=== PATIENT | female | born 1955 | race Caucasian/White ===

== ENCOUNTER 2017-03-07 13:00 | Outpatient (RCR) | payer MEDICARE, SELFPAY ==
[2017-02-05 01:00] VITALS: BP 146/67; PULSE 80; RESP 16; TEMP 36.3; BMI 34.2
[2017-02-07 13:32] VITALS: BP 160/73; PULSE 79; RESP 18; TEMP 36; BMI 34.2
--- NOTE | 2017-02-07 15:49 | PCM.WC.PN ---
(1) PVD (peripheral vascular disease) Status: Chronic Current Visit: Yes Code(s): I73.9 - Peripheral vascular disease, unspecified (2) Diabetes, polyneuropathy Status: Chronic Current Visit: Yes Qualifiers: Diabetes mellitus type: type 2 Code(s): E11.42 - Type 2 diabetes mellitus with diabetic polyneuropathy (3) Delayed wound healing Status: Chronic Current Visit: Yes Code(s): T14.8 - Other injury of unspecified body region (4) Malnutrition Status: Chronic Current Visit: Yes Code(s): E46 - Unspecified protein-calorie malnutrition (5) Gangrene of toe of left foot Status: Resolved Current Visit: No Code(s): I96 - Gangrene, not elsewhere classified (6) Osteomyelitis of toe of left foot Status: Chronic Current Visit: Yes Code(s): M86.9 - Osteomyelitis, unspecified Type of Wound Date of Service: 02/07/17 Chief Complaint: Postoperative left foot History of Wound: This 62-year-old pleasant female who resides at [facility] follows up for an left second toe ulcer site that has healed status post fifth ray resection performed on the left foot. she denies fever, chill, nausea, vomiting, loss of appetite. She has loss of memory. Scheduled to follow-up with Dr. Chase on February 14. Progress of Wound: stable - Physical Exam Vital Signs Temp Pulse Resp BP 96.8 F L 79 18 160/73 H 02/07/17 13:32 02/07/17 13:32 02/07/17 13:32 02/07/17 13:32 General: Alert, Oriented x3, Cooperative Extremities: No cyanosis, Capillary Refill Less than 3 Seconds, No Calf Tenderness, Diminished Peripheral Pulses, Edema, - - There is post fifth ray resection left foot Skin: Incision - Well coapted With sutures in place. There is no necrosis or eschar formation or gangrene. There is no purulence, no maceration, no erythema, no streaking, no odor. The most proximal aspect of the wound is coapted however the distal 85% is not coapting when this tissue was gently mobilized, - - Her skin is hairless and atrophic. Her dorsal left second toe ulcer remains healed and there is full epithelialization noted. No new ulcers are noted today. Wound Measurements and Assessment WC - Nurse 1 - General Ulcer Measurement Start: 02/07/17 13:32 Freq: Status: Active Protocol: Activity Type Activity Date Activity User E-Sign Co-Sign Detail Recorded Client Recorded Date Recorded By Document 02/07/17 13:32 [facility] [id number] 02/07/17 13:50 [facility] 02/07/17 13:32 Wound Center Nurse 1 [Ulcer Assessment Protocol: WC.WD.LOC] #6 post op Left 5th toe s/p amputation -Combined with other wound No -Current Size (cm) - Length 0.1 -Current Size (cm) - Width 0.1 -Current Size (cm) - Depth 0.1 -Total Square Cm 0.01 -Date of Last Picture (Recall this 02/07/17 field) -Photo Taken Yes -Exudate Amt None Present (0 %) -Structure Exposed N/A -Texture (Kirstie-wound Skin Appearance) Localized Edema -Moisture (Kirstie-wound Skin Appearance Maceration ) Dry/Scaly -Color (Kirstie-wound Skin Appearance) Erythema -Temperature (Kirstie-wound Skin No Abnormality Appearance) (Pt Warm) -Tenderness on Palpation (Kirstie-wound Yes Skin Appearance) -Ulcer Cleansing Wound Cleanser -Foul Odor after Cleansing No -Anesthetic Used 5% Lidocaine Gel # 5- LT FOOT 2ND TOE ANTERIOR -Combined with other wound No -Current Size (cm) - Length 0 -Current Size (cm) - Width 0 -Current Size (cm) - Depth 0 -Total Square Cm 0 -Date of Last Picture (Recall this 02/07/17 field) -Photo Taken Yes -Epithelialization Large 67-100% PATRICIA - Nurse 2 - General Ulcer CM Notes Start: 02/07/17 13:32 Freq: Status: Active Protocol: Activity Type Activity Date Activity User E-Sign Co-Sign Detail Recorded Client Recorded Date Recorded By Document 02/07/17 14:08 [id number] 02/07/17 14:11 02/07/17 14:08 Wound Center Nurse 2 [Procedure/Treatment] #6 post op Left 5th toe s/p amputation -Time 14:09 -Correct Patient Yes -Correct Side, Site, Position Yes -Correct Procedure Yes -Procedure Performed Yes -Post Debridement Size (cm) - Length 0.1 -Post Debridement Size (cm) - Width 0.1 -Post Debridement Size (cm) - Depth 0.1 -Total Square Cm 0.01 -Wound/Ulcer Outcome Amputation -Ulcer Cleansing Rinsed/ Irrigated with Saline -Foul Odor after Cleansing No -Bioengineered Tissue No -Cetacaine [place] No -Bleeding Controlled with NA -Other no debridement today sutures intact -Treatment Response Procedure Tolerated Well # 5- LT FOOT 2ND TOE ANTERIOR -Time 14:09 -Correct Patient Yes -Correct Side, Site, Position Yes -Correct Procedure Yes -Procedure Performed Yes -Post Debridement Size (cm) - Length 0 -Post Debridement Size (cm) - Width 0 -Post Debridement Size (cm) - Depth 0 -Total Square Cm 0 -Wound/Ulcer Outcome Healed- Epithelialized -Ulcer Cleansing Rinsed/ Irrigated with Saline -Foul Odor after Cleansing No -Bioengineered Tissue No -Cetacaine [place] No -Bleeding Controlled with NA -Treatment Response Procedure Tolerated Well [See Physician Procedure note for Specifics] Pain Scale: 0-10 Numeric [Pain] -Is Patient Pain Free? Yes Musculoskeletal: No Tenderness to Palpation of Joints or Extremities, Muscle Wasting Neurological: - - Lack of epicritic sensation to light touch Psych/Mental Status: Normal Affect, Appropriate Debridement Note Post-Debridement Measurements/Treatment WC - Nurse 2 - General Ulcer CM Notes Start: 02/07/17 13:32 Freq: Status: Active Protocol: Activity Type Activity Date Activity User E-Sign Co-Sign Detail Recorded Client Recorded Date Recorded By Document 02/07/17 14:08 [id number] 02/07/17 14:11 02/07/17 14:08 Wound Center Nurse 2 #6 post op Left 5th toe s/p amputation -Time 14:09 -Correct Patient Yes -Correct Side, Site, Position Yes -Correct Procedure Yes -Procedure Performed Yes -Post Debridement Size (cm) - Length 0.1 -Post Debridement Size (cm) - Width 0.1 -Post Debridement Size (cm) - Depth 0.1 -Total Square Cm 0.01 -Wound/Ulcer Outcome Amputation -Ulcer Cleansing Rinsed/ Irrigated with Saline -Foul Odor after Cleansing No -Bioengineered Tissue No -Cetacaine [place] No -Bleeding Controlled with NA -Other no debridement today sutures intact -Treatment Response Procedure Tolerated Well # 5- LT FOOT 2ND TOE ANTERIOR -Time 14:09 -Correct Patient Yes -Correct Side, Site, Position Yes -Correct Procedure Yes -Procedure Performed Yes -Post Debridement Size (cm) - Length 0 -Post Debridement Size (cm) - Width 0 -Post Debridement Size (cm) - Depth 0 -Total Square Cm 0 -Wound/Ulcer Outcome Healed- Epithelialized -Ulcer Cleansing Rinsed/ Irrigated with Saline -Foul Odor after Cleansing No -Bioengineered Tissue No -Cetacaine [place] No -Bleeding Controlled with NA -Treatment Response Procedure Tolerated Well Pain Scale: 0-10 Numeric Is Patient Pain Free? Yes No debridement was completed today - This is a postoperative evaluation today Assessment/Plan Active Problems PVD (peripheral vascular disease) (Chronic) Diabetes, polyneuropathy (Chronic) Delayed wound healing (Chronic) Malnutrition (Chronic) Osteomyelitis of toe of left foot (Chronic) Assessment: Status post left fifth ray resection secondary to gangrene and cellulitis. Osteomyelitis at fifth ray resection site clearance fragment. Left second toe ulcer, remains healed. Cellulitis resolving. Diabetes with neuropathy. Hallux limitus right foot. Hammertoes left foot. Delayed healing. Malnutrition. peripheral vascular disease Plan: I reviewed her care plan today. To change the left postoperative fifth ray resection site dressing daily with Betadine soaked gauze. Written orders were provided. To heel weight-bear with surgical shoe to keep pressure off the surgical site to facilitate healing. . Noninvasive arterial vascular studies were ordered and these results were reviewed. She has noncompressible vessels and an ETSRELLA value was not calculated. Her toe brachial index in the right lower extremity was 0.45 which is abnormal and contributing to her delayed healing. A referral to vascular surgeon, Dr. Chase was provided and a doppler was performed. There is lack of healing at the amputation site over the past 2 weeks. It is not infected or necessarily deteriorating however the soft tissue is not coapted. Therefore I do recommend vascular intervention if there is a procedure available. She is scheduled to follow-up with Dr. Chase on February 14, 2017 which this will be further discussed and considered. . To continue nutritional supplementation twice daily to optimize healing. To control glucose levels to optimize healing. She is on Levaquin, 500 mg tablet daily. To continue at this time given her positive pathological clearance fragment for osteomyelitis. Interestingly, her clearance fragment from microbiology did not demonstrate growth. Her previous cultures from her initial surgery grew staph, strep, and anaerobic cocci. Infectious disease is also participating in the management of her care and is scheduled to see her February 21, 2017. Her care plan will be discussed prior to that date to discuss continuation of the levofloxacin or if IV antibiotics are more appropriate given her positive clearance fragment. I also reviewed this plan with her nurse at [facility]. To return to clinic in [address] Chase in 2 weeks at the wound center to see Dr. Herrera and infectious disease. To call sooner if there are any questions or concerns.
--- NOTE | 2017-02-07 16:04 | PN.PCM_ITS ---
(1) PVD (peripheral vascular disease) Status: Chronic Current Visit: Yes Code(s): I73.9 - Peripheral vascular disease, unspecified (2) Diabetes, polyneuropathy Status: Chronic Current Visit: Yes Qualifiers: Diabetes mellitus type: type 2 Code(s): E11.42 - Type 2 diabetes mellitus with diabetic polyneuropathy (3) Delayed wound healing Status: Chronic Current Visit: Yes Code(s): T14.8 - Other injury of unspecified body region (4) Malnutrition Status: Chronic Current Visit: Yes Code(s): E46 - Unspecified protein- calorie malnutrition (5) Gangrene of toe of left foot Status: Resolved Current Visit: No Code(s): I96 - Gangrene, not elsewhere classified (6) Osteomyelitis of toe of left foot Status: Chronic Current Visit: Yes Code(s): M86.9 - Osteomyelitis, unspecified Type of Wound Date of Service: 02/07/17 Chief Complaint: Postoperative left foot History of Wound: This 62-year-old pleasant female who resides at [facility] follows up for an left second toe ulcer site that has healed status post fifth ray resection performed on the left foot. she denies fever, chill, nausea, vomiting, loss of appetite. She has loss of memory. Scheduled to follow- up with Dr. Chase on February 14. Progress of Wound: stable - Physical Exam Vital Signs Temp Pulse Resp BP 96.8 F L 79 18 160/73 H 02/07/17 13:32 02/07/17 13:32 02/07/17 13:32 02/07/17 13:32 General: Alert, Oriented x3, Cooperative Extremities: No cyanosis, Capillary Refill Less than 3 Seconds, No Calf Tenderness, Diminished Peripheral Pulses, Edema, - - There is post fifth ray resection left foot Skin: Incision - Well coapted With sutures in place. There is no necrosis or eschar formation or gangrene. There is no purulence, no maceration, no erythema , no streaking, no odor. The most proximal aspect of the wound is coapted however the distal 85% is not coapting when this tissue was gently mobilized, - - Her skin is hairless and atrophic. Her dorsal left second toe ulcer remains healed and there is full epithelialization noted. No new ulcers are noted today. Wound Measurements and Assessment WC - Nurse 1 - General Ulcer Measurement Start: 02/07/17 13:32 Freq: Status: Active Protocol: Activity Type Activity Date Activity User E-Sign Co-Sign Detail Recorded Client Recorded Date Recorded By Document 02/07/17 13:32 [facility] [id number] 02/07/17 13:50 [facility] 02/07/17 13:32 Wound Center Nurse 1 [Ulcer Assessment Protocol: WC.WD.LOC] #6 post op Left 5th toe s/p amputation -Combined with other wound No -Current Size (cm) - Length 0.1 -Current Size (cm) - Width 0.1 -Current Size (cm) - Depth 0.1 -Total Square Cm 0.01 -Date of Last Picture (Recall this 02/07/17 field) -Photo Taken Yes -Exudate Amt None Present (0 %) -Structure Exposed N/A -Texture (Kirstie-wound Skin Appearance) Localized Edema -Moisture (Kirstie-wound Skin Appearance Maceration ) Dry/Scaly -Color (Kirstie-wound Skin Appearance) Erythema -Temperature (Kirstie-wound Skin No Abnormality Appearance) (Pt Warm) -Tenderness on Palpation (Kirstie-wound Yes Skin Appearance) -Ulcer Cleansing Wound Cleanser -Foul Odor after Cleansing No -Anesthetic Used 5% Lidocaine Gel # 5- LT FOOT 2ND TOE ANTERIOR -Combined with other wound No -Current Size (cm) - Length 0 -Current Size (cm) - Width 0 -Current Size (cm) - Depth 0 -Total Square Cm 0 -Date of Last Picture (Recall this 02/07/17 field) -Photo Taken Yes -Epithelialization Large 67-100% PATRICIA - Nurse 2 - General Ulcer CM Notes Start: 02/07/17 13:32 Freq: Status: Active Protocol: Activity Type Activity Date Activity User E-Sign Co-Sign Detail Recorded Client Recorded Date Recorded By Document 02/07/17 14:08 [id number] 02/07/17 14:11 02/07/17 14:08 Wound Center Nurse 2 [Procedure/Treatment] #6 post op Left 5th toe s/p amputation -Time 14:09 -Correct Patient Yes -Correct Side, Site, Position Yes -Correct Procedure Yes -Procedure Performed Yes -Post Debridement Size (cm) - Length 0.1 -Post Debridement Size (cm) - Width 0.1 -Post Debridement Size (cm) - Depth 0.1 -Total Square Cm 0.01 -Wound/Ulcer Outcome Amputation -Ulcer Cleansing Rinsed/ Irrigated with Saline -Foul Odor after Cleansing No -Bioengineered Tissue No -Cetacaine [place] No -Bleeding Controlled with NA -Other no debridement today sutures intact -Treatment Response Procedure Tolerated Well # 5- LT FOOT 2ND TOE ANTERIOR -Time 14:09 -Correct Patient Yes -Correct Side, Site, Position Yes -Correct Procedure Yes -Procedure Performed Yes -Post Debridement Size (cm) - Length 0 -Post Debridement Size (cm) - Width 0 -Post Debridement Size (cm) - Depth 0 -Total Square Cm 0 -Wound/Ulcer Outcome Healed- Epithelialized -Ulcer Cleansing Rinsed/ Irrigated with Saline -Foul Odor after Cleansing No -Bioengineered Tissue No -Cetacaine [place] No -Bleeding Controlled with NA -Treatment Response Procedure Tolerated Well [See Physician Procedure note for Specifics] Pain Scale: 0-10 Numeric [Pain] -Is Patient Pain Free? Yes Musculoskeletal: No Tenderness to Palpation of Joints or Extremities, Muscle Wasting Neurological: - - Lack of epicritic sensation to light touch Psych/Mental Status: Normal Affect, Appropriate Debridement Note Post-Debridement Measurements/Treatment WC - Nurse 2 - General Ulcer CM Notes Start: 02/07/17 13:32 Freq: Status: Active Protocol: Activity Type Activity Date Activity User E-Sign Co-Sign Detail Recorded Client Recorded Date Recorded By Document 02/07/17 14:08 [id number] 02/07/17 14:11 02/07/17 14:08 Wound Center Nurse 2 #6 post op Left 5th toe s/p amputation -Time 14:09 -Correct Patient Yes -Correct Side, Site, Position Yes -Correct Procedure Yes -Procedure Performed Yes -Post Debridement Size (cm) - Length 0.1 -Post Debridement Size (cm) - Width 0.1 -Post Debridement Size (cm) - Depth 0.1 -Total Square Cm 0.01 -Wound/Ulcer Outcome Amputation -Ulcer Cleansing Rinsed/ Irrigated with Saline -Foul Odor after Cleansing No -Bioengineered Tissue No -Cetacaine [place] No -Bleeding Controlled with NA -Other no debridement today sutures intact -Treatment Response Procedure Tolerated Well # 5- LT FOOT 2ND TOE ANTERIOR -Time 14:09 -Correct Patient Yes -Correct Side, Site, Position Yes -Correct Procedure Yes -Procedure Performed Yes -Post Debridement Size (cm) - Length 0 -Post Debridement Size (cm) - Width 0 -Post Debridement Size (cm) - Depth 0 -Total Square Cm 0 -Wound/Ulcer Outcome Healed- Epithelialized -Ulcer Cleansing Rinsed/ Irrigated with Saline -Foul Odor after Cleansing No -Bioengineered Tissue No -Cetacaine [place] No -Bleeding Controlled with NA -Treatment Response Procedure Tolerated Well Pain Scale: 0-10 Numeric Is Patient Pain Free? Yes No debridement was completed today - This is a postoperative evaluation today Assessment/Plan Active Problems PVD (peripheral vascular disease) (Chronic) Diabetes, polyneuropathy (Chronic) Delayed wound healing (Chronic) Malnutrition (Chronic) Osteomyelitis of toe of left foot (Chronic) Assessment: Status post left fifth ray resection secondary to gangrene and cellulitis. Osteomyelitis at fifth ray resection site clearance fragment. Left second toe ulcer, remains healed. Cellulitis resolving. Diabetes with neuropathy. Hallux limitus right foot. Hammertoes left foot. Delayed healing. Malnutrition. peripheral vascular disease Plan: I reviewed her care plan today. To change the left postoperative fifth ray resection site dressing daily with Betadine soaked gauze. Written orders were provided. To heel weight-bear with surgical shoe to keep pressure off the surgical site to facilitate healing. . Noninvasive arterial vascular studies were ordered and these results were reviewed. She has noncompressible vessels and an ESTRELLA value was not calculated. Her toe brachial index in the right lower extremity was 0.45 which is abnormal and contributing to her delayed healing. A referral to vascular surgeon, Dr. Chase was provided and a doppler was performed. There is lack of healing at the amputation site over the past 2 weeks. It is not infected or necessarily deteriorating however the soft tissue is not coapted. Therefore I do recommend vascular intervention if there is a procedure available. She is scheduled to follow-up with Dr. Chase on February 14, 2017 which this will be further discussed and considered. . To continue nutritional supplementation twice daily to optimize healing. To control glucose levels to optimize healing. She is on Levaquin, 500 mg tablet daily. To continue at this time given her positive pathological clearance fragment for osteomyelitis. Interestingly, her clearance fragment from microbiology did not demonstrate growth. Her previous cultures from her initial surgery grew staph, strep, and anaerobic cocci. Infectious disease is also participating in the management of her care and is scheduled to see her February 21, 2017. Her care plan will be discussed prior to that date to discuss continuation of the levofloxacin or if IV antibiotics are more appropriate given her positive clearance fragment. I also reviewed this plan with her nurse at [facility]. To return to clinic in [address] Chase in 2 weeks at the wound center to see Dr. Herrera and infectious disease. To call sooner if there are any questions or concerns.
[2017-02-21 09:39] VITALS: BP 146/77; PULSE 65; RESP 16; TEMP 35.4; BMI 34.2
--- NOTE | 2017-02-21 10:26 | PCM.PN.ID ---
Subjective: Feeling well, foot healing with no redness/drainage/swelling. Tolerating po levaquin with no fever, n/v/d or new neuropathy. - Physical Exam General: Alert, Cooperative Lungs: Clear to auscultation, Normal air movement Cardiovascular: Regular rate, Regular Rhythm Abdomen: Soft, Non Tender, Non-Distended Skin: No rashes, Incision - L foot incision healing with no sign of inflammation Vital Signs Temp Pulse Resp BP 95.7 F L 65 16 146/77 H 02/21/17 09:39 02/21/17 09:39 02/21/17 09:39 02/21/17 09:39 Oxygen Delivery Method Room Air Body Mass Index (BMI) 34.2 Finger Stick Blood Glucose 390 Route of nutrition/ use of supplements: [] Nutritional Intake: [] IV Site: [] Allen Catheter: [] - Assessment/Plan Antibiotics: [] Assessment/Plan: [] L foot osteo - clearance fragment (+) for osteo. Surg cx with MSSA, GBS, and anaerobe. On levaquin for 6 week course, has two weeks left. Will check bmp, cbc, lft, and esr for routine monitoring; wrote rx for lab work and gave it to her to be done at [facility]. Thank you, will follow as needed, d/w Dr. Herrera.
--- NOTE | 2017-02-21 14:07 | PCM.WC.PN ---
(1) Chronic ulcer of left foot with fat layer exposed Status: Chronic Current Visit: Yes Code(s): L97.522 - Non-pressure chronic ulcer of other part of left foot with fat layer exposed (2) PVD (peripheral vascular disease) Status: Chronic Current Visit: Yes Code(s): I73.9 - Peripheral vascular disease, unspecified (3) Diabetes, polyneuropathy Status: Chronic Current Visit: Yes Qualifiers: Diabetes mellitus type: type 2 Qualified Code(s): E11.42 - Type 2 diabetes mellitus with diabetic polyneuropathy Code(s): E11.42 - Type 2 diabetes mellitus with diabetic polyneuropathy (4) Delayed wound healing Status: Chronic Current Visit: Yes Code(s): T14.8 - Other injury of unspecified body region (5) Malnutrition Status: Chronic Current Visit: Yes Code(s): E46 - Unspecified protein-calorie malnutrition (6) Osteomyelitis of toe of left foot Status: Chronic Current Visit: Yes Code(s): M86.9 - Osteomyelitis, unspecified Type of Wound Date of Service: 02/21/17 Chief Complaint: Postoperative left foot and wound History of Wound: This 62-year-old pleasant female who resides at [facility] post fifth ray resection performed on the left foot. she denies fever, chill, nausea, vomiting, loss of appetite. She has loss of memory. She followed up with vascular surgeon, Dr. Chase, and February 14 and does not remember her care plan. She denies redness, pain, odor of the left foot. Swelling of her right great toe is slightly decreased since last week and she obtained an x-[facility]. Infectious disease will see her a as well due to her positive pathology clearance fragment from her recent fifth ray resection surgery. She is already been on 4 weeks of oral antibiotics. Progress of Wound: Improving - Physical Exam Vital Signs Temp Pulse Resp BP 95.7 F L 65 16 146/77 H 02/21/17 09:39 02/21/17 09:39 02/21/17 09:39 02/21/17 09:39 General: Alert, Oriented x3, Cooperative Extremities: No cyanosis, Capillary Refill Less than 3 Seconds - Left foot digits 1, 2, 3, 4 and right foot 1, 2, 3, 4, 5, No Calf Tenderness - Negative Evelina and [place] sign bilateral, Diminished Peripheral Pulses, Edema - Decreased left foot Skin: Ulcer/ Wound - Sutures removed from surgical site with skin discontinuity at the distal aspect with fibrous base. No probe to bone, no purulence, no erythema, no streaking, no odor, no eschar. Her skin is hairless and atrophic bilateral. There is no open lesion to the right foot and the erythema and edema is decreased to the right hallux. Wound Measurements and Assessment WC - Nurse 1 - General Ulcer Measurement Start: 02/07/17 13:32 Freq: Status: Active Protocol: Activity Type Activity Date Activity User E-Sign Co-Sign Detail Recorded Client Recorded Date Recorded By Document 02/21/17 09:39 TRISTA [id number] 02/21/17 09:42 DL 02/21/17 09:39 Wound Center Nurse 1 [Ulcer Assessment Protocol: WC.WD.LOC] #6 post op Left 5th toe s/p amputation -Combined with other wound No -Current Size (cm) - Length 0.1 -Current Size (cm) - Width 0.1 -Current Size (cm) - Depth 0.1 -Total Square Cm 0.01 -Exudate Amt None Present (0 %) -Moisture (Kirstie-wound Skin Appearance Dry/Scaly ) -Temperature (Kirstie-wound Skin No Abnormality Appearance) (Pt Warm) -Tenderness on Palpation (Kirstie-wound No Skin Appearance) -Ulcer Cleansing Rinsed/ Irrigated with Saline -Foul Odor after Cleansing No WC - Nurse 2 - General Ulcer CM Notes Start: 02/07/17 13:32 Freq: Status: Active Protocol: Activity Type Activity Date Activity User E-Sign Co-Sign Detail Recorded Client Recorded Date Recorded By Document 02/21/17 10:32 KATIA [id number] 02/21/17 10:33 02/21/17 10:32 Wound Center Nurse 2 [Procedure/Treatment] -Time 10:33 -Correct Patient Yes -Correct Side, Site, Position Yes -Correct Procedure Yes -Procedure Performed Yes -Type of Procedure Debridement -Clinical Debridement Subcutaneous -Post Debridement Size (cm) - Length 0.8 -Post Debridement Size (cm) - Width 0.2 -Post Debridement Size (cm) - Depth 0.2 -Total Square Cm 0.16 -Wound/Ulcer Outcome Not Healed -Ulcer Cleansing Rinsed/ Irrigated with Saline -Foul Odor after Cleansing No -Bioengineered Tissue No -Cetacaine [place] No -Bleeding Controlled with Pressure -Treatment Response Procedure Tolerated Well [See Physician Procedure note for Specifics] Pain Scale: 0-10 Numeric [Pain] -Is Patient Pain Free? Yes Musculoskeletal: No Tenderness to Palpation of Joints or Extremities, Muscle Wasting, - - No pain to palpate right hallux. No pain to palpate fifth ray resection left foot site Neurological: - - Lack of epicritic sensation light touch bilateral lower extremities Psych/Mental Status: Normal Affect, Appropriate Debridement Note Post-Debridement Measurements/Treatment WC - Nurse 2 - General Ulcer CM Notes Start: 02/07/17 13:32 Freq: Status: Active Protocol: Activity Type Activity Date Activity User E-Sign Co-Sign Detail Recorded Client Recorded Date Recorded By Document 02/07/17 14:08 [id number] 02/07/17 14:11 TM Document 02/21/17 10:32 [id number] 02/21/17 10:33 02/07/17 02/21/17 14:08 10:32 Wound Center Nurse 2 #6 post op Left 5th toe s/p amputation -Time 14:09 10:33 -Correct Patient Yes Yes -Correct Side, Site, Position Yes Yes -Correct Procedure Yes Yes -Procedure Performed Yes Yes -Type of Procedure Debridement -Clinical Debridement Subcutaneous -Post Debridement Size (cm) - Length 0.1 0.8 -Post Debridement Size (cm) - Width 0.1 0.2 -Post Debridement Size (cm) - Depth 0.1 0.2 -Total Square Cm 0.01 0.16 -Wound/Ulcer Outcome Amputation Not Healed -Ulcer Cleansing Rinsed/ Rinsed/ Irrigated with Irrigated with Saline Saline -Foul Odor after Cleansing No No -Bioengineered Tissue No No -Cetacaine [place] No No -Bleeding Controlled with NA Pressure -Other no debridement today sutures intact -Treatment Response Procedure Procedure Tolerated Well Tolerated Well # 5- LT FOOT 2ND TOE ANTERIOR -Time 14:09 -Correct Patient Yes -Correct Side, Site, Position Yes -Correct Procedure Yes -Procedure Performed Yes -Post Debridement Size (cm) - Length 0 -Post Debridement Size (cm) - Width 0 -Post Debridement Size (cm) - Depth 0 -Total Square Cm 0 -Wound/Ulcer Outcome Healed- Epithelialized -Ulcer Cleansing Rinsed/ Irrigated with Saline -Foul Odor after Cleansing No -Bioengineered Tissue No -Cetacaine [place] No -Bleeding Controlled with NA -Treatment Response Procedure Tolerated Well Pain Scale: 0-10 Numeric Is Patient Pain Free? Yes Yes Wound debrided: Distal fifth ray resection site Laterality: Left Wound Grade/Stage: Grade 3 Type of Debridement: Excisional debridement Anesthesia Used: 4% Lidocaine Solution Depth: in the subcutaneous layer Percentage of wound debrided: 100 Instrument Used: #15 blade Tissue Removed: biofilm, slough, fibrous, devitalized subcutaneous Severity: Fat Layer Exposed Amount of bleeding with debridement: Mild Bleeding Controlled with: Pressure Patient tolerated procedure well Assessment/Plan Active Problems PVD (peripheral vascular disease) (Chronic) Diabetes, polyneuropathy (Chronic) Delayed wound healing (Chronic) Malnutrition (Chronic) Osteomyelitis of toe of left foot (Chronic) Chronic ulcer of left foot with fat layer exposed (Chronic) Assessment: Status post left fifth ray resection secondary to gangrene and cellulitis. Osteomyelitis at fifth ray resection site clearance fragment. Ulcer with fat layer exposed left foot. Right hallux interphalangeal joint fragmentation; possible osteomyelitis versus other traumatic injury. Cellulitis resolving bilateral. Diabetes with neuropathy. Hallux limitus right foot. Hammertoes left foot. Delayed healing. Malnutrition. peripheral vascular disease Plan: I reviewed her care plan today. Debridement was performed as noted in the clinical panel nursing note. To change the left postoperative fifth ray resection site dressing daily with Santyl applied to the open distal aspect. The last suture was removed today and Steri-Strips were placed. Written orders were provided. To heel weight-bear with surgical shoe to keep pressure off the surgical site to facilitate healing. . Noninvasive arterial vascular studies were ordered and these results were reviewed. She has noncompressible vessels and an ESTRELLA value was not calculated. Her toe brachial index in the right lower extremity was 0.45 which is abnormal and contributing to her delayed healing. A referral to vascular surgeon, Dr. Chase was provided and a doppler was performed. She is demonstrating some delayed healing and I have requested Dr. Chase's most recent office visit note. He has contacted me earlier this week and plans to follow in 6 months. If there is a status change prior to that time, an angio will be considered. . To continue nutritional supplementation twice daily to optimize healing. To control glucose levels to optimize healing. She is on Levaquin, 500 mg tablet daily. To continue at this time given her positive pathological clearance fragment for osteomyelitis. She was also seen by infectious disease, Dr. Timmons, who recommend she complete a 6 week course of her antibiotic. Repeat labs were ordered including CBC, liver enzymes, ESR, C reactive protein. I reviewed her right foot x-ray results with her today as well. She understands there is some fragmentation by her hallux interphalangeal joint which could be a result of a trauma or osteomyelitis. She understands the oral antibiotics she is taking may help with this site as well. To continue with stiff rigid supportive shoes to avoid stress to this joint. She understands a bone biopsy, debridement, excision of the fragment will be considered if her status changes. However at this time she is stable and she is demonstrating clinical improvement and I do not recommend treating a new wound or surgical site at this time due to her peripheral vascular disease and history of delayed healing. She understands and answered all of her questions. This site will be monitored. To return to the wound care center clinic in 1 week. To call sooner if there are any questions or concerns.
[2017-02-28 13:11] VITALS: BP 140/70; PULSE 69; RESP 18; TEMP 35.8; BMI 34.2
--- NOTE | 2017-02-28 23:23 | PCM.WC.PN ---
(1) Chronic ulcer of left foot with fat layer exposed Status: Chronic Code(s): L97.522 - Non-pressure chronic ulcer of other part of left foot with fat layer exposed (2) PVD (peripheral vascular disease) Status: Chronic Code(s): I73.9 - Peripheral vascular disease, unspecified (3) Diabetes, polyneuropathy Status: Chronic Qualifiers: Diabetes mellitus type: type 2 Qualified Code(s): E11.42 - Type 2 diabetes mellitus with diabetic polyneuropathy Code(s): E11.42 - Type 2 diabetes mellitus with diabetic polyneuropathy (4) Delayed wound healing Status: Chronic Code(s): T14.8 - Other injury of unspecified body region (5) Malnutrition Status: Chronic Code(s): E46 - Unspecified protein-calorie malnutrition (6) Osteomyelitis of toe of left foot Status: Chronic Code(s): M86.9 - Osteomyelitis, unspecified Type of Wound Date of Service: 03/03/17 Chief Complaint: Postoperative left foot and wound History of Wound: This 62-year-old pleasant female who resides at [facility] post fifth ray resection performed on the left foot. she denies fever, chill, nausea, vomiting, loss of appetite. She has loss of memory. She followed up with vascular surgeon, Dr. Chase, and February 14 and does not remember her care plan. She denies redness, pain, odor of the left foot. Progress of Wound: Improving - Physical Exam Vital Signs Temp Pulse Resp BP 96.4 F L 69 18 140/70 H 02/28/17 13:11 02/28/17 13:11 02/28/17 13:11 02/28/17 13:11 General: Alert, Oriented x3, Cooperative Extremities: No cyanosis, Capillary Refill Less than 3 Seconds, No Calf Tenderness, Diminished Peripheral Pulses, Edema Skin: Ulcer/ Wound - no purulence, no erythema, no odor, no streaking, no infection. atrophic skin noted Wound Measurements and Assessment WC - Nurse 1 - General Ulcer Measurement Start: 02/07/17 13:32 Freq: Status: Active Protocol: Activity Type Activity Date Activity User E-Sign Co-Sign Detail Recorded Client Recorded Date Recorded By Document 02/28/17 13:11 [facility] [id number] 02/28/17 13:18 [facility] 02/28/17 13:11 Wound Center Nurse 1 [Ulcer Assessment Protocol: WC.WD.LOC] #6 post op Left 5th toe s/p amputation -Combined with other wound No -Current Size (cm) - Length 0.4 -Current Size (cm) - Width 0.5 -Current Size (cm) - Depth 0.5 -Total Square Cm 0.20 -Photo Taken No -Tunneling No -Undermining/Tunneling No -Exudate Amt Small (1-33%) -Exudate Type Serosanguineous -Wound Margin Distinct, Outline Attached -Granulation Amt None Present (0 %) -Slough/Fibrin Yes -Necrosis Amt Large (67-100%) -Necrotic Tissue Type Adherent Slough -Texture (Kirstie-wound Skin Appearance) Scarring -Moisture (Kirstie-wound Skin Appearance Assessed ) -Color (Kirstie-wound Skin Appearance) Erythema -Temperature (Kirstie-wound Skin No Abnormality Appearance) (Pt Warm) -Tenderness on Palpation (Kirstie-wound No Skin Appearance) -Ulcer Cleansing Rinsed/ Irrigated with Saline -Foul Odor after Cleansing No -Anesthetic Used 5% Lidocaine Gel [Edema Assessment] -Lower Limb Edema Present Yes -Left Calf (cm) 34.7 -Left Ankle (cm) 20.6 - Nurse 2 - General Ulcer CM Notes Start: 02/07/17 13:32 Freq: Status: Active Protocol: Activity Type Activity Date Activity User E-Sign Co-Sign Detail Recorded Client Recorded Date Recorded By Document 02/28/17 13:36 KATIA [id number] 02/28/17 13:36 KATIA 02/28/17 13:36 Wound Center Nurse 2 [Procedure/Treatment] #6 post op Left 5th toe s/p amputation -Time 13:36 -Correct Patient Yes -Correct Side, Site, Position Yes -Correct Procedure Yes -Procedure Performed Yes -Type of Procedure Debridement -Clinical Debridement Subcutaneous -Post Debridement Size (cm) - Length 0.5 -Post Debridement Size (cm) - Width 0.5 -Post Debridement Size (cm) - Depth 0.5 -Total Square Cm 0.25 -Wound/Ulcer Outcome Not Healed -Ulcer Cleansing Rinsed/ Irrigated with Saline -Foul Odor after Cleansing No -Bioengineered Tissue No -Cetacaine [place] No -Bleeding Controlled with Pressure -Treatment Response Procedure Tolerated Well [See Physician Procedure note for Specifics] Pain Scale: 0-10 Numeric [Pain] -Is Patient Pain Free? Yes Musculoskeletal: Muscle Wasting, - - fifth ray resection left foot Neurological: - - lack of epicritic sensation via light touch noted Psych/Mental Status: Normal Affect, Appropriate Debridement Note Post-Debridement Measurements/Treatment WC - Nurse 2 - General Ulcer CM Notes Start: 02/07/17 13:32 Freq: Status: Active Protocol: Activity Type Activity Date Activity User E-Sign Co-Sign Detail Recorded Client Recorded Date Recorded By Document 02/07/17 14:08 [id number] 02/07/17 14:11 Document 02/21/17 10:32 [id number] 02/21/17 10:33 Document 02/28/17 13:36 [id number] 02/28/17 13:36 02/07/17 02/21/17 02/28/17 14:08 10:32 13:36 Wound Center Nurse 2 #6 post op Left 5th toe s/p amputation -Time 14:09 10:33 13:36 -Correct Patient Yes Yes Yes -Correct Side, Site, Position Yes Yes Yes -Correct Procedure Yes Yes Yes -Procedure Performed Yes Yes Yes -Type of Procedure Debridement Debridement -Clinical Debridement Subcutaneous Subcutaneous -Post Debridement Size (cm) - Length 0.1 0.8 0.5 -Post Debridement Size (cm) - Width 0.1 0.2 0.5 -Post Debridement Size (cm) - Depth 0.1 0.2 0.5 -Total Square Cm 0.01 0.16 0.25 -Wound/Ulcer Outcome Amputation Not Healed Not Healed -Ulcer Cleansing Rinsed/ Rinsed/ Rinsed/ Irrigated with Irrigated with Irrigated with Saline Saline Saline -Foul Odor after Cleansing No No No -Bioengineered Tissue No No No -Cetacaine [place] No No No -Bleeding Controlled with NA Pressure Pressure -Other no debridement today sutures intact -Treatment Response Procedure Procedure Procedure Tolerated Well Tolerated Well Tolerated Well # 5- LT FOOT 2ND TOE ANTERIOR -Time 14:09 -Correct Patient Yes -Correct Side, Site, Position Yes -Correct Procedure Yes -Procedure Performed Yes -Post Debridement Size (cm) - Length 0 -Post Debridement Size (cm) - Width 0 -Post Debridement Size (cm) - Depth 0 -Total Square Cm 0 -Wound/Ulcer Outcome Healed- Epithelialized -Ulcer Cleansing Rinsed/ Irrigated with Saline -Foul Odor after Cleansing No -Bioengineered Tissue No -Cetacaine [place] No -Bleeding Controlled with NA -Treatment Response Procedure Tolerated Well Pain Scale: 0-10 Numeric Is Patient Pain Free? Yes Yes Yes Wound debrided: distal lateral foot Laterality: Left Wound Grade/Stage: grade 1, previous surgical site Type of Debridement: Excisional debridement Anesthesia Used: 4% Lidocaine Solution Depth: in the subcutaneous layer Percentage of wound debrided: 100 Instrument Used: #15 blade Tissue Removed: Fibrous, devitalized subcutaneous, biofilm, slough Severity: Fat Layer Exposed Amount of bleeding with debridement: Mild Bleeding Controlled with: Pressure Patient tolerated procedure well Assessment/Plan Assessment: wound left foot fat exposed. Cellulitis resolving bilateral. Diabetes with neuropathy. Hallux limitus right foot. Hammertoes left foot. Delayed healing. Malnutrition. peripheral vascular disease Plan: I reviewed her care plan today. Debridement was performed as noted in the clinical panel nursing note. To change the left postoperative fifth ray resection site dressing daily with Santyl applied to the open distal aspect. The last suture was removed today and Steri-Strips were placed. Written orders were provided. To heel weight-bear with surgical shoe to keep pressure off the surgical site to facilitate healing. . Noninvasive arterial vascular studies were ordered and these results were reviewed. She has noncompressible vessels and an ESTRELLA value was not calculated. Her toe brachial index in the right lower extremity was 0.45 which is abnormal and contributing to her delayed healing. A referral to vascular surgeon, Dr. Chase was provided and a doppler was performed. She is demonstrating some delayed healing and I have requested Dr. Chase's most recent office visit note. He has contacted me earlier this week and plans to follow in 6 months. If there is a status change prior to that time, an angio will be considered. . To continue nutritional supplementation twice daily to optimize healing. To control glucose levels to optimize healing. She is on Levaquin, 500 mg tablet daily. To continue at this time given her positive pathological clearance fragment for osteomyelitis. She was also seen by infectious disease, Dr. Timmons, who recommend she complete a 6 week course of her antibiotic. Repeat labs were ordered including CBC, liver enzymes, ESR, C reactive protein. I reviewed her right foot x-ray results with her today as well. She understands there is some fragmentation by her hallux interphalangeal joint which could be a result of a trauma or osteomyelitis. She understands the oral antibiotics she is taking may help with this site as well. To continue with stiff rigid supportive shoes to avoid stress to this joint. She understands a bone biopsy, debridement, excision of the fragment will be considered if her status changes. However at this time she is stable and she is demonstrating clinical improvement and I do not recommend treating a new wound or surgical site at this time due to her peripheral vascular disease and history of delayed healing. She understands and answered all of her questions. This site will be monitored. To return to the wound care center clinic in 1 week. To call sooner if there are any questions or concerns.
[2017-03-07 13:18] VITALS: BP 110/61; PULSE 70; RESP 16; TEMP 36.2; BMI 34.2
--- NOTE | 2017-03-07 15:02 | PCM.WC.PN ---
(1) Chronic ulcer of left foot with fat layer exposed Status: Chronic Current Visit: Yes Code(s): L97.522 - Non-pressure chronic ulcer of other part of left foot with fat layer exposed (2) PVD (peripheral vascular disease) Status: Chronic Current Visit: Yes Code(s): I73.9 - Peripheral vascular disease, unspecified (3) Diabetes, polyneuropathy Status: Chronic Current Visit: Yes Qualifiers: Diabetes mellitus type: type 2 Qualified Code(s): E11.42 - Type 2 diabetes mellitus with diabetic polyneuropathy Code(s): E11.42 - Type 2 diabetes mellitus with diabetic polyneuropathy (4) Malnutrition Status: Chronic Current Visit: Yes Code(s): E46 - Unspecified protein-calorie malnutrition (5) Osteomyelitis of toe of left foot Status: Resolved Current Visit: Yes Code(s): M86.9 - Osteomyelitis, unspecified (6) Delayed wound healing Status: Acute Current Visit: Yes Code(s): T14.8XXD - Other injury of unspecified body region, subsequent encounter Type of Wound Date of Service: 03/07/17 Chief Complaint: Postoperative left foot and wound History of Wound: This 62-year-old pleasant female who resides at [facility] post fifth ray resection performed on the left foot. she denies fever, chill, nausea, vomiting, loss of appetite. She has loss of memory. She denies redness, pain, odor of the left foot. She is also followed by vascular surgery. Progress of Wound: Improving - Physical Exam Vital Signs Temp Pulse Resp BP 97.1 F L 70 16 110/61 03/07/17 13:18 03/07/17 13:18 03/07/17 13:18 03/07/17 13:18 General: Alert, Oriented x3, Cooperative Extremities: No cyanosis, Capillary Refill Less than 3 Seconds, No Calf Tenderness - Negative [place] and [place] bilateral, Diminished Peripheral Pulses, Edema - Minimal left forefoot and resolved to right great toe, - - Left fifth ray resection surgical procedure noted Skin: Ulcer/ Wound - Distal portion of fifth ray resection incision has continued nonhealing. There is no purulence, no odor, no erythema, no streaking, no necrosis, no probe to bone. The bases fibrous and granular. Her adjacent skin is atrophic. Wound Measurements and Assessment WC - Nurse 1 - General Ulcer Measurement Start: 02/07/17 13:32 Freq: Status: Active Protocol: Activity Type Activity Date Activity User E-Sign Co-Sign Detail Recorded Client Recorded Date Recorded By Document 03/07/17 13:18 TN [id number] 03/07/17 13:20 TN 03/07/17 13:18 Wound Center Nurse 1 [Ulcer Assessment Protocol: WC.WD.LOC] #6 post op Left 5th toe s/p amputation -Combined with other wound No -Current Size (cm) - Length 0.6 -Current Size (cm) - Width 1 -Current Size (cm) - Depth 0.2 -Total Square Cm 0.6 -Photo Taken No -Epithelialization None Present -Tunneling No -Undermining/Tunneling No -Circular Undermining No -Classification - Thickness Full Thickness without Exposed Support Structure -Exudate Amt Small (1-33%) -Exudate Type Serosanguineous -Wound Margin Distinct, Outline Attached -Granulation Amt None Present (0 %) -Slough/Fibrin Yes -Necrosis Amt Large (67-100%) -Necrotic Tissue Type Adherent Slough -Structure Exposed None/Limited to Skin Breakdown -Texture (Kirstie-wound Skin Appearance) Assessed Localized Edema -Moisture (Kirstie-wound Skin Appearance Assessed ) Maceration -Color (Kirstie-wound Skin Appearance) Assessed Erythema -Temperature (Kirstie-wound Skin No Abnormality Appearance) (Pt Warm) -Tenderness on Palpation (Kirstie-wound No Skin Appearance) -Ulcer Cleansing Rinsed/ Irrigated with Saline -Foul Odor after Cleansing No -Anesthetic Used 5% Lidocaine Gel [Edema Assessment] -Lower Limb Edema Present No -Left Calf (cm) 35 -Left Ankle (cm) 21 - Nurse 2 - General Ulcer CM Notes Start: 02/07/17 13:32 Freq: Status: Active Protocol: Activity Type Activity Date Activity User E-Sign Co-Sign Detail Recorded Client Recorded Date Recorded By Document 03/07/17 13:40 KATIA [id number] 03/07/17 13:41 KATIA 03/07/17 13:40 Wound Center Nurse 2 [Procedure/Treatment] #6 post op Left 5th toe s/p amputation -Time 13:40 -Correct Patient Yes -Correct Side, Site, Position Yes -Correct Procedure Yes -Procedure Performed Yes -Type of Procedure Debridement -Clinical Debridement Subcutaneous -Post Debridement Size (cm) - Length 0.7 -Post Debridement Size (cm) - Width 1.1 -Post Debridement Size (cm) - Depth 0.2 -Total Square Cm 0.77 -Wound/Ulcer Outcome Not Healed -Ulcer Cleansing Rinsed/ Irrigated with Saline -Foul Odor after Cleansing No -Bioengineered Tissue No -Cetacaine [place] No -Bleeding Controlled with Pressure -Treatment Response Procedure Tolerated Well [See Physician Procedure note for Specifics] Pain Scale: 0-10 Numeric [Pain] -Is Patient Pain Free? Yes Musculoskeletal: No Tenderness to Palpation of Joints or Extremities, Muscle Wasting Neurological: - - Lack of epicritic sensation to light touch left foot Psych/Mental Status: Normal Affect, Appropriate Debridement Note Post-Debridement Measurements/Treatment WC - Nurse 2 - General Ulcer CM Notes Start: 02/07/17 13:32 Freq: Status: Active Protocol: Activity Type Activity Date Activity User E-Sign Co-Sign Detail Recorded Client Recorded Date Recorded By Document 02/07/17 14:08 [id number] 02/07/17 14:11 Document 02/21/17 10:32 [id number] 02/21/17 10:33 Document 02/28/17 13:36 [id number] 02/28/17 13:36 Document 03/07/17 13:40 [id number] 03/07/17 13:41 02/07/17 02/21/17 02/28/17 14:08 10:32 13:36 Wound Center Nurse 2 #6 post op Left 5th toe s/p amputation -Time 14:09 10:33 13:36 -Correct Patient Yes Yes Yes -Correct Side, Site, Position Yes Yes Yes -Correct Procedure Yes Yes Yes -Procedure Performed Yes Yes Yes -Type of Procedure Debridement Debridement -Clinical Debridement Subcutaneous Subcutaneous -Post Debridement Size (cm) - Length 0.1 0.8 0.5 -Post Debridement Size (cm) - Width 0.1 0.2 0.5 -Post Debridement Size (cm) - Depth 0.1 0.2 0.5 -Total Square Cm 0.01 0.16 0.25 -Wound/Ulcer Outcome Amputation Not Healed Not Healed -Ulcer Cleansing Rinsed/ Rinsed/ Rinsed/ Irrigated with Irrigated with Irrigated with Saline Saline Saline -Foul Odor after Cleansing No No No -Bioengineered Tissue No No No -Cetacaine [place] No No No -Bleeding Controlled with NA Pressure Pressure -Other no debridement today sutures intact -Treatment Response Procedure Procedure Procedure Tolerated Well Tolerated Well Tolerated Well # 5- LT FOOT 2ND TOE ANTERIOR -Time 14:09 -Correct Patient Yes -Correct Side, Site, Position Yes -Correct Procedure Yes -Procedure Performed Yes -Post Debridement Size (cm) - Length 0 -Post Debridement Size (cm) - Width 0 -Post Debridement Size (cm) - Depth 0 -Total Square Cm 0 -Wound/Ulcer Outcome Healed- Epithelialized -Ulcer Cleansing Rinsed/ Irrigated with Saline -Foul Odor after Cleansing No -Bioengineered Tissue No -Cetacaine [place] No -Bleeding Controlled with NA -Treatment Response Procedure Tolerated Well Pain Scale: 0-10 Numeric Is Patient Pain Free? Yes Yes Yes 03/07/17 13:40 Wound Center Nurse 2 #6 post op Left 5th toe s/p amputation -Time 13:40 -Correct Patient Yes -Correct Side, Site, Position Yes -Correct Procedure Yes -Procedure Performed Yes -Type of Procedure Debridement -Clinical Debridement Subcutaneous -Post Debridement Size (cm) - Length 0.7 -Post Debridement Size (cm) - Width 1.1 -Post Debridement Size (cm) - Depth 0.2 -Total Square Cm 0.77 -Wound/Ulcer Outcome Not Healed -Ulcer Cleansing Rinsed/ Irrigated with Saline -Foul Odor after Cleansing No -Bioengineered Tissue No -Cetacaine [place] No -Bleeding Controlled with Pressure -Other -Treatment Response Procedure Tolerated Well # 5- LT FOOT 2ND TOE ANTERIOR -Time -Correct Patient -Correct Side, Site, Position -Correct Procedure -Procedure Performed -Post Debridement Size (cm) - Length -Post Debridement Size (cm) - Width -Post Debridement Size (cm) - Depth -Total Square Cm -Wound/Ulcer Outcome -Ulcer Cleansing -Foul Odor after Cleansing -Bioengineered Tissue -Cetacaine [place] -Bleeding Controlled with -Treatment Response Pain Scale: 0-10 Numeric Is Patient Pain Free? Yes Wound debrided: distal amputation stump site Laterality: Left Wound Grade/Stage: Grade 1 Type of Debridement: Excisional debridement Anesthesia Used: 4% Lidocaine Solution Depth: in the subcutaneous layer Percentage of wound debrided: 100 Instrument Used: #15 blade Tissue Removed: Fibrous, devitalized subcutaneous, biofilm, slough Severity: Fat Layer Exposed Amount of bleeding with debridement: Mild Bleeding Controlled with: Pressure Patient tolerated procedure well Assessment/Plan Active Problems PVD (peripheral vascular disease) (Chronic) Diabetes, polyneuropathy (Chronic) Delayed wound healing (Chronic) Malnutrition (Chronic) Chronic ulcer of left foot with fat layer exposed (Chronic) Delayed wound healing (Acute) Assessment: wound left foot fat exposed. Cellulitis resolved. Diabetes with neuropathy. Hallux limitus right foot. Hammertoes left foot. Delayed healing. Malnutrition. peripheral vascular disease Plan: I reviewed her care plan today. Debridement was performed as noted in the clinical panel nursing note in an excisional manner. The wound margins were mobilized and reapproximated with 3-0 Prolene utilizing vertical mattress technique to allow good skin edge eversion in a non-tensile manner. This was performed as a delayed primary closure. Verbal consent was obtained and the area was prepped with Betadine prior to performing this procedure. She tolerated this well due to her lack of feeling from her neuropathy. Pressure was applied to maintain hemostasis. To change the left postoperative fifth ray resection site dressing daily with betadine. To heel weight-bear with surgical shoe to keep pressure off the surgical site to facilitate healing. . Noninvasive arterial vascular studies were ordered and these results were reviewed. She has noncompressible vessels and an ESTRELLA value was not calculated. Her toe brachial index in the right lower extremity was 0.45 which is abnormal and contributing to her delayed healing. A referral to vascular surgeon, Dr. Chase was provided and a doppler was performed. She is demonstrating some delayed healing and I have requested Dr. Chase's most recent office visit note. He has contacted me earlier this week and plans to follow in 6 months. If there is a status change prior to that time, an angio will be considered. . To continue nutritional supplementation twice daily to optimize healing. To control glucose levels to optimize healing. She is on Levaquin, 500 mg tablet daily. To continue at this time given her positive pathological clearance fragment for osteomyelitis. She was also seen by infectious disease, Dr. Timmons, who recommend she complete a 6 week course of her antibiotic. Repeat labs were ordered including CBC, liver enzymes, ESR, C reactive protein. I reviewed her right foot x-ray results with her today as well. She understands there is some fragmentation by her hallux interphalangeal joint which could be a result of a trauma or osteomyelitis. She understands the oral antibiotics she is taking may help with this site as well. To continue with stiff rigid supportive shoes to avoid stress to this joint. She understands a bone biopsy, debridement, excision of the fragment will be considered if her status changes. However at this time she is stable and she is demonstrating clinical improvement and I do not recommend treating a new wound or surgical site at this time due to her peripheral vascular disease and history of delayed healing. She understands and answered all of her questions. This site will be monitored. To return to the wound care center clinic in 1 week. To call sooner if there are any questions or concerns.
== END 2017-03-07 23:59 ==
LOC: WC 13:00
PROVIDERS: Family Provider Family Medicine; PCP Family Medicine; Visit Provider Podiatrist
DX: E11.51 Type 2 diabetes mellitus with diabetic peripheral angiopathy without gangrene (principal); E11.42 Type 2 diabetes mellitus with diabetic polyneuropathy; M86.672 Other chronic osteomyelitis, left ankle and foot; E11.622 Type 2 diabetes mellitus with other skin ulcer; L97.522 Non-pressure chronic ulcer of other part of left foot with fat layer exposed; R60.0 Localized edema; R09.89 Other specified symptoms and signs involving the circulatory and respiratory systems; Z89.422 Acquired absence of other left toe(s)
CPT/HCPCS: 11042; 97602; 99213; G0463

== ENCOUNTER 2017-03-09 13:52 | Emergency (ER) | payer MEDICARE, SELFPAY ==
[2017-03-09 13:55] VITALS: BP 111/72; PULSE 68; RESP 17; TEMP 36.7; O2SAT 99; BMI 34.5
--- NOTE | 2017-03-09 14:20 | RAD_ITS ---
STUDY: X-RAY - LEFT FOOT CLINICAL: Female, 62 years old. Left foot cellulitis. Recent amputation of the fifth toe. TECHNIQUE: 3 view(s) of the foot. COMPARISON: Comparison is made with prior examination dated January 25, 2017. FINDINGS: There is a plantar calcaneal spur. Normal visualized subtalar, talonavicular, calcaneocuboid, tarsal and tarsometatarsal articulations. The patient is status post resection of the distal aspect of the fifth metatarsal and fifth toe. Normal metatarsophalangeal joint of the great toe. Normal tibial and fibular sesamoid bones. Normal interphalangeal joint of the great toe. Normal phalanges of the great toe. Normal second through fifth metatarsophalangeal joints. Normal interphalangeal joints and phalanges of the lesser toes. There is non-specific soft tissue swelling of the foot. Vascular calcification. RAD/Foot min 3 Views IMPRESSION: Soft tissue swelling. Prior amputation of the fifth toe and distal fifth metatarsal. Electronically Signed: Derrek Kaur MD at 14:57 EST Tel [phone], Service support ,
[2017-03-09 14:25] LABS: Basophil# 0.03 X10^3/uL; Basophil% 0.5 % (0-1); Eosinophil# 0.23 X10^3/uL; Eosinophils% 3.9 % (0-5); Hematocrit 36.1 % (37-47); Hemoglobin 11.9 g/dl (12.0-15.0); Lymphocyte % 33.7 % (19-41); Mean Corpuscular Hgb 29.9 pg (27.0-32.0); Mean Corpuscular Volume 90.7 fL (81-99); Mean Platelet Vol. 10.1 fl (6.2-12.0); Monocyte# 0.62 X10^3/uL; Monocyte% 10.5 % (0-10); Neutrophil # 3.04 X10^3/uL (2.7-7.7); Neutrophil % 51.2 % (47-70); POSITIVE COUNT NO; POSITIVE DIFFERENTIAL NO; POSITIVE MORPHOLOGY NO; Platelet Count 248 K/mm3 (150-450); RBC Distribution Width CV 12.9 % (11.6-14.6); RBC Distribution Width SD 42.9 fl (35.1-43.9); Red Blood Count 3.98 M/mm3 (4.2-5.4); White Blood Count 5.9 K/mm3 (4.4-11.0)
[2017-03-09 14:35] LABS: Anion Gap 6 (5-15); BUN 23 mg/dL (7-18); BUN/Creat Ratio 23.1 RATIO (10-20); Calcium,Total 8.3 mg/dL (8.5-10.1); Chloride 105 mmol/L (98-107); EST Glomerular Filtration Rate 60 mL/min (>60); Est Glom Filt Rate - Afr Amer 73 mL/min (>60); Estimated Creatinine Clearance 53.16 ml/min; Glucose 99 mg/dL (74-106); Potassium 4.4 mmol/L (3.5-5.1); Sodium Level 139 mmol/L (136-145)
[2017-03-09] MEDS: levoFLOXacin 500 MG Tablet PO (15:00)
[2017-03-09 15:09] VITALS: BP 118/73; PULSE 65; RESP 16; O2SAT 97
--- NOTE | 2017-03-09 15:09 | ED.DCSUM_ITS ---
- ER Visit Summary Date of Service: 03/09/17 Chief Complaint: Left foot redness History of Present Illness: The patient is a 62 F who has redness of the left foot. She had an amputation of her left fifth toe for osteomyelitis back in January. The detention sent her in today because of some redness of the foot. She has had wound care for this. Has not had a fever. She denies any significant pain. Physical Examination: Vital signs are reviewed. Left foot reveals a wound of the fifth toe area. There are [address] There is a that is been amputated. There is mild erythema at that area. No abscess, pus or drainage Test Results: White count normal. X-ray of the foot reveals some swelling but no osteomyelitis Emergency Department Course and Treatment: I spoke with Dr. Herrera. I read her note and it says that the patient's was to be on Levaquin. She is not currently taking this. I do not feel she needs to be admitted for this. We will start her back on the Levaquin. She will see the patient back in the wound clinic. Treatment Plan: [] Disposition: Discharge Impression: Left foot wound This note was generated with [employer] dictation software. It may contain incorrect words, spelling, and punctuation that were not noted in review of the chart prior to signing ED Disposition - Plan for ED Patient: Chief Complaint: Cellulitis Referrals: Care Physician,No Primary [Primary Care Provider] -
--- NOTE | 2017-03-09 15:09 | ED.DEP ---
ED Disposition - Plan for ED Patient: Disposition: Home or Assisted Living Chief Complaint: Cellulitis Instructions: ED Wound Infec After Surgery Prescriptions: Levofloxacin [Levaquin] 500 mg PO DAILY #10 tab Referrals: Care Physician,No Primary [Primary Care Provider] -
[2017-03-09 15:16] VITALS: BP 108/61; PULSE 78; RESP 16; O2SAT 97
[2017-03-09 16:27] VITALS: PULSE 72; RESP 16; O2SAT 98
== END 2017-03-09 16:28 | disposition home or self-care (01) ==
PROVIDERS: Emergency Provider Emergency Medicine
DX: S91.302A Unspecified open wound, left foot, initial encounter (principal); X58.XXXA Exposure to other specified factors, initial encounter; Y93.9 Activity, unspecified; Y92.9 Unspecified place or not applicable; Y99.9 Unspecified external cause status; I25.10 Atherosclerotic heart disease of native coronary artery without angina pectoris; J44.9 Chronic obstructive pulmonary disease, unspecified; I10 Essential (primary) hypertension; E11.9 Type 2 diabetes mellitus without complications; D64.9 Anemia, unspecified; K21.9 Gastro-esophageal reflux disease without esophagitis; Z89.422 Acquired absence of other left toe(s); Z79.02 Long term (current) use of antithrombotics/antiplatelets; Z79.82 Long term (current) use of aspirin; Z79.4 Long term (current) use of insulin; Z79.899 Other long term (current) drug therapy
CPT/HCPCS: 36415; 73630; 80048; 85025; 99285; A4216

== ENCOUNTER 2017-04-04 13:00 | Outpatient (RCR) | payer MEDICARE, SELFPAY ==
[2017-03-07 13:18] VITALS: BP 110/61
[2017-03-08 00:41] VITALS: PULSE 70; RESP 16; TEMP 36.2
[2017-03-21 13:13] VITALS: BP 123/68; PULSE 80; RESP 18; TEMP 36.2; BMI 34.2
--- NOTE | 2017-03-21 14:41 | PN.PCM_ITS ---
(1) Chronic ulcer of left foot with fat layer exposed Status: Chronic Current Visit: Yes Code(s): L97.522 - Non-pressure chronic ulcer of other part of left foot with fat layer exposed (2) Type 2 diabetes mellitus with diabetic polyneuropathy Status: Chronic Current Visit: Yes Code(s): E11.42 - Type 2 diabetes mellitus with diabetic polyneuropathy (3) Delayed wound healing Status: Chronic Current Visit: Yes Code(s): T14.8 - Other injury of unspecified body region (4) PVD (peripheral vascular disease) Status: Chronic Current Visit: Yes Code(s): I73.9 - Peripheral vascular disease, unspecified Type of Wound Date of Service: 03/22/17 Chief Complaint: Postoperative left foot and wound History of Wound: This 62-year-old pleasant female who resides at [facility] post fifth ray resection performed on the left foot. she denies fever, chill, nausea, vomiting, loss of appetite. She has loss of memory. She denies redness, pain, odor of the left foot. She is also followed by vascular surgery. She had redness to her foot last week and went to the emergency room. Her labs and x-rays were normal and she was sent. She denies odor. Progress of Wound: Stable - Physical Exam Vital Signs Temp Pulse Resp BP 97.1 F L 80 18 123/68 H 03/21/17 13:13 03/21/17 13:13 03/21/17 13:13 03/21/17 13:13 General: Alert, Oriented x3, Cooperative Extremities: No cyanosis, Capillary Refill Less than 3 Seconds, No Calf Tenderness, Diminished Peripheral Pulses, Edema Skin: Ulcer/ Wound - Sutures in place to delayed primary closure site with serosanguineous drainage noted. There is no erythema, no streaking, no odor, no necrosis or eschar noted Wound Measurements and Assessment WC - Nurse 1 - General Ulcer Measurement Start: 03/21/17 13:12 Freq: Status: Active Protocol: Activity Type Activity Date Activity User E-Sign Co-Sign Detail Recorded Client Recorded Date Recorded By Document 03/21/17 13:13 DL [id number] 03/21/17 13:22 DL 03/21/17 13:13 Wound Center Nurse 1 [Ulcer Assessment Protocol: PATRICIA.WD.LOC] #6 post op Left 5th toe s/p amputation -Current Size (cm) - Length 0.3 -Current Size (cm) - Width 0.2 -Current Size (cm) - Depth 0.4 -Total Square Cm 0.06 -Photo Taken Yes -Exudate Amt Small (1-33%) -Exudate Type Serosanguineous -Wound Margin Indistinct, Non -Visible -Granulation Amt Small (1-33%) -Granulation Quality [place] -Necrosis Amt Small (1-33%) -Necrotic Tissue Type Adherent Slough -Structure Exposed N/A -Texture (Kirstie-wound Skin Appearance) Scarring -Moisture (Kirstie-wound Skin Appearance No Abnormality ) -Color (Kirstie-wound Skin Appearance) No Abnormality -Temperature (Kirstie-wound Skin No Abnormality Appearance) (Pt Warm) -Ulcer Cleansing Rinsed/ Irrigated with Saline -Foul Odor after Cleansing No -Anesthetic Used 4% Lidocaine Solution - Nurse 2 - General Ulcer CM Notes Start: 03/21/17 13:12 Freq: Status: Active Protocol: Activity Type Activity Date Activity User E-Sign Co-Sign Detail Recorded Client Recorded Date Recorded By Document 03/21/17 13:40 [id number] 03/21/17 13:41 03/21/17 13:40 Wound Center Nurse 2 [Procedure/Treatment] -Correct Patient No -Correct Side, Site, Position No -Correct Procedure No -Procedure Performed No -Wound/Ulcer Outcome Not Healed [See Physician Procedure note for Specifics] Pain Scale: 0-10 Numeric [Pain] -Is Patient Pain Free? Yes Musculoskeletal: No Tenderness to Palpation of Joints or Extremities, Muscle Wasting, - - Fifth ray resection left foot Neurological: - - Lack of epicritic sensation to light touch bilateral lower extremities Psych/Mental Status: Normal Affect, Appropriate Debridement Note Post-Debridement Measurements/Treatment - Nurse 2 - General Ulcer CM Notes Start: 03/21/17 13:12 Freq: Status: Active Protocol: Activity Type Activity Date Activity User E-Sign Co-Sign Detail Recorded Client Recorded Date Recorded By Document 03/21/17 13:40 [id number] 03/21/17 13:41 03/21/17 13:40 Wound Center Nurse 2 #6 post op Left 5th toe s/p amputation -Correct Patient No -Correct Side, Site, Position No -Correct Procedure No -Procedure Performed No -Wound/Ulcer Outcome Not Healed Pain Scale: 0-10 Numeric Is Patient Pain Free? Yes No debridement was completed today - Sutures are intact Assessment/Plan Active Problems Chronic ulcer of left foot with fat layer exposed (Chronic) Type 2 diabetes mellitus with diabetic polyneuropathy (Chronic) Delayed wound healing (Chronic) PVD (peripheral vascular disease) (Chronic) Assessment: wound left foot fat exposed; delayed primary closure site at previous fifth ray resection. Cellulitis resolved. Diabetes with neuropathy. Hammertoes left foot. Delayed healing. Malnutrition. peripheral vascular disease Plan: I reviewed her care plan today. The delayed primary closure site was checked and Steri-Strips were applied to reinforce stability while this continues to heal. To heel weight-bear with surgical shoe to keep pressure off the surgical site to facilitate healing. . Noninvasive arterial vascular studies were ordered and these results were reviewed. She has noncompressible vessels and an ESTRELLA value was not calculated. Her toe brachial index in the right lower extremity was 0.45 which is abnormal and contributing to her delayed healing. A referral to vascular surgeon, Dr. Chase was provided and a doppler was performed. She is demonstrating some delayed healing and I have requested Dr. Chase's most recent office visit note. He has contacted me earlier this week and plans to follow in 6 months. If there is a status change prior to that time, an angio will be considered. . To continue nutritional supplementation twice daily to optimize healing. To control glucose levels to optimize healing. She completed oral antibiotics; infectious disease recommend she complete a 6 week course of her antibiotic. Repeat labs were ordered including CBC, liver enzymes, ESR, C reactive protein. Her labs were updated and reviewed. I reviewed her right foot x-ray results with her today as well consistent with fifth ray resection. To return to the wound care center clinic in 1 week. To call sooner if there are any questions or concerns.
[2017-04-04 12:55] VITALS: BP 130/65; PULSE 70; RESP 16; TEMP 36.4; BMI 34.2
--- NOTE | 2017-04-04 15:24 | PCM.WC.PN ---
(1) Chronic ulcer of left foot with fat layer exposed Status: Chronic Code(s): L97.522 - Non-pressure chronic ulcer of other part of left foot with fat layer exposed (2) Type 2 diabetes mellitus with diabetic polyneuropathy Status: Chronic Code(s): E11.42 - Type 2 diabetes mellitus with diabetic polyneuropathy (3) Delayed wound healing Status: Chronic Code(s): T14.8 - Other injury of unspecified body region (4) PVD (peripheral vascular disease) Status: Chronic Code(s): I73.9 - Peripheral vascular disease, unspecified Type of Wound Date of Service: 04/05/17 Chief Complaint: Postoperative left foot and wound History of Wound: This 62-year-old pleasant female who resides at [facility] post fifth ray resection performed on the left foot. she denies fever, chill, nausea, vomiting, loss of appetite. She has loss of memory. She denies redness, pain, odor of the left foot. She is also followed by vascular surgery. Progress of Wound: Stable - Physical Exam Vital Signs Temp Pulse Resp BP 97.5 F L 70 16 130/65 H 04/04/17 12:55 04/04/17 12:55 04/04/17 12:55 04/04/17 12:55 General: Alert, Oriented x3, Cooperative Extremities: No cyanosis, Capillary Refill Less than 3 Seconds, No Calf Tenderness, Diminished Peripheral Pulses Skin: Ulcer/ Wound - No purulence, no erythema, no streaking, no odor. The delayed primary closure site has dehisced and the sutures no longer coapting the skin edges together. There is exposed subcutaneous tissue without odor or necrosis. Her peripheral skin is hairless and atrophic Wound Measurements and Assessment WC - Nurse 1 - General Ulcer Measurement Start: 03/21/17 13:12 Freq: Status: Active Protocol: Activity Type Activity Date Activity User E-Sign Co-Sign Detail Recorded Client Recorded Date Recorded By Document 04/04/17 12:55 [facility] [id number] 04/04/17 13:02 [facility] 04/04/17 12:55 Wound Center Nurse 1 [Ulcer Assessment] #6 post op Left 5th toe s/p amputation -Combined with other wound No -Current Size (cm) - Length 0.1 -Current Size (cm) - Width 0.1 -Current Size (cm) - Depth 0.1 -Total Square Cm 0.01 -Photo Taken No -Exudate Amt None Present (0 %) -Texture (Kirstie-wound Skin Appearance) Localized Edema -Moisture (Kirstie-wound Skin Appearance Maceration ) Dry/Scaly -Color (Kirstie-wound Skin Appearance) Erythema -Temperature (Kirstie-wound Skin No Abnormality Appearance) (Pt Warm) -Tenderness on Palpation (Kirstie-wound Yes Skin Appearance) -Ulcer Cleansing Rinsed/ Irrigated with Saline -Foul Odor after Cleansing No -Anesthetic Used 4% Lidocaine Solution - Nurse 2 - General Ulcer CM Notes Start: 03/21/17 13:12 Freq: Status: Active Protocol: Activity Type Activity Date Activity User E-Sign Co-Sign Detail Recorded Client Recorded Date Recorded By Document 04/04/17 13:22 [id number] 04/04/17 13:23 04/04/17 13:22 Wound Center Nurse 2 [Procedure/Treatment] -Time 13:23 -Correct Patient Yes -Correct Side, Site, Position Yes -Correct Procedure Yes -Procedure Performed Yes -Type of Procedure Debridement -Clinical Debridement Subcutaneous -Post Debridement Size (cm) - Length 0.5 -Post Debridement Size (cm) - Width 0.9 -Post Debridement Size (cm) - Depth 1.1 -Total Square Cm 0.45 -Wound/Ulcer Outcome Not Healed -Ulcer Cleansing Rinsed/ Irrigated with Saline -Foul Odor after Cleansing No -Bioengineered Tissue No -Bleeding Controlled with Pressure -Treatment Response Procedure Tolerated Well [See Physician Procedure note for Specifics] Pain Scale: 0-10 Numeric [Pain] -Is Patient Pain Free? Yes Musculoskeletal: No Tenderness to Palpation of Joints or Extremities, Muscle Wasting, - - Left fifth ray resection amputation noted Neurological: - - Lack of epicritic sensation light touch left foot Psych/Mental Status: Normal Affect, Appropriate Debridement Note Post-Debridement Measurements/Treatment - Nurse 2 - General Ulcer CM Notes Start: 03/21/17 13:12 Freq: Status: Active Protocol: Activity Type Activity Date Activity User E-Sign Co-Sign Detail Recorded Client Recorded Date Recorded By Document 03/21/17 13:40 [id number] 03/21/17 13:41 Document 04/04/17 13:22 [id number] 04/04/17 13:23 03/21/17 04/04/17 13:40 13:22 Wound Center Nurse 2 #6 post op Left 5th toe s/p amputation -Time 13:23 -Correct Patient No Yes -Correct Side, Site, Position No Yes -Correct Procedure No Yes -Procedure Performed No Yes -Type of Procedure Debridement -Clinical Debridement Subcutaneous -Post Debridement Size (cm) - Length 0.5 -Post Debridement Size (cm) - Width 0.9 -Post Debridement Size (cm) - Depth 1.1 -Total Square Cm 0.45 -Wound/Ulcer Outcome Not Healed Not Healed -Ulcer Cleansing Rinsed/ Irrigated with Saline -Foul Odor after Cleansing No -Bioengineered Tissue No -Bleeding Controlled with Pressure -Treatment Response Procedure Tolerated Well Pain Scale: 0-10 Numeric Is Patient Pain Free? Yes Yes Wound debrided: distal lateral foot Laterality: Left Wound Grade/Stage: grade 1 Type of Debridement: Excisional debridement Anesthesia Used: 4% Lidocaine Solution Depth: in the subcutaneous layer Percentage of wound debrided: 100 Instrument Used: #15 blade Tissue Removed: Wound was evaluated and debrided today as noted in the clinical panel. Her Severity: Fat Layer Exposed Amount of bleeding with debridement: Mild Bleeding Controlled with: Pressure Patient tolerated procedure well Assessment/Plan Assessment: wound left foot fat exposed; delayed primary closure site at previous fifth ray resection. Cellulitis resolved. Diabetes with neuropathy. Hammertoes left foot. Delayed healing. Malnutrition. peripheral vascular disease Plan: I reviewed her care plan today. The sutures removed and debridement was performed as noted in the clinical panel. Her delayed primary closure site did not coapt and I recommend return to wound care. To change dressing daily with a with Aquacel Ag into the deeper cavity site of the left foot. To heel weight-bear with surgical shoe to keep pressure off the surgical site to facilitate healing. . Noninvasive arterial vascular studies were ordered and these results were reviewed. She has noncompressible vessels and an ESTRELLA value was not calculated. Her toe brachial index in the right lower extremity was 0.45 which is abnormal and contributing to her delayed healing. A referral to vascular surgeon, Dr. Chase was provided and a doppler was performed. She is demonstrating some delayed healing and I have requested Dr. Chase's most recent office visit note. He has contacted me earlier this week and plans to follow in 6 months. If there is a status change prior to that time, an angio will be considered. . To continue nutritional supplementation twice daily to optimize healing. To control glucose levels to optimize healing. She completed oral antibiotics; infectious disease recommend she complete a 6 week course of her antibiotic. Repeat labs were ordered including CBC, liver enzymes, ESR, C reactive protein. Her labs were updated and reviewed. I reviewed her right foot x-ray results with her which is consistent with fifth ray resection. Advanced wound care products will be considered if continued lack of progress is noted. To return to the wound care center clinic in 1 week. To call sooner if there are any questions or concerns.
== END 2017-04-04 23:59 ==
LOC: WC 13:00
PROVIDERS: Visit Provider Podiatrist
DX: E11.621 Type 2 diabetes mellitus with foot ulcer (principal); L97.522 Non-pressure chronic ulcer of other part of left foot with fat layer exposed; E11.42 Type 2 diabetes mellitus with diabetic polyneuropathy; E11.51 Type 2 diabetes mellitus with diabetic peripheral angiopathy without gangrene; M20.42 Other hammer toe(s) (acquired), left foot
CPT/HCPCS: 11042; 99213; G0463

== ENCOUNTER → 2017-04-16 20:38 | Outpatient (CLI) | payer MEDICARE, SELFPAY | DX: G47.10 Hypersomnia, unspecified (principal) | CPT/HCPCS: 95810 ==

== ENCOUNTER 2017-05-02 14:45 | Outpatient (RCR) | payer MEDICARE, SELFPAY ==
[2017-04-05 00:35] VITALS: BP 110/61; PULSE 70; RESP 16; TEMP 36.4; BMI 34.2
[2017-04-11 13:31] VITALS: BP 135/75; PULSE 65; RESP 16; TEMP 36.4; BMI 34.2
--- NOTE | 2017-04-11 13:55 | PCM.WC.PN ---
(1) Chronic ulcer of left foot with fat layer exposed Status: Chronic Current Visit: Yes Code(s): L97.522 - Non-pressure chronic ulcer of other part of left foot with fat layer exposed (2) Type 2 diabetes mellitus with diabetic polyneuropathy Status: Chronic Current Visit: Yes Code(s): E11.42 - Type 2 diabetes mellitus with diabetic polyneuropathy (3) Malnutrition Status: Chronic Current Visit: Yes Code(s): E46 - Unspecified protein-calorie malnutrition (4) Delayed wound healing Status: Chronic Current Visit: Yes Code(s): T14.8 - Other injury of unspecified body region (5) PVD (peripheral vascular disease) Status: Chronic Current Visit: Yes Code(s): I73.9 - Peripheral vascular disease, unspecified Type of Wound Date of Service: 04/11/17 Chief Complaint: Postoperative left foot and wound History of Wound: This 62-year-old pleasant female who resides at [facility] post fifth ray resection performed on the left foot. She denies fever, chill, nausea, vomiting, loss of appetite. She has loss of memory. She has presented last 2 weeks without any dressing. She resides in a longterm facility. Progress of Wound: Stable - Physical Exam Vital Signs Temp Pulse Resp BP 97.5 F L 65 16 135/75 H 04/11/17 13:31 04/11/17 13:31 04/11/17 13:31 04/11/17 13:31 General: Alert, Oriented x3, Cooperative Extremities: No cyanosis, Capillary Refill Less than 3 Seconds, No Calf Tenderness, Diminished Peripheral Pulses, Edema - Mild left foot Skin: Ulcer/ Wound - No purulence, no erythema, no streaking, no odor, no necrosis. There is still delayed healing at the distal most aspect of the amputation stump site. There is no eschar. The skin is atrophic and hairless to the left lower extremity Wound Measurements and Assessment WC - Nurse 1 - General Ulcer Measurement Start: 04/11/17 13:30 Freq: Status: Active Protocol: Activity Type Activity Date Activity User E-Sign Co-Sign Detail Recorded Client Recorded Date Recorded By Document 04/11/17 13:31 [facility] [id number] 04/11/17 13:36 [facility] 04/11/17 13:31 Wound Center Nurse 1 [Ulcer Assessment] #6 post op Left 5th toe s/p amputation -Combined with other wound No -Current Size (cm) - Length 0.7 -Current Size (cm) - Width 0.4 -Current Size (cm) - Depth 0.4 -Total Square Cm 0.28 -Photo Taken No -Epithelialization None Present -Tunneling No -Undermining/Tunneling No -Exudate Amt Small (1-33%) -Exudate Type Yellow/Green -Wound Margin Distinct, Outline Attached -Granulation Amt Small (1-33%) -Granulation Quality [place] -Slough/Fibrin Yes -Necrosis Amt Medium (34-66%) -Necrotic Tissue Type Adherent Slough -Structure Exposed N/A -Texture (Kirstie-wound Skin Appearance) Scarring -Moisture (Kirstie-wound Skin Appearance Dry/Scaly ) -Color (Kirstie-wound Skin Appearance) Erythema Palor -Temperature (Kirstie-wound Skin No Abnormality Appearance) (Pt Warm) -Tenderness on Palpation (Kirstie-wound No Skin Appearance) -Ulcer Cleansing Rinsed/ Irrigated with Saline -Foul Odor after Cleansing No -Anesthetic Used 5% Lidocaine Gel WC - Nurse 2 - General Ulcer CM Notes Start: 04/11/17 13:30 Freq: Status: Active Protocol: Activity Type Activity Date Activity User E-Sign Co-Sign Detail Recorded Client Recorded Date Recorded By Document 04/11/17 13:43 [facility] [id number] 04/11/17 13:47 [facility] 04/11/17 13:43 Wound Center Nurse 2 [Procedure/Treatment] -Time 13:44 -Correct Patient Yes -Correct Side, Site, Position Yes -Correct Procedure Yes -Procedure Performed Yes -Type of Procedure Debridement -Clinical Debridement Subcutaneous -Post Debridement Size (cm) - Length 0.6 -Post Debridement Size (cm) - Width 0.4 -Post Debridement Size (cm) - Depth 0.8 -Total Square Cm 0.24 -Wound/Ulcer Outcome Not Healed -Ulcer Cleansing Rinsed/ Irrigated with Saline -Foul Odor after Cleansing No -Bioengineered Tissue No -Bleeding Controlled with Pressure -Treatment Response Procedure Tolerated Well [See Physician Procedure note for Specifics] Pain Scale: 0-10 Numeric [Pain] -Is Patient Pain Free? Yes Musculoskeletal: No Tenderness to Palpation of Joints or Extremities, Muscle Wasting, - - Status post fifth ray resection left Neurological: - - Lack of epicritic sensation light touch left Psych/Mental Status: Normal Affect, Appropriate Debridement Note Post-Debridement Measurements/Treatment WC - Nurse 2 - General Ulcer CM Notes Start: 04/11/17 13:30 Freq: Status: Active Protocol: Activity Type Activity Date Activity User E-Sign Co-Sign Detail Recorded Client Recorded Date Recorded By Document 04/11/17 13:43 [facility] [id number] 04/11/17 13:47 [facility] 04/11/17 13:43 Wound Center Nurse 2 #6 post op Left 5th toe s/p amputation -Time 13:44 -Correct Patient Yes -Correct Side, Site, Position Yes -Correct Procedure Yes -Procedure Performed Yes -Type of Procedure Debridement -Clinical Debridement Subcutaneous -Post Debridement Size (cm) - Length 0.6 -Post Debridement Size (cm) - Width 0.4 -Post Debridement Size (cm) - Depth 0.8 -Total Square Cm 0.24 -Wound/Ulcer Outcome Not Healed -Ulcer Cleansing Rinsed/ Irrigated with Saline -Foul Odor after Cleansing No -Bioengineered Tissue No -Bleeding Controlled with Pressure -Treatment Response Procedure Tolerated Well Pain Scale: 0-10 Numeric Is Patient Pain Free? Yes Wound debrided: distal lateral foot Laterality: Left Wound Grade/Stage: grade 1 Type of Debridement: Excisional debridement Anesthesia Used: 4% Lidocaine Solution Depth: in the subcutaneous layer Percentage of wound debrided: 100 Instrument Used: #15 blade Tissue Removed: fibrous, devitalized tissue, biofilm, slough Severity: Fat Layer Exposed Amount of bleeding with debridement: Mild Bleeding Controlled with: Pressure Patient tolerated procedure well Assessment/Plan Active Problems Chronic ulcer of left foot with fat layer exposed (Chronic) Type 2 diabetes mellitus with diabetic polyneuropathy (Chronic) Malnutrition (Chronic) Delayed wound healing (Chronic) PVD (peripheral vascular disease) (Chronic) Assessment: Ulcer left foot fat layer exposed. s/p fifth ray resection left. Cellulitis resolved. Diabetes with neuropathy. Hammertoes left foot. Delayed healing. Malnutrition. peripheral vascular disease Plan: I reviewed her care plan today. Debridement was performed as noted in the clinical panel and she tolerated this well. She denies pain. To heel weight-bear with surgical shoe to keep pressure off the surgical site to facilitate healing. To keep the dressing in place. [employer] was wakes into the wound. There is concerned because she is presented 2 weeks in a row without the dressing in place as I was informed by the nursing staff. Her longterm facility was called to clarify dressing orders and also to encourage Rosendo supplementation twice daily. [facility] staff reports she has been noncompliant and often take the dressing off, bears full weight, and refuses to wear the surgical shoe by ambulating in her other regular. Inability to remember recommendations complicate her treatment plan. . Noninvasive arterial vascular studies were ordered and these results were reviewed. She has noncompressible vessels and an ESTRELLA value was not calculated. Her toe brachial index in the right lower extremity was 0.45 which is abnormal and contributing to her delayed healing. A referral to vascular surgeon, Dr. Chase was provided and a doppler was performed. She is to follow-up in several months. If there is a status change prior to that time, an angio will be considered. . To continue nutritional supplementation twice daily to optimize healing. To control glucose levels to optimize healing. She completed oral antibiotics; infectious disease recommend she complete a 6 week course of her antibiotic. Repeat labs were ordered including CBC, liver enzymes, ESR, C reactive protein. I reviewed her right foot x-ray results with her today as well consistent with fifth ray resection. To return to the wound care center clinic in 1 week. To call sooner if there are any questions or concerns.
--- NOTE | 2017-04-11 14:03 | PN.PCM_ITS ---
(1) Chronic ulcer of left foot with fat layer exposed Status: Chronic Current Visit: Yes Code(s): L97.522 - Non-pressure chronic ulcer of other part of left foot with fat layer exposed (2) Type 2 diabetes mellitus with diabetic polyneuropathy Status: Chronic Current Visit: Yes Code(s): E11.42 - Type 2 diabetes mellitus with diabetic polyneuropathy (3) Malnutrition Status: Chronic Current Visit: Yes Code(s): E46 - Unspecified protein- calorie malnutrition (4) Delayed wound healing Status: Chronic Current Visit: Yes Code(s): T14.8 - Other injury of unspecified body region (5) PVD (peripheral vascular disease) Status: Chronic Current Visit: Yes Code(s): I73.9 - Peripheral vascular disease, unspecified Type of Wound Date of Service: 04/11/17 Chief Complaint: Postoperative left foot and wound History of Wound: This 62-year-old pleasant female who resides at [facility] post fifth ray resection performed on the left foot. She denies fever, chill, nausea, vomiting, loss of appetite. She has loss of memory. She has presented last 2 weeks without any dressing. She resides in a long-term facility. Progress of Wound: Stable - Physical Exam Vital Signs Temp Pulse Resp BP 97.5 F L 65 16 135/75 H 04/11/17 13:31 04/11/17 13:31 04/11/17 13:31 04/11/17 13:31 General: Alert, Oriented x3, Cooperative Extremities: No cyanosis, Capillary Refill Less than 3 Seconds, No Calf Tenderness, Diminished Peripheral Pulses, Edema - Mild left foot Skin: Ulcer/ Wound - No purulence, no erythema, no streaking, no odor, no necrosis. There is still delayed healing at the distal most aspect of the amputation stump site. There is no eschar. The skin is atrophic and hairless to the left lower extremity Wound Measurements and Assessment WC - Nurse 1 - General Ulcer Measurement Start: 04/11/17 13:30 Freq: Status: Active Protocol: Activity Type Activity Date Activity User E-Sign Co-Sign Detail Recorded Client Recorded Date Recorded By Document 04/11/17 13:31 [facility] [id number] 04/11/17 13:36 [facility] 04/11/17 13:31 Wound Center Nurse 1 [Ulcer Assessment] #6 post op Left 5th toe s/p amputation -Combined with other wound No -Current Size (cm) - Length 0.7 -Current Size (cm) - Width 0.4 -Current Size (cm) - Depth 0.4 -Total Square Cm 0.28 -Photo Taken No -Epithelialization None Present -Tunneling No -Undermining/Tunneling No -Exudate Amt Small (1-33%) -Exudate Type Yellow/Green -Wound Margin Distinct, Outline Attached -Granulation Amt Small (1-33%) -Granulation Quality [place] -Slough/Fibrin Yes -Necrosis Amt Medium (34-66%) -Necrotic Tissue Type Adherent Slough -Structure Exposed N/A -Texture (Kirstie-wound Skin Appearance) Scarring -Moisture (Kirstie-wound Skin Appearance Dry/Scaly ) -Color (Kirstie-wound Skin Appearance) Erythema Palor -Temperature (Kirstie-wound Skin No Abnormality Appearance) (Pt Warm) -Tenderness on Palpation (Kirstie-wound No Skin Appearance) -Ulcer Cleansing Rinsed/ Irrigated with Saline -Foul Odor after Cleansing No -Anesthetic Used 5% Lidocaine Gel WC - Nurse 2 - General Ulcer CM Notes Start: 04/11/17 13:30 Freq: Status: Active Protocol: Activity Type Activity Date Activity User E-Sign Co-Sign Detail Recorded Client Recorded Date Recorded By Document 04/11/17 13:43 [facility] [id number] 04/11/17 13:47 [facility] 04/11/17 13:43 Wound Center Nurse 2 [Procedure/Treatment] -Time 13:44 -Correct Patient Yes -Correct Side, Site, Position Yes -Correct Procedure Yes -Procedure Performed Yes -Type of Procedure Debridement -Clinical Debridement Subcutaneous -Post Debridement Size (cm) - Length 0.6 -Post Debridement Size (cm) - Width 0.4 -Post Debridement Size (cm) - Depth 0.8 -Total Square Cm 0.24 -Wound/Ulcer Outcome Not Healed -Ulcer Cleansing Rinsed/ Irrigated with Saline -Foul Odor after Cleansing No -Bioengineered Tissue No -Bleeding Controlled with Pressure -Treatment Response Procedure Tolerated Well [See Physician Procedure note for Specifics] Pain Scale: 0-10 Numeric [Pain] -Is Patient Pain Free? Yes Musculoskeletal: No Tenderness to Palpation of Joints or Extremities, Muscle Wasting, - - Status post fifth ray resection left Neurological: - - Lack of epicritic sensation light touch left Psych/Mental Status: Normal Affect, Appropriate Debridement Note Post-Debridement Measurements/Treatment WC - Nurse 2 - General Ulcer CM Notes Start: 04/11/17 13:30 Freq: Status: Active Protocol: Activity Type Activity Date Activity User E-Sign Co-Sign Detail Recorded Client Recorded Date Recorded By Document 04/11/17 13:43 [facility] [id number] 04/11/17 13:47 [facility] 04/11/17 13:43 Wound Center Nurse 2 #6 post op Left 5th toe s/p amputation -Time 13:44 -Correct Patient Yes -Correct Side, Site, Position Yes -Correct Procedure Yes -Procedure Performed Yes -Type of Procedure Debridement -Clinical Debridement Subcutaneous -Post Debridement Size (cm) - Length 0.6 -Post Debridement Size (cm) - Width 0.4 -Post Debridement Size (cm) - Depth 0.8 -Total Square Cm 0.24 -Wound/Ulcer Outcome Not Healed -Ulcer Cleansing Rinsed/ Irrigated with Saline -Foul Odor after Cleansing No -Bioengineered Tissue No -Bleeding Controlled with Pressure -Treatment Response Procedure Tolerated Well Pain Scale: 0-10 Numeric Is Patient Pain Free? Yes Wound debrided: distal lateral foot Laterality: Left Wound Grade/Stage: grade 1 Type of Debridement: Excisional debridement Anesthesia Used: 4% Lidocaine Solution Depth: in the subcutaneous layer Percentage of wound debrided: 100 Instrument Used: #15 blade Tissue Removed: fibrous, devitalized tissue, biofilm, slough Severity: Fat Layer Exposed Amount of bleeding with debridement: Mild Bleeding Controlled with: Pressure Patient tolerated procedure well Assessment/Plan Active Problems Chronic ulcer of left foot with fat layer exposed (Chronic) Type 2 diabetes mellitus with diabetic polyneuropathy (Chronic) Malnutrition (Chronic) Delayed wound healing (Chronic) PVD (peripheral vascular disease) (Chronic) Assessment: Ulcer left foot fat layer exposed. s/p fifth ray resection left. Cellulitis resolved. Diabetes with neuropathy. Hammertoes left foot. Delayed healing. Malnutrition. peripheral vascular disease Plan: I reviewed her care plan today. Debridement was performed as noted in the clinical panel and she tolerated this well. She denies pain. To heel weight-bear with surgical shoe to keep pressure off the surgical site to facilitate healing. To keep the dressing in place. [employer] was wakes into the wound. There is concerned because she is presented 2 weeks in a row without the dressing in place as I was informed by the nursing staff. Her long-term facility was called to clarify dressing orders and also to encourage Rosendo supplementation twice daily. care home staff reports she has been noncompliant and often take the dressing off, bears full weight, and refuses to wear the surgical shoe by ambulating in her other regular. Inability to remember recommendations complicate her treatment plan. . Noninvasive arterial vascular studies were ordered and these results were reviewed. She has noncompressible vessels and an ESTRELLA value was not calculated. Her toe brachial index in the right lower extremity was 0.45 which is abnormal and contributing to her delayed healing. A referral to vascular surgeon, Dr. Chase was provided and a doppler was performed. She is to follow- up in several months. If there is a status change prior to that time, an angio will be considered. . To continue nutritional supplementation twice daily to optimize healing. To control glucose levels to optimize healing. She completed oral antibiotics; infectious disease recommend she complete a 6 week course of her antibiotic. Repeat labs were ordered including CBC, liver enzymes, ESR, C reactive protein. I reviewed her right foot x-ray results with her today as well consistent with fifth ray resection. To return to the wound care center clinic in 1 week. To call sooner if there are any questions or concerns.
[2017-04-18 13:11] VITALS: BP 117/69; PULSE 76; RESP 16; TEMP 36; BMI 34.2
--- NOTE | 2017-04-18 17:16 | PN.PCM_ITS ---
(1) Chronic ulcer of left foot with fat layer exposed Status: Chronic Current Visit: Yes Code(s): L97.522 - Non-pressure chronic ulcer of other part of left foot with fat layer exposed (2) Type 2 diabetes mellitus with diabetic polyneuropathy Status: Chronic Current Visit: Yes Code(s): E11.42 - Type 2 diabetes mellitus with diabetic polyneuropathy (3) Malnutrition Status: Chronic Current Visit: Yes Code(s): E46 - Unspecified protein- calorie malnutrition (4) Delayed wound healing Status: Chronic Current Visit: Yes Code(s): T14.8 - Other injury of unspecified body region (5) PVD (peripheral vascular disease) Status: Chronic Current Visit: Yes Code(s): I73.9 - Peripheral vascular disease, unspecified Type of Wound Date of Service: 04/20/17 Chief Complaint: Postoperative left foot and wound History of Wound: This 62-year-old pleasant female who resides at [facility] status post fifth ray resection performed on the left foot. She denies fever, chill, nausea, vomiting, loss of appetite. She has loss of memory. She has presented last 3 weeks without any dressing. She resides in a half-way facility. Progress of Wound: Stable - Physical Exam Vital Signs Temp Pulse Resp BP 96.8 F L 76 16 117/69 04/18/17 13:11 04/18/17 13:11 04/18/17 13:11 04/18/17 13:11 General: Alert, Oriented x3, Cooperative Extremities: No cyanosis, Capillary Refill Less than 3 Seconds, No Calf Tenderness, Diminished Peripheral Pulses, Edema - Minimal left foot, - - Status post fifth ray resection left Skin: Ulcer/ Wound - No maceration, no erythema, no streaking, no infection. There is no deep probing at this distal amputation site. Skin is atrophic. Wound Measurements and Assessment WC - Nurse 1 - General Ulcer Measurement Start: 04/11/17 13:30 Freq: Status: Active Protocol: Activity Type Activity Date Activity User E-Sign Co-Sign Detail Recorded Client Recorded Date Recorded By Document 04/18/17 13:11 [facility] [id number] 04/18/17 13:15 [facility] 04/18/17 13:11 Wound Center Nurse 1 [Ulcer Assessment] #6 post op Left 5th toe s/p amputation -Combined with other wound No -Current Size (cm) - Length 0.6 -Current Size (cm) - Width 0.2 -Current Size (cm) - Depth 0.6 -Total Square Cm 0.12 -Photo Taken No -Epithelialization None Present -Tunneling No -Undermining/Tunneling No -Exudate Amt None Present (0 %) -Wound Margin Distinct, Outline Attached -Granulation Amt Small (1-33%) -Granulation Quality [place] -Slough/Fibrin Yes -Necrosis Amt Medium (34-66%) -Necrotic Tissue Type Adherent Slough -Structure Exposed N/A -Texture (Kirstie-wound Skin Appearance) Scarring -Moisture (Kirstie-wound Skin Appearance No Abnormality ) Assessed -Color (Kirstie-wound Skin Appearance) Erythema Palor -Temperature (Kirstie-wound Skin No Abnormality Appearance) (Pt Warm) -Tenderness on Palpation (Kirstie-wound No Skin Appearance) -Ulcer Cleansing Rinsed/ Irrigated with Saline -Foul Odor after Cleansing No -Anesthetic Used 4% Lidocaine Solution WC - Nurse 2 - General Ulcer CM Notes Start: 04/11/17 13:30 Freq: Status: Active Protocol: Activity Type Activity Date Activity User E-Sign Co-Sign Detail Recorded Client Recorded Date Recorded By Document 04/18/17 13:35 [facility] [id number] 04/18/17 13:36 KAT[facility] 04/18/17 13:35 Wound Center Nurse 2 [Procedure/Treatment] -Time 13:36 -Correct Patient Yes -Correct Side, Site, Position Yes -Correct Procedure Yes -Procedure Performed Yes -Type of Procedure Debridement -Clinical Debridement Subcutaneous -Post Debridement Size (cm) - Length 0.6 -Post Debridement Size (cm) - Width 0.3 -Post Debridement Size (cm) - Depth 0.6 -Total Square Cm 0.18 -Wound/Ulcer Outcome Not Healed -Ulcer Cleansing Rinsed/ Irrigated with Saline -Foul Odor after Cleansing No -Bioengineered Tissue No -Bleeding Controlled with Pressure -Treatment Response Procedure Tolerated Well [See Physician Procedure note for Specifics] Pain Scale: 0-10 Numeric [Pain] -Is Patient Pain Free? Yes Musculoskeletal: No Tenderness to Palpation of Joints or Extremities, Muscle Wasting, - - No palpation pain noted to the wound Neurological: - - Lack of epicritic sensation to touch left foot Psych/Mental Status: Normal Affect, Appropriate Debridement Note Post-Debridement Measurements/Treatment WC - Nurse 2 - General Ulcer CM Notes Start: 04/11/17 13:30 Freq: Status: Active Protocol: Activity Type Activity Date Activity User E-Sign Co-Sign Detail Recorded Client Recorded Date Recorded By Document 04/11/17 13:43 [id number] 04/11/17 13:47 Document 04/18/17 13:35 [id number] 04/18/17 13:36 04/11/17 04/18/17 13:43 13:35 Wound Center Nurse 2 #6 post op Left 5th toe s/p amputation -Time 13:44 13:36 -Correct Patient Yes Yes -Correct Side, Site, Position Yes Yes -Correct Procedure Yes Yes -Procedure Performed Yes Yes -Type of Procedure Debridement Debridement -Clinical Debridement Subcutaneous Subcutaneous -Post Debridement Size (cm) - Length 0.6 0.6 -Post Debridement Size (cm) - Width 0.4 0.3 -Post Debridement Size (cm) - Depth 0.8 0.6 -Total Square Cm 0.24 0.18 -Wound/Ulcer Outcome Not Healed Not Healed -Ulcer Cleansing Rinsed/ Rinsed/ Irrigated with Irrigated with Saline Saline -Foul Odor after Cleansing No No -Bioengineered Tissue No No -Bleeding Controlled with Pressure Pressure -Treatment Response Procedure Procedure Tolerated Well Tolerated Well Pain Scale: 0-10 Numeric Is Patient Pain Free? Yes Yes Wound debrided: lateral foot Laterality: Left Wound Grade/Stage: grade 1 Type of Debridement: Excisional debridement Anesthesia Used: 4% Lidocaine Solution Depth: in the subcutaneous layer Percentage of wound debrided: 100 Instrument Used: #15 blade Tissue Removed: fibrous, devitalized subcutaneous, biofilm, slough Severity: Fat Layer Exposed Amount of bleeding with debridement: Mild Bleeding Controlled with: Pressure Patient tolerated procedure well Assessment/Plan Active Problems Chronic ulcer of left foot with fat layer exposed (Chronic) Type 2 diabetes mellitus with diabetic polyneuropathy (Chronic) Malnutrition (Chronic) Delayed wound healing (Chronic) PVD (peripheral vascular disease) (Chronic) Assessment: Ulcer left foot fat layer exposed. s/p fifth ray resection left. Cellulitis resolved. Diabetes with neuropathy. Hammertoes left foot. Delayed healing. Malnutrition. peripheral vascular disease Plan: I reviewed her care plan today. Debridement was performed as noted in the clinical panel and she tolerated this well. She denies pain. To heel weight-bear with surgical shoe to keep pressure off the surgical site to facilitate healing. To keep the dressing in place. He signed alerting her to not remove the dressing was incorporated into her dressing to prevent noncompliance; she has significant memory loss and is struggling with following directions. Aquacel Ag was wicked into the wound. Inability to remember recommendations complicate her treatment plan. . Noninvasive arterial vascular studies were ordered and these results were reviewed. She has noncompressible vessels and an ESTRELLA value was not calculated. Her toe brachial index in the right lower extremity was 0.45 which is abnormal and contributing to her delayed healing. A referral to vascular surgeon, Dr. Chase was provided and a doppler was performed. She is to follow-up in several months. If there is a status change prior to that time, an angio will be considered. . To continue nutritional supplementation twice daily to optimize healing. To control glucose levels to optimize healing. She completed oral antibiotics; infectious disease recommend she complete a 6 week course of her antibiotic. Repeat labs and updated foot x-rays were ordered including CBC, liver enzymes, ESR, C reactive protein due to the chronicity of this wound and to monitor for deep tissue changes. To return to clinic in 1 week or call sooner if problems.
[2017-04-18 17:51] LABS: Absolute Lymphocyte Count 1.57 X10^3/ul (0.83-4.51); Absolute Neutrophil Count 3.4 X10^3/uL (2.0-7.7); Basophil# 0.01 X10^3/uL; Basophil% 0.2 % (0-1); Eosinophil# 0.12 X10^3/uL; Eosinophils% 2.1 % (0-5); Hematocrit 37.8 % (37-47); Hemoglobin 12.2 g/dl (12.0-15.0); Lymphocyte # 1.57 X10^3/ul (4.0); Lymphocyte % 27.8 % (19-41); Mean Corp Hgb Conc 32.3 g/gl (32-36); Mean Corpuscular Hgb 29.3 pg (27.0-32.0); Mean Corpuscular Volume 90.6 fL (81-99); Mean Platelet Vol. 11.4 fl (6.2-12.0); Monocyte# 0.53 X10^3/uL; Monocyte% 9.4 % (0-10); Neutrophil # 3.41 X10^3/uL (2.7-7.7); Neutrophil % 60.3 % (47-70); Platelet Count 228 K/mm3 (150-450); RBC Distribution Width CV 13.7 % (11.6-14.6); RBC Distribution Width SD 44.7 fl (35.1-43.9); Red Blood Count 4.17 M/mm3 (4.2-5.4); White Blood Count 5.7 K/mm3 (4.4-11.0)
[2017-04-18 17:56] LABS: Erythrocyte Sedimentation Rate 31 mm/hr (0-30); POSITIVE COUNT NO; POSITIVE DIFFERENTIAL NO; POSITIVE MORPHOLOGY NO
[2017-04-19 04:19] LABS: CRP < 2.90 mg/L (0.0-3.0)
[2017-04-25 12:58] VITALS: BP 128/72; PULSE 77; RESP 16; TEMP 36; BMI 34.2
--- NOTE | 2017-04-25 13:59 | PCM.WC.PN ---
(1) Chronic ulcer of left foot with fat layer exposed Status: Chronic Current Visit: Yes Code(s): L97.522 - Non-pressure chronic ulcer of other part of left foot with fat layer exposed (2) Type 2 diabetes mellitus with diabetic polyneuropathy Status: Chronic Current Visit: Yes Code(s): E11.42 - Type 2 diabetes mellitus with diabetic polyneuropathy (3) Malnutrition Status: Chronic Current Visit: Yes Code(s): E46 - Unspecified protein-calorie malnutrition (4) PVD (peripheral vascular disease) Status: Chronic Current Visit: Yes Code(s): I73.9 - Peripheral vascular disease, unspecified (5) Delayed wound healing Status: Chronic Current Visit: Yes Code(s): T14.8XXD - Other injury of unspecified body region, subsequent encounter (6) Non-compliance Status: Chronic Current Visit: Yes Code(s): Z91.19 - Patient's noncompliance with other medical treatment and regimen (7) Memory loss Status: Chronic Current Visit: Yes Code(s): R41.3 - Other amnesia Type of Wound Date of Service: 04/25/17 Chief Complaint: Postoperative left foot and wound History of Wound: This 62-year-old pleasant female who resides at [facility] post fifth ray resection performed on the left foot. She denies fever, chill, nausea, vomiting, loss of appetite. She has loss of memory. She has presented again today without a dressing. She resides in a retirement facility [facility]. The patient is frustrated she does not remember taking the dressing off but admits she is not able to remember anything. I have been informed by nursing staff that she refuses to keep her dressing in place and continues to wear regular shoes. Progress of Wound: Stable - Physical Exam Vital Signs Temp Pulse Resp BP 96.8 F L 77 16 128/72 H 04/25/17 12:58 04/25/17 12:58 04/25/17 12:58 04/25/17 12:58 General: Alert, Oriented x3, Cooperative Extremities: No cyanosis, Capillary Refill Less than 3 Seconds, No Calf Tenderness - Negative [place] and [place] left lower extremity, Diminished Peripheral Pulses, Edema - Mild left lower extremity Skin: Ulcer/ Wound - No purulence, no erythema, streaking, no odor, no acute infection. Significant delayed healing is still noted. The skin is atrophic and hairless, - - no wound probe to bone Wound Measurements and Assessment WC - Nurse 1 - General Ulcer Measurement Start: 04/11/17 13:30 Freq: Status: Active Protocol: Activity Type Activity Date Activity User E-Sign Co-Sign Detail Recorded Client Recorded Date Recorded By Document 04/25/17 12:58 [facility] [id number] 04/25/17 13:02 [facility] 04/25/17 12:58 Wound Center Nurse 1 [Ulcer Assessment] #6 post op Left 5th toe s/p amputation -Combined with other wound No -Current Size (cm) - Length 0.5 -Current Size (cm) - Width 0.2 -Current Size (cm) - Depth 0.3 -Total Square Cm 0.10 -Photo Taken No -Epithelialization None Present -Tunneling No -Undermining/Tunneling No -Exudate Amt None Present (0 %) -Granulation Amt Small (1-33%) -Granulation Quality [place] -Slough/Fibrin Yes -Necrosis Amt Medium (34-66%) -Necrotic Tissue Type Adherent Slough -Texture (Kirstie-wound Skin Appearance) Scarring -Moisture (Kirstie-wound Skin Appearance Maceration ) Dry/Scaly -Color (Kirstie-wound Skin Appearance) Erythema Palor -Temperature (Kirstie-wound Skin No Abnormality Appearance) (Pt Warm) -Tenderness on Palpation (Kirstie-wound No Skin Appearance) -Ulcer Cleansing Rinsed/ Irrigated with Saline -Foul Odor after Cleansing No -Anesthetic Used 5% Lidocaine Gel - Nurse 2 - General Ulcer CM Notes Start: 04/11/17 13:30 Freq: Status: Active Protocol: Activity Type Activity Date Activity User E-Sign Co-Sign Detail Recorded Client Recorded Date Recorded By Document 04/25/17 13:28 [id number] 04/25/17 13:29 04/25/17 13:28 Wound Center Nurse 2 [Procedure/Treatment] -Time 13:28 -Correct Patient Yes -Correct Side, Site, Position Yes -Correct Procedure Yes -Procedure Performed Yes -Type of Procedure Debridement -Clinical Debridement Subcutaneous -Post Debridement Size (cm) - Length 0.6 -Post Debridement Size (cm) - Width 0.3 -Post Debridement Size (cm) - Depth 0.3 -Total Square Cm 0.18 -Wound/Ulcer Outcome Not Healed -Ulcer Cleansing Rinsed/ Irrigated with Saline -Foul Odor after Cleansing No -Bioengineered Tissue No -Topical Lidocaine (%) 4 -Bleeding Controlled with Pressure -Treatment Response Procedure Tolerated Well [See Physician Procedure note for Specifics] Pain Scale: 0-10 Numeric [Pain] -Is Patient Pain Free? Yes Musculoskeletal: No Tenderness to Palpation of Joints or Extremities, Muscle Wasting, - - Left fifth ray resection Neurological: Sensory exam intact to light touch and pain - Lack of epicritic sensation light touch left lower extremity consistent with neuropathy Psych/Mental Status: Normal Affect, Appropriate Debridement Note Post-Debridement Measurements/Treatment WC - Nurse 2 - General Ulcer CM Notes Start: 04/11/17 13:30 Freq: Status: Active Protocol: Activity Type Activity Date Activity User E-Sign Co-Sign Detail Recorded Client Recorded Date Recorded By Document 04/11/17 13:43 [id number] 04/11/17 13:47 Document 04/18/17 13:35 [id number] 04/18/17 13:36 Document 04/25/17 13:28 [id number] 04/25/17 13:29 TM 04/11/17 04/18/17 04/25/17 13:43 13:35 13:28 Wound Center Nurse 2 #6 post op Left 5th toe s/p amputation -Time 13:44 13:36 13:28 -Correct Patient Yes Yes Yes -Correct Side, Site, Position Yes Yes Yes -Correct Procedure Yes Yes Yes -Procedure Performed Yes Yes Yes -Type of Procedure Debridement Debridement Debridement -Clinical Debridement Subcutaneous Subcutaneous Subcutaneous -Post Debridement Size (cm) - Length 0.6 0.6 0.6 -Post Debridement Size (cm) - Width 0.4 0.3 0.3 -Post Debridement Size (cm) - Depth 0.8 0.6 0.3 -Total Square Cm 0.24 0.18 0.18 -Wound/Ulcer Outcome Not Healed Not Healed Not Healed -Ulcer Cleansing Rinsed/ Rinsed/ Rinsed/ Irrigated with Irrigated with Irrigated with Saline Saline Saline -Foul Odor after Cleansing No No No -Bioengineered Tissue No No No -Topical Lidocaine (%) 4 -Bleeding Controlled with Pressure Pressure Pressure -Treatment Response Procedure Procedure Procedure Tolerated Well Tolerated Well Tolerated Well Pain Scale: 0-10 Numeric Is Patient Pain Free? Yes Yes Yes Wound debrided: distal lateral foot Laterality: Left Wound Grade/Stage: grade 1 Type of Debridement: Excisional debridement Anesthesia Used: 4% Lidocaine Solution Depth: in the subcutaneous layer Percentage of wound debrided: 100 Instrument Used: #15 blade Tissue Removed: fibrous, devitalized subcutaneous tissue, biofilm, slough Severity: Fat Layer Exposed Amount of bleeding with debridement: Mild Bleeding Controlled with: Pressure Patient tolerated procedure well Assessment/Plan Active Problems Delayed wound healing (Chronic) Non-compliance (Chronic) Memory loss (Chronic) Chronic ulcer of left foot with fat layer exposed (Chronic) Type 2 diabetes mellitus with diabetic polyneuropathy (Chronic) Malnutrition (Chronic) Delayed wound healing (Chronic) PVD (peripheral vascular disease) (Chronic) Assessment: Ulcer left foot fat layer exposed. s/p fifth ray resection left. Cellulitis resolved. Diabetes with neuropathy. Hammertoes left foot. Delayed healing. Malnutrition. peripheral vascular disease. Non compliance due to memory loss Plan: I reviewed her care plan today. Debridement was performed as noted in the clinical panel and she tolerated this well. She denies pain. To heel weight-bear with surgical shoe to keep pressure off the surgical site to facilitate healing. To keep the dressing in place. He signed alerting her to not remove the dressing was incorporated into her dressing to prevent noncompliance; she has significant memory loss and is struggling with following directions. A bulky dressing was applied today. I order splinting material to apply a short leg posterior mold splint next week. She is amenable to this plan. Aquacel Ag was wicked into the wound; to continue to change daily. Inability to remember recommendations complicate her treatment plan. . Noninvasive arterial vascular studies were ordered and these results were reviewed. She has noncompressible vessels and an ESTRELLA value was not calculated. Her toe brachial index in the right lower extremity was 0.45 which is abnormal and contributing to her delayed healing. A referral to vascular surgeon, Dr. Chase was provided and a doppler was performed. She is to follow-up in several months. If there is a status change prior to that time, an angio will be considered. . To continue nutritional supplementation twice daily to optimize healing. To control glucose levels to optimize healing. She completed oral antibiotics; infectious disease recommend she complete a 6 week course of her antibiotic. Repeat labs and updated foot x-rays were ordered. The labs were obtained and reviewed as the following: White blood cell count 5.7, sedimentation rate 31, C-reactive protein less than 2.90. Her previous wound culture had a final negative acid-fast reading. The x-rays were not obtained as ordered. Flaquito eddy was called in a verbal and written additional order was provided. She was asked to bring her CD to her follow-up visit for review. Clinically she and systemically she does not appear to be infected at this time. To return to clinic in 1 week or call sooner if problems.
--- NOTE | 2017-04-25 14:05 | PN.PCM_ITS ---
(1) Chronic ulcer of left foot with fat layer exposed Status: Chronic Current Visit: Yes Code(s): L97.522 - Non-pressure chronic ulcer of other part of left foot with fat layer exposed (2) Type 2 diabetes mellitus with diabetic polyneuropathy Status: Chronic Current Visit: Yes Code(s): E11.42 - Type 2 diabetes mellitus with diabetic polyneuropathy (3) Malnutrition Status: Chronic Current Visit: Yes Code(s): E46 - Unspecified protein- calorie malnutrition (4) PVD (peripheral vascular disease) Status: Chronic Current Visit: Yes Code(s): I73.9 - Peripheral vascular disease, unspecified (5) Delayed wound healing Status: Chronic Current Visit: Yes Code(s): T14.8XXD - Other injury of unspecified body region, subsequent encounter (6) Non-compliance Status: Chronic Current Visit: Yes Code(s): Z91.19 - Patient's noncompliance with other medical treatment and regimen (7) Memory loss Status: Chronic Current Visit: Yes Code(s): R41.3 - Other amnesia Type of Wound Date of Service: 04/25/17 Chief Complaint: Postoperative left foot and wound History of Wound: This 62-year-old pleasant female who resides at [facility] post fifth ray resection performed on the left foot. She denies fever, chill, nausea, vomiting, loss of appetite. She has loss of memory. She has presented again today without a dressing. She resides in a group home facility [facility]. The patient is frustrated she does not remember taking the dressing off but admits she is not able to remember anything. I have been informed by nursing staff that she refuses to keep her dressing in place and continues to wear regular shoes. Progress of Wound: Stable - Physical Exam Vital Signs Temp Pulse Resp BP 96.8 F L 77 16 128/72 H 04/25/17 12:58 04/25/17 12:58 04/25/17 12:58 04/25/17 12:58 General: Alert, Oriented x3, Cooperative Extremities: No cyanosis, Capillary Refill Less than 3 Seconds, No Calf Tenderness - Negative Evelina and [place] left lower extremity, Diminished Peripheral Pulses, Edema - Mild left lower extremity Skin: Ulcer/ Wound - No purulence, no erythema, streaking, no odor, no acute infection. Significant delayed healing is still noted. The skin is atrophic and hairless, - - no wound probe to bone Wound Measurements and Assessment WC - Nurse 1 - General Ulcer Measurement Start: 04/11/17 13:30 Freq: Status: Active Protocol: Activity Type Activity Date Activity User E-Sign Co-Sign Detail Recorded Client Recorded Date Recorded By Document 04/25/17 12:58 [facility] [id number] 04/25/17 13:02 [facility] 04/25/17 12:58 Wound Center Nurse 1 [Ulcer Assessment] #6 post op Left 5th toe s/p amputation -Combined with other wound No -Current Size (cm) - Length 0.5 -Current Size (cm) - Width 0.2 -Current Size (cm) - Depth 0.3 -Total Square Cm 0.10 -Photo Taken No -Epithelialization None Present -Tunneling No -Undermining/Tunneling No -Exudate Amt None Present (0 %) -Granulation Amt Small (1-33%) -Granulation Quality [place] -Slough/Fibrin Yes -Necrosis Amt Medium (34-66%) -Necrotic Tissue Type Adherent Slough -Texture (Kirstie-wound Skin Appearance) Scarring -Moisture (Kirstie-wound Skin Appearance Maceration ) Dry/Scaly -Color (Kirstie-wound Skin Appearance) Erythema Palor -Temperature (Kirstie-wound Skin No Abnormality Appearance) (Pt Warm) -Tenderness on Palpation (Kirstie-wound No Skin Appearance) -Ulcer Cleansing Rinsed/ Irrigated with Saline -Foul Odor after Cleansing No -Anesthetic Used 5% Lidocaine Gel - Nurse 2 - General Ulcer CM Notes Start: 04/11/17 13:30 Freq: Status: Active Protocol: Activity Type Activity Date Activity User E-Sign Co-Sign Detail Recorded Client Recorded Date Recorded By Document 04/25/17 13:28 [id number] 04/25/17 13:29 04/25/17 13:28 Wound Center Nurse 2 [Procedure/Treatment] -Time 13:28 -Correct Patient Yes -Correct Side, Site, Position Yes -Correct Procedure Yes -Procedure Performed Yes -Type of Procedure Debridement -Clinical Debridement Subcutaneous -Post Debridement Size (cm) - Length 0.6 -Post Debridement Size (cm) - Width 0.3 -Post Debridement Size (cm) - Depth 0.3 -Total Square Cm 0.18 -Wound/Ulcer Outcome Not Healed -Ulcer Cleansing Rinsed/ Irrigated with Saline -Foul Odor after Cleansing No -Bioengineered Tissue No -Topical Lidocaine (%) 4 -Bleeding Controlled with Pressure -Treatment Response Procedure Tolerated Well [See Physician Procedure note for Specifics] Pain Scale: 0-10 Numeric [Pain] -Is Patient Pain Free? Yes Musculoskeletal: No Tenderness to Palpation of Joints or Extremities, Muscle Wasting, - - Left fifth ray resection Neurological: Sensory exam intact to light touch and pain - Lack of epicritic sensation light touch left lower extremity consistent with neuropathy Psych/Mental Status: Normal Affect, Appropriate Debridement Note Post-Debridement Measurements/Treatment WC - Nurse 2 - General Ulcer CM Notes Start: 04/11/17 13:30 Freq: Status: Active Protocol: Activity Type Activity Date Activity User E-Sign Co-Sign Detail Recorded Client Recorded Date Recorded By Document 04/11/17 13:43 [id number] 04/11/17 13:47 Document 04/18/17 13:35 [id number] 04/18/17 13:36 Document 04/25/17 13:28 [id number] 04/25/17 13:29 TM 04/11/17 04/18/17 04/25/17 13:43 13:35 13:28 Wound Center Nurse 2 #6 post op Left 5th toe s/p amputation -Time 13:44 13:36 13:28 -Correct Patient Yes Yes Yes -Correct Side, Site, Position Yes Yes Yes -Correct Procedure Yes Yes Yes -Procedure Performed Yes Yes Yes -Type of Procedure Debridement Debridement Debridement -Clinical Debridement Subcutaneous Subcutaneous Subcutaneous -Post Debridement Size (cm) - Length 0.6 0.6 0.6 -Post Debridement Size (cm) - Width 0.4 0.3 0.3 -Post Debridement Size (cm) - Depth 0.8 0.6 0.3 -Total Square Cm 0.24 0.18 0.18 -Wound/Ulcer Outcome Not Healed Not Healed Not Healed -Ulcer Cleansing Rinsed/ Rinsed/ Rinsed/ Irrigated with Irrigated with Irrigated with Saline Saline Saline -Foul Odor after Cleansing No No No -Bioengineered Tissue No No No -Topical Lidocaine (%) 4 -Bleeding Controlled with Pressure Pressure Pressure -Treatment Response Procedure Procedure Procedure Tolerated Well Tolerated Well Tolerated Well Pain Scale: 0-10 Numeric Is Patient Pain Free? Yes Yes Yes Wound debrided: distal lateral foot Laterality: Left Wound Grade/Stage: grade 1 Type of Debridement: Excisional debridement Anesthesia Used: 4% Lidocaine Solution Depth: in the subcutaneous layer Percentage of wound debrided: 100 Instrument Used: #15 blade Tissue Removed: fibrous, devitalized subcutaneous tissue, biofilm, slough Severity: Fat Layer Exposed Amount of bleeding with debridement: Mild Bleeding Controlled with: Pressure Patient tolerated procedure well Assessment/Plan Active Problems Delayed wound healing (Chronic) Non-compliance (Chronic) Memory loss (Chronic) Chronic ulcer of left foot with fat layer exposed (Chronic) Type 2 diabetes mellitus with diabetic polyneuropathy (Chronic) Malnutrition (Chronic) Delayed wound healing (Chronic) PVD (peripheral vascular disease) (Chronic) Assessment: Ulcer left foot fat layer exposed. s/p fifth ray resection left. Cellulitis resolved. Diabetes with neuropathy. Hammertoes left foot. Delayed healing. Malnutrition. peripheral vascular disease. Non compliance due to memory loss Plan: I reviewed her care plan today. Debridement was performed as noted in the clinical panel and she tolerated this well. She denies pain. To heel weight-bear with surgical shoe to keep pressure off the surgical site to facilitate healing. To keep the dressing in place. He signed alerting her to not remove the dressing was incorporated into her dressing to prevent noncompliance; she has significant memory loss and is struggling with following directions. A bulky dressing was applied today. I order splinting material to apply a short leg posterior mold splint next week. She is amenable to this plan. Aquacel Ag was wicked into the wound; to continue to change daily. Inability to remember recommendations complicate her treatment plan. . Noninvasive arterial vascular studies were ordered and these results were reviewed. She has noncompressible vessels and an ESTRELLA value was not calculated. Her toe brachial index in the right lower extremity was 0.45 which is abnormal and contributing to her delayed healing. A referral to vascular surgeon, Dr. Chase was provided and a doppler was performed. She is to follow- up in several months. If there is a status change prior to that time, an angio will be considered. . To continue nutritional supplementation twice daily to optimize healing. To control glucose levels to optimize healing. She completed oral antibiotics; infectious disease recommend she complete a 6 week course of her antibiotic. Repeat labs and updated foot x-rays were ordered. The labs were obtained and reviewed as the following: White blood cell count 5.7 , sedimentation rate 31, C-reactive protein less than 2.90. Her previous wound culture had a final negative acid-fast reading. The x-rays were not obtained as ordered. Flaquito eddy was called in a verbal and written additional order was provided. She was asked to bring her CD to her follow-up visit for review. Clinically she and systemically she does not appear to be infected at this time. To return to clinic in 1 week or call sooner if problems.
[2017-05-02 15:49] VITALS: BP 131/69; PULSE 77; RESP 16; TEMP 36.2; BMI 34.2
--- NOTE | 2017-05-02 16:59 | PCM.WC.PN ---
(1) Chronic ulcer of left foot with fat layer exposed Status: Chronic Current Visit: Yes Code(s): L97.522 - Non-pressure chronic ulcer of other part of left foot with fat layer exposed (2) Type 2 diabetes mellitus with diabetic polyneuropathy Status: Chronic Current Visit: Yes Code(s): E11.42 - Type 2 diabetes mellitus with diabetic polyneuropathy (3) Malnutrition Status: Chronic Current Visit: Yes Code(s): E46 - Unspecified protein-calorie malnutrition (4) PVD (peripheral vascular disease) Status: Chronic Current Visit: Yes Code(s): I73.9 - Peripheral vascular disease, unspecified (5) Delayed wound healing Status: Chronic Current Visit: Yes Code(s): T14.8XXD - Other injury of unspecified body region, subsequent encounter (6) Non-compliance Status: Chronic Current Visit: Yes Code(s): Z91.19 - Patient's noncompliance with other medical treatment and regimen (7) Memory loss Status: Chronic Current Visit: Yes Code(s): R41.3 - Other amnesia Type of Wound Date of Service: 05/02/17 Chief Complaint: Postoperative left foot and wound History of Wound: This 62-year-old pleasant female who resides at [facility] post fifth ray resection performed on the left foot. She denies fever, chill, nausea, vomiting, loss of appetite. She has loss of memory. She has presented again today without a dressing. She resides in a longterm facility [facility]. The patient is frustrated she does not remember taking the dressing off but admits she is not able to remember anything. I have been informed by nursing staff that she refuses to keep her dressing in place and continues to wear regular shoes. Progress of Wound: Stable - Physical Exam Vital Signs Temp Pulse Resp BP 97.1 F L 77 16 131/69 H 05/02/17 15:49 05/02/17 15:49 05/02/17 15:49 05/02/17 15:49 General: Alert, Oriented x3, Cooperative Extremities: Capillary Refill Less than 3 Seconds, No Calf Tenderness, Diminished Peripheral Pulses, Edema Skin: Ulcer/ Wound - no purulence, no erythema, no infection noted. there is continued deep probing noted. no maceration. her skin is atriphic and without hair Wound Measurements and Assessment WC - Nurse 1 - General Ulcer Measurement Start: 04/11/17 13:30 Freq: Status: Active Protocol: Activity Type Activity Date Activity User E-Sign Co-Sign Detail Recorded Client Recorded Date Recorded By Document 05/02/17 15:49 MW [id number] 05/02/17 15:52 MW 05/02/17 15:49 Wound Center Nurse 1 [Ulcer Assessment] #6 post op Left 5th toe s/p amputation -Combined with other wound No -Current Size (cm) - Length 0.5 -Current Size (cm) - Width 0.8 -Current Size (cm) - Depth 0.1 -Total Square Cm 0.40 -Photo Taken No -Epithelialization None Present -Tunneling No -Undermining/Tunneling No -Circular Undermining No -Exudate Amt None Present (0 %) -Wound Margin Flat & Intact -Granulation Amt None Present (0 %) -Granulation Quality N/A -Slough/Fibrin Yes -Necrosis Amt Large (67-100%) -Necrotic Tissue Type Adherent Slough -Structure Exposed N/A -Texture (Kirstie-wound Skin Appearance) Assessed Scarring -Moisture (Kirstie-wound Skin Appearance No Abnormality ) Assessed -Color (Kirstie-wound Skin Appearance) No Abnormality Assessed -Temperature (Kirstie-wound Skin No Abnormality Appearance) (Pt Warm) -Ulcer Cleansing Rinsed/ Irrigated with Saline -Foul Odor after Cleansing No -Anesthetic Used 4% Lidocaine Solution [Edema Assessment] -Lower Limb Edema Present No WC - Nurse 2 - General Ulcer CM Notes Start: 04/11/17 13:30 Freq: Status: Active Protocol: Activity Type Activity Date Activity User E-Sign Co-Sign Detail Recorded Client Recorded Date Recorded By Document 05/02/17 16:24 TM [id number] 05/02/17 16:26 TM 05/02/17 16:24 Wound Center Nurse 2 [Procedure/Treatment] #6 post op Left 5th toe s/p amputation -Time 16:24 -Correct Patient Yes -Correct Side, Site, Position Yes -Correct Procedure Yes -Procedure Performed Yes -Type of Procedure Debridement -Clinical Debridement Subcutaneous -Post Debridement Size (cm) - Length 0.5 -Post Debridement Size (cm) - Width 0.8 -Post Debridement Size (cm) - Depth 1.5 -Total Square Cm 0.40 -Wound/Ulcer Outcome Not Healed -Ulcer Cleansing Rinsed/ Irrigated with Saline -Foul Odor after Cleansing No -Bioengineered Tissue No -Topical Lidocaine (%) 4 -Bleeding Controlled with Pressure -Treatment Response Procedure Tolerated Well [See Physician Procedure note for Specifics] Pain Scale: 0-10 Numeric [Pain] -Is Patient Pain Free? Yes Musculoskeletal: No Tenderness to Palpation of Joints or Extremities, No Muscle Wasting, Tenderness - no pain wound manipulation, - - fifth ray resection noted Neurological: - - lack of epicritic sensation noted via light touch, left Psych/Mental Status: Normal Affect, Appropriate Debridement Note Post-Debridement Measurements/Treatment WC - Nurse 2 - General Ulcer CM Notes Start: 04/11/17 13:30 Freq: Status: Active Protocol: Activity Type Activity Date Activity User E-Sign Co-Sign Detail Recorded Client Recorded Date Recorded By Document 04/11/17 13:43 [id number] 04/11/17 13:47 Document 04/18/17 13:35 [id number] 04/18/17 13:36 Document 04/25/17 13:28 [id number] 04/25/17 13:29 Document 05/02/17 16:24 [id number] 05/02/17 16:26 TM 04/11/17 04/18/17 04/25/17 13:43 13:35 13:28 Wound Center Nurse 2 #6 post op Left 5th toe s/p amputation -Time 13:44 13:36 13:28 -Correct Patient Yes Yes Yes -Correct Side, Site, Position Yes Yes Yes -Correct Procedure Yes Yes Yes -Procedure Performed Yes Yes Yes -Type of Procedure Debridement Debridement Debridement -Clinical Debridement Subcutaneous Subcutaneous Subcutaneous -Post Debridement Size (cm) - Length 0.6 0.6 0.6 -Post Debridement Size (cm) - Width 0.4 0.3 0.3 -Post Debridement Size (cm) - Depth 0.8 0.6 0.3 -Total Square Cm 0.24 0.18 0.18 -Wound/Ulcer Outcome Not Healed Not Healed Not Healed -Ulcer Cleansing Rinsed/ Rinsed/ Rinsed/ Irrigated with Irrigated with Irrigated with Saline Saline Saline -Foul Odor after Cleansing No No No -Bioengineered Tissue No No No -Topical Lidocaine (%) 4 -Bleeding Controlled with Pressure Pressure Pressure -Treatment Response Procedure Procedure Procedure Tolerated Well Tolerated Well Tolerated Well Pain Scale: 0-10 Numeric Is Patient Pain Free? Yes Yes Yes 05/02/17 16:24 Wound Center Nurse 2 #6 post op Left 5th toe s/p amputation -Time 16:24 -Correct Patient Yes -Correct Side, Site, Position Yes -Correct Procedure Yes -Procedure Performed Yes -Type of Procedure Debridement -Clinical Debridement Subcutaneous -Post Debridement Size (cm) - Length 0.5 -Post Debridement Size (cm) - Width 0.8 -Post Debridement Size (cm) - Depth 1.5 -Total Square Cm 0.40 -Wound/Ulcer Outcome Not Healed -Ulcer Cleansing Rinsed/ Irrigated with Saline -Foul Odor after Cleansing No -Bioengineered Tissue No -Topical Lidocaine (%) 4 -Bleeding Controlled with Pressure -Treatment Response Procedure Tolerated Well Pain Scale: 0-10 Numeric Is Patient Pain Free? Yes Wound debrided: lateral forefoot Laterality: Left Wound Grade/Stage: grade 2 Type of Debridement: Excisional debridement Anesthesia Used: 4% Lidocaine Solution Depth: in the subcutaneous layer Percentage of wound debrided: 100 Instrument Used: #15 blade Tissue Removed: fibrous, devitalized subcutaneous, biofilm, slough Severity: Fat Layer Exposed Amount of bleeding with debridement: Mild Bleeding Controlled with: Pressure Patient tolerated procedure well Assessment/Plan Active Problems (Last Updated 05/01/17 @ 13:16 by Colette Laguna) Delayed wound healing (Chronic) Non-compliance (Chronic) Memory loss (Chronic) Chronic ulcer of left foot with fat layer exposed (Chronic) Type 2 diabetes mellitus with diabetic polyneuropathy (Chronic) Malnutrition (Chronic) Delayed wound healing (Chronic) PVD (peripheral vascular disease) (Chronic) Assessment: Ulcer left foot fat layer exposed. s/p fifth ray resection left. Cellulitis resolved. Diabetes with neuropathy. Hammertoes left foot. Delayed healing. Malnutrition. peripheral vascular disease. Non compliance due to memory loss Plan: I reviewed her care plan today. Debridement was performed as noted in the clinical panel and she tolerated this well. She denies pain. To heel weight-bear with surgical shoe to keep pressure off the surgical site to facilitate healing. To keep the dressing in place. She has significant memory loss and is struggling with following directions. A large well padded bulky posterior mold splint was applied to the left lower extremity to provide further protection and to promote compliance. To remain non weightbearing. aquacel Ag was applied; to keep intact this upcoming week. Inability to remember recommendations complicate her treatment plan and her prognosis is poor. . Noninvasive arterial vascular studies were ordered and these results were reviewed. She has noncompressible vessels and an ESTRELLA value was not calculated. Her toe brachial index in the right lower extremity was 0.45 which is abnormal and contributing to her delayed healing. A referral to vascular surgeon, Dr. Chase was provided and a doppler was performed. She is to follow-up in several months. If there is a status change prior to that time, an angio will be considered. . To continue nutritional supplementation twice daily to optimize healing. To control glucose levels to optimize healing. She completed oral antibiotics; infectious disease recommend she complete a 6 week course of her antibiotic. Repeat labs and updated foot x-rays were ordered. The labs were obtained and reviewed as the following: White blood cell count 5.7, sedimentation rate 31, C-reactive protein less than 2.90. Her previous wound culture had a final negative acid-fast reading. The x-rays were not obtained as ordered. Flaquito eddy was called in a verbal and written additional order was provided. She was asked to bring her CD to her follow-up visit for review. Clinically she and systemically she does not appear to be infected at this time.This will be requested again. She is not able to obtain the xrays at the hospital because of her transporation set up and the concern of her getting confused and lost while over there unattended. To return to clinic in 1 week or call sooner if problems.
== END 2017-05-05 23:59 ==
LOC: WC 14:45
PROVIDERS: Visit Provider Podiatrist
DX: E11.621 Type 2 diabetes mellitus with foot ulcer (principal); E11.42 Type 2 diabetes mellitus with diabetic polyneuropathy; L97.522 Non-pressure chronic ulcer of other part of left foot with fat layer exposed; E11.51 Type 2 diabetes mellitus with diabetic peripheral angiopathy without gangrene; Z91.19 Patient's noncompliance with other medical treatment and regimen; R41.3 Other amnesia
CPT/HCPCS: 11042; 85025; 85652; 86140

== ENCOUNTER → 2017-05-23 20:01 | Outpatient (CLI) | payer MEDICARE, SELFPAY | PROVIDERS: Visit Provider Nurse Practitioner Acute Care | DX: G47.33 Obstructive sleep apnea (adult) (pediatric) (principal) | CPT/HCPCS: 95811 ==

== ENCOUNTER 2017-05-30 14:00 | Outpatient (RCR) | payer MEDICARE, SELFPAY ==
[2017-05-06 00:34] VITALS: BP 110/61; PULSE 77; RESP 16; TEMP 36.2; BMI 34.2
[2017-05-16 16:10] VITALS: BP 144/74; PULSE 77; RESP 18; TEMP 37.3; BMI 34.2
--- NOTE | 2017-05-16 17:28 | PCM.WC.PN ---
(1) Chronic ulcer of left foot with fat layer exposed Status: Chronic Current Visit: Yes Code(s): L97.522 - Non-pressure chronic ulcer of other part of left foot with fat layer exposed (2) Hallux limitus of left foot Status: Chronic Current Visit: Yes Code(s): M20.5X2 - Other deformities of toe(s) (acquired), left foot (3) Delayed wound healing Status: Chronic Current Visit: Yes Code(s): T14.8XXD - Other injury of unspecified body region, subsequent encounter (4) Non-compliance Status: Chronic Current Visit: Yes Code(s): Z91.19 - Patient's noncompliance with other medical treatment and regimen (5) Memory loss Status: Chronic Current Visit: Yes Code(s): R41.3 - Other amnesia (6) Type 2 diabetes mellitus with diabetic polyneuropathy Status: Chronic Current Visit: Yes Code(s): E11.42 - Type 2 diabetes mellitus with diabetic polyneuropathy (7) PVD (peripheral vascular disease) Status: Chronic Current Visit: Yes Code(s): I73.9 - Peripheral vascular disease, unspecified Type of Wound Date of Service: 05/16/17 Chief Complaint: Left foot ulcer including a new ulcer History of Wound: This 62-year-old pleasant female who resides at [facility] post fifth ray resection performed on the left foot. She denies fever, chill, nausea, vomiting, loss of appetite. She has loss of memory. She has presented today with her posterior mold in place. She was advised on multiple occasions to stop walking on her wound site and splint while waiting in the waiting room. She resides in a care home facility [facility]. The patient is frustrated she does not remember taking the dressing off but admits she is not able to remember anything. She reports continued restless leg. Progress of Wound: Improved left foot. New left great toe ulcer - Physical Exam Vital Signs Temp Pulse Resp BP 99.1 F 77 18 144/74 H 05/16/17 16:10 05/16/17 16:10 05/16/17 16:10 05/16/17 16:10 General: Alert, Oriented x3, Cooperative Extremities: No cyanosis, Capillary Refill Less than 3 Seconds, No Calf Tenderness - Negative Evelina and Mayberry left, Diminished Peripheral Pulses, Edema - Minimal left, - - s.p fifth ray resection. decreased loaded first metatarsal phalangeal joint left foot noted Skin: Ulcer/ Wound - No purulence, no erythema, no streaking, no infection left. the lateral ulcr has decreased in size., - - There is a new skin discontinuity to the plantar left hallux. Wound Measurements and Assessment WC - Nurse 1 - General Ulcer Measurement Start: 05/16/17 16:09 Freq: Status: Active Protocol: Activity Type Activity Date Activity User E-Sign Co-Sign Detail Recorded Client Recorded Date Recorded By Document 05/16/17 16:10 MW [id number] 05/16/17 16:17 MW 05/16/17 16:10 Wound Center Nurse 1 [Ulcer Assessment] #7 LEFT GREAT TOE - PLANTAR -Combined with other wound No -Current Size (cm) - Length 1.5 -Current Size (cm) - Width 1.0 -Current Size (cm) - Depth 0.1 -Total Square Cm 1.50 -Date of Last Picture (Recall this 05/16/17 field) -Photo Taken Yes -Epithelialization None Present -Tunneling No -Undermining/Tunneling No -Circular Undermining No -Exudate Amt Small (1-33%) -Exudate Type Serosanguineous -Wound Margin Flat & Intact -Granulation Amt Small (1-33%) -Granulation Quality [place] -Slough/Fibrin Yes -Necrosis Amt Medium (34-66%) -Necrotic Tissue Type Adherent Slough -Structure Exposed N/A -Texture (Kirstie-wound Skin Appearance) Assessed Callus -Moisture (Kirstie-wound Skin Appearance Assessed ) Dry/Scaly -Color (Kirstie-wound Skin Appearance) No Abnormality Assessed -Temperature (Kirstie-wound Skin No Abnormality Appearance) (Pt Warm) -Tenderness on Palpation (Kirstie-wound No Skin Appearance) -Ulcer Cleansing Rinsed/ Irrigated with Saline -Foul Odor after Cleansing No -Anesthetic Used 4% Lidocaine Solution #6 post op Left 5th toe s/p amputation -Combined with other wound No -Current Size (cm) - Length 0.1 -Current Size (cm) - Width 0.1 -Current Size (cm) - Depth 0.1 -Total Square Cm 0.01 -Photo Taken No -Epithelialization None Present -Tunneling No -Undermining/Tunneling No -Circular Undermining No -Exudate Amt None Present (0 %) -Granulation Amt None Present (0 %) -Granulation Quality N/A -Slough/Fibrin Yes -Necrosis Amt Medium (34-66%) -Necrotic Tissue Type Adherent Slough -Structure Exposed N/A -Texture (Kirstie-wound Skin Appearance) Assessed Scarring -Moisture (Kirstie-wound Skin Appearance Assessed ) Dry/Scaly -Color (Kirstie-wound Skin Appearance) No Abnormality Assessed -Temperature (Kirstie-wound Skin No Abnormality Appearance) (Pt Warm) -Tenderness on Palpation (Kirstie-wound No Skin Appearance) -Ulcer Cleansing Rinsed/ Irrigated with Saline -Foul Odor after Cleansing No -Anesthetic Used 4% Lidocaine Solution [Edema Assessment] -Lower Limb Edema Present Yes -Left Calf (cm) 35.0 -Point of Measurement (cm from the 20.0 medial instep) WC - Nurse 2 - General Ulcer CM Notes Start: 05/16/17 16:09 Freq: Status: Active Protocol: Activity Type Activity Date Activity User E-Sign Co-Sign Detail Recorded Client Recorded Date Recorded By Document 05/16/17 16:51 KATIA [id number] 05/16/17 16:52 KATIA 05/16/17 16:51 Wound Center Nurse 2 [Procedure/Treatment] #7 LEFT GREAT TOE - PLANTAR -Time 16:51 -Correct Patient Yes -Correct Side, Site, Position Yes -Correct Procedure Yes -Procedure Performed Yes -Type of Procedure Debridement -Clinical Debridement Subcutaneous -Post Debridement Size (cm) - Length 1.3 -Post Debridement Size (cm) - Width 1.0 -Post Debridement Size (cm) - Depth 0.1 -Total Square Cm 1.30 -Wound/Ulcer Outcome Not Healed -Ulcer Cleansing Rinsed/ Irrigated with Saline -Foul Odor after Cleansing No -Bioengineered Tissue No -Bleeding Controlled with Pressure -Treatment Response Procedure Tolerated Well #6 post op Left 5th toe s/p amputation -Time 16:51 -Correct Patient Yes -Correct Side, Site, Position Yes -Correct Procedure Yes -Procedure Performed Yes -Type of Procedure Debridement -Clinical Debridement Subcutaneous -Post Debridement Size (cm) - Length 1.7 -Post Debridement Size (cm) - Width 0.5 -Post Debridement Size (cm) - Depth 0.4 -Total Square Cm 0.85 -Wound/Ulcer Outcome Not Healed -Ulcer Cleansing Rinsed/ Irrigated with Saline -Foul Odor after Cleansing No -Bioengineered Tissue No -Bleeding Controlled with Pressure -Treatment Response Procedure Tolerated Well [See Physician Procedure note for Specifics] Pain Scale: 0-10 Numeric [Pain] -Is Patient Pain Free? Yes Musculoskeletal: No Tenderness to Palpation of Joints or Extremities, Muscle Wasting Neurological: - - Lack of epicritic sensation light touch left foot Psych/Mental Status: Normal Affect, Appropriate Debridement Note Post-Debridement Measurements/Treatment WC - Nurse 2 - General Ulcer CM Notes Start: 05/16/17 16:09 Freq: Status: Active Protocol: Activity Type Activity Date Activity User E-Sign Co-Sign Detail Recorded Client Recorded Date Recorded By Document 05/16/17 16:51 KATIA [id number] 05/16/17 16:52 KATIA 05/16/17 16:51 Wound Center Nurse 2 #7 LEFT GREAT TOE - PLANTAR -Time 16:51 -Correct Patient Yes -Correct Side, Site, Position Yes -Correct Procedure Yes -Procedure Performed Yes -Type of Procedure Debridement -Clinical Debridement Subcutaneous -Post Debridement Size (cm) - Length 1.3 -Post Debridement Size (cm) - Width 1.0 -Post Debridement Size (cm) - Depth 0.1 -Total Square Cm 1.30 -Wound/Ulcer Outcome Not Healed -Ulcer Cleansing Rinsed/ Irrigated with Saline -Foul Odor after Cleansing No -Bioengineered Tissue No -Bleeding Controlled with Pressure -Treatment Response Procedure Tolerated Well #6 post op Left 5th toe s/p amputation -Time 16:51 -Correct Patient Yes -Correct Side, Site, Position Yes -Correct Procedure Yes -Procedure Performed Yes -Type of Procedure Debridement -Clinical Debridement Subcutaneous -Post Debridement Size (cm) - Length 1.7 -Post Debridement Size (cm) - Width 0.5 -Post Debridement Size (cm) - Depth 0.4 -Total Square Cm 0.85 -Wound/Ulcer Outcome Not Healed -Ulcer Cleansing Rinsed/ Irrigated with Saline -Foul Odor after Cleansing No -Bioengineered Tissue No -Bleeding Controlled with Pressure -Treatment Response Procedure Tolerated Well Pain Scale: 0-10 Numeric Is Patient Pain Free? Yes Wound debrided: plantar hallux Laterality: Left Wound Grade/Stage: grade 1 Type of Debridement: Excisional debridement Anesthesia Used: 4% Lidocaine Solution Depth: in the subcutaneous layer Percentage of wound debrided: 100 Instrument Used: #15 blade Tissue Removed: fibrous, devitalized subcutaneous, biofilm, slough Severity: Fat Layer Exposed Amount of bleeding with debridement: Mild Bleeding Controlled with: Pressure Patient tolerated procedure well - Additional Wound Wound debrided: lateral foot Laterality: Left Wound Grade/Stage: grade 1 Type of Debridement: Excisional debridement Anesthesia Used: 4% Lidocaine Solution Depth: in the subcutaneous layer Percentage of wound debrided: 100 Instrument Used: #15 blade Tissue Removed: fibrous, devitalized subcutaneous, biofilm, slough Severity: Fat Layer Exposed Amount of bleeding with debridement: Mild Bleeding Controlled with: Silver Nitrate Patient tolerated procedure: Patient tolerated procedure well Assessment/Plan Active Problems (Last Reviewed 05/08/17 @ 09:07 by Clarice Dutta NP-C) Hallux limitus of left foot (Chronic) Delayed wound healing (Chronic) Non-compliance (Chronic) Memory loss (Chronic) Chronic ulcer of left foot with fat layer exposed (Chronic) Type 2 diabetes mellitus with diabetic polyneuropathy (Chronic) PVD (peripheral vascular disease) (Chronic) Assessment: Ulcer left foot fat layer exposed. s/p fifth ray resection left. Left plantar hallux ulcer no infection. Hallux limitus left. Diabetes with neuropathy. Hammertoes left foot. Delayed healing. Malnutrition. peripheral vascular disease. Non compliance due to memory loss Plan: I reviewed her care plan today. Debridement was performed as noted in the clinical panel and she tolerated this well. She denies pain. To remain nonweightbearing left lower extremity with posterior mold in place. To ambulate with walker or wheelchair. I referred her to the foot and ankle center to obtain a cam walker boot with offloading padding. This will be further secured to her leg with tape and Coban so she is not able to remove this. To keep the dressing and splint in place. She has significant memory loss and is struggling with following directions. A large well padded bulky posterior mold splint was applied to the left lower extremity to provide further protection and to promote compliance. Aquacel Ag was applied; to keep intact this upcoming week. Inability to remember recommendations complicate her treatment plan and her prognosis is poor. . Noninvasive arterial vascular studies were ordered and these results were reviewed. She has noncompressible vessels and an ESTRELLA value was not calculated. Her toe brachial index in the right lower extremity was 0.45 which is abnormal and contributing to her delayed healing. A referral to vascular surgeon, Dr. Chase was provided and a doppler was performed. She is to follow-up in several months. If there is a status change prior to that time, an angio will be considered. . To continue nutritional supplementation twice daily to optimize healing. To control glucose levels to optimize healing. She completed oral antibiotics; infectious disease recommend she complete a 6 week course of her antibiotic. Repeat labs and updated foot x-rays were ordered. The labs were obtained and reviewed as the following: White blood cell count 5.7, sedimentation rate 31, C-reactive protein less than 2.90. Her previous wound culture had a final negative acid-fast reading. The x-rays were not obtained as ordered. Flaquito eddy was called in a verbal and written additional order was provided. She was asked to bring her CD to her follow-up visit for review. Clinically she and systemically she does not appear to be infected at this time.This will be requested again. She is not able to obtain the xrays at the hospital because of her transporation set up and the concern of her getting confused and lost while over there unattended. To return to clinic in 1 week or call sooner if problems.
[2017-05-30 14:16] VITALS: BP 150/75; PULSE 65; RESP 18; TEMP 36.5; BMI 34.2
--- NOTE | 2017-05-30 15:38 | PCM.WC.PN ---
(1) Chronic ulcer of left foot with fat layer exposed Status: Chronic Current Visit: Yes Code(s): L97.522 - Non-pressure chronic ulcer of other part of left foot with fat layer exposed (2) Hallux limitus of left foot Status: Chronic Current Visit: Yes Code(s): M20.5X2 - Other deformities of toe(s) (acquired), left foot (3) Delayed wound healing Status: Chronic Current Visit: Yes Code(s): T14.8XXD - Other injury of unspecified body region, subsequent encounter (4) Non-compliance Status: Chronic Current Visit: Yes Code(s): Z91.19 - Patient's noncompliance with other medical treatment and regimen (5) Memory loss Status: Chronic Current Visit: Yes Code(s): R41.3 - Other amnesia (6) Type 2 diabetes mellitus with diabetic polyneuropathy Status: Chronic Current Visit: Yes Code(s): E11.42 - Type 2 diabetes mellitus with diabetic polyneuropathy (7) PVD (peripheral vascular disease) Status: Chronic Current Visit: Yes Code(s): I73.9 - Peripheral vascular disease, unspecified Type of Wound Date of Service: 06/01/17 Chief Complaint: Left foot ulcer including a new ulcer History of Wound: This 62-year-old pleasant female who resides at [facility] post fifth ray resection performed on the left foot. She denies fever, chill, nausea, vomiting, loss of appetite. She has loss of memory. She has presented today with her cam walker boot with Coban and secured. She resides in a assisted facility [facility]. She was seen last week at the foot and ankle center was fitted for a cam walker boot with offloading specifically for her new hallux ulcer site. This device was secured in place with Coban so she is unable to remove this. This provided better offloading to the wound sites. Progress of Wound: Reopened left lateral foot and improved left great toe ulcer - Physical Exam Vital Signs Temp Pulse Resp BP 97.7 F L 65 18 150/75 H 05/30/17 14:16 05/30/17 14:16 05/30/17 14:16 05/30/17 14:16 General: Alert, Oriented x3, Cooperative Extremities: No cyanosis, Capillary Refill Less than 3 Seconds, No Calf Tenderness, Diminished Peripheral Pulses, Edema, - - Decreased loaded first metatarsophalangeal joint left. Fifth ray resection left Skin: Ulcer/ Wound - No purulence, no erythema, streaking, no odor, no acute infection. Increased granulation tissue to the plantar hallux ulcer site. There is scant serosanguineous drainage from the recently healed ulcer on the lateral surgical site and the site is not reopened. Her skin is atrophic. Wound Measurements and Assessment WC - Nurse 1 - General Ulcer Measurement Start: 05/16/17 16:09 Freq: Status: Active Protocol: Activity Type Activity Date Activity User E-Sign Co-Sign Detail Recorded Client Recorded Date Recorded By Document 05/30/17 14:16 RB [id number] 05/30/17 14:30 RB 05/30/17 14:16 Wound Center Nurse 1 [Ulcer Assessment] #7 LEFT GREAT TOE - PLANTAR -Combined with other wound No -Current Size (cm) - Length 1 -Current Size (cm) - Width 1.4 -Current Size (cm) - Depth 0.1 -Total Square Cm 1.4 -Tunneling No -Undermining/Tunneling No -Circular Undermining No -Classification - Thickness Full Thickness without Exposed Support Structure -Exudate Amt Small (1-33%) -Exudate Type Serosanguineous -Wound Margin Distinct, Outline Attached -Granulation Amt Medium (34-66%) -Granulation Quality [place] -Slough/Fibrin Yes -Necrosis Amt Medium (34-66%) -Necrotic Tissue Type Adherent Slough -Structure Exposed N/A -Texture (Kirstie-wound Skin Appearance) Assessed -Moisture (Kirstie-wound Skin Appearance Assessed ) Maceration -Color (Kirstie-wound Skin Appearance) Assessed -Temperature (Kirstie-wound Skin No Abnormality Appearance) (Pt Warm) -Tenderness on Palpation (Kirstie-wound No Skin Appearance) -Ulcer Cleansing Wound Cleanser -Foul Odor after Cleansing No -Anesthetic Used 5% Lidocaine Gel #6 post op Left 5th toe s/p amputation -Current Size (cm) - Length 0.3 -Current Size (cm) - Width 0.2 -Current Size (cm) - Depth 0.2 -Total Square Cm 0.06 -Tunneling No -Undermining/Tunneling No -Circular Undermining No -Classification - Thickness Full Thickness without Exposed Support Structure -Exudate Amt Small (1-33%) -Exudate Type Serosanguineous -Wound Margin Thickened & Rolled Under -Granulation Amt Medium (34-66%) -Granulation Quality [place] -Slough/Fibrin Yes -Necrosis Amt Medium (34-66%) -Necrotic Tissue Type Adherent Slough -Structure Exposed N/A -Texture (Kirstie-wound Skin Appearance) Assessed -Moisture (Kirstie-wound Skin Appearance Dry/Scaly ) -Color (Kirstie-wound Skin Appearance) Assessed -Temperature (Kirstie-wound Skin No Abnormality Appearance) (Pt Warm) -Tenderness on Palpation (Kirstie-wound No Skin Appearance) -Ulcer Cleansing Wound Cleanser -Foul Odor after Cleansing No -Anesthetic Used 5% Lidocaine Gel [Edema Assessment] -Lower Limb Edema Present No -Left Calf (cm) 35.6 -Left Ankle (cm) 20.5 WC - Nurse 2 - General Ulcer CM Notes Start: 05/16/17 16:09 Freq: Status: Active Protocol: Activity Type Activity Date Activity User E-Sign Co-Sign Detail Recorded Client Recorded Date Recorded By Document 05/30/17 14:48 [id number] 05/30/17 14:53 05/30/17 14:48 Wound Center Nurse 2 [Procedure/Treatment] #7 LEFT GREAT TOE - PLANTAR -Time 14:50 -Correct Patient Yes -Correct Side, Site, Position Yes -Correct Procedure Yes -Procedure Performed Yes -Type of Procedure Debridement -Clinical Debridement Subcutaneous -Post Debridement Size (cm) - Length 1.1 -Post Debridement Size (cm) - Width 1.5 -Post Debridement Size (cm) - Depth 0.1 -Total Square Cm 1.65 -Wound/Ulcer Outcome Not Healed -Ulcer Cleansing Rinsed/ Irrigated with Saline -Foul Odor after Cleansing No -Bioengineered Tissue Yes -Type of bioengineered Tissue EPIFIX -Expiration Date 02/05/22 -Product Lot Number [id number] -Percent Used 50 -Saline Lot Number [id number] -Topical Lidocaine (%) 5 -Bleeding Controlled with Pressure -Treatment Response Procedure Tolerated Well #6 post op Left 5th toe s/p amputation -Time 14:51 -Correct Patient Yes -Correct Side, Site, Position Yes -Correct Procedure Yes -Procedure Performed Yes -Type of Procedure Debridement -Clinical Debridement Subcutaneous -Post Debridement Size (cm) - Length 0.3 -Post Debridement Size (cm) - Width 0.2 -Post Debridement Size (cm) - Depth 0.2 -Total Square Cm 0.06 -Wound/Ulcer Outcome Not Healed -Ulcer Cleansing Rinsed/ Irrigated with Saline -Foul Odor after Cleansing No -Bioengineered Tissue Yes -Type of bioengineered Tissue EPIFIX -Expiration Date 02/14/22 -Product Lot Number [id number] -Percent Used 50 -Saline Lot Number [id number] -Topical Lidocaine (%) 5 -Bleeding Controlled with Pressure -Treatment Response Procedure Tolerated Well [See Physician Procedure note for Specifics] Pain Scale: 0-10 Numeric [Pain] -Is Patient Pain Free? Yes Musculoskeletal: No Tenderness to Palpation of Joints or Extremities, Muscle Wasting Neurological: - - Lack of epicritic sensation to light touch left Psych/Mental Status: Normal Affect, Appropriate Debridement Note Post-Debridement Measurements/Treatment WC - Nurse 2 - General Ulcer CM Notes Start: 05/16/17 16:09 Freq: Status: Active Protocol: Activity Type Activity Date Activity User E-Sign Co-Sign Detail Recorded Client Recorded Date Recorded By Document 05/16/17 16:51 [id number] 05/16/17 16:52 Document 05/30/17 14:48 [id number] 05/30/17 14:53 05/16/17 05/30/17 16:51 14:48 Wound Center Nurse 2 #7 LEFT GREAT TOE - PLANTAR -Time 16:51 14:50 -Correct Patient Yes Yes -Correct Side, Site, Position Yes Yes -Correct Procedure Yes Yes -Procedure Performed Yes Yes -Type of Procedure Debridement Debridement -Clinical Debridement Subcutaneous Subcutaneous -Post Debridement Size (cm) - Length 1.3 1.1 -Post Debridement Size (cm) - Width 1.0 1.5 -Post Debridement Size (cm) - Depth 0.1 0.1 -Total Square Cm 1.30 1.65 -Wound/Ulcer Outcome Not Healed Not Healed -Ulcer Cleansing Rinsed/ Rinsed/ Irrigated with Irrigated with Saline Saline -Foul Odor after Cleansing No No -Bioengineered Tissue No Yes -Type of bioengineered Tissue EPIFIX -Expiration Date 02/05/22 -Product Lot Number [id number] -Percent Used 50 -Saline Lot Number [id number] -Topical Lidocaine (%) 5 -Bleeding Controlled with Pressure Pressure -Treatment Response Procedure Procedure Tolerated Well Tolerated Well #6 post op Left 5th toe s/p amputation -Time 16:51 14:51 -Correct Patient Yes Yes -Correct Side, Site, Position Yes Yes -Correct Procedure Yes Yes -Procedure Performed Yes Yes -Type of Procedure Debridement Debridement -Clinical Debridement Subcutaneous Subcutaneous -Post Debridement Size (cm) - Length 1.7 0.3 -Post Debridement Size (cm) - Width 0.5 0.2 -Post Debridement Size (cm) - Depth 0.4 0.2 -Total Square Cm 0.85 0.06 -Wound/Ulcer Outcome Not Healed Not Healed -Ulcer Cleansing Rinsed/ Rinsed/ Irrigated with Irrigated with Saline Saline -Foul Odor after Cleansing No No -Bioengineered Tissue No Yes -Type of bioengineered Tissue EPIFIX -Expiration Date 02/14/22 -Product Lot Number [id number] -Percent Used 50 -Saline Lot Number [id number] -Topical Lidocaine (%) 5 -Bleeding Controlled with Pressure Pressure -Treatment Response Procedure Procedure Tolerated Well Tolerated Well Pain Scale: 0-10 Numeric Is Patient Pain Free? Yes Yes Wound debrided: lateral foot Laterality: Left Wound Grade/Stage: grade 1 Type of Debridement: Excisional debridement Anesthesia Used: 5% Lidocaine Gel Depth: in the subcutaneous layer Percentage of wound debrided: 100 Instrument Used: #15 blade Tissue Removed: fibrous, devitalized subcutaneous, biofilm, slough Severity: Fat Layer Exposed Amount of bleeding with debridement: Mild Bleeding Controlled with: Pressure Patient tolerated procedure well - Additional Wound Wound debrided: plantar hallux Laterality: Left Wound Grade/Stage: grade 1 Type of Debridement: Excisional debridement Anesthesia Used: 5% Lidocaine Gel Depth: in the subcutaneous layer Percentage of wound debrided: 100 Instrument Used: #15 blade Tissue Removed: fibrous, devitalized subcutaneous, biofilm, slough Severity: Fat Layer Exposed Amount of bleeding with debridement: Mild Bleeding Controlled with: Pressure Patient tolerated procedure: Patient tolerated procedure well Assessment/Plan Active Problems (Last Reviewed 05/08/17 @ 09:07 by Clarice Dutta NP-C) Hallux limitus of left foot (Chronic) Delayed wound healing (Chronic) Non-compliance (Chronic) Memory loss (Chronic) Chronic ulcer of left foot with fat layer exposed (Chronic) Type 2 diabetes mellitus with diabetic polyneuropathy (Chronic) PVD (peripheral vascular disease) (Chronic) Assessment: Ulcer left foot fat layer exposed (plantar hallux). s/p fifth ray resection left with reoccurance of lateral foot ulcer this week. Left plantar hallux ulcer no infection. Hallux limitus left. Diabetes with neuropathy. Hammertoes left foot. Delayed healing. Malnutrition. peripheral vascular disease. Non compliance due to memory loss Plan: I reviewed her care plan today. Debridement was performed as noted in the clinical panel and she tolerated this well sites. She denies pain. To remain partial weightbearing left lower extremity with the cam walker secured in place with Coban. It is noted that there are dual density offloading liners to take pressure off of the ulcer sites that were fabricated last week at the foot and ankle center. To ambulate with walker or wheelchair. I referred her to the foot and ankle center to obtain a cam walker boot with offloading padding. This will be further secured to her leg with tape and Coban so she is not able to remove this. To keep the dressing and splint in place. She has significant memory loss and is struggling with following directions. A large well padded bulky posterior mold splint was applied to the left lower extremity to provide further protection and to promote compliance. Advanced wound care product was applied according to standard protocol, epi fix, this was moistened with saline and secured in place with the wound veil and Steri-Strips. The indications and anticipated healing course were discussed with the patient she demonstrates understanding verbal consent was obtained. The goal is to heal the wounds in a more timely manner to save her limb. This is medically necessary. . Noninvasive arterial vascular studies were ordered and these results were reviewed. She has noncompressible vessels and an ESTRELLA value was not calculated. Her toe brachial index in the right lower extremity was 0.45 which is abnormal and contributing to her delayed healing. A referral to vascular surgeon, Dr. Chase was provided and a doppler was performed. She is to follow-up in several months. If there is a status change prior to that time, an angio will be considered. . To continue nutritional supplementation twice daily to optimize healing. To control glucose levels to optimize healing. She completed oral antibiotics; infectious disease recommend she complete a 6 week course of her antibiotic. Repeat labs and updated foot x-rays will be monitored throughout the healing process when indicated. The labs were obtained and reviewed as the following: White blood cell count 5.7, sedimentation rate 31, C-reactive protein less than 2.90. To return to clinic in 1 week or call sooner if problems.
== END 2017-06-04 23:59 ==
LOC: WC 14:00
PROVIDERS: Visit Provider Podiatrist
DX: E11.621 Type 2 diabetes mellitus with foot ulcer (principal); L97.522 Non-pressure chronic ulcer of other part of left foot with fat layer exposed; M20.5X2 Other deformities of toe(s) (acquired), left foot; Z91.19 Patient's noncompliance with other medical treatment and regimen; R41.3 Other amnesia; E11.42 Type 2 diabetes mellitus with diabetic polyneuropathy; E11.51 Type 2 diabetes mellitus with diabetic peripheral angiopathy without gangrene
CPT/HCPCS: 11042; 15275; Q4131

== ENCOUNTER 2017-06-14 13:00 | Outpatient (RCR) | payer MEDICARE, SELFPAY ==
[2017-06-05 00:30] VITALS: BP 110/61; PULSE 65; RESP 18; TEMP 36.5; BMI 34.2
[2017-06-06 15:15] VITALS: BP 124/70; PULSE 77; RESP 16; TEMP 36.6; BMI 34.2
--- NOTE | 2017-06-06 17:33 | PN.PCM_ITS ---
(1) Chronic ulcer of left foot with fat layer exposed Status: Chronic Current Visit: Yes Code(s): L97.522 - Non-pressure chronic ulcer of other part of left foot with fat layer exposed (2) Hallux limitus of left foot Status: Chronic Current Visit: Yes Code(s): M20.5X2 - Other deformities of toe(s) (acquired), left foot (3) Delayed wound healing Status: Chronic Current Visit: Yes Code(s): T14.8XXD - Other injury of unspecified body region, subsequent encounter (4) Type 2 diabetes mellitus with diabetic polyneuropathy Status: Chronic Current Visit: Yes Code(s): E11.42 - Type 2 diabetes mellitus with diabetic polyneuropathy (5) Hammer toe of left foot Status: Chronic Current Visit: Yes Code(s): M20.42 - Other hammer toe(s) ( acquired), left foot (6) Malnutrition Status: Chronic Current Visit: Yes Code(s): E46 - Unspecified protein- calorie malnutrition (7) Hallux limitus of right foot Status: Chronic Current Visit: Yes Code(s): M20.5X1 - Other deformities of toe(s) (acquired), right foot (8) PVD (peripheral vascular disease) Status: Chronic Current Visit: Yes Code(s): I73.9 - Peripheral vascular disease, unspecified Type of Wound Date of Service: 06/07/17 Chief Complaint: Left foot ulcer including a new ulcer History of Wound: This 62-year-old pleasant female who resides at [facility] post fifth ray resection performed on the left foot. She denies fever, chill, nausea, vomiting, loss of appetite. She has loss of memory. She has presented today with her cam walker boot with Coban and secured. She resides in a long-term facility [facility]. Progress of Wound: improving - Physical Exam Vital Signs Temp Pulse Resp BP 97.8 F 77 16 124/70 H 06/06/17 15:15 06/06/17 15:15 06/06/17 15:15 06/06/17 15:15 General: Alert, Oriented x3, Cooperative Extremities: No cyanosis, Capillary Refill Less than 3 Seconds, No Calf Tenderness - negative kavita and juarez bilateral, Diminished Peripheral Pulses, Edema Skin: Ulcer/ Wound - no purulence, no odor, no erythema, no infection. skin is atrophic. full epithelialization is noted to lateral forefoot at amputation site Wound Measurements and Assessment WC - Nurse 1 - General Ulcer Measurement Start: 06/06/17 15:15 Freq: Status: Active Protocol: Activity Type Activity Date Activity User E-Sign Co-Sign Detail Recorded Client Recorded Date Recorded By Document 06/06/17 15:15 MW [id number] 06/06/17 15:27 MW 06/06/17 15:15 Wound Center Nurse 1 [Ulcer Assessment] #7 LEFT GREAT TOE - PLANTAR -Combined with other wound No -Current Size (cm) - Length 0.5 -Current Size (cm) - Width 0.4 -Current Size (cm) - Depth 0.1 -Total Square Cm 0.20 -Photo Taken No -Epithelialization None Present -Tunneling No -Undermining/Tunneling No -Circular Undermining No -Exudate Amt Small (1-33%) -Exudate Type Serosanguineous -Wound Margin Flat & Intact -Granulation Amt Small (1-33%) -Granulation Quality [place] -Slough/Fibrin Yes -Necrosis Amt Large (67-100%) -Necrotic Tissue Type Adherent Slough -Structure Exposed N/A -Texture (Kirstie-wound Skin Appearance) Assessed Callus -Moisture (Kirstie-wound Skin Appearance Assessed ) Dry/Scaly -Color (Kirstie-wound Skin Appearance) No Abnormality Assessed -Temperature (Kirstie-wound Skin No Abnormality Appearance) (Pt Warm) -Tenderness on Palpation (Kirstie-wound No Skin Appearance) -Ulcer Cleansing soap and water -Foul Odor after Cleansing No -Anesthetic Used 5% Lidocaine Gel #6 post op Left 5th toe s/p amputation -Combined with other wound No -Current Size (cm) - Length 0.4 -Current Size (cm) - Width 0.3 -Current Size (cm) - Depth 0.1 -Total Square Cm 0.12 -Photo Taken No -Epithelialization None Present -Tunneling No -Undermining/Tunneling No -Circular Undermining No -Exudate Amt None Present (0 %) -Wound Margin Flat & Intact -Granulation Amt None Present (0 %) -Granulation Quality N/A -Slough/Fibrin Yes -Necrosis Amt Large (67-100%) -Necrotic Tissue Type Adherent Slough -Structure Exposed N/A -Texture (Kirstie-wound Skin Appearance) Assessed Scarring -Moisture (Kirstie-wound Skin Appearance Assessed ) Dry/Scaly -Color (Kirstie-wound Skin Appearance) No Abnormality Assessed -Temperature (Kirstie-wound Skin No Abnormality Appearance) (Pt Warm) -Tenderness on Palpation (Kirstie-wound No Skin Appearance) -Ulcer Cleansing soap and water -Foul Odor after Cleansing No -Anesthetic Used 5% Lidocaine Gel [Edema Assessment] -Lower Limb Edema Present Yes -Left Calf (cm) 36.5 -Left Ankle (cm) 19.5 WC - Nurse 2 - General Ulcer CM Notes Start: 06/06/17 15:15 Freq: Status: Active Protocol: Activity Type Activity Date Activity User E-Sign Co-Sign Detail Recorded Client Recorded Date Recorded By Document 06/06/17 15:49 KATIA [id number] 06/06/17 15:51 KATIA 06/06/17 15:49 Wound Center Nurse 2 [Procedure/Treatment] #7 LEFT GREAT TOE - PLANTAR -Correct Patient No -Correct Side, Site, Position No -Correct Procedure No -Procedure Performed No -Post Debridement Size (cm) - Length 0 -Post Debridement Size (cm) - Width 0 -Post Debridement Size (cm) - Depth 0 -Total Square Cm 0 -Wound/Ulcer Outcome Healed- Epithelialized #6 post op Left 5th toe s/p amputation -Time 15:51 -Correct Patient Yes -Correct Side, Site, Position Yes -Correct Procedure Yes -Procedure Performed Yes -Type of Procedure Debridement -Clinical Debridement Subcutaneous -Post Debridement Size (cm) - Length 0.5 -Post Debridement Size (cm) - Width 0.5 -Post Debridement Size (cm) - Depth 0.1 -Total Square Cm 0.25 -Wound/Ulcer Outcome Not Healed -Ulcer Cleansing Rinsed/ Irrigated with Saline -Foul Odor after Cleansing No -Bioengineered Tissue No -Bleeding Controlled with Pressure -Treatment Response Procedure Tolerated Well [See Physician Procedure note for Specifics] Pain Scale: 0-10 Numeric [Pain] -Is Patient Pain Free? Yes Musculoskeletal: No Tenderness to Palpation of Joints or Extremities, Muscle Wasting, - - left fifth ray resecgtion healed Neurological: - - lack of epicritic sensation via light touch left foot Psych/Mental Status: Normal Affect, Appropriate Debridement Note Post-Debridement Measurements/Treatment WC - Nurse 2 - General Ulcer CM Notes Start: 06/06/17 15:15 Freq: Status: Active Protocol: Activity Type Activity Date Activity User E-Sign Co-Sign Detail Recorded Client Recorded Date Recorded By Document 06/06/17 15:49 KATIA [id number] 06/06/17 15:51 KATIA 06/06/17 15:49 Wound Center Nurse 2 #7 LEFT GREAT TOE - PLANTAR -Correct Patient No -Correct Side, Site, Position No -Correct Procedure No -Procedure Performed No -Post Debridement Size (cm) - Length 0 -Post Debridement Size (cm) - Width 0 -Post Debridement Size (cm) - Depth 0 -Total Square Cm 0 -Wound/Ulcer Outcome Healed- Epithelialized #6 post op Left 5th toe s/p amputation -Time 15:51 -Correct Patient Yes -Correct Side, Site, Position Yes -Correct Procedure Yes -Procedure Performed Yes -Type of Procedure Debridement -Clinical Debridement Subcutaneous -Post Debridement Size (cm) - Length 0.5 -Post Debridement Size (cm) - Width 0.5 -Post Debridement Size (cm) - Depth 0.1 -Total Square Cm 0.25 -Wound/Ulcer Outcome Not Healed -Ulcer Cleansing Rinsed/ Irrigated with Saline -Foul Odor after Cleansing No -Bioengineered Tissue No -Bleeding Controlled with Pressure -Treatment Response Procedure Tolerated Well Pain Scale: 0-10 Numeric Is Patient Pain Free? Yes Wound debrided: plantar hallux Laterality: Left Wound Grade/Stage: grade 1 Type of Debridement: Excisional debridement Anesthesia Used: 5% Lidocaine Gel Depth: in the subcutaneous layer Percentage of wound debrided: 100 Instrument Used: #15 blade Tissue Removed: fibrous, devitalized subcutaneous, biofilm, slough Severity: Fat Layer Exposed Amount of bleeding with debridement: Mild Bleeding Controlled with: Pressure Patient tolerated procedure well Assessment/Plan Active Problems (Last Reviewed 05/08/17 @ 09:07 by Clarice Dutta NP-C) Hallux limitus of left foot (Chronic) Delayed wound healing (Chronic) Type 2 diabetes mellitus with diabetic polyneuropathy (Chronic) Hammer toe of left foot (Chronic) Chronic ulcer of left foot with fat layer exposed (Chronic) Malnutrition (Chronic) Hallux limitus of right foot (Chronic) PVD (peripheral vascular disease) (Chronic) Assessment: Ulcer left foot fat layer exposed (plantar hallux) - significant size reduction. s/p fifth ray resection left with reoccurance of lateral foot ulcer this week. Left plantar hallux ulcer no infection. Hallux limitus left. Diabetes with neuropathy. Hammertoes left foot. Delayed healing. Malnutrition. peripheral vascular disease. Non compliance due to memory loss Plan: I reviewed her care plan today. Debridement was performed as noted in the clinical panel and she tolerated this well sites. She denies pain. To remain partial weightbearing left lower extremity with the cam walker secured in place with Coban. It is noted that there are dual density offloading liners to take pressure off of the ulcer sites that were fabricated previously at the foot and ankle center. To ambulate with walker or wheelchair. This was further secured to her leg with tape and Coban so she is not able to remove this. To keep the dressing and splint in place. Hydrogel/adaptic was applied today. Her significant reduction in wound size is noted. She had previous epifix placed. She has significant memory loss and is struggling with following directions. . Noninvasive arterial vascular studies were ordered and these results were reviewed. She has noncompressible vessels and an ESTRELLA value was not calculated. Her toe brachial index in the right lower extremity was 0.45 which is abnormal and contributing to her delayed healing. A referral to vascular surgeon, Dr. Chase was provided and a doppler was performed. She is to follow-up in several months. If there is a status change prior to that time , an angio will be considered. . To continue nutritional supplementation twice daily to optimize healing. To control glucose levels to optimize healing. She completed oral antibiotics; infectious disease recommend she complete a 6 week course of her antibiotic. Repeat labs and updated foot x- rays will be monitored throughout the healing process when indicated. The labs were obtained and reviewed as the following: White blood cell count 5.7, sedimentation rate 31, C-reactive protein less than 2.90. To return to clinic in 1 week or call sooner if problems; Dr. Haley will be covering next week. Upon wound closure, I recommend extra-depth diabetic shoes with dual density offloading liners. A referral to the foot and ankle center was provided for her to get fitted and measured.
[2017-06-14 13:17] VITALS: BP 105/56; PULSE 66; RESP 18; TEMP 36.1; BMI 34.2
--- NOTE | 2017-06-14 18:11 | PCM.WC.PN ---
(1) Chronic ulcer of left foot with fat layer exposed Status: Chronic Current Visit: No Code(s): L97.522 - Non-pressure chronic ulcer of other part of left foot with fat layer exposed (2) Type 2 diabetes mellitus with diabetic polyneuropathy Status: Chronic Current Visit: Yes Code(s): E11.42 - Type 2 diabetes mellitus with diabetic polyneuropathy (3) Hammer toe of left foot Status: Chronic Current Visit: Yes Code(s): M20.42 - Other hammer toe(s) (acquired), left foot (4) Malnutrition Status: Chronic Current Visit: Yes Code(s): E46 - Unspecified protein-calorie malnutrition (5) Delayed wound healing Status: Chronic Current Visit: No Code(s): T14.8 - Other injury of unspecified body region (6) Hallux limitus of right foot Status: Chronic Current Visit: Yes Code(s): M20.5X1 - Other deformities of toe(s) (acquired), right foot Type of Wound Date of Service: 06/14/17 Chief Complaint: Left foot ulcer including a new ulcer History of Wound: This 62-year-old pleasant female who resides at [facility] post fifth ray resection performed on the left foot. She denies fever, chill, nausea, vomiting, loss of appetite. She has loss of memory. She has presented today with her cam walker boot with Coban and secured. She resides in a fpc facility [facility]. Progress of Wound: improving - Physical Exam Vital Signs Temp Pulse Resp BP 96.9 F L 66 18 105/56 L 06/14/17 13:17 06/14/17 13:17 06/14/17 13:17 06/14/17 13:17 General: Alert, Oriented x3, Cooperative, No apparent distress Extremities: No cyanosis, Capillary Refill Less than 3 Seconds, No Calf Tenderness, Diminished Peripheral Pulses, Edema Skin: Ulcer/ Wound - There is no purulence, no malodor, no extending erythema, or any other signs of local infection appreciated at this time. Skin is atrophic. Wound Measurements and Assessment WC - Nurse 1 - General Ulcer Measurement Start: 06/06/17 15:15 Freq: Status: Active Protocol: Activity Type Activity Date Activity User E-Sign Co-Sign Detail Recorded Client Recorded Date Recorded By Document 06/14/17 13:17 TM [id number] 06/14/17 13:21 06/14/17 13:17 Wound Center Nurse 1 [Ulcer Assessment] #7 LEFT GREAT TOE - PLANTAR -Combined with other wound No -Current Size (cm) - Length 0.3 -Current Size (cm) - Width 0.1 -Current Size (cm) - Depth 0.1 -Total Square Cm 0.03 -Photo Taken No -Epithelialization Small 1-33% -Tunneling No -Undermining/Tunneling No -Circular Undermining No -Classification - Thickness Full Thickness without Exposed Support Structure -Exudate Amt Small (1-33%) -Exudate Type Serosanguineous -Wound Margin Distinct, Outline Attached -Granulation Amt Large (67-100%) -Granulation Quality Pale [place] -Slough/Fibrin Yes -Necrosis Amt Small (1-33%) -Necrotic Tissue Type Adherent Slough -Structure Exposed Fascia Fat Layer Exposed -Texture (Kirstie-wound Skin Appearance) Callus Scarring -Moisture (Kirstie-wound Skin Appearance Dry/Scaly ) -Color (Kirstie-wound Skin Appearance) No Abnormality -Temperature (Kirstie-wound Skin No Abnormality Appearance) (Pt Warm) -Tenderness on Palpation (Kirstie-wound No Skin Appearance) -Ulcer Cleansing Rinsed/ Irrigated with Saline -Foul Odor after Cleansing No -Anesthetic Used 5% Lidocaine Gel #6 post op Left 5th toe s/p amputation -Combined with other wound No -Current Size (cm) - Length 0 -Current Size (cm) - Width 0 -Current Size (cm) - Depth 0 -Total Square Cm 0 -Photo Taken Yes -Epithelialization Large 67-100% -Tunneling No -Undermining/Tunneling No -Circular Undermining No -Classification - Thickness Full Thickness without Exposed Support Structure -Exudate Amt None Present (0 %) -Wound Margin Distinct, Outline Attached -Granulation Amt Large (67-100%) -Granulation Quality [place] -Slough/Fibrin No -Necrosis Amt None Present (0 %) -Structure Exposed None/Limited to Skin Breakdown -Texture (Kirstie-wound Skin Appearance) Scarring -Moisture (Kirstie-wound Skin Appearance No Abnormality ) -Color (Kirstie-wound Skin Appearance) No Abnormality -Temperature (Kirstie-wound Skin No Abnormality Appearance) (Pt Warm) -Ulcer Cleansing Rinsed/ Irrigated with Saline -Foul Odor after Cleansing No [Edema Assessment] -Lower Limb Edema Present Yes -Left Calf (cm) 38.0 -Left Ankle (cm) 20.0 - Nurse 2 - General Ulcer CM Notes Start: 06/06/17 15:15 Freq: Status: Active Protocol: Activity Type Activity Date Activity User E-Sign Co-Sign Detail Recorded Client Recorded Date Recorded By Document 06/14/17 13:43 [id number] 06/14/17 13:49 06/14/17 13:43 Wound Center Nurse 2 [Procedure/Treatment] #7 LEFT GREAT TOE - PLANTAR -Time 13:43 -Correct Patient Yes -Correct Side, Site, Position Yes -Correct Procedure Yes -Procedure Performed Yes -Type of Procedure Debridement -Clinical Debridement Subcutaneous -Post Debridement Size (cm) - Length 0.5 -Post Debridement Size (cm) - Width 0.3 -Post Debridement Size (cm) - Depth 0.1 -Total Square Cm 0.15 -Wound/Ulcer Outcome Not Healed -Ulcer Cleansing Rinsed/ Irrigated with Saline -Foul Odor after Cleansing No -Bioengineered Tissue No -Topical Lidocaine (%) 5 -Bleeding Controlled with Pressure -Treatment Response Procedure Tolerated Well [See Physician Procedure note for Specifics] Musculoskeletal: No Tenderness to Palpation of Joints or Extremities Neurological: - Psych/Mental Status: Normal Affect, Appropriate Debridement Note Post-Debridement Measurements/Treatment - Nurse 2 - General Ulcer CM Notes Start: 06/06/17 15:15 Freq: Status: Active Protocol: Activity Type Activity Date Activity User E-Sign Co-Sign Detail Recorded Client Recorded Date Recorded By Document 06/06/17 15:49 [id number] 06/06/17 15:51 Document 06/14/17 13:43 [id number] 06/14/17 13:49 06/06/17 06/14/17 15:49 13:43 Wound Center Nurse 2 #7 LEFT GREAT TOE - PLANTAR -Time 13:43 -Correct Patient No Yes -Correct Side, Site, Position No Yes -Correct Procedure No Yes -Procedure Performed No Yes -Type of Procedure Debridement -Clinical Debridement Subcutaneous -Post Debridement Size (cm) - Length 0 0.5 -Post Debridement Size (cm) - Width 0 0.3 -Post Debridement Size (cm) - Depth 0 0.1 -Total Square Cm 0 0.15 -Wound/Ulcer Outcome Healed- Not Healed Epithelialized -Ulcer Cleansing Rinsed/ Irrigated with Saline -Foul Odor after Cleansing No -Bioengineered Tissue No -Topical Lidocaine (%) 5 -Bleeding Controlled with Pressure -Treatment Response Procedure Tolerated Well #6 post op Left 5th toe s/p amputation -Time 15:51 -Correct Patient Yes -Correct Side, Site, Position Yes -Correct Procedure Yes -Procedure Performed Yes -Type of Procedure Debridement -Clinical Debridement Subcutaneous -Post Debridement Size (cm) - Length 0.5 -Post Debridement Size (cm) - Width 0.5 -Post Debridement Size (cm) - Depth 0.1 -Total Square Cm 0.25 -Wound/Ulcer Outcome Not Healed -Ulcer Cleansing Rinsed/ Irrigated with Saline -Foul Odor after Cleansing No -Bioengineered Tissue No -Bleeding Controlled with Pressure -Treatment Response Procedure Tolerated Well Pain Scale: 0-10 Numeric Is Patient Pain Free? Yes Wound debrided: Left plantar hallux Laterality: Left Wound Grade/Stage: 1 Type of Debridement: Excisional debridement Anesthesia Used: 4% Lidocaine Solution Depth: in the subcutaneous layer Percentage of wound debrided: 100 Instrument Used: #15 blade Tissue Removed: Fibrous tissue, devitalized subcutaneous tissue, biofilm, adherent slough Severity: Fat Layer Exposed Amount of bleeding with debridement: Mild Bleeding Controlled with: Pressure Patient tolerated procedure well Assessment/Plan Active Problems (Last Reviewed 05/08/17 @ 09:07 by Clarice Dutta BENEFITS ADMINISTRATOR-C) Hallux limitus of left foot (Chronic) Delayed wound healing (Chronic) Type 2 diabetes mellitus with diabetic polyneuropathy (Chronic) Hammer toe of left foot (Chronic) Chronic ulcer of left foot with fat layer exposed (Chronic) Malnutrition (Chronic) Hallux limitus of right foot (Chronic) PVD (peripheral vascular disease) (Chronic) Assessment: Ulcer left foot fat layer exposed (plantar hallux) - significant size reduction. s/p fifth ray resection left with reoccurance of lateral foot ulcer this week. Left plantar hallux ulcer no infection. Hallux limitus left. Diabetes with neuropathy. Hammertoes left foot. Delayed healing. Malnutrition. peripheral vascular disease. Non compliance due to memory loss Plan: Patient was examined and evaluated in the absence of Dr. Herrera. I reviewed her care plan today. Debridement was performed as noted in the clinical panel. She denies pain. To remain partial weightbearing left lower extremity with the cam walker secured in place with Coban. It is noted that there are dual density offloading liners to take pressure off of the ulcer sites that were fabricated previously at the foot [facility] ankle center. To ambulate with walker or wheelchair. This was further secured to her leg with tape and Coban so she is not able to remove this. To keep the dressing and splint in place. Hydrogel/adaptic was applied today. Her significant reduction in wound size is noted. She had previous epifix placed. She has significant memory loss and is struggling with following directions. To continue nutritional supplementation twice daily to optimize healing. To control glucose levels to optimize healing. I anticipate healing within the next couple of weeks if progress continues. To return to clinic in 1 week or call sooner if problems.
--- NOTE | 2017-06-14 18:19 | PN.PCM_ITS ---
(1) Chronic ulcer of left foot with fat layer exposed Status: Chronic Current Visit: No Code(s): L97.522 - Non-pressure chronic ulcer of other part of left foot with fat layer exposed (2) Type 2 diabetes mellitus with diabetic polyneuropathy Status: Chronic Current Visit: Yes Code(s): E11.42 - Type 2 diabetes mellitus with diabetic polyneuropathy (3) Hammer toe of left foot Status: Chronic Current Visit: Yes Code(s): M20.42 - Other hammer toe(s) ( acquired), left foot (4) Malnutrition Status: Chronic Current Visit: Yes Code(s): E46 - Unspecified protein- calorie malnutrition (5) Delayed wound healing Status: Chronic Current Visit: No Code(s): T14.8 - Other injury of unspecified body region (6) Hallux limitus of right foot Status: Chronic Current Visit: Yes Code(s): M20.5X1 - Other deformities of toe(s) (acquired), right foot Type of Wound Date of Service: 06/14/17 Chief Complaint: Left foot ulcer including a new ulcer History of Wound: This 62-year-old pleasant female who resides at [facility] post fifth ray resection performed on the left foot. She denies fever, chill, nausea, vomiting, loss of appetite. She has loss of memory. She has presented today with her cam walker boot with Coban and secured. She resides in a residential facility [facility]. Progress of Wound: improving - Physical Exam Vital Signs Temp Pulse Resp BP 96.9 F L 66 18 105/56 L 06/14/17 13:17 06/14/17 13:17 06/14/17 13:17 06/14/17 13:17 General: Alert, Oriented x3, Cooperative, No apparent distress Extremities: No cyanosis, Capillary Refill Less than 3 Seconds, No Calf Tenderness, Diminished Peripheral Pulses, Edema Skin: Ulcer/ Wound - There is no purulence, no malodor, no extending erythema, or any other signs of local infection appreciated at this time. Skin is atrophic. Wound Measurements and Assessment WC - Nurse 1 - General Ulcer Measurement Start: 06/06/17 15:15 Freq: Status: Active Protocol: Activity Type Activity Date Activity User E-Sign Co-Sign Detail Recorded Client Recorded Date Recorded By Document 06/14/17 13:17 TM [id number] 06/14/17 13:21 06/14/17 13:17 Wound Center Nurse 1 [Ulcer Assessment] #7 LEFT GREAT TOE - PLANTAR -Combined with other wound No -Current Size (cm) - Length 0.3 -Current Size (cm) - Width 0.1 -Current Size (cm) - Depth 0.1 -Total Square Cm 0.03 -Photo Taken No -Epithelialization Small 1-33% -Tunneling No -Undermining/Tunneling No -Circular Undermining No -Classification - Thickness Full Thickness without Exposed Support Structure -Exudate Amt Small (1-33%) -Exudate Type Serosanguineous -Wound Margin Distinct, Outline Attached -Granulation Amt Large (67-100%) -Granulation Quality Pale [place] -Slough/Fibrin Yes -Necrosis Amt Small (1-33%) -Necrotic Tissue Type Adherent Slough -Structure Exposed Fascia Fat Layer Exposed -Texture (Kirstie-wound Skin Appearance) Callus Scarring -Moisture (Kirstie-wound Skin Appearance Dry/Scaly ) -Color (Kirstie-wound Skin Appearance) No Abnormality -Temperature (Kirstie-wound Skin No Abnormality Appearance) (Pt Warm) -Tenderness on Palpation (Kirstie-wound No Skin Appearance) -Ulcer Cleansing Rinsed/ Irrigated with Saline -Foul Odor after Cleansing No -Anesthetic Used 5% Lidocaine Gel #6 post op Left 5th toe s/p amputation -Combined with other wound No -Current Size (cm) - Length 0 -Current Size (cm) - Width 0 -Current Size (cm) - Depth 0 -Total Square Cm 0 -Photo Taken Yes -Epithelialization Large 67-100% -Tunneling No -Undermining/Tunneling No -Circular Undermining No -Classification - Thickness Full Thickness without Exposed Support Structure -Exudate Amt None Present (0 %) -Wound Margin Distinct, Outline Attached -Granulation Amt Large (67-100%) -Granulation Quality [place] -Slough/Fibrin No -Necrosis Amt None Present (0 %) -Structure Exposed None/Limited to Skin Breakdown -Texture (Kirstie-wound Skin Appearance) Scarring -Moisture (Kirstie-wound Skin Appearance No Abnormality ) -Color (Kirstie-wound Skin Appearance) No Abnormality -Temperature (Kirstie-wound Skin No Abnormality Appearance) (Pt Warm) -Ulcer Cleansing Rinsed/ Irrigated with Saline -Foul Odor after Cleansing No [Edema Assessment] -Lower Limb Edema Present Yes -Left Calf (cm) 38.0 -Left Ankle (cm) 20.0 - Nurse 2 - General Ulcer CM Notes Start: 06/06/17 15:15 Freq: Status: Active Protocol: Activity Type Activity Date Activity User E-Sign Co-Sign Detail Recorded Client Recorded Date Recorded By Document 06/14/17 13:43 [id number] 06/14/17 13:49 06/14/17 13:43 Wound Center Nurse 2 [Procedure/Treatment] #7 LEFT GREAT TOE - PLANTAR -Time 13:43 -Correct Patient Yes -Correct Side, Site, Position Yes -Correct Procedure Yes -Procedure Performed Yes -Type of Procedure Debridement -Clinical Debridement Subcutaneous -Post Debridement Size (cm) - Length 0.5 -Post Debridement Size (cm) - Width 0.3 -Post Debridement Size (cm) - Depth 0.1 -Total Square Cm 0.15 -Wound/Ulcer Outcome Not Healed -Ulcer Cleansing Rinsed/ Irrigated with Saline -Foul Odor after Cleansing No -Bioengineered Tissue No -Topical Lidocaine (%) 5 -Bleeding Controlled with Pressure -Treatment Response Procedure Tolerated Well [See Physician Procedure note for Specifics] Musculoskeletal: No Tenderness to Palpation of Joints or Extremities Neurological: - Psych/Mental Status: Normal Affect, Appropriate Debridement Note Post-Debridement Measurements/Treatment - Nurse 2 - General Ulcer CM Notes Start: 06/06/17 15:15 Freq: Status: Active Protocol: Activity Type Activity Date Activity User E-Sign Co-Sign Detail Recorded Client Recorded Date Recorded By Document 06/06/17 15:49 [id number] 06/06/17 15:51 Document 06/14/17 13:43 [id number] 06/14/17 13:49 06/06/17 06/14/17 15:49 13:43 Wound Center Nurse 2 #7 LEFT GREAT TOE - PLANTAR -Time 13:43 -Correct Patient No Yes -Correct Side, Site, Position No Yes -Correct Procedure No Yes -Procedure Performed No Yes -Type of Procedure Debridement -Clinical Debridement Subcutaneous -Post Debridement Size (cm) - Length 0 0.5 -Post Debridement Size (cm) - Width 0 0.3 -Post Debridement Size (cm) - Depth 0 0.1 -Total Square Cm 0 0.15 -Wound/Ulcer Outcome Healed- Not Healed Epithelialized -Ulcer Cleansing Rinsed/ Irrigated with Saline -Foul Odor after Cleansing No -Bioengineered Tissue No -Topical Lidocaine (%) 5 -Bleeding Controlled with Pressure -Treatment Response Procedure Tolerated Well #6 post op Left 5th toe s/p amputation -Time 15:51 -Correct Patient Yes -Correct Side, Site, Position Yes -Correct Procedure Yes -Procedure Performed Yes -Type of Procedure Debridement -Clinical Debridement Subcutaneous -Post Debridement Size (cm) - Length 0.5 -Post Debridement Size (cm) - Width 0.5 -Post Debridement Size (cm) - Depth 0.1 -Total Square Cm 0.25 -Wound/Ulcer Outcome Not Healed -Ulcer Cleansing Rinsed/ Irrigated with Saline -Foul Odor after Cleansing No -Bioengineered Tissue No -Bleeding Controlled with Pressure -Treatment Response Procedure Tolerated Well Pain Scale: 0-10 Numeric Is Patient Pain Free? Yes Wound debrided: Left plantar hallux Laterality: Left Wound Grade/Stage: 1 Type of Debridement: Excisional debridement Anesthesia Used: 4% Lidocaine Solution Depth: in the subcutaneous layer Percentage of wound debrided: 100 Instrument Used: #15 blade Tissue Removed: Fibrous tissue, devitalized subcutaneous tissue, biofilm, adherent slough Severity: Fat Layer Exposed Amount of bleeding with debridement: Mild Bleeding Controlled with: Pressure Patient tolerated procedure well Assessment/Plan Active Problems (Last Reviewed 05/08/17 @ 09:07 by Clarice Dutta LABELS MOLDER-C) Hallux limitus of left foot (Chronic) Delayed wound healing (Chronic) Type 2 diabetes mellitus with diabetic polyneuropathy (Chronic) Hammer toe of left foot (Chronic) Chronic ulcer of left foot with fat layer exposed (Chronic) Malnutrition (Chronic) Hallux limitus of right foot (Chronic) PVD (peripheral vascular disease) (Chronic) Assessment: Ulcer left foot fat layer exposed (plantar hallux) - significant size reduction. s/p fifth ray resection left with reoccurance of lateral foot ulcer this week. Left plantar hallux ulcer no infection. Hallux limitus left. Diabetes with neuropathy. Hammertoes left foot. Delayed healing. Malnutrition. peripheral vascular disease. Non compliance due to memory loss Plan: Patient was examined and evaluated in the absence of Dr. Herrera. I reviewed her care plan today. Debridement was performed as noted in the clinical panel. She denies pain. To remain partial weightbearing left lower extremity with the cam walker secured in place with Coban. It is noted that there are dual density offloading liners to take pressure off of the ulcer sites that were fabricated previously at the foot and ankle center. To ambulate with walker or wheelchair. This was further secured to her leg with tape and Coban so she is not able to remove this. To keep the dressing and splint in place. Hydrogel/adaptic was applied today. Her significant reduction in wound size is noted. She had previous epifix placed. She has significant memory loss and is struggling with following directions. To continue nutritional supplementation twice daily to optimize healing. To control glucose levels to optimize healing. I anticipate healing within the next couple of weeks if progress continues. To return to clinic in 1 week or call sooner if problems.
[2017-06-20 13:32] VITALS: BP 124/67; PULSE 73; RESP 18; TEMP 37.2; BMI 34.2
--- NOTE | 2017-06-20 15:34 | PN.PCM_ITS ---
(1) Chronic ulcer of left foot with fat layer exposed Status: Chronic Code(s): L97.522 - Non-pressure chronic ulcer of other part of left foot with fat layer exposed (2) Hallux limitus of left foot Status: Chronic Code(s): M20.5X2 - Other deformities of toe(s) (acquired), left foot (3) Delayed wound healing Status: Chronic Code(s): T14.8XXD - Other injury of unspecified body region, subsequent encounter (4) Type 2 diabetes mellitus with diabetic polyneuropathy Status: Chronic Code(s): E11.42 - Type 2 diabetes mellitus with diabetic polyneuropathy (5) Hammer toe of left foot Status: Chronic Code(s): M20.42 - Other hammer toe(s) (acquired), left foot (6) Malnutrition Status: Chronic Code(s): E46 - Unspecified protein-calorie malnutrition (7) Hallux limitus of right foot Status: Chronic Code(s): M20.5X1 - Other deformities of toe(s) (acquired), right foot (8) PVD (peripheral vascular disease) Status: Chronic Code(s): I73.9 - Peripheral vascular disease, unspecified Type of Wound Date of Service: 06/22/17 Chief Complaint: Left foot ulcer of great toe History of Wound: This 62-year-old pleasant female who resides at [facility] status post fifth ray resection performed on the left foot. She denies fever, chill, nausea, vomiting, loss of appetite. She has loss of memory. She has presented today with her cam walker boot with Coban and secured. [facility] in [facility] facility [facility]. Progress of Wound: improving - Physical Exam Vital Signs Temp Pulse Resp BP 98.9 F 73 18 124/67 H 06/20/17 13:32 06/20/17 13:32 06/20/17 13:32 06/20/17 13:32 General: Alert, Oriented x3, Cooperative Extremities: No cyanosis, Capillary Refill Less than 3 Seconds, No Calf Tenderness, Diminished Peripheral Pulses, Edema Skin: Ulcer/ Wound - No purulence, no erythema, streaking, no odor, no infection. The wound size to the hallux is significantly decreased. Status post fifth ray resection site remains healed with full epithelialization and no inflammation, - - Atrophic skin Wound Measurements and Assessment - Nurse 1 - General Ulcer Measurement Start: 06/06/17 15:15 Freq: Status: Active Protocol: Activity Type Activity Date Activity User E-Sign Co-Sign Detail Recorded Client Recorded Date Recorded By Document 06/20/17 13:32 RB [id number] 06/20/17 13:40 RB 06/20/17 13:32 Wound Center Nurse 1 [Ulcer Assessment] #7 LEFT GREAT TOE - PLANTAR -Combined with other wound No -Current Size (cm) - Length 0.1 -Current Size (cm) - Width 0.1 -Current Size (cm) - Depth 0.1 -Total Square Cm 0.01 -Epithelialization Large 67-100% -Tunneling No -Undermining/Tunneling No -Classification - Thickness Full Thickness without Exposed Support Structure -Exudate Amt None Present (0 %) -Wound Margin Distinct, Outline Attached -Granulation Amt Large (67-100%) -Granulation Quality Denning -Slough/Fibrin Yes -Necrosis Amt Small (1-33%) -Necrotic Tissue Type Adherent Slough -Structure Exposed N/A -Texture (Kirstie-wound Skin Appearance) Assessed -Moisture (Kirstie-wound Skin Appearance Dry/Scaly ) -Color (Kirstie-wound Skin Appearance) Assessed -Temperature (Kirstie-wound Skin No Abnormality Appearance) (Pt Warm) -Tenderness on Palpation (Kirstie-wound No Skin Appearance) -Ulcer Cleansing Wound Cleanser -Foul Odor after Cleansing No -Anesthetic Used 5% Lidocaine Gel - Nurse 2 - General Ulcer CM Notes Start: 06/06/17 15:15 Freq: Status: Active Protocol: Activity Type Activity Date Activity User E-Sign Co-Sign Detail Recorded Client Recorded Date Recorded By Document 06/20/17 13:52 [id number] 06/20/17 13:53 06/20/17 13:52 Wound Center Nurse 2 [Procedure/Treatment] -Time 13:53 -Correct Patient Yes -Correct Side, Site, Position Yes -Correct Procedure Yes -Procedure Performed Yes -Type of Procedure Debridement -Clinical Debridement Subcutaneous -Post Debridement Size (cm) - Length 0.2 -Post Debridement Size (cm) - Width 0.1 -Post Debridement Size (cm) - Depth 0.1 -Total Square Cm 0.02 -Wound/Ulcer Outcome Not Healed -Ulcer Cleansing Rinsed/ Irrigated with Saline -Foul Odor after Cleansing No -Bioengineered Tissue No -Bleeding Controlled with Pressure -Treatment Response Procedure Tolerated Well [See Physician Procedure note for Specifics] Pain Scale: 0-10 Numeric [Pain] -Is Patient Pain Free? Yes Musculoskeletal: No Tenderness to Palpation of Joints or Extremities, Muscle Wasting, - - Fifth ray resection left Neurological: - - Lack of epicritic sensation Psych/Mental Status: Normal Affect, Appropriate Debridement Note Post-Debridement Measurements/Treatment WC - Nurse 2 - General Ulcer CM Notes Start: 06/06/17 15:15 Freq: Status: Active Protocol: Activity Type Activity Date Activity User E-Sign Co-Sign Detail Recorded Client Recorded Date Recorded By Document 06/06/17 15:49 [id number] 06/06/17 15:51 Document 06/14/17 13:43 [email or web address] [id number] 06/14/17 13:49 Document 06/20/17 13:52 [id number] 06/20/17 13:53 06/06/17 06/14/17 06/20/17 15:49 13:43 13:52 Wound Center Nurse 2 #7 LEFT GREAT TOE - PLANTAR -Time 13:43 13:53 -Correct Patient No Yes Yes -Correct Side, Site, Position No Yes Yes -Correct Procedure No Yes Yes -Procedure Performed No Yes Yes -Type of Procedure Debridement Debridement -Clinical Debridement Subcutaneous Subcutaneous -Post Debridement Size (cm) - Length 0 0.5 0.2 -Post Debridement Size (cm) - Width 0 0.3 0.1 -Post Debridement Size (cm) - Depth 0 0.1 0.1 -Total Square Cm 0 0.15 0.02 -Wound/Ulcer Outcome Healed- Not Healed Not Healed Epithelialized -Ulcer Cleansing Rinsed/ Rinsed/ Irrigated with Irrigated with Saline Saline -Foul Odor after Cleansing No No -Bioengineered Tissue No No -Topical Lidocaine (%) 5 -Bleeding Controlled with Pressure Pressure -Treatment Response Procedure Procedure Tolerated Well Tolerated Well #6 post op Left 5th toe s/p amputation -Time 15:51 -Correct Patient Yes -Correct Side, Site, Position Yes -Correct Procedure Yes -Procedure Performed Yes -Type of Procedure Debridement -Clinical Debridement Subcutaneous -Post Debridement Size (cm) - Length 0.5 -Post Debridement Size (cm) - Width 0.5 -Post Debridement Size (cm) - Depth 0.1 -Total Square Cm 0.25 -Wound/Ulcer Outcome Not Healed -Ulcer Cleansing Rinsed/ Irrigated with Saline -Foul Odor after Cleansing No -Bioengineered Tissue No -Bleeding Controlled with Pressure -Treatment Response Procedure Tolerated Well Pain Scale: 0-10 Numeric Is Patient Pain Free? Yes Yes Wound debrided: hallux Laterality: Left Wound Grade/Stage: grade 1 Type of Debridement: Excisional debridement Anesthesia Used: 5% Lidocaine Gel Depth: in the subcutaneous layer Percentage of wound debrided: 100 Instrument Used: #15 blade Tissue Removed: fibrous, devitalized subcutaneous, biofilm, slough Severity: Fat Layer Exposed Amount of bleeding with debridement: Mild Bleeding Controlled with: Pressure Patient tolerated procedure well Assessment/Plan Assessment: Ulcer left foot fat layer exposed (plantar hallux) - significant size reduction. s/p fifth ray resection left with reoccurance of lateral foot ulcer this week. Left plantar hallux ulcer no infection. Hallux limitus left. Diabetes with neuropathy. Hammertoes left foot. Delayed healing. Malnutrition. peripheral vascular disease. Non compliance due to memory loss Plan: I reviewed her care plan today. Debridement was performed as noted in the clinical panel. She denies pain. To remain partial weightbearing left lower extremity with the cam walker secured in place with Coban. It is noted that there are dual density offloading liners to take pressure off of the ulcer sites that were fabricated previously at the [facility]. To ambulate with walker or wheelchair. This was further secured to her leg with tape and Coban so she is not able to remove this. To keep the dressing and splint in place. Hydrogel/adaptic was applied today. Her significant reduction in wound size is noted. She had previous epifix placed. She has significant memory loss and is struggling with following directions. To continue nutritional supplementation twice daily to optimize healing. To control glucose levels to optimize healing. I anticipate healing within the next couple of weeks if progress continues. To return to clinic in 1 week or call sooner if problems.
== END 2017-07-05 23:59 ==
LOC: WC 13:00
PROVIDERS: Visit Provider Podiatrist
DX: L97.522 Non-pressure chronic ulcer of other part of left foot with fat layer exposed (principal); M20.5X2 Other deformities of toe(s) (acquired), left foot; E11.42 Type 2 diabetes mellitus with diabetic polyneuropathy; M20.5X1 Other deformities of toe(s) (acquired), right foot; I73.9 Peripheral vascular disease, unspecified; E46 Unspecified protein-calorie malnutrition; Z91.19 Patient's noncompliance with other medical treatment and regimen; R41.3 Other amnesia; Z79.4 Long term (current) use of insulin
CPT/HCPCS: 11042

== ENCOUNTER 2017-07-16 11:58 | Outpatient (RCR) | payer MEDICARE, SELFPAY ==
[2017-07-06 00:31] VITALS: BP 124/67; PULSE 73; RESP 18; TEMP 37.2; BMI 34.2
== END 2017-08-04 23:59 ==
LOC: WC 11:58
PROVIDERS: Visit Provider Podiatrist
DX: Z09 Encounter for follow-up examination after completed treatment for conditions other than malignant neoplasm (principal); E11.42 Type 2 diabetes mellitus with diabetic polyneuropathy
CPT/HCPCS: 99212; G0463

== ENCOUNTER 2019-02-17 18:51 | Inpatient (IN) | payer MEDICARE, MEDICAID, SELFPAY ==
[2018-02-22 00:20] VITALS: BMI 34.5
[2019-02-17 18:52] VITALS: BP 164/79; PULSE 86; RESP 17; TEMP 37.1; O2SAT 99; BMI 31.4
[2019-02-17 19:02] VITALS: BP 164/79; PULSE 86; RESP 17; TEMP 37.1; O2SAT 99
--- NOTE | 2019-02-17 20:16 | RAD_ITS ---
STUDY: X-RAY - RIGHT FOOT CLINICAL: Female, 64 years old. BILATERAL FOOT PAIN TECHNIQUE: 3 view(s) of the foot. COMPARISON: None. FINDINGS: Cortical irregularity through the proximal phalanx of the right great toe suggest osteomyelitis. Significant soft tissue swelling and edema. Remaining osseous structures of the right foot are within normal limits RAD/Foot min 3 Views IMPRESSION: Suggestion of osteomyelitis of the great toe Electronically Signed: Ziggy Sousa DO at 21:08 EST Tel , Service support ,
[2019-02-17 20:38] LABS: Absolute Lymphocyte Count 2.53 X10^3/uL (0.83-4.51); Basophil# 0.04 X10^3/uL; Basophil% 0.4 % (0-1); Eosinophil# 0.29 X10^3/uL; Eosinophils% 2.9 % (0-5); Hematocrit 29.9 % (37-47); Hemoglobin 9.5 g/dL (12.0-15.0); Lymphocyte # 2.53 X10^3/ul (4.0); Lymphocyte % 25.1 % (19-41); Mean Corp Hgb Conc 31.8 g/dL (32-36); Mean Corpuscular Hgb 30.4 pg (27.0-32.0); Mean Corpuscular Volume 95.5 fL (81-99); Mean Platelet Vol. 10.3 fl (6.2-12.0); Monocyte# 1.15 X10^3/uL; Monocyte% 11.4 % (0-10); NRBC Flagged by Analyzer 0 % (0-5); Neutrophil # 6.03 X10^3/uL (2.7-7.7); Neutrophil % 59.8 % (47-70); Platelet Count 272 K/mm3 (150-450); RBC Distribution Width CV 13.2 % (11.6-14.6); Red Blood Count 3.13 M/mm3 (4.2-5.4); White Blood Count 10.1 K/mm3 (4.4-11.0)
--- NOTE | 2019-02-17 20:40 | RAD_ITS ---
STUDY: X-RAY - LEFT FOOT CLINICAL: Female, 64 years old. BILATERAL FOOT PAIN TECHNIQUE: 3 view(s) of the foot. COMPARISON: 03/09/2017 FINDINGS: Stable amputation of the fifth digit. Severe degenerative change at the first metatarsophalangeal joint which has developed since the exam in 2018. Unsure if this is related to infection or not. No discrete evidence of osseous destruction. Remainder of the left foot is unremarkable RAD/Foot min 3 Views IMPRESSION: No definite evidence of acute osteomyelitis. Significant degenerative changes at the first metatarsophalangeal joint, new since the exam in 2017 Electronically Signed: Ziggy Sousa DO at 21:09 EST Tel , Service support ,
[2019-02-17 20:56] LABS: Anion Gap 4 (5-15); BUN 19 mg/dL (7-18); BUN/Creat Ratio 15.4 RATIO (10-20); Calcium,Total 8.3 mg/dL (8.5-10.1); Chloride 107 mmol/L (98-107); Creatinine, Serum 1.23 mg/dL (0.55-1.02); EST Glomerular Filtration Rate 47 mL/min (>60); Est Glom Filt Rate - Afr Amer 57 mL/min (>60); Estimated Creatinine Clearance 42.13 ml/min; Glucose 221 mg/dL (74-106); Potassium 4.5 mmol/L (3.5-5.1); Sodium Level 138 mmol/L (136-145)
[2019-02-17 21:00] LABS: Erythrocyte Sedimentation Rate 58 mm/hr (0-30)
[2019-02-17 21:10] VITALS: BP 114/80; PULSE 78; RESP 16; TEMP 36.6; O2SAT 97
--- NOTE | 2019-02-17 21:54 | HP.PCM_ITS ---
Problem List (1) MISTI (obstructive sleep apnea) Status: Chronic (2) Non-compliance Status: Chronic (3) Memory loss Status: Chronic (4) GERD Status: Chronic (5) Fibromyalgia Status: Chronic (6) Diabetes mellitus type II Status: Chronic (7) COPD Status: Chronic (8) Hyperlipidemia Status: Chronic (9) CAD (coronary artery disease) Status: Chronic Comment: sp CABG in 2005 (10) Osteomyelitis Status: Acute Qualifiers: Osteomyelitis type: other acute Osteomyelitis location: foot Laterality: right Qualified Code(s): M86.171 - Other acute osteomyelitis, right ankle and foot History of Present Illness Date of Admission: 02/17/19 Chief Complaint: right foot pain The patient is a 64 year old male patient who presents the emergency room from a senior care facility for pain in her right foot. The patient is a poor historian due to cognitive impairment per her report history has previous episode of osteomyelitis in the left foot, with diabetes, coronary artery disease and noncompliance. X-ray of the right great toe shows osteomyelitis. The patient denies other constitutional symptoms including nausea vomiting or diarrhea or chest pain or shortness of breath. Current CBC is within normal limits, CRP is markedly elevated and vital signs are stable. The patient will be admitted to general medical floor and treated for osteomyelitis. Past Medical History Past Medical History (Chronic Problems): Chronic Problems (Last Reviewed 08/13/17 @ 13:40 by Etta Lynch) Hallux limitus of left foot (Chronic) MISTI (obstructive sleep apnea) (Chronic) Delayed wound healing (Chronic) Non-compliance (Chronic) Memory loss (Chronic) GERD (Chronic) Fibromyalgia (Chronic) Diabetes mellitus type II (Chronic) COPD (Chronic) Chronic ulcer of left foot with fat layer exposed (Chronic) Type 2 diabetes mellitus with diabetic polyneuropathy (Chronic) Hammer toe of left foot (Chronic) Chronic ulcer of left foot with fat layer exposed (Chronic) Malnutrition (Chronic) Anemia (Chronic) Delayed wound healing (Chronic) Diabetes, polyneuropathy (Chronic) Hallux limitus of right foot (Chronic) Tobacco use disorder (Chronic) Carotid arterial disease (Chronic) Degenerative disc disease, lumbar (Chronic) Chronic hypertension (Chronic) diabetic ulcer right anterior leg (Chronic) diabetic ulcer dorsum right foot (Chronic) PVD (peripheral vascular disease) (Chronic) CVA (cerebral vascular accident) (Chronic) Paroxysmal atrial fibrillation (Chronic) Hyperlipidemia (Chronic) CAD (coronary artery disease) (Chronic) sp CABG in 2005 Medical History: Medical History (Last Reviewed 08/13/17 @ 13:40 by Etta Lynch) Delayed wound healing (Chronic) T14.8XXD Non-compliance (Chronic) Z91.19 Memory loss (Chronic) R41.3 GERD (Chronic) Fibromyalgia (Chronic) Diabetes mellitus type II (Chronic) COPD (Chronic) Delayed wound healing (Acute) T14.8XXD Chronic ulcer of left foot with fat layer exposed (Chronic) L97.522 Osteomyelitis of toe of left foot (Resolved) M86.9 Type 2 diabetes mellitus with diabetic polyneuropathy (Chronic) E11.42 Cellulitis of left foot (Resolved) L03.116 Gangrene of toe of left foot (Resolved) I96 Hammer toe of left foot (Chronic) M20.42 Chronic ulcer of left foot with fat layer exposed (Chronic) L97.522 Malnutrition (Chronic) E46 Anemia (Chronic) D64.9 Delayed wound healing (Chronic) T14.8 Diabetes, polyneuropathy (Chronic) E11.42 Hallux limitus of right foot (Chronic) M20.5X1 Ulcer of right foot with fat layer exposed (Acute) L97.512 Tobacco use disorder (Chronic) F17.200 Carotid arterial disease (Chronic) I77.9 Degenerative disc disease, lumbar (Chronic) M51.36 Chronic hypertension (Chronic) I10 diabetic ulcer right anterior leg (Chronic) diabetic ulcer dorsum right foot (Chronic) PVD (peripheral vascular disease) (Chronic) I73.9 CVA (cerebral vascular accident) (Chronic) I63.9 Paroxysmal atrial fibrillation (Chronic) Hyperlipidemia (Chronic) CAD (coronary artery disease) (Chronic) I25.10 sp CABG in 2005 B12 deficiency E53.8 CAD (coronary artery disease) I25.10 DJD (degenerative joint disease) M19.90 Dementia F03.90 Fibromyalgia M79.7 GERD (gastroesophageal reflux disease) K21.9 Hyperlipidemia E78.5 Insomnia G47.00 Neuropathy G62.9 Type 2 diabetes mellitus with features of insulin resistance E11.9 HTN (hypertension) I10 depression with paranoia Allergies ciprofloxacin [From Cipro] Allergy (Verified 02/17/19 18:52) Unknown clarithromycin [From Biaxin] Allergy (Verified 02/17/19 18:52) Rash codeine Allergy (Verified 02/17/19 18:52) Rash clarithromycin Allergy (Unknown, Uncoded 02/17/19 18:52) Unknown Home Medications: Ambulatory Orders Medication Instructions Recorded Ranolazine [Ranexa] 1,000 mg PO BID #60 tab.er.12h 11/11/13 Aspirin [Aspirin, Baby] 81 mg PO DAILY@0800 #0 tab.chew 03/10/14 Clopidogrel Bisulfate [Plavix] 75 mg PO DAILY #30 tab 03/10/14 Senna/Docusate Sodium [Senokot-S] 2 tab PO BID #0 tab 03/10/14 Cyanocobalamin [Vitamin B12] 1,000 mcg IM DAILY 01/21/17 Lisinopril [Prinivil] 5 mg PO DAILY 01/21/17 Multivit,Calc,Mins/Iron/Folic 1 ea PO DAILY 01/21/17 [Thera M Plus Tablet] metFORMIN HCl [Glucophage] 1,000 mg PO BIDCM 01/21/17 Fluticasone/Salmeterol [Advair 1 ea IH BID 01/22/17 250-50 Diskus] Insulin Detemir [Levemir ([facility])] 31 units SC QHS 03/09/17 metoprolol tartrate 50 mg tablet 50 mg PO DAILY tab 05/01/17 Cholecalciferol (Vitamin D3) 2,000 unit PO DAILY 02/17/19 [Vitamin D3] Escitalopram Oxalate [Lexapro] 5 mg PO DAILY 02/17/19 Escitalopram Oxalate [Lexapro] 10 mg PO DAILY 02/17/19 Famotidine [Pepcid] 20 mg PO DAILY 02/17/19 Furosemide [Lasix] 20 mg PO DAILY 02/17/19 Insulin Aspart [Novolog Flexpen 4 units SUBCUT BID 02/17/19 ([facility])] Insulin Aspart [Novolog Flexpen 6 units SUBCUT DINNER 02/17/19 ([facility])] Insulin Aspart [Novolog Flexpen] See Protocol SUBCUT ACHS 02/17/19 Isosorbide DN [Isordil] 40 mg PO BID 02/17/19 Melatonin 10 mg PO QHS 02/17/19 Olanzapine 10 mg PO QHS 02/17/19 Excello-3 Fatty Acids/Fish Oil [Fish 1 cap PO BID 02/17/19 Oil 1,000 mg Capsule] Pramipexole Di-HCl [Mirapex] 0.5 mg PO QHS 02/17/19 Pravastatin [Pravachol] 40 mg PO QHS 02/17/19 Pregabalin [Lyrica] 75 mg PO TID 02/17/19 Surgical History: Surgical History (Last Reviewed 08/13/17 @ 13:40 by Etta Lynch) amputation left fifth toe Surgical History: coronary bypass surgery, - - stent x 6, hysterectomy, C- section, bladder surgery, gastric bypass, spinal fusion Psychiatric History: No pertinent psych hx [employer] FI[employer]DER History: No pertinent [employer]IL FI[employer]DER history Smoking Status: Current every day smoker Tobacco Use: Cigarettes - *Family History Maternal History Items: Diabetes, Heart Disease Paternal History Items: Diabetes, Heart Disease Sibling History Items: Diabetes Review of Systems Constitutional: Denies: Chills, Fever, Weight Change HEENT: Denies: Head Aches, Sinus Congestion, Sinus Drainage Cardiovascular: Denies: Chest Pain, Palpitations Respiratory: Denies: Cough, Shortness of breath at rest, Sputum production Gastrointestinal: Denies: Abdominal Pain, Nausea, Vomiting Genitourinary: Denies: Dysuria Musculoskeletal: Reports: Foot Pain, Joint Pain. Denies: Joint Tenderness Skin: Denies: Rash, Wounds Neurological: Denies: Numbness, Tingling, Focal weakness Psychiatric: Reports: Anxiety. Denies: Depression, Homicidal Ideations, Suicidal Ideations Hematologic/ Lymphatic: Denies: Easy Bruising, Easy Bleeding VTE Information - Inpt Only VTE Present on Admission: No VTE Mechan Device Prophylaxis: None VTE Pharm Prophylaxis ordered?: Yes Patient Problems: Active and Suspected Problems (Last Reviewed 08/13/17 @ 13:40 by Etta Lynch) Osteomyelitis (Acute) - Physical Exam Vitals/I&O's: Vital Signs Temp Pulse Resp BP Pulse Ox 97.9 F 78 16 114/80 97 02/17/19 21:10 02/17/19 21:10 02/17/19 21:10 02/17/19 21:10 02/17/19 21:10 Oxygen Flow Rate (L/min) 2 Oxygen Delivery Method Room Air Weight: 189 lb 2.506 oz Body Mass Index (BMI) 31.4 Finger Stick Blood Glucose 390 General: Alert, Cooperative, Confused HEENT: Atraumatic, Normocephalic Neck: Supple Lungs: Clear to auscultation, Normal air movement Cardiovascular: Regular rate, Normal S1, Normal S2 Abdomen: Bowel Sounds Present, Soft, Non Tender, Obese Extremities: Edema, Tenderness Skin: No rashes Musculoskeletal: No Tenderness to Palpation of Joints or Extremities, Tenderness - right great toe to palpation Neurological: Neuro grossly intact Psych/Mental Status: Normal Affect, Anxious Laboratory Results 02/17/19 20:30: WBC 10.1, RBC 3.13 L, Hgb 9.5 L, Hct 29.9 L, MCV 95.5, MCH 30.4, MCHC 31.8 L, RDW Std Deviation 46.0 H, RDW Coeff of Anjelica 13.2, Plt Count 272, MPV 10.3, Immature Gran % (Auto) 0.400, Neut % (Auto) 59.8, Lymph % (Auto) 25.1, [place] % (Auto) 11.4 H, Eos % (Auto) 2.9, Baso % (Auto) 0.4, Absolute Neuts (auto) 6.0, Absolute Lymphs (auto) 2.53, Nucleated RBC % 0, ESR 58 H 02/17/19 20:30: Sodium 138, Potassium 4.5, Chloride 107, Carbon Dioxide 27.0, Anion Gap 4 L, BUN 19 H, Creatinine 1.23 H, Estim Creat Clear Calc 42.13, Est GFR (MDRD) Af Amer 57 L, Est GFR (MDRD) Non-Af 47 L, BUN/Creatinine Ratio 15.4, Glucose 221 H, Calcium 8.3 L, C-React Prot Ext Range 16.90 H Current Medications Vancomycin IV Pharmacy to Dose (1 ea/ Sodium Chloride) 500 mls @ 250 mls/hr IV X1 PRN; Protocol PRN Reason: Rx to Dose Piperacillin Sod/Tazobactam (Sod 3.375 gm/ Sodium Chloride) 50 mls @ 100 mls/hr IV X1 ONE Stop: 02/17/19 22:21 Assessment/Plan All Active Problems (Last Reviewed 08/13/17 @ 13:40 by Etta Lynch) Osteomyelitis (Acute) Sleep concern (Acute) Delayed wound healing (Acute) Osteomyelitis of toe of left foot (Resolved) Cellulitis of left foot (Resolved) Gangrene of toe of left foot (Resolved) Ulcer of right foot with fat layer exposed (Acute) Chronic Problems (Last Reviewed 08/13/17 @ 13:40 by Etta Lynch) Hallux limitus of left foot (Chronic) MISTI (obstructive sleep apnea) (Chronic) Delayed wound healing (Chronic) Non-compliance (Chronic) Memory loss (Chronic) GERD (Chronic) Fibromyalgia (Chronic) Diabetes mellitus type II (Chronic) COPD (Chronic) Chronic ulcer of left foot with fat layer exposed (Chronic) Type 2 diabetes mellitus with diabetic polyneuropathy (Chronic) Hammer toe of left foot (Chronic) Chronic ulcer of left foot with fat layer exposed (Chronic) Malnutrition (Chronic) Anemia (Chronic) Delayed wound healing (Chronic) Diabetes, polyneuropathy (Chronic) Hallux limitus of right foot (Chronic) Tobacco use disorder (Chronic) Carotid arterial disease (Chronic) Degenerative disc disease, lumbar (Chronic) Chronic hypertension (Chronic) diabetic ulcer right anterior leg (Chronic) diabetic ulcer dorsum right foot (Chronic) PVD (peripheral vascular disease) (Chronic) CVA (cerebral vascular accident) (Chronic) Paroxysmal atrial fibrillation (Chronic) Hyperlipidemia (Chronic) CAD (coronary artery disease) (Chronic) sp CABG in 2005 Plan 1. Osteomyelitis right great toe?admit to general medical floor, continue vancomycin and Zosyn as begun in the ER, [facility]ry[facility] will hold off on pain medications at this time as patient is confused and per her story to me denies feeling pain at this time 2. Diabetes?continue routine management from senior care facility 3. COPD?continue routine control medication patient is in no distress at this time 4. Hypertension/hyperlipidemia?continue routine medications 5. DVT prophylaxis?low molecular weight heparin Code Visit Inpatient E&M: 13982 Init Hosp L3
[2019-02-17 22:12] VITALS: BP 116/80; PULSE 89; RESP 16; TEMP 36.7; O2SAT 98
[2019-02-17 22:47] VITALS: BMI 31.6
[2019-02-17 22:52] VITALS: BP 165/57; PULSE 80; RESP 20; TEMP 37.1; O2SAT 98
[2019-02-17 23:00] VITALS: BMI 31.7
[2019-02-17] MEDS: MELATONIN 10 MG TABLET PO (23:46)
--- NOTE | 2019-02-17 23:46 | ED.VIS.GEN ---
History of Present Illness Chief Complaint: Lower Extremity Injury Informant: Patient, [facility] Onset: - - unknown Narrative: The patient is a 64 year old male patient who presents the emergency room from a [facility] for bilateral foot pain. The patient is a poor historian due to cognitive impairment. Patient does have a history of previous episode of osteomyelitis in the left foot, with diabetes, coronary artery disease and noncompliance. Patient cannot tell me which foot hurts more. Per report patient had was found to have a fracture of her right great toe and sent to the emergency room for further evaluation. She does have associated redness on the top of her feet as well as swelling. Patient states she had a fever of 99 degrees prior to arrival when she was at the half-way. Patient states her left toe amputation was less than a year ago. She does not remember who her surgeon was. Past Medical History - Allergies and Home Meds Allergies/Adverse Reactions: Allergies ciprofloxacin [From Cipro] Allergy (Verified 02/17/19 18:52) Unknown clarithromycin [From Biaxin] Allergy (Verified 02/17/19 18:52) Rash codeine Allergy (Verified 02/17/19 18:52) Rash clarithromycin Allergy (Unknown, Uncoded 02/17/19 18:52) Unknown Primary Care Physician: Judith Goldman, [employer]NOGRAPHIC [employer]ERIALS CONSERVATOR-C [Primary Care Provider] - Past Medical History: - - Type 2 diabetes, hyperlipidemia, depression, anxiety, restless leg syndrome, mild cognitive impairment, insomnia, chronic pain syndrome, hypertension, heart failure, peripheral vascular disease, chronic obstructive pulmonary disease, GERD, history of osteomyelitis Surgical History: coronary bypass surgery, - - stent x 6, hysterectomy, , bladder surgery, gastric bypass, spinal fusion, mutation of left fifth toe Smoking Status: Current every day smoker - Family History Maternal Family History: Reports: Diabetes, Heart Disease Paternal Family History: Reports: Diabetes, Heart Disease Sibling Family History: Reports: Diabetes Review of Systems General: Reports: Fever, Malaise. Denies: Chills, Sweats Eyes: Denies: Visual changes - bilaterally, Diplopia ENT: Denies: Rhinorrhea, Sore throat Cardiovascular: Denies: Chest pain, Palpitations Respiratory: Denies: Dyspnea, Cough, Dyspnea on exertion Gastrointestinal: Denies: Abdominal pain, Nausea, Vomiting, Diarrhea, Melena, Hematochezia Genitourinary: Denies: Dysuria, Hematuria, Frequency Musculoskeletal: Reports: Swelling - feet , Extremity Pain - b/l feet . Denies: Back pain Skin: Reports: Rash - bilateral feet . Denies: Wounds Neurological: Denies: Headache, Weakness, Parasthesia, Numbness Physical Exam Vital Signs/Narrative: Vital Signs Temp Pulse Resp BP Pulse Ox 02/17/19 22:52 98.8 F 80 20 H 165/57 H 98 02/17/19 22:12 98.0 F 89 16 116/80 98 02/17/19 21:10 97.9 F 78 16 114/80 97 Inital Vital Signs reviewed: Yes General: Well nourished, Well developed, No Acute Distress Head: Normocephalic, Atraumatic Eyes: Perrl, EOMI ENT: Moist mucous membranes, No rhinorrhea Neck: Supple, Nontender Cardiovascular: Regular rate, Regular rhythm, No murmurs, - - 1+ bilateral DP and PT pulses Respiratory: No distress, CTA bilaterally, Chest nontender Abdomen: Soft, Nontender, Nondistended, Normal bowel sounds Back: Nontender, Normal Inspection Extremities: - - Diffuse tenderness to palpation of bilateral feet and toes, no specific pinpoint area of tenderness. Left 3rd toe-significant soft tissue swelling and erythema. No associated warmth. Range of motion is normal. Right foot?right great toe has erythema, tenderness and decreased range of motion. No joint effusion is noted. Skin: Normal color, Rash - Mild erythema of the dorsal aspect of bilateral feet Neurological: Alert, Oriented x3, Cranial nerves II-XII grossly intact, Normal Strength, Normal Sensation Psychological: Normal affect, Normal Mood Diagnostic/Tx/Re-eval Clinical Impression(s) from Imaging Studies Foot X-Ray 02/17/19 20:16 IMPRESSION: Suggestion of osteomyelitis of the great toe Electronically Signed: Ziggy Sousa DO at 21:08 EST Tel , Service support , Foot X-Ray 02/17/19 20:40 IMPRESSION: No definite evidence of acute osteomyelitis. Significant degenerative changes at the first metatarsophalangeal joint, new since the exam in 2018 Electronically Signed: Ziggy Sousa DO at 21:09 EST Tel , Service support , Laboratory Data 02/17/19 02/17/19 20:30 20:30 WBC 10.1 RBC 3.13 L Hgb 9.5 L Hct 29.9 L MCV 95.5 MCH 30.4 MCHC 31.8 L RDW Std Deviation 46.0 H RDW Coeff of Anjelica 13.2 Plt Count 272 MPV 10.3 Immature Gran % (Auto) 0.400 Neut % (Auto) 59.8 Lymph % (Auto) 25.1 [place] % (Auto) 11.4 H Eos % (Auto) 2.9 Baso % (Auto) 0.4 Absolute Neuts (auto) 6.0 Absolute Lymphs (auto) 2.53 Nucleated RBC % 0 ESR 58 H Sodium 138 Potassium 4.5 Chloride 107 Carbon Dioxide 27.0 Anion Gap 4 L BUN 19 H Creatinine 1.23 H Estim Creat Clear Calc 42.13 Est GFR (MDRD) Af Amer 57 L Est GFR (MDRD) Non-Af 47 L BUN/Creatinine Ratio 15.4 Glucose 221 H Calcium 8.3 L C-React Prot Ext Range 16.90 H - Medical Decision Making Patient is evaluated for pain and redness of her bilateral feet. X-rays are concerning for osteomyelitis of the right great toe. Patient has a normal white blood cell count but she did have reported low-grade fever at nursing facility. In addition she has an elevated ESR and CRP. She will be admitted for IV antibiotics and further evaluation by podiatry. She is admitted to medicine service. She is given first dose of vancomycin and Zosyn in the emergency room. Patient is agreeable with this plan. She is stable at time of disposition. ED Disposition - Plan for ED Patient: Disposition: Acute Care Hospital [facility] Diagnosis: Osteomyelitis of great toe of right foot Referrals: Judith Goldman, ETHNOGRAPHIC MATERIALS CONSERVATOR-C [Primary Care Provider] -
[2019-02-17] MEDS: OLANZapine 10 MG Tablet PO (23:47)
[2019-02-17] MEDS: Ranolazine 500 MG Tablet 1000 MG PO (23:47)
[2019-02-17] MEDS: Pramipexole Di-HCl 0.5 MG Tablet PO (23:47)
[2019-02-17] MEDS: Omega-3 Acid Ethyl Esters 1 GM Capsule PO (23:47)
[2019-02-17] MEDS: Isosorbide DN 20 MG Tablet 40 MG PO (23:47)
[2019-02-17] MEDS: Senna/Docusate Sodium 1 Tablet PO (23:47)
[2019-02-17] MEDS: Pregabalin 75 MG Capsule PO (23:47)
[2019-02-17] MEDS: Acetaminophen 325 MG Tablet 650 MG PO (23:48)
[2019-02-17] MEDS: Insulin Lispro 100 UNIT/ML INSULN.PEN SC (23:50)
[2019-02-18] VITALS (8 sets, daily range): BP systolic 124–178; BP diastolic 63–93; PULSE 77–96; RESP 16–24; TEMP 36.5–37.3; O2SAT 94–100
[2019-02-18] LABS: Bedside Glucose 237 mg/dL (70-110)
[2019-02-18] MEDS: LORazepam 2 MG/ML Syringe 0.5 MG IV (02:08)
--- NOTE | 2019-02-18 03:38 | NURSING ---
Since admission to the floor from ER patient has been constantly up and down out of bed or wheelchair less than every 5-10 minutes. T/o shift patient has been c/o restless legs and bouncing legs. Staff have taken turns walking with patient with w/c in the hallway. Patient restless and does not sit still. paged and ordered nicotine patch d/t patient being a smoker, this RN applied. MD made aware of HS meds, and meds given. Later in shift patient still very restless and still c/o RLS and bouncing legs, standing up and sitting down, continues be up and down and walking in hallways with staff. paged again and order received for IV ativan x1, this RN gave per orders. After IV ativan given patient still restless, not sitting still, staff continues and walk with patient in the hallway. When not walking in hallway patient is sitting in w/c up at nurses station with staff. Food, drink, magazines given to help distract patient, unsuccessful. Staff have constantly been with patient. furniture sales associate and store warehouse associate aware of situation.
[2019-02-18] MEDS: Haloperidol Lactate 5 MG/ML Vial 2 MG IM (03:51)
[2019-02-18] MEDS: Pramipexole Di-HCl 0.5 MG Tablet PO ×2 (05:17→21:38)
[2019-02-18] MEDS: Pregabalin 75 MG Capsule PO ×3 (05:17→21:31)
[2019-02-18] MEDS: 0.9% Saline Lock 10 ML Syringe IV ×2 (05:17→14:52)
[2019-02-18 06:13] LABS: Absolute Lymphocyte Count 2.24 X10^3/uL (0.83-4.51); Absolute Neutrophil Count 8.1 X10^3/uL (2.0-7.7); Basophil# 0.07 X10^3/uL; Basophil% 0.6 % (0-1); Eosinophil# 0.35 X10^3/uL; Eosinophils% 2.9 % (0-5); Hematocrit 32.1 % (37-47); Hemoglobin 9.9 g/dL (12.0-15.0); Lymphocyte # 2.24 X10^3/ul (4.0); Lymphocyte % 18.4 % (19-41); Mean Corp Hgb Conc 30.8 g/dL (32-36); Mean Corpuscular Hgb 29.9 pg (27.0-32.0); Mean Platelet Vol. 10.3 fl (6.2-12.0); Monocyte# 1.39 X10^3/uL; Monocyte% 11.4 % (0-10); NRBC Flagged by Analyzer 0 % (0-5); Neutrophil # 8.09 X10^3/uL (2.7-7.7); Neutrophil % 66.2 % (47-70); Platelet Count 301 K/mm3 (150-450); RBC Distribution Width CV 13.2 % (11.6-14.6); RBC Distribution Width SD 46.6 fl (35.1-43.9); Red Blood Count 3.31 M/mm3 (4.2-5.4); White Blood Count 12.2 K/mm3 (4.4-11.0)
[2019-02-18 06:41] LABS: Anion Gap 3 (5-15); BUN 19 mg/dL (7-18); BUN/Creat Ratio 14.7 RATIO (10-20); Calcium,Total 8.6 mg/dL (8.5-10.1); Chloride 106 mmol/L (98-107); Creatinine, Serum 1.29 mg/dL (0.55-1.02); EST Glomerular Filtration Rate 44 mL/min (>60); Est Glom Filt Rate - Afr Amer 54 mL/min (>60); Estimated Creatinine Clearance 40.17 ml/min; Glucose 237 mg/dL (74-106); Potassium 4.4 mmol/L (3.5-5.1); Sodium Level 135 mmol/L (136-145)
[2019-02-18 06:50] LABS: Bedside Glucose 215 mg/dL (70-110)
[2019-02-18] MEDS: Insulin Lispro 100 UNIT/ML INSULN.PEN SC ×2 (06:59→21:32)
--- NOTE | 2019-02-18 07:00 | CON.PCM_ITS ---
Problem List (1) Chronic ulcer of left foot with fat layer exposed Status: Chronic (2) Ulcer of right foot with fat layer exposed Status: Acute (3) Hammer toe of right foot Status: Acute (4) Hammer toe of left foot Status: Chronic (5) Malnutrition Status: Chronic (6) Diabetes, polyneuropathy Status: Chronic Qualifiers: Diabetes mellitus type: type 2 Qualified Code(s): E11.42 - Type 2 diabetes mellitus with diabetic polyneuropathy (7) PVD (peripheral vascular disease) Status: Chronic Reason for Consult Date of Consultation: 02/18/19 Reason for Consultation: Toe ulcers. Concern of right great toe bone infection History of Present Illness: The patient is a 64 year old F with multiple comorbidities include moving diabetes with neuropathy, peripheral vascular disease, severe memory loss seen bedside this morning. She relates she has had a left foot ulcer with an onset of 1 month ago. She resides in [facility]. She denies trauma. I was consulted for evaluation of osteomyelitis of the right great toe. She denies drainage from the right foot that she is aware of. She denies previous treatment or dressing care. She has been walking around slippers. She does have rest paresthesias and significant restless leg syndrome. She does not walk a significant degree in which she notices leg cramping. Past Medical History Past Medical History (Chronic Problems): Chronic Problems (Last Reviewed 08/13/17 @ 13:40 by Etta Lynch) Hallux limitus of left foot (Chronic) Chronic ulcer of left foot with fat layer exposed (Chronic) MISTI (obstructive sleep apnea) (Chronic) Delayed wound healing (Chronic) Non-compliance (Chronic) Memory loss (Chronic) GERD (Chronic) Fibromyalgia (Chronic) Diabetes mellitus type II (Chronic) COPD (Chronic) Chronic ulcer of left foot with fat layer exposed (Chronic) Type 2 diabetes mellitus with diabetic polyneuropathy (Chronic) Hammer toe of left foot (Chronic) Chronic ulcer of left foot with fat layer exposed (Chronic) Malnutrition (Chronic) Anemia (Chronic) Delayed wound healing (Chronic) Diabetes, polyneuropathy (Chronic) Hallux limitus of right foot (Chronic) Tobacco use disorder (Chronic) Carotid arterial disease (Chronic) Degenerative disc disease, lumbar (Chronic) Chronic hypertension (Chronic) diabetic ulcer right anterior leg (Chronic) diabetic ulcer dorsum right foot (Chronic) PVD (peripheral vascular disease) (Chronic) CVA (cerebral vascular accident) (Chronic) Paroxysmal atrial fibrillation (Chronic) Hyperlipidemia (Chronic) CAD (coronary artery disease) (Chronic) sp CABG in 2005 Medical History: Medical History (Last Reviewed 08/13/17 @ 13:40 by Etta Lynch) Delayed wound healing (Chronic) T14.8XXD Non-compliance (Chronic) Z91.19 Memory loss (Chronic) R41.3 GERD (Chronic) Fibromyalgia (Chronic) Diabetes mellitus type II (Chronic) COPD (Chronic) Delayed wound healing (Acute) T14.8XXD Chronic ulcer of left foot with fat layer exposed (Chronic) L97.522 Osteomyelitis of toe of left foot (Resolved) M86.9 Type 2 diabetes mellitus with diabetic polyneuropathy (Chronic) E11.42 Cellulitis of left foot (Resolved) L03.116 Gangrene of toe of left foot (Resolved) I96 Hammer toe of left foot (Chronic) M20.42 Chronic ulcer of left foot with fat layer exposed (Chronic) L97.522 Malnutrition (Chronic) E46 Anemia (Chronic) D64.9 Delayed wound healing (Chronic) T14.8 Diabetes, polyneuropathy (Chronic) E11.42 Hallux limitus of right foot (Chronic) M20.5X1 Ulcer of right foot with fat layer exposed (Acute) L97.512 Tobacco use disorder (Chronic) F17.200 Carotid arterial disease (Chronic) I77.9 Degenerative disc disease, lumbar (Chronic) M51.36 Chronic hypertension (Chronic) I10 diabetic ulcer right anterior leg (Chronic) diabetic ulcer dorsum right foot (Chronic) PVD (peripheral vascular disease) (Chronic) I73.9 CVA (cerebral vascular accident) (Chronic) I63.9 Paroxysmal atrial fibrillation (Chronic) Hyperlipidemia (Chronic) CAD (coronary artery disease) (Chronic) I25.10 sp CABG in 2006 B12 deficiency E53.8 CAD (coronary artery disease) I25.10 DJD (degenerative joint disease) M19.90 Dementia F03.90 Fibromyalgia M79.7 GERD (gastroesophageal reflux disease) K21.9 Hyperlipidemia E78.5 Insomnia G47.00 Neuropathy G62.9 Type 2 diabetes mellitus with features of insulin resistance E11.9 HTN (hypertension) I10 depression with paranoia Allergies ciprofloxacin [From Cipro] Allergy (Verified 02/17/19 18:52) Unknown clarithromycin [From Biaxin] Allergy (Verified 02/17/19 18:52) Rash codeine Allergy (Verified 02/17/19 18:52) Rash clarithromycin Allergy (Unknown, Uncoded 02/17/19 18:52) Unknown Home Medications: Ambulatory Orders Medication Instructions Recorded Ranolazine [Ranexa] 1,000 mg PO BID #60 tab.er.12h 11/11/13 Aspirin [Aspirin, Baby] 81 mg PO DAILY@0800 #0 tab.chew 03/10/14 Clopidogrel Bisulfate [Plavix] 75 mg PO DAILY #30 tab 03/10/14 Senna/Docusate Sodium [Senokot-S] 2 tab PO BID #0 tab 03/10/14 Cyanocobalamin [Vitamin B12] 1,000 mcg IM DAILY 01/21/17 Lisinopril [Prinivil] 5 mg PO DAILY 01/21/17 Multivit,Calc,Mins/Iron/Folic 1 ea PO DAILY 01/21/17 [Thera M Plus Tablet] metFORMIN HCl [Glucophage] 1,000 mg PO BIDCM 01/21/17 Fluticasone/Salmeterol [Advair 1 ea IH BID 01/22/17 250-50 Diskus] Insulin Detemir [Levemir ([facility])] 31 units SC QHS 03/09/17 metoprolol tartrate 50 mg tablet 50 mg PO DAILY tab 05/01/17 Cholecalciferol (Vitamin D3) 2,000 unit PO DAILY 02/17/19 [Vitamin D3] Escitalopram Oxalate [Lexapro] 5 mg PO DAILY 02/17/19 Escitalopram Oxalate [Lexapro] 10 mg PO DAILY 02/17/19 Famotidine [Pepcid] 20 mg PO DAILY 02/17/19 Furosemide [Lasix] 20 mg PO DAILY 02/17/19 Insulin Aspart [Novolog Flexpen 4 units SUBCUT BID 02/17/19 ([facility])] Insulin Aspart [Novolog Flexpen 6 units SUBCUT DINNER 02/17/19 ([facility])] Insulin Aspart [Novolog Flexpen] See Protocol SUBCUT ACHS 02/17/19 Isosorbide DN [Isordil] 40 mg PO BID 02/17/19 Melatonin 10 mg PO QHS 02/17/19 Olanzapine 10 mg PO QHS 02/17/19 [place]-3 Fatty Acids/Fish Oil [Fish 1 cap PO BID 02/17/19 Oil 1,000 mg Capsule] Pramipexole Di-HCl [Mirapex] 0.5 mg PO QHS 02/17/19 Pravastatin [Pravachol] 40 mg PO QHS 02/17/19 Pregabalin [Lyrica] 75 mg PO TID 02/17/19 Surgical History: Surgical History (Last Reviewed 08/13/17 @ 13:40 by Etta Lynch) amputation left fifth toe Surgical History: coronary bypass surgery, - - stent x 6, hysterectomy, C- section, bladder surgery, gastric bypass, spinal fusion, mutation of left fifth toe Psychiatric History: No pertinent psych hx DIRECTOR OF INFECTION CONTROL History: No pertinent DIRECTOR OF INFECTION CONTROL history Smoking Status: Current every day smoker Tobacco Use: Cigarettes - *Family History Maternal History Items: Diabetes, Heart Disease Paternal History Items: Diabetes, Heart Disease Sibling History Items: Diabetes Review of Systems Constitutional: Reports: Fatigue. Denies: Chills, Fever Cardiovascular: Denies: Chest Pain, Claudication Respiratory: Denies: Shortness of Breath Gastrointestinal: Denies: Nausea, Vomiting Musculoskeletal: Denies: Joint Tenderness Skin: Reports: Skin Changes, Wounds Neurological: Reports: Numbness, Tingling Patient Problems: Active and Suspected Problems (Last Reviewed 08/13/17 @ 13:40 by Etta Lynch) Osteomyelitis of great toe of right foot (Acute) Ulcer of right foot with fat layer exposed (Acute) Hammer toe of right foot (Acute) - Physical Exam Vitals/I&O's: Vital Signs Temp Pulse Resp BP Pulse Ox 97.9 F 94 24 H 124/63 H 99 02/18/19 03:30 02/18/19 03:30 02/18/19 03:30 02/18/19 03:30 02/18/19 03:30 Oxygen Flow Rate (L/min) 2 Oxygen Delivery Method Room Air Weight: 86.4 kg Body Mass Index (BMI) 31.6 Finger Stick Blood Glucose 390 Intake and Output for Last 24 Hours 02/16/19 02/17/19 02/18/19 23:59 23:59 23:59 Intake Total 50.25 / 50.25 275 / 275 Balance 50.25 / 50.25 275 / 275 General: Alert, Cooperative HEENT: Atraumatic Extremities: No cyanosis, No edema, Capillary Refill Less than 3 Seconds, No Calf Tenderness - Negative Evelina and [place] sign. Fifth ray resection right foot . Dorsal contracture lesser toes bilateral. Decreased loaded first metatarsal phalangeal joint range of motion bilateral, Diminished Peripheral Pulses Skin: Ulcer/ Wound - Distal third toe ulcer pre-debridement 1.5 x 2.0 x 0.1 cm with fibrous and granular base. Post debridement measurement 1.7 x 2.2 x 0.1 cm. Pressure was applied made hemostasis. There is no maceration necrosis or deep tissue exposure in the right foot. The left foot does not have an ulcer to the hallux nor does have any erythema bogginess fluctuance or streaking. There is only a small skin discontinuity to the distal right fourth toe pre- debridement 1 mm x 2 mm x 1 mm and post debridement 2 mm x 2 mm x 1 mm. The base is granular and fibrous. There is no probe to bone or deep tissue exposure signs of local infection. In general, her left foot skin is hairless and atrophic Musculoskeletal: No Tenderness to Palpation of Joints or Extremities, Muscle Wasting Neurological: - - Lack of normal epicritic sensation is consistent with neuropathy Psych/Mental Status: Normal Affect, Appropriate, Anxious Laboratory Results 02/17/19 20:30: WBC 10.1, RBC 3.13 L, Hgb 9.5 L, Hct 29.9 L, MCV 95.5, MCH 30.4, MCHC 31.8 L, RDW Std Deviation 46.0 H, RDW Coeff of Anjelica 13.2, Plt Count 272, MPV 10.3, Immature Gran % (Auto) 0.400, Neut % (Auto) 59.8, Lymph % (Auto) 25.1, [place] % (Auto) 11.4 H, Eos % (Auto) 2.9, Baso % (Auto) 0.4, Absolute Neuts (auto) 6.0, Absolute Lymphs (auto) 2.53, Nucleated RBC % 0, ESR 58 H 02/17/19 20:30: Sodium 138, Potassium 4.5, Chloride 107, Carbon Dioxide 27.0, Anion Gap 4 L, BUN 19 H, Creatinine 1.23 H, Estim Creat Clear Calc 42.13, Est GFR (MDRD) Af Amer 57 L, Est GFR (MDRD) Non-Af 47 L, BUN/Creatinine Ratio 15.4, Glucose 221 H, Calcium 8.3 L, C-React Prot Ext Range 16.90 H 02/17/19 23:40: POC Glucose 237 H 02/18/19 05:54: WBC 12.2 H, RBC 3.31 L, Hgb 9.9 L, Hct 32.1 L, MCV 97.0, MCH 29.9, MCHC 30.8 L, RDW Std Deviation 46.6 H, RDW Coeff of Anjelica 13.2, Plt Count 301, MPV 10.3, Immature Gran % (Auto) 0.500, Neut % (Auto) 66.2, Lymph % (Auto) 18.4 L, [place] % (Auto) 11.4 H, Eos % (Auto) 2.9, Baso % (Auto) 0.6, Absolute Neuts (auto) 8.1 H, Absolute Lymphs (auto) 2.24, Nucleated RBC % 0 02/18/19 05:54: Sodium 135 L, Potassium 4.4, Chloride 106, Carbon Dioxide 26.0, Anion Gap 3 L, BUN 19 H, Creatinine 1.29 H, Estim Creat Clear Calc 40.17, Est GFR (MDRD) Af Amer 54 L, Est GFR (MDRD) Non-Af 44 L, BUN/Creatinine Ratio 14.7, Glucose 237 H, Calcium 8.6 02/18/19 06:45: POC Glucose 215 H Current Medications Acetaminophen (Tylenol) 650 mg PO Q6H PRN PRN PRN Reason: Pain Score 1-10/Temp > 100.7 F Last Admin: 02/17/19 23:48 Dose: 650 mg Documented by: Albuterol Sulfate (Ventolin Aerosols) 2.5 mg INHALATION Q6HWA.RT [facility] Aspirin (Aspirin, Baby) 81 mg PO DAILY@0800 [facility] Budesonide (Pulmicort Aerosol) 0.5 mg INHALATION Q12H.RT [facility] Cholecalciferol (Vitamin D) 2,000 unit PO DAILY [facility] Clopidogrel Bisulfate (Plavix) 75 mg PO DAILY [facility] Cyanocobalamin (Vitamin B12) 1,000 mcg IM DAILY [facility] Enoxaparin Sodium (Lovenox) 40 mg SC DAILY [facility] Escitalopram Oxalate (Lexapro) 15 mg PO DAILY [facility] Famotidine (Pepcid) 20 mg PO DAILY [facility] Furosemide (Lasix) 20 mg PO DAILY [facility] Glucagon () 1 mg IM .X1 PRN PRN Reason: Hypoglycemia Sodium Chloride () 250 mls @ 15 mls/hr IV .[id number] PRN PRN Reason: Saline Flush Last Infusion: 02/17/19 22:51 Dose: 0 mls/hr Documented by: Sodium Chloride () 250 mls @ 15 mls/hr IV .[id number] PRN PRN Reason: Additional IVPB Infusion Piperacillin Sod/Tazobactam (Sod 3.375 gm/ Sodium Chloride) 50 mls @ 12.5 mls/hr IV Q8 [facility] Last Admin: 02/18/19 05:17 Dose: 12.5 mls/hr Documented by: Dextrose (Dextrose 10%-Water) 250 mls @ 999 mls/hr IV .Q16M PRN; Protocol PRN Reason: HYPOGLYCEMIA Sodium Chloride () 250 mls @ 15 mls/hr IV .[id number] PRN PRN Reason: Saline Flush Insulin Glargine (Lantus (Bk)) 31 units SC QHS [facility] Last Admin: 02/17/19 23:48 Dose: 31 u Documented by: Insulin Human Lispro (Humalog Kwikpen ([facility])) 0 unit SC ACHS [facility]; Protocol Last Admin: 02/18/19 06:59 Dose: 2 u Documented by: Isosorbide Dinitrate (Isordil) 40 mg PO BID [facility] Last Admin: 02/17/19 23:47 Dose: 40 mg Documented by: Lisinopril (Zestril) 5 mg PO DAILY [facility] Melatonin (Melatonin) 10 mg PO QHS [facility] Last Admin: 02/17/19 23:46 Dose: 10 mg Documented by: Metformin HCl (Glucophage) 1,000 mg PO BIDCM [facility] Metoprolol Succinate (Toprol Xl (Beta Gaye)) 50 mg PO DAILY [facility] Multivitamins/Minerals (Multivitamin With Minerals) 1 tablet PO DAILYCM [facility] Nicotine (Nicoderm Cq (Pbkc)) 21 mg TRANSDERM. DAILY [facility] Last Admin: 02/18/19 01:21 Dose: 21 mg Documented by: Nutritional Formula (Lactose Free) (Glucerna Shake) 120 ml PO 4X/DAY [facility] Nystatin (Mycostatin Powder) 1 applic TOPICAL BID [facility]; Protocol Olanzapine (Zyprexa) 10 mg PO QHS [facility] Last Admin: 02/17/19 23:47 Dose: 10 mg Documented by: Fubva-[id number] Ethyl Esters (Lovaza) 1 gm PO BID [facility] Last Admin: 02/17/19 23:47 Dose: 1 gm Documented by: Pramipexole Dihydrochloride (Mirapex) 0.5 mg PO QHS [facility] Last Admin: 02/17/19 23:47 Dose: 0.5 mg Documented by: Pravastatin Sodium (Pravachol) 40 mg PO QHS [facility] Pregabalin (Lyrica) 75 mg PO TID [facility] Last Admin: 02/18/19 05:17 Dose: 75 mg Documented by: Ranolazine (Ranexa) 1,000 mg PO BID [facility] Last Admin: 02/17/19 23:47 Dose: 1,000 mg Documented by: Senna/Docusate Sodium (Senokot-S, Kirstie-Colace) 1 tablet PO BID [facility] Last Admin: 02/17/19 23:47 Dose: 1 tablet Documented by: Sodium Chloride () 10 - 40 ml IV UD PRN PRN Reason: SALINE FLUSH Last Admin: 02/18/19 05:17 Dose: 10 ml Documented by: Assessment/Plan All Active Problems (Last Reviewed 08/13/17 @ 13:40 by Etta Lynch) Osteomyelitis (Acute) Osteomyelitis of great toe of right foot (Acute) Ulcer of right foot with fat layer exposed (Acute) Hammer toe of right foot (Acute) Sleep concern (Acute) Delayed wound healing (Acute) Osteomyelitis of toe of left foot (Resolved) Cellulitis of left foot (Resolved) Gangrene of toe of left foot (Resolved) Ulcer of right foot with fat layer exposed (Acute) Osteolysis of the right hallux without ulcer Right third toe ulcer with fat layer exposed with mild ulcer inflammation versus cellulitis Left fourth toe ulcer with fat layer exposed without infection Bilateral hammertoes Diabetes with neuropathy Peripheral vascular disease I reviewed and discussed her case. Her vitals remained stable. She is afebrile. It is noted she is significant memory impairment and is only able to provide some information during her exam. Bilateral lesser toe ulcers were debrided with a 15 blade scalpel after verbal consent was obtained. This was pe rformed to excisionally remove her debride devitalized subcutaneous tissue biofilm, fibrous tissue, and slough. Pressure was applied to maintain hemostasis. She tolerated this well. The ulcers were dressed. I recommend changing them daily with hydrogel and gauze. To heel weight-bear with bilateral surgical shoe; this was ordered. Her x-rays were reviewed without osseous destruction, soft tissue emphysema adjacent to her right fourth or left third toe ulcer sites. There is no acute fractures or dislocations. Dorsal contraction of lesser toes are noted consistent with hammertoe deformities. There is notable osteolysis of the proximal phalanx head of the right hallux that was not present when compared to prior films from 2017. There are no however clinical local signs of infection in this area nor is there an ulcer. I recommend treating her for mild cellulitis and started on a comprehensive wound healing program. It is noted she is on vancomycin and Zosyn. Wound cultures were obtained today and results are pending after debridement was performed to the left foot. Blood cultures were also taken these are pending. We will follow her close while in house. Upon discharge she can follow-up with the wound healing center. Medical management per primary team is appreciated. Please not hesitate to call if you have any questions. Thank you for the consultation. Peggy Herrera DPM, [facility] [phone]
--- NOTE | 2019-02-18 07:49 | NURSING ---
BP THIS AM 178/93 - INACCURATE DUE TO PT NOT BEING ABLE TO SIT STILL. C/O RESTLESS LEGS & SHAKES ALL OVER @ TIMES.
[2019-02-18] MEDS: metFORMIN HCl 1,000 MG Tablet 1000 MG PO (07:54)
[2019-02-18] MEDS: Aspirin 81 MG TAB.CHEW PO (07:54)
[2019-02-18] MEDS: Isosorbide DN 20 MG Tablet 40 MG PO ×2 (07:55→21:31)
[2019-02-18] MEDS: Escitalopram Oxalate 10 MG Tablet 15 MG PO (07:55)
[2019-02-18] MEDS: Multivitamins,Ther W-Minerals Tablet 1 TABLET PO (07:55)
[2019-02-18] MEDS: Furosemide 20 MG Tablet PO (07:55)
[2019-02-18] MEDS: Omega-3 Acid Ethyl Esters 1 GM Capsule PO ×2 (07:56→21:32)
[2019-02-18] MEDS: Nystatin Powder 15gm Bottle 1 APPLIC TOPICAL ×2 (07:56→21:31)
[2019-02-18] MEDS: Famotidine 20 MG Tablet PO (07:57)
[2019-02-18] MEDS: Clopidogrel Bisulfate 75 MG Tablet PO (07:58)
[2019-02-18] MEDS: Ranolazine 500 MG Tablet 1000 MG PO ×2 (07:58→21:31)
[2019-02-18] MEDS: Senna/Docusate Sodium 1 Tablet PO ×2 (07:59→21:31)
[2019-02-18] MEDS: Metoprolol(XL)Succ 50 MG Tablet PO (08:02)
[2019-02-18] MEDS: Lisinopril 5 MG Tablet PO (08:02)
[2019-02-18] MEDS: Glucerna Shake 120 ML LIQUID PO (08:07)
[2019-02-18] MEDS: Enoxaparin 40 MG/0.4 ML Syringe SC (10:00)
[2019-02-18] MEDS: oxyCODONE 5 MG Tablet PO ×2 (11:39→20:17)
--- NOTE | 2019-02-18 11:40 | PCM.PN.HOSP ---
<Don Perez - Last Filed: 02/18/19 11:40> Subjective: right great toe osteo Objective: Pt ambulating in room and in felix. Does not want to sit due to severe restless legs and associated pain. Denies pain in feet. No fever/chills overnight. No LH/dizziness. Surgical shoes in place. Vitals/I&O's: Vital Signs Temp Pulse Resp BP Pulse Ox 98.9 F 96 18 178/93 H 95 02/18/19 07:47 02/18/19 08:02 02/18/19 07:47 02/18/19 08:02 02/18/19 07:49 Oxygen Flow Rate (L/min) 2 Oxygen Delivery Method Room Air Weight: 190 lb 7.67 oz Body Mass Index (BMI) 31.6 Finger Stick Blood Glucose 390 Intake and Output for Last 24 Hours 02/16/19 02/17/19 02/18/19 23:59 23:59 23:59 Intake Total 50.25 / 50.25 325 / 325 Balance 50.25 / 50.25 325 / 325 General: Alert, Oriented x3, Cooperative HEENT: Atraumatic, PERRLA, EOMI, Normocephalic Neck: Supple, No JVD, Negative Carotid Bruits Lungs: Clear to auscultation, Normal air movement Cardiovascular: Regular rate, No murmurs Abdomen: Bowel Sounds Present, Soft, Non Tender Extremities: No edema, Capillary Refill Less than 3 Seconds Skin: No rashes, No breakdown Musculoskeletal: No Tenderness to Palpation of Joints or Extremities Neurological: Cranial nerves II-XII grossly intact Psych/Mental Status: Anxious, Alert and oriented to time, place, person, mood and affect Laboratory Results 02/17/19 20:30: WBC 10.1, RBC 3.13 L, Hgb 9.5 L, Hct 29.9 L, MCV 95.5, MCH 30.4, MCHC 31.8 L, RDW Std Deviation 46.0 H, RDW Coeff of Anjelica 13.2, Plt Count 272, MPV 10.3, Immature Gran % (Auto) 0.400, Neut % (Auto) 59.8, Lymph % (Auto) 25.1, [place] % (Auto) 11.4 H, Eos % (Auto) 2.9, Baso % (Auto) 0.4, Absolute Neuts (auto) 6.0, Absolute Lymphs (auto) 2.53, Nucleated RBC % 0, ESR 58 H 02/17/19 20:30: Sodium 138, Potassium 4.5, Chloride 107, Carbon Dioxide 27.0, Anion Gap 4 L, BUN 19 H, Creatinine 1.23 H, Estim Creat Clear Calc 42.13, Est GFR (MDRD) Af Amer 57 L, Est GFR (MDRD) Non-Af 47 L, BUN/Creatinine Ratio 15.4, Glucose 221 H, Calcium 8.3 L, C-React Prot Ext Range 16.90 H 02/17/19 23:40: POC Glucose 237 H 02/18/19 05:54: WBC 12.2 H, RBC 3.31 L, Hgb 9.9 L, Hct 32.1 L, MCV 97.0, MCH 29.9, MCHC 30.8 L, RDW Std Deviation 46.6 H, RDW Coeff of Anjelica 13.2, Plt Count 301, MPV 10.3, Immature Gran % (Auto) 0.500, Neut % (Auto) 66.2, Lymph % (Auto) 18.4 L, [place] % (Auto) 11.4 H, Eos % (Auto) 2.9, Baso % (Auto) 0.6, Absolute Neuts (auto) 8.1 H, Absolute Lymphs (auto) 2.24, Nucleated RBC % 0 02/18/19 05:54: Sodium 135 L, Potassium 4.4, Chloride 106, Carbon Dioxide 26.0, Anion Gap 3 L, BUN 19 H, Creatinine 1.29 H, Estim Creat Clear Calc 40.17, Est GFR (MDRD) Af Amer 54 L, Est GFR (MDRD) Non-Af 44 L, BUN/Creatinine Ratio 14.7, Glucose 237 H, Calcium 8.6 02/18/19 06:45: POC Glucose 215 H Current Medications Acetaminophen (Tylenol) 650 mg PO Q6H PRN PRN PRN Reason: Pain Score 1-10/Temp > 100.7 F Last Admin: 02/17/19 23:48 Dose: 650 mg Documented by: Albuterol Sulfate (Ventolin Aerosols) 2.5 mg INHALATION Q6HWA.RT [facility] Last Admin: 02/18/19 07:15 Dose: Not Given Documented by: Aspirin (Aspirin, Baby) 81 mg PO DAILY@0800 [facility] Last Admin: 02/18/19 07:54 Dose: 81 mg Documented by: Budesonide (Pulmicort Aerosol) 0.5 mg INHALATION Q12H.RT [facility] Last Admin: 02/18/19 07:15 Dose: Not Given Documented by: Cholecalciferol (Vitamin D) 2,000 unit PO DAILY [facility] Last Admin: 02/18/19 08:02 Dose: 2,000 unit Documented by: Clopidogrel Bisulfate (Plavix) 75 mg PO DAILY [facility] Last Admin: 02/18/19 07:58 Dose: 75 mg Documented by: Enoxaparin Sodium (Lovenox) 40 mg SC DAILY [facility] Last Admin: 02/18/19 10:00 Dose: 40 mg Documented by: Escitalopram Oxalate (Lexapro) 15 mg PO DAILY [facility] Last Admin: 02/18/19 07:55 Dose: 15 mg Documented by: Famotidine (Pepcid) 20 mg PO DAILY [facility] Last Admin: 02/18/19 07:57 Dose: 20 mg Documented by: Furosemide (Lasix) 20 mg PO DAILY [facility] Last Admin: 02/18/19 07:55 Dose: 20 mg Documented by: Glucagon () 1 mg IM .X1 PRN PRN Reason: Hypoglycemia Sodium Chloride () 250 mls @ 15 mls/hr IV .[id number] PRN PRN Reason: Saline Flush Last Infusion: 02/18/19 09:32 Dose: 15 mls/hr Documented by: Sodium Chloride () 250 mls @ 15 mls/hr IV .[id number] PRN PRN Reason: Additional IVPB Infusion Piperacillin Sod/Tazobactam (Sod 3.375 gm/ Sodium Chloride) 50 mls @ 12.5 mls/hr IV Q8 [facility] Last Infusion: 02/18/19 09:17 Dose: Infused Documented by: Dextrose (Dextrose 10%-Water) 250 mls @ 999 mls/hr IV .Q16M PRN; Protocol PRN Reason: HYPOGLYCEMIA Sodium Chloride () 250 mls @ 15 mls/hr IV .[id number] PRN PRN Reason: Saline Flush Insulin Glargine (Lantus (Bkc)) 31 units SC QHS [facility] Last Admin: 02/17/19 23:48 Dose: 31 u Documented by: Insulin Human Lispro (Humalog Kwikpen (Bkc)) 0 unit SC ACHS [facility]; Protocol Last Admin: 02/18/19 06:59 Dose: 2 u Documented by: Isosorbide Dinitrate (Isordil) 40 mg PO BID [facility] Last Admin: 02/18/19 07:55 Dose: 40 mg Documented by: Melatonin (Melatonin) 10 mg PO QHS [facility] Last Admin: 02/17/19 23:46 Dose: 10 mg Documented by: Metoprolol Succinate (Toprol Xl (Beta Gaye)) 50 mg PO DAILY [facility] Last Admin: 02/18/19 08:02 Dose: 50 mg Documented by: Multivitamins/Minerals ([facility]ivitamin With Minerals) [facility] Last Admin: 02/18/19 07:55 Dose: 1 tablet Documented by: Nicotine (Nicoderm Cq (Pbkc)) 21 mg TRANSDERM. DAILY [facility] Last Admin: 02/18/19 08:07 Dose: 21 mg Documented by: Nystatin (Mycostatin Powder) 1 applic TOPICAL BID [facility]; Protocol Last Admin: 02/18/19 07:56 Dose: 1 applicatio Documented by: Olanzapine (Zyprexa) 10 mg PO QHS [facility] Last Admin: 02/17/19 23:47 Dose: 10 mg Documented by: [id number] Ethyl Esters (Lovaza) 1 gm PO BID [facility] Last Admin: 02/18/19 07:56 Dose: 1 gm Documented by: Oxycodone HCl (Oxyir) 5 mg PO Q6H PRN PRN PRN Reason: Pain Score 6-10/10 Pramipexole Dihydrochloride (Mirapex) 0.5 mg PO QHS [facility] Last Admin: 02/17/19 23:47 Dose: 0.5 mg Documented by: Pravastatin Sodium (Pravachol) 40 mg PO QHS [facility] Pregabalin (Lyrica) 75 mg PO TID [facility] Last Admin: 02/18/19 05:17 Dose: 75 mg Documented by: Ranolazine (Ranexa) 1,000 mg PO BID [facility] Last Admin: 02/18/19 07:58 Dose: 1,000 mg Documented by: Senna/Docusate Sodium (Senokot-S, Kirstie-Colace) 1 tablet PO BID [facility] Last Admin: 02/18/19 07:59 Dose: 1 tablet Documented by: Sodium Chloride () 10 - 40 ml IV UD PRN PRN Reason: SALINE FLUSH Last Admin: 02/18/19 05:17 Dose: 10 ml Documented by: STROKE Vital Signs/Narrative: Vital Signs Temp Pulse Resp BP Pulse Ox 02/18/19 08:02 96 178/93 H 02/18/19 07:49 95 02/18/19 07:47 98.9 F 96 18 178/93 H 100 Medical Necessity - Tobacco Use Smoking Status: Current every day smoker Tobacco Use: Cigarettes Assessment/Plan 1. Right great toe osteo, BL LE nonhealing swounds. Hx E faecalis, MSSA, MRSE, Strep. On Zosyn. Podiatry following. bedside debridement and cultures done. Increased WBC today. Await final cultures. No fever. ESR/CRP elevated. No plan for OR --> follow up wound care center. 2. RLS, fibromyalgia - severe pain and restlessness. On mirapex, lyrica, oxy. 3. DMt2 - metformin held. Continue mealtime insulin, levemir, SSI. 4. CAD - on aspirin, plavix, metoprolol, statin, isordil, ranexa. norman held. 5. COPD - no acute exacerbation. prn aerosols. 6. HLD - statin 7. Hx of unspecified memory impairment - on antipsychotic regimen. Suspect dementia with behavioral disturbance. 8. Suspect CKDIII - somewhat above baseline, so hold metformin/lisinopril and recheck in AM. 9. HTN - suspect elevated 2/2 severe pain. DVT ppx: lovenox DC planning: SNF vs return to assisted living. This patient was seen by Don Perez PA-C under the supervision of Doctor Marie. <Aman Salazar - Last Filed: 02/19/19 12:10> Vitals/I&O's: Vital Signs Temp Pulse Resp BP Pulse Ox 98.9 F 77 19 H 178/93 H 95 02/18/19 07:47 02/18/19 13:10 02/18/19 13:10 02/18/19 08:02 02/18/19 07:49 Oxygen Flow Rate (L/min) 2 Oxygen Delivery Method Room Air Weight: 190 lb 7.67 oz Body Mass Index (BMI) 31.6 Finger Stick Blood Glucose 390 Intake and Output for Last 24 Hours 02/16/19 02/17/19 02/18/19 23:59 23:59 23:59 Intake Total 50.25 / 50.25 325 / 325 Balance 50.25 / 50.25 325 / 325 Microbiology Past 72 Hours 02/18/19 07:00 Wound - Toe Gram Stain - Final Laboratory Results 02/17/19 20:30: WBC 10.1, RBC 3.13 L, Hgb 9.5 L, Hct 29.9 L, MCV 95.5, MCH 30.4, MCHC 31.8 L, RDW Std Deviation 46.0 H, RDW Coeff of Anjelica 13.2, Plt Count 272, MPV 10.3, Immature Gran % (Auto) 0.400, Neut % (Auto) 59.8, Lymph % (Auto) 25.1, [place] % (Auto) 11.4 H, Eos % (Auto) 2.9, Baso % (Auto) 0.4, Absolute Neuts (auto) 6.0, Absolute Lymphs (auto) 2.53, Nucleated RBC % 0, ESR 58 H 02/17/19 20:30: Sodium 138, Potassium 4.5, Chloride 107, Carbon Dioxide 27.0, Anion Gap 4 L, BUN 19 H, Creatinine 1.23 H, Estim Creat Clear Calc 42.13, Est GFR (MDRD) Af Amer 57 L, Est GFR (MDRD) Non-Af 47 L, BUN/Creatinine Ratio 15.4, Glucose 221 H, Calcium 8.3 L, C-React Prot Ext Range 16.90 H 02/17/19 23:40: POC Glucose 237 H 02/18/19 05:54: WBC 12.2 H, RBC 3.31 L, Hgb 9.9 L, Hct 32.1 L, MCV 97.0, MCH 29.9, MCHC 30.8 L, RDW Std Deviation 46.6 H, RDW Coeff of Anjelica 13.2, Plt Count 301, MPV 10.3, Immature Gran % (Auto) 0.500, Neut % (Auto) 66.2, Lymph % (Auto) 18.4 L, [place] % (Auto) 11.4 H, Eos % (Auto) 2.9, Baso % (Auto) 0.6, Absolute Neuts (auto) 8.1 H, Absolute Lymphs (auto) 2.24, Nucleated RBC % 0 02/18/19 05:54: Sodium 135 L, Potassium 4.4, Chloride 106, Carbon Dioxide 26.0, Anion Gap 3 L, BUN 19 H, Creatinine 1.29 H, Estim Creat Clear Calc 40.17, Est GFR (MDRD) Af Amer 54 L, Est GFR (MDRD) Non-Af 44 L, BUN/Creatinine Ratio 14.7, Glucose 237 H, Calcium 8.6 02/18/19 06:45: POC Glucose 215 H 02/18/19 11:41: POC Glucose 128 H Current Medications Acetaminophen (Tylenol) 650 mg PO Q6H PRN PRN PRN Reason: Pain Score 1-10/Temp > 100.7 F Last Admin: 02/17/19 23:48 Dose: 650 mg Documented by: Albuterol Sulfate (Ventolin Aerosols) 2.5 mg INHALATION Q6HWA.RT [facility] Last Admin: 02/18/19 13:23 Dose: 2.5 mg Documented by: Aspirin (Aspirin, Baby) 81 mg PO DAILY@0800 [facility] Last Admin: 02/18/19 07:54 Dose: 81 mg Documented by: Budesonide (Pulmicort Aerosol) 0.5 mg INHALATION Q12H.RT [facility] Last Admin: 02/18/19 13:23 Dose: 0.5 mg Documented by: Cholecalciferol (Vitamin D) 2,000 unit PO DAILY [facility] Last Admin: 02/18/19 08:02 Dose: 2,000 unit Documented by: Clopidogrel Bisulfate (Plavix) 75 mg PO DAILY [facility] Last Admin: 02/18/19 07:58 Dose: 75 mg Documented by: Enoxaparin Sodium (Lovenox) 40 mg SC DAILY [facility] Last Admin: 02/18/19 10:00 Dose: 40 mg Documented by: Escitalopram Oxalate (Lexapro) 15 mg PO DAILY [facility] Last Admin: 02/18/19 07:55 Dose: 15 mg Documented by: Famotidine (Pepcid) 20 mg PO DAILY [facility] Last Admin: 02/18/19 07:57 Dose: 20 mg Documented by: Furosemide (Lasix) 20 mg PO DAILY [facility] Last Admin: 02/18/19 07:55 Dose: 20 mg Documented by: Glucagon () 1 mg IM .X1 PRN PRN Reason: Hypoglycemia Hydralazine HCl (Apresoline Iv) 10 mg IV Q8H PRN PRN PRN Reason: for SBP>160 Sodium Chloride () 250 mls @ 15 mls/hr IV .[id number] PRN PRN Reason: Saline Flush Last Infusion: 02/18/19 09:32 Dose: 15 mls/hr Documented by: Sodium Chloride () 250 mls @ 15 mls/hr IV .[id number] PRN PRN Reason: Additional IVPB Infusion Piperacillin Sod/Tazobactam (Sod 3.375 gm/ Sodium Chloride) 50 mls @ 12.5 mls/hr IV Q8 [facility] Last Infusion: 02/18/19 09:17 Dose: Infused Documented by: Dextrose (Dextrose 10%-Water) 250 mls @ 999 mls/hr IV .Q16M PRN; Protocol PRN Reason: HYPOGLYCEMIA Sodium Chloride () 250 mls @ 15 mls/hr IV .[id number] PRN PRN Reason: Saline Flush Insulin Glargine (Lantus (Bk)) 31 units SC QHS [facility] Last Admin: 02/17/19 23:48 Dose: 31 u Documented by: Insulin Human Lispro (Humalog Kwikpen ([facility] Protocol Last Admin: 02/18/19 11:42 Dose: Not Given Documented by: Isosorbide Dinitrate (Isordil) 40 mg PO BID [facility] Last Admin: 02/18/19 07:55 Dose: 40 mg Documented by: Melatonin (Melatonin) 10 mg PO QHS [facility] Last Admin: 02/17/19 23:46 Dose: 10 mg Documented by: Metoprolol Succinate (Toprol Xl (Beta Gaye)) 50 mg PO DAILY [facility] Last Admin: 02/18/19 08:02 Dose: 50 mg Documented by: Multivitamins/Minerals (Multivitamin With Minerals) [facility] Last Admin: 02/18/19 07:55 Dose: 1 tablet Documented by: Nicotine (Nicoderm Cq ([facility])) 21 mg TRANSDERM. DAILY [facility] Last Admin: 02/18/19 08:07 Dose: 21 mg Documented by: Nystatin (Mycostatin Powder) 1 applic TOPICAL BID [facility]; Protocol Last Admin: 02/18/19 07:56 Dose: 1 applicatio Documented by: Olanzapine (Zyprexa) 10 mg PO QHS [facility] Last Admin: 02/17/19 23:47 Dose: 10 mg Documented by: [id number] Ethyl Esters (Lovaza) 1 gm PO BID [facility] Last Admin: 02/18/19 07:56 Dose: 1 gm Documented by: Oxycodone HCl (Oxyir) 5 mg PO Q6H PRN PRN PRN Reason: Pain Score 6-10/10 Last Admin: 02/18/19 11:39 Dose: 5 mg Documented by: Pramipexole Dihydrochloride (Mirapex) 0.5 mg PO QHS [facility] Last Admin: 02/17/19 23:47 Dose: 0.5 mg Documented by: Pravastatin Sodium (Pravachol) 40 mg PO QHS [facility] Pregabalin (Lyrica) 75 mg PO TID [facility] Last Admin: 02/18/19 05:17 Dose: 75 mg Documented by: Ranolazine (Ranexa) 1,000 mg PO BID [facility] Last Admin: 02/18/19 07:58 Dose: 1,000 mg Documented by: Senna/Docusate Sodium (Senokot-S, Kirstie-Colace) 1 tablet PO BID [facility] Last Admin: 02/18/19 07:59 Dose: 1 tablet Documented by: Sodium Chloride () 10 - 40 ml IV UD PRN PRN Reason: SALINE FLUSH Last Admin: 02/18/19 05:17 Dose: 10 ml Documented by: STROKE Vital Signs/Narrative: Vital Signs Pulse Resp 02/18/19 13:10 77 19 H Assessment/Plan Hospitalist note: I am seeing this patient in conjunction with Don Perez. I independently seen and examined the patient. Progress note above, laboratory data and imaging studies reviewed and I concur with the above treatment plan. According to nursing staff, patient complained of increasing restless legs this morning but now improved. She still having some mild right foot pain. Denies fever chills. Her vital signs are stable. - Physical Exam General: Alert, Oriented x3, Cooperative, No apparent distress. HEENT: Atraumatic, PERRLA, EOMI. Neck: Supple, No JVD, Negative Carotid Bruits, Trachea Midline, Thyroid Normal. Lungs: Clear to auscultation, Normal air movement, No rhonchi, No wheeze, No rales. Cardiovascular: Regular rate, Regular Rhythm, Normal S1, Normal S2, PMI Normal. Abdomen: Bowel Sounds Present, Soft, Non Tender, Non-Distended, No Hepato-splenomegaly. Extremities: No clubbing, No cyanosis, No edema Skin: She has superficial ulcer on the plantar aspect of the right forefoot without evidence of significant swelling or erythema, no drainage. Neurological: Cranial nerves are intact, neuro grossly intact. Vital Signs are stable. Assessment and plan: #1 right big toe osteomyelitis: This is could be chronic. There is no evidence of significant localized edema or erythema, no drainage. He does have chronic ulcer on the plantar aspect of the right forefoot. Patient has been afebrile, had mild leukocytosis. X-ray of the right foot revealed suspicion of osteomyelitis of the right great toe. She is on IV Zosyn. Podiatry medicine consulted. Blood and wound cultures are pending. Plan to continue same treatment. #2 restless leg syndrome: She is on Mirapex, Lyrica and OxyIR. This morning, she complained of increasing leg restlessness but improved. Plan to continue same treatment, PT OT evaluation and treatment. #3 other chronic medical problems: Stable, continue current medications as above. This note was generated with [employer] dictation software. It may contain incorrect words, spelling, and punctuation that were not noted in checking the note before signing. Code Visit Inpatient E&M: 45546 Subs Hosp L2
[2019-02-18 11:50] LABS: Bedside Glucose 128 mg/dL (70-110)
[2019-02-18] MEDS: Albuterol 2.5 MG/3 ML VIAL.NEB. INHALATION ×2 (13:23→19:02)
[2019-02-18] MEDS: Budesonide Respules 0.5 MG/2 ML AMPUL.NEB. INHALATION ×2 (13:23→19:02)
--- NOTE | 2019-02-18 14:40 | CASEMGMT ---
Social Work Note Pt is listed as being from [facility]. DEJAH placed a call to [facility] and spoke with Tena. 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 SW updated Tena that this worker is not sure if pt will have a skillable need at discharge probably depends on course of treatment for osteomyelitis but that this worker can fax updated clinicals and then can decided if pt can return to [place] or skilled. SW also asked Tena about advanced directives. Tena states pt has LW and pt's daughter Guy Aguilar ([phone]) is pt's HCPOA. Tena faxed HCPOA document to [facility], SW placed document on pt's chart. SW faxed updated clinicals to [facility]. SW met with pt and introduced self and role at [facility]. Pt does have history of cognitive impairment. Pt confirms that she came from [facility] and would like to return there at discharge. SW explained that pending pt's course of treatment pt may need to return skilled to [facility]. Pt states returning skilled would be fine. Pt then stated that she was going to go live with her boyfriend at discharge. SW asked pt where her boyfriend lives at and pt states she couldn't remember where he lives at. Pt states that [facility] told her that she needs to be established with a doctor before she can go live with her boyfriend. SW asked pt if her daughter Guy knows about her wanting to live with her boyfriend and pt states she hasn't told her daughter. SW informed pt that she may need to return to [facility] though pending what she will need at discharge. Pt states understanding, did give this worker permission to call her daughter Guy. SW placed a call to pt's daughter Guy. Guy confirms that pt is from [facility] and the plan is for pt to return to [facility]. SW informed Guy that pt is stating she will be discharged to her boyfriends home and not back to [facility]. Guy confirms that pt has cognitive impairment and that she is HCPOA. Guy states that she would prefer if pt returned to [facility] with [facility] instead of going to skilled side. DEJAH informed Guy that pending pt's course of treatment, pt may need to go skilled but that for right now the plan can be for pt to return to [facility] with [facility]. Guy states understanding. Plan: Likely back to [facility] with [facility] pending course of treatment Maria Del Carmen Lowery SERGER, SENIOR ASIC DESIGN ENGINEER
[2019-02-18] MEDS: Acetaminophen 325 MG Tablet 650 MG PO (15:26)
[2019-02-18] MEDS: 0.9% Normal Saline 1,000 ML 75 ML IV (15:29)
[2019-02-18 16:40] LABS: Bedside Glucose 144 mg/dL (70-110)
[2019-02-18] MEDS: Pravastatin 40 MG Tablet PO (21:31)
[2019-02-18] MEDS: MELATONIN 10 MG TABLET PO (21:31)
[2019-02-18] MEDS: OLANZapine 10 MG Tablet PO (21:31)
[2019-02-18 21:40] LABS: Bedside Glucose 297 mg/dL (70-110)
[2019-02-19] VITALS (7 sets, daily range): BP systolic 105–152; BP diastolic 44–76; PULSE 69–81; RESP 16–18; TEMP 36.4–36.9; O2SAT 94–100
[2019-02-19] MEDS: oxyCODONE 5 MG Tablet PO ×3 (02:20→20:49)
[2019-02-19] MEDS: Pregabalin 75 MG Capsule PO ×2 (05:00→13:52)
[2019-02-19] MEDS: 0.9% Normal Saline 1,000 ML 75 ML IV ×2 (05:00→18:23)
[2019-02-19 06:01] LABS: Absolute Lymphocyte Count 2.37 X10^3/uL (0.83-4.51); Absolute Neutrophil Count 5.2 X10^3/uL (2.0-7.7); Basophil# 0.05 X10^3/uL; Basophil% 0.5 % (0-1); Eosinophil# 0.37 X10^3/uL; Hematocrit 31.6 % (37-47); Hemoglobin 9.7 g/dL (12.0-15.0); Lymphocyte # 2.37 X10^3/ul (4.0); Lymphocyte % 25.8 % (19-41); Mean Corp Hgb Conc 30.7 g/dL (32-36); Mean Corpuscular Hgb 30.1 pg (27.0-32.0); Mean Corpuscular Volume 98.1 fL (81-99); Mean Platelet Vol. 10.6 fl (6.2-12.0); Monocyte# 1.16 X10^3/uL; Monocyte% 12.6 % (0-10); NRBC Flagged by Analyzer 0 % (0-5); Neutrophil # 5.19 X10^3/uL (2.7-7.7); Neutrophil % 56.4 % (47-70); Platelet Count 272 K/mm3 (150-450); RBC Distribution Width CV 13.1 % (11.6-14.6); RBC Distribution Width SD 47.1 fl (35.1-43.9); Red Blood Count 3.22 M/mm3 (4.2-5.4); White Blood Count 9.2 K/mm3 (4.4-11.0)
[2019-02-19 06:22] LABS: Anion Gap 4 (5-15); BUN 21 mg/dL (7-18); BUN/Creat Ratio 16.2 RATIO (10-20); Calcium,Total 8.5 mg/dL (8.5-10.1); Chloride 108 mmol/L (98-107); EST Glomerular Filtration Rate 44 mL/min (>60); Est Glom Filt Rate - Afr Amer 53 mL/min (>60); Estimated Creatinine Clearance 39.86 ml/min; Glucose 187 mg/dL (74-106); Potassium 4.7 mmol/L (3.5-5.1); Sodium Level 139 mmol/L (136-145)
[2019-02-19 06:55] LABS: Bedside Glucose 146 mg/dL (70-110)
[2019-02-19] MEDS: Budesonide Respules 0.5 MG/2 ML AMPUL.NEB. INHALATION ×2 (07:05→20:05)
[2019-02-19] MEDS: Albuterol 2.5 MG/3 ML VIAL.NEB. INHALATION ×2 (07:05→20:05)
--- NOTE | 2019-02-19 07:12 | PN_ITS ---
Subjective: The patient is a 64 year old F with multiple comorbidities include moving diabetes with neuropathy, peripheral vascular disease, severe memory loss seen bedside this morning for bilateral toe ulcers including the right fourth toe and left third toe. I was also asked to be in consultation for potential osteomyelitis the right hallux. Her pain is controlled. She reports continued restless leg syndrome. She denies fever, chill, nausea, vomiting. She is wearing surgical shoes. A full chart review was performed to investigate her p rior right great hallux ulcer or injury history, prior antibiotic courses, and other prior ulcers and foot surgeries. - Physical Exam Vitals/I&O's: Vital Signs Temp Pulse Resp BP Pulse Ox 97.6 F L 72 18 135/67 H 94 02/19/19 02:19 02/19/19 07:05 02/19/19 07:05 02/19/19 02:19 02/19/19 07:05 Oxygen Flow Rate (L/min) 2 Oxygen Delivery Method Room Air Weight: 86.4 kg Body Mass Index (BMI) 31.6 Finger Stick Blood Glucose 390 Intake and Output for Last 24 Hours 02/17/19 02/18/19 02/19/19 23:59 23:59 23:59 Intake Total 50.25 / 50.25 1404.5 / 1904.5 1970.0 / 1970.0 Output Total 950 / 950 Balance 50.25 / 50.25 1404.5 / 1604.5 1020.0 / 1020.0 General: Alert, Oriented x3, Cooperative HEENT: Atraumatic Extremities: No cyanosis, Capillary Refill Less than 3 Seconds, No Calf Tender ness, Diminished Peripheral Pulses, Edema - Mild bilateral lower extremities, - - Left fifth ray resection. Bilateral lesser toe dorsal contraction. Limited first metatarsophalangeal joint range of motion right. No crepitus, bogginess, or laxity with passive manipulation of the right hallux at the metatarsophalangeal or interphalangeal joint levels. Skin: Ulcer/ Wound - No purulence, erythema, string, odor, necrosis, exposed bone. There is some left third toe Ulcer edema and inflammation which have decreased since she has been at the hospital. The right hallux does not have any swelling skin discontinuity, fluctuance, or bogginess. The adjacent skin bilateral lower extremities is hairless and atrophic Musculoskeletal: Muscle Wasting Neurological: - - Lack of normal epicritic sensation light touch consistent with neuropathy status Psych/Mental Status: Normal Affect, Appropriate, Restless Microbiology Past 72 Hours 02/18/19 07:00 Wound - Toe Gram Stain - Final Laboratory Results 02/18/19 11:41: POC Glucose 128 H 02/18/19 16:29: POC Glucose 144 H 02/18/19 21:27: POC Glucose 297 H 02/19/19 05:22: WBC 9.2, RBC 3.22 L, Hgb 9.7 L, Hct 31.6 L, MCV 98.1, MCH 30.1, MCHC 30.7 L, RDW Std Deviation 47.1 H, RDW Coeff of Anjelica 13.1, Plt Count 272, MPV 10.6, Immature Gran % (Auto) 0.700, Neut % (Auto) 56.4, Lymph % (Auto) 25.8, [place] % (Auto) 12.6 H, Eos % (Auto) 4.0, Baso % (Auto) 0.5, Absolute Neuts (auto) 5.2, Absolute Lymphs (auto) 2.37, Nucleated RBC % 0 02/19/19 05:22: Sodium 139, Potassium 4.7, Chloride 108 H, Carbon Dioxide 27.0, Anion Gap 4 L, BUN 21 H, Creatinine 1.30 H, Estim Creat Clear Calc 39.86, Est GFR (MDRD) Af Amer 53 L, Est GFR (MDRD) Non-Af 44 L, BUN/Creatinine Ratio 16.2, Glucose 187 H, Calcium 8.5 02/19/19 06:46: POC Glucose 146 H Current Medications Acetaminophen (Tylenol) 650 mg PO Q6H PRN PRN PRN Reason: Pain Score 1-10/Temp > 100.7 F Last Admin: 02/18/19 15:26 Dose: 650 mg Documented by: Albuterol Sulfate (Ventolin Aerosols) 2.5 mg INHALATION Q6HWA.RT [facility] Last Admin: 02/19/19 07:05 Dose: 2.5 mg Documented by: Aspirin (Aspirin, Baby) 81 mg PO DAILY@0800 [facility] Last Admin: 02/18/19 07:54 Dose: 81 mg Documented by: Budesonide (Pulmicort Aerosol) 0.5 mg INHALATION Q12H.RT [facility] Last Admin: 02/19/19 07:05 Dose: 0.5 mg Documented by: Cholecalciferol (Vitamin D) 2,000 unit PO DAILY [facility] Last Admin: 02/18/19 08:02 Dose: 2,000 unit Documented by: Clopidogrel Bisulfate (Plavix) 75 mg PO DAILY [facility] Last Admin: 02/18/19 07:58 Dose: 75 mg Documented by: Enoxaparin Sodium (Lovenox) 40 mg SC DAILY [facility] Last Admin: 02/18/19 10:00 Dose: 40 mg Documented by: Escitalopram Oxalate (Lexapro) 15 mg PO DAILY [facility] Last Admin: 02/18/19 07:55 Dose: 15 mg Documented by: Famotidine (Pepcid) 20 mg PO DAILY [facility] Last Admin: 02/18/19 07:57 Dose: 20 mg Documented by: Furosemide (Lasix) 20 mg PO DAILY [facility] Last Admin: 02/18/19 07:55 Dose: 20 mg Documented by: Glucagon () 1 mg IM .X1 PRN PRN Reason: Hypoglycemia Hydralazine HCl (Apresoline Iv) 10 mg IV Q8H PRN PRN PRN Reason: for SBP>160 Sodium Chloride () 250 mls @ 15 mls/hr IV .[id number] PRN PRN Reason: Saline Flush Last Infusion: 02/18/19 15:30 Dose: Infused Documented by: Sodium Chloride () 250 mls @ 15 mls/hr IV .[id number] PRN PRN Reason: Additional IVPB Infusion Piperacillin Sod/Tazobactam (Sod 3.375 gm/ Sodium Chloride) 50 mls @ 12.5 mls/hr IV Q8 [facility] Last Admin: 02/19/19 05:00 Dose: 12.5 mls/hr Documented by: Dextrose (Dextrose 10%-Water) 250 mls @ 999 mls/hr IV .Q16M PRN; Protocol PRN Reason: HYPOGLYCEMIA Sodium Chloride () 250 mls @ 15 mls/hr IV .[id number] PRN PRN Reason: Saline Flush Sodium Chloride () 1,000 mls @ 75 mls/hr IV .[id number] [facility] Last Admin: 02/19/19 05:00 Dose: 75 mls/hr Documented by: Insulin Glargine (Lantus (Bkc)) 31 units SC QHS [facility] Last Admin: 02/18/19 21:31 Dose: 31 u Documented by: Insulin Human Lispro (Humalog Kwikpen ([facility])) 0 unit SC ACHS [facility]; Protocol Last Admin: 02/19/19 06:51 Dose: Not Given Documented by: Isosorbide Dinitrate (Isordil) 40 mg PO BID [facility] Last Admin: 02/18/19 21:31 Dose: 40 mg Documented by: Melatonin (Melatonin) 10 mg PO QHS [facility] Last Admin: 02/18/19 21:31 Dose: 10 mg Documented by: Metoprolol Succinate (Toprol Xl (Beta Gaye)) 50 mg PO DAILY [facility] Last Admin: 02/18/19 08:02 Dose: 50 mg Documented by: Multivitamins/Minerals (Multivitamin With Minerals) [facility] Last Admin: 02/18/19 07:55 Dose: 1 tablet Documented by: Nicotine (Nicoderm Cq ([facility])) 21 mg TRANSDERM. DAILY [facility] Last Admin: 02/18/19 08:07 Dose: 21 mg Documented by: Nystatin (Mycostatin Powder) 1 applic TOPICAL BID [facility]; Protocol Last Admin: 02/18/19 21:31 Dose: 1 applicatio Documented by: Olanzapine (Zyprexa) 10 mg PO QHS [facility] Last Admin: 02/18/19 21:31 Dose: 10 mg Documented by: [id number] Ethyl Esters (Lovaza) 1 gm PO BID [facility] Last Admin: 02/18/19 21:32 Dose: 1 gm Documented by: Oxycodone HCl (Oxyir) 5 mg PO Q6H PRN PRN PRN Reason: Pain Score 6-10/10 Last Admin: 02/19/19 02:20 Dose: 5 mg Documented by: Pramipexole Dihydrochloride (Mirapex) 0.5 mg PO QHS [facility] Last Admin: 02/18/19 21:38 Dose: 0.5 mg Documented by: Pravastatin Sodium (Pravachol) 40 mg PO QHS [facility] Last Admin: 02/18/19 21:31 Dose: 40 mg Documented by: Pregabalin (Lyrica) 75 mg PO TID [facility] Last Admin: 02/19/19 05:00 Dose: 75 mg Documented by: Ranolazine (Ranexa) 1,000 mg PO BID [facility] Last Admin: 02/18/19 21:31 Dose: 1,000 mg Documented by: Senna/Docusate Sodium (Senokot-S, Kirstie-Colace) 1 tablet PO BID [facility] Last Admin: 02/18/19 21:31 Dose: 1 tablet Documented by: Sodium Chloride () 10 - 40 ml IV UD PRN PRN Reason: SALINE FLUSH Last Admin: 02/18/19 14:52 Dose: 10 ml Documented by: Medical Necessity - Tobacco Use Smoking Status: Current every day smoker Tobacco Use: Cigarettes Assessment/Plan 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 This is consistent with prior osteomyelitis or Charcot event Right third toe ulcer with fat layer exposed with mild ulcer inflammation versus cellulitis --improving Left fourth toe ulcer with fat layer exposed without infection Bilateral hammertoes Diabetes with neuropathy Peripheral vascular disease I reviewed and discussed her case. Her vitals remained stable. She is afebrile. She did not have leukocytosis today; white blood cell count is 9.2. The ulcers were reevaluated and dressed. I recommend changing them daily with hydrogel and gauze. To heel weight-bear with bilateral surgical shoes. Her x- rays were reviewed without osseous destruction, soft tissue emphysema adjacent to her right fourth or left third toe ulcer sites. There is no acute fractures or dislocations. Dorsal contraction of lesser toes are noted consistent with hammertoe deformities. There is notable osteolysis of the proximal phalanx head of the right hallux that was not present when compared to prior films from 2017. From a radiographic standpoint, this is consistent with osteomyelitis or prior Charcot event. However, there is no current clinical local signs of infection in this area nor is there an ulcer. Full chart review was performed and it is noted she did have an ulcer in a remote manner to the right hallux that started in October 2016 and further healed in December 2016. Her x-rays during that timeframe did not demonstrate this osseous destruction. Around that same time frame in January 2017 she sustained a left fifth toe ulcer subsequently res ulting in a fifth ray resection. The pathological clearance fragment was negative for osteo-but the microbiology variance fragment for the left fifth ray was positive for bacterial growth and therefore infectious disease had her complete a 6-week course of levofloxacin at that time. I do not think bone biopsy or invasive work up for the right toe is warranted at this time. I recommend treating her for mild cellulitis and started on a comprehensive wound healing program for left 3rd toe and right 4th toe ulcers. It is noted she is on vancomycin and Zosyn. Wound cultures were obtained at the time of admission, and results are pending after debridement was performed to the left foot. Blood cultures were also taken these are pending. It is also noted she does have known peripheral vascular disease including small vessel disease. Her last noninvasive vascular studies were performed in February 2017 which demonstrated right mild occlusive disease, left moderate arterial occlusive disease and bilateral small vessel disease with vessel calcifications. I recommend reconsultation of vascular at this time due to history of delayed healing and ongoing ulcers to bilateral feet. A consult is recommended will be appreciated. The podiatry team will follow her close while in house. Upon discharge she can follow-up with the wound healing center. Medical management per primary team is appreciated. Please not hesitate to call if you have any questions. Thank you for the consultation. Peggy Herrera DPM, [facility] [phone]
[2019-02-19] MEDS: Nystatin Powder 15gm Bottle 1 APPLIC TOPICAL ×2 (08:12→23:09)
[2019-02-19] MEDS: Ranolazine 500 MG Tablet 1000 MG PO ×2 (08:13→23:11)
[2019-02-19] MEDS: Metoprolol(XL)Succ 50 MG Tablet PO (08:14)
[2019-02-19] MEDS: Aspirin 81 MG TAB.CHEW PO (08:14)
[2019-02-19] MEDS: Furosemide 20 MG Tablet PO (08:14)
[2019-02-19] MEDS: Senna/Docusate Sodium 1 Tablet PO ×2 (08:14→23:11)
[2019-02-19] MEDS: Famotidine 20 MG Tablet PO (08:14)
[2019-02-19] MEDS: Isosorbide DN 20 MG Tablet 40 MG PO ×2 (08:14→23:10)
[2019-02-19] MEDS: Omega-3 Acid Ethyl Esters 1 GM Capsule PO ×2 (08:14→23:11)
[2019-02-19] MEDS: Clopidogrel Bisulfate 75 MG Tablet PO (08:14)
[2019-02-19] MEDS: Enoxaparin 40 MG/0.4 ML Syringe SC (08:15)
[2019-02-19] MEDS: Multivitamins,Ther W-Minerals Tablet 1 TABLET PO (08:15)
[2019-02-19] MEDS: Escitalopram Oxalate 10 MG Tablet 15 MG PO (08:15)
--- NOTE | 2019-02-19 11:19 | CASEMGMT ---
Addendum entered by Maria Del Carmen Lowery 02/19/19 14:33: DEJAH faxed updated clinicals to [facility]. Original Note: Social Work Note DEJAH reviewed notes, it appears pt will not be going to surgery but is waiting cultures to determine if pt will need to be on IV antibiotics or PO antibiotics at discharge. DEJAH placed a call to Tena at [facility]. Per Tena pt will need to be sitter free for 24 hours before being able to return to [facility] or to return skilled. DEJAH updated Tena that pt's daughter is hoping pt can return to [facility] and not skilled as that is pt's normal environment. Tena states the RN for [facility] at [facility] will be at [facility] today to evaluate pt to make sure pt is appropriate to return to [facility]. DEJAH updated charge nurse that pt will need to be sitter free for 24 hours. Physician states pt is medically cleared for discharge and that pt will discharge on PO anbx. DEJAH updated physician that per [facility] pt will need to be 24 hours free of sitter before being able to return. DJEAH spoke with PT/OT who states pt is up doing laps around the hallway. DEJAH updated PT/OT that pt is currently at [facility] so if pt is able to return there to [facility] then PT/OT will not be needed but if pt needs IV antibiotics or something skillable at discharge then pt will need PT/OT for pre-cert. PT/OT state understanding. Plan: Likely return to [facility]. Pt will need to be sitter free for 24 hours before being able to return to [facility]. Maria Del Carmen Lowery AFTERNOON NANNY, ETHYL BLENDER
[2019-02-19] MEDS: Insulin Lispro 100 UNIT/ML INSULN.PEN SC ×3 (12:08→23:07)
[2019-02-19 12:11] LABS: Bedside Glucose 231 mg/dL (70-110)
--- NOTE | 2019-02-19 13:20 | PN_ITS ---
<Don Perez - Last Filed: 02/19/19 13:20> Reason for Visit: Pt much more calm today. No further restless legs. No pain at all currently. No fever/chills. Yesterday she refused to stay in bed due to restless legs, got up without assistance and fell. She had a sitter after that but this will be discontinued this AM as she no longer has restlessness. Vitals/I&O's: Vital Signs Temp Pulse Resp BP Pulse Ox 97.6 F L 81 18 152/76 H 96 02/19/19 08:10 02/19/19 08:14 02/19/19 08:10 02/19/19 08:10 02/19/19 08:10 Oxygen Flow Rate (L/min) 2 Oxygen Delivery Method Room Air Weight: 190 lb 7.67 oz Body Mass Index (BMI) 31.6 Finger Stick Blood Glucose 390 Intake and Output for Last 24 Hours 02/17/19 02/18/19 02/19/19 23:59 23:59 23:59 Intake Total 50.25 / 50.25 1404.5 / 1904.5 2380.0 / 2380.0 Output Total 950 / 950 Balance 50.25 / 50.25 1404.5 / 1604.5 1430.0 / 1430.0 General: Alert, Oriented x3, Cooperative HEENT: Atraumatic, PERRLA, EOMI, Normocephalic Neck: Supple, No JVD, Negative Carotid Bruits Lungs: Clear to auscultation, Normal air movement Cardiovascular: Regular rate, No murmurs Abdomen: Bowel Sounds Present, Soft, Non Tender Extremities: No edema, Capillary Refill Less than 3 Seconds Skin: No rashes, No breakdown Musculoskeletal: No Tenderness to Palpation of Joints or Extremities Neurological: Cranial nerves II-XII grossly intact Psych/Mental Status: Normal Affect, Appropriate, Alert and oriented to time, place, person, mood and affect Microbiology Past 72 Hours 02/18/19 07:00 Wound - Toe Gram Stain - Final 02/18/19 07:00 Wound - Toe Wound Culture - Preliminary Staphylococcus aureus Laboratory Results 02/18/19 16:29: POC Glucose 144 H 02/18/19 21:27: POC Glucose 297 H 02/19/19 05:22: WBC 9.2, RBC 3.22 L, Hgb 9.7 L, Hct 31.6 L, MCV 98.1, MCH 30.1, MCHC 30.7 L, RDW Std Deviation 47.1 H, RDW Coeff of Anjelica 13.1, Plt Count 272, MPV 10.6, Immature Gran % (Auto) 0.700, Neut % (Auto) 56.4, Lymph % (Auto) 25.8, Pennington % (Auto) 12.6 H, Eos % (Auto) 4.0, Baso % (Auto) 0.5, Absolute Neuts (auto) 5.2, Absolute Lymphs (auto) 2.37, Nucleated RBC % 0 02/19/19 05:22: Sodium 139, Potassium 4.7, Chloride 108 H, Carbon Dioxide 27.0, Anion Gap 4 L, BUN 21 H, Creatinine 1.30 H, Estim Creat Clear Calc 39.86, Est GFR (MDRD) Af Amer 53 L, Est GFR (MDRD) Non-Af 44 L, BUN/Creatinine Ratio 16.2, Glucose 187 H, Calcium 8.5 02/19/19 06:46: POC Glucose 146 H 02/19/19 12:06: POC Glucose 231 H Current Medications Acetaminophen (Tylenol) 650 mg PO Q6H PRN PRN PRN Reason: Pain Score 1-10/Temp > 100.7 F Last Admin: 02/18/19 15:26 Dose: 650 mg Documented by: Albuterol Sulfate (Ventolin Aerosols) 2.5 mg INHALATION Q6HWA.RT [facility] Last Admin: 02/19/19 12:55 Dose: Not Given Documented by: Aspirin (Aspirin, Baby) 81 mg PO DAILY@0800 [facility] Last Admin: 02/19/19 08:14 Dose: 81 mg Documented by: Budesonide (Pulmicort Aerosol) 0.5 mg INHALATION Q12H.RT [facility] Last Admin: 02/19/19 07:05 Dose: 0.5 mg Documented by: Cholecalciferol (Vitamin D) 2,000 unit PO DAILY [facility] Last Admin: 02/19/19 08:13 Dose: 2,000 unit Documented by: Clopidogrel Bisulfate (Plavix) 75 mg PO DAILY [facility] Last Admin: 02/19/19 08:14 Dose: 75 mg Documented by: Enoxaparin Sodium (Lovenox) 40 mg SC DAILY [facility] Last Admin: 02/19/19 08:15 Dose: 40 mg Documented by: Escitalopram Oxalate (Lexapro) 15 mg PO DAILY [facility] Last Admin: 02/19/19 08:15 Dose: 15 mg Documented by: Famotidine (Pepcid) 20 mg PO DAILY [facility] Last Admin: 02/19/19 08:14 Dose: 20 mg Documented by: Furosemide (Lasix) 20 mg PO DAILY [facility] Last Admin: 02/19/19 08:14 Dose: 20 mg Documented by: Glucagon () 1 mg IM .X1 PRN PRN Reason: Hypoglycemia Hydralazine HCl (Apresoline Iv) 10 mg IV Q8H PRN PRN PRN Reason: for SBP>160 Sodium Chloride () 250 mls @ 15 mls/hr IV .[id number] PRN PRN Reason: Saline Flush Last Infusion: 02/18/19 15:30 Dose: Infused Documented by: Sodium Chloride () 250 mls @ 15 mls/hr IV .[id number] PRN PRN Reason: Additional IVPB Infusion Piperacillin Sod/Tazobactam (Sod 3.375 gm/ Sodium Chloride) 50 mls @ 12.5 mls/hr IV Q8 [facility] Last Infusion: 02/19/19 09:28 Dose: Infused Documented by: Dextrose (Dextrose 10%-Water) 250 mls @ 999 mls/hr IV .Q16M PRN; Protocol PRN Reason: HYPOGLYCEMIA Sodium Chloride () 250 mls @ 15 mls/hr IV .[id number] PRN PRN Reason: Saline Flush Sodium Chloride () 1,000 mls @ 75 mls/hr IV .[id number] [facility] Last Admin: 02/19/19 05:00 Dose: 75 mls/hr Documented by: Insulin Glargine (Lantus (Bk)) 31 units SC QHS [facility] Last Admin: 02/18/19 21:31 Dose: 31 u Documented by: Insulin Human Lispro (Humalog Kwikpen ([facility])) 0 unit SC ACHS [facility]; Protocol Last Admin: 02/19/19 12:08 Dose: 3 u Documented by: Isosorbide Dinitrate (Isordil) 40 mg PO BID [facility] Last Admin: 02/19/19 08:14 Dose: 40 mg Documented by: Melatonin (Melatonin) 10 mg PO QHS [facility] Last Admin: 02/18/19 21:31 Dose: 10 mg Documented by: Metoprolol Succinate (Toprol Xl (Beta Gaye)) 50 mg PO DAILY [facility] Last Admin: 02/19/19 08:14 Dose: 50 mg Documented by: Multivitamins/Minerals (Multivitamin With Minerals) 1 tablet PO DAILYCM [facility] Last Admin: 02/19/19 08:15 Dose: 1 tablet Documented by: Nicotine (Nicoderm Cq (Pbkc)) 21 mg TRANSDERM. DAILY [facility] Last Admin: 02/19/19 08:15 Dose: Not Given Documented by: Nystatin (Mycostatin Powder) 1 applic TOPICAL BID [facility]; Protocol Last Admin: 02/19/19 08:12 Dose: 1 applicatio Documented by: Olanzapine (Zyprexa) 10 mg PO QHS [facility] Last Admin: 02/18/19 21:31 Dose: 10 mg Documented by: [id number] Ethyl Esters (Lovaza) 1 gm PO BID [facility] Last Admin: 02/19/19 08:14 Dose: 1 gm Documented by: Oxycodone HCl (Oxyir) 5 mg PO Q6H PRN PRN PRN Reason: Pain Score 6-10/10 Last Admin: 02/19/19 02:20 Dose: 5 mg Documented by: Pramipexole Dihydrochloride (Mirapex) 0.5 mg PO QHS [facility] Last Admin: 02/18/19 21:38 Dose: 0.5 mg Documented by: Pravastatin Sodium (Pravachol) 40 mg PO QHS [facility] Last Admin: 02/18/19 21:31 Dose: 40 mg Documented by: Pregabalin (Lyrica) 75 mg PO TID [facility] Last Admin: 02/19/19 05:00 Dose: 75 mg Documented by: Ranolazine (Ranexa) 1,000 mg PO BID [facility] Last Admin: 02/19/19 08:13 Dose: 1,000 mg Documented by: Senna/Docusate Sodium (Senokot-S, Kirstie-Colace) 1 tablet PO BID [facility] Last Admin: 02/19/19 08:14 Dose: 1 tablet Documented by: Sodium Chloride () 10 - 40 ml IV UD PRN PRN Reason: SALINE FLUSH Last Admin: 02/18/19 14:52 Dose: 10 ml Documented by: Medical Necessity - Tobacco Use Smoking Status: Current every day smoker Tobacco Use: Cigarettes Assessment/Plan 1. Right great toe osteo, BL LE nonhealing wounds. Hx E faecalis, MSSA, MRSE, Strep. On Zosyn. Podiatry following. bedside debridement and cultures done. WBC resolved. Await final cultures. No fever. ESR/CRP elevated. No plan for OR --> follow up wound care center. -referral to vascular surgery at discharge for LE vascular studies. -cultures showing 2+ staph aereus. -continue surgical shoe 2. RLS, fibromyalgia - severe pain and restlessness. On mirapex, lyrica, oxy. improved drastically today. 3. DMt2 - metformin held. Continue mealtime insulin, levemir, SSI. 4. CAD - on aspirin, plavix, metoprolol, statin, isordil, ranexa. norman held. 5. COPD - no acute exacerbation. prn aerosols. 6. HLD - statin 7. Hx of unspecified memory impairment - on antipsychotic regimen. Suspect dementia with behavioral disturbance. 8. Suspect CKDIII - somewhat above baseline, so hold metformin/lisinopril and recheck in AM. 9. HTN - suspect elevated 2/2 severe pain. DVT ppx: lovenox DC planning: return to assisted living. needs to be 24 hours without sitter to return. This patient was seen by Don Perez PA-C under the supervision of Doctor Marie. <Aman Salazar E - Last Filed: 02/19/19 14:02> Vitals/I&O's: Vital Signs Temp Pulse Resp BP Pulse Ox 97.6 F L 81 18 152/76 H 96 02/19/19 08:10 02/19/19 08:14 02/19/19 08:10 02/19/19 08:10 02/19/19 08:10 Oxygen Flow Rate (L/min) 2 Oxygen Delivery Method Room Air Weight: 190 lb 7.67 oz Body Mass Index (BMI) 31.6 Finger Stick Blood Glucose 390 Intake and Output for Last 24 Hours 02/17/19 02/18/19 02/19/19 23:59 23:59 23:59 Intake Total 50.25 / 50.25 1404.5 / 1904.5 2445.0 / 2445.0 Output Total 950 / 950 Balance 50.25 / 50.25 1404.5 / 1604.5 1495.0 / 1495.0 Microbiology Past 72 Hours 02/18/19 07:00 Wound - Toe Gram Stain - Final 02/18/19 07:00 Wound - Toe Wound Culture - Preliminary Staphylococcus aureus Laboratory Results 02/18/19 16:29: POC Glucose 144 H 02/18/19 21:27: POC Glucose 297 H 02/19/19 05:22: WBC 9.2, RBC 3.22 L, Hgb 9.7 L, Hct 31.6 L, MCV 98.1, MCH 30.1, MCHC 30.7 L, RDW Std Deviation 47.1 H, RDW Coeff of Anjelica 13.1, Plt Count 272, MPV 10.6, Immature Gran % (Auto) 0.700, Neut % (Auto) 56.4, Lymph % (Auto) 25.8, Pennington % (Auto) 12.6 H, Eos % (Auto) 4.0, Baso % (Auto) 0.5, Absolute Neuts (auto) 5.2, Absolute Lymphs (auto) 2.37, Nucleated RBC % 0 02/19/19 05:22: Sodium 139, Potassium 4.7, Chloride 108 H, Carbon Dioxide 27.0, Anion Gap 4 L, BUN 21 H, Creatinine 1.30 H, Estim Creat Clear Calc 39.86, Est GFR (MDRD) Af Amer 53 L, Est GFR (MDRD) Non-Af 44 L, BUN/Creatinine Ratio 16.2, Glucose 187 H, Calcium 8.5 02/19/19 06:46: POC Glucose 146 H 02/19/19 12:06: POC Glucose 231 H Current Medications Acetaminophen (Tylenol) 650 mg PO Q6H PRN PRN PRN Reason: Pain Score 1-10/Temp > 100.7 F Last Admin: 02/18/19 15:26 Dose: 650 mg Documented by: Albuterol Sulfate (Ventolin Aerosols) 2.5 mg INHALATION Q6HWA.RT [facility] Last Admin: 02/19/19 12:55 Dose: Not Given Documented by: Aspirin (Aspirin, Baby) 81 mg PO DAILY@0800 [facility] Last Admin: 02/19/19 08:14 Dose: 81 mg Documented by: Budesonide (Pulmicort Aerosol) 0.5 mg INHALATION Q12H.RT [facility] Last Admin: 02/19/19 07:05 Dose: 0.5 mg Documented by: Cholecalciferol (Vitamin D) 2,000 unit PO DAILY [facility] Last Admin: 02/19/19 08:13 Dose: 2,000 unit Documented by: Clopidogrel Bisulfate (Plavix) 75 mg PO DAILY [facility] Last Admin: 02/19/19 08:14 Dose: 75 mg Documented by: Enoxaparin Sodium (Lovenox) 40 mg SC DAILY [facility] Last Admin: 02/19/19 08:15 Dose: 40 mg Documented by: Escitalopram Oxalate (Lexapro) 15 mg PO DAILY [facility] Last Admin: 02/19/19 08:15 Dose: 15 mg Documented by: Famotidine (Pepcid) 20 mg PO DAILY [facility] Last Admin: 02/19/19 08:14 Dose: 20 mg Documented by: Furosemide (Lasix) 20 mg PO DAILY [facility] Last Admin: 02/19/19 08:14 Dose: 20 mg Documented by: Glucagon () 1 mg IM .X1 PRN PRN Reason: Hypoglycemia Hydralazine HCl (Apresoline Iv) 10 mg IV Q8H PRN PRN PRN Reason: for SBP>160 Sodium Chloride () 250 mls @ 15 mls/hr IV .[id number] PRN PRN Reason: Saline Flush Last Infusion: 02/19/19 13:50 Dose: 0 mls/hr Documented by: Sodium Chloride () 250 mls @ 15 mls/hr IV .[id number] PRN PRN Reason: Additional IVPB Infusion Piperacillin Sod/Tazobactam (Sod 3.375 gm/ Sodium Chloride) 50 mls @ 12.5 mls/hr IV Q8 [facility] Last Admin: 02/19/19 13:47 Dose: 12.5 mls/hr Documented by: Dextrose (Dextrose 10%-Water) 250 mls @ 999 mls/hr IV .Q16M PRN; Protocol PRN Reason: HYPOGLYCEMIA Sodium Chloride () 250 mls @ 15 mls/hr IV .[id number] PRN PRN Reason: Saline Flush Sodium Chloride () 1,000 mls @ 75 mls/hr IV .[id number] [facility] Last Admin: 02/19/19 05:00 Dose: 75 mls/hr Documented by: Insulin Glargine (Lantus (Bk)) 31 units SC QHS [facility] Last Admin: 02/18/19 21:31 Dose: 31 u Documented by: Insulin Human Lispro (Humalog Kwikpen ([facility])) 0 unit SC ACHS [facility]; Protocol Last Admin: 02/19/19 12:08 Dose: 3 u Documented by: Isosorbide Dinitrate (Isordil) 40 mg PO BID [facility] Last Admin: 02/19/19 08:14 Dose: 40 mg Documented by: Melatonin (Melatonin) 10 mg PO QHS [facility] Last Admin: 02/18/19 21:31 Dose: 10 mg Documented by: Metoprolol Succinate (Toprol Xl (Beta Gaye)) 50 mg PO DAILY [facility] Last Admin: 02/19/19 08:14 Dose: 50 mg Documented by: Multivitamins/Minerals (Multivitamin With Minerals) 1 tablet PO DAILYCM [facility] Last Admin: 02/19/19 08:15 Dose: 1 tablet Documented by: Nicotine (Nicoderm Cq ([facility])) 21 mg TRANSDERM. DAILY [facility] Last Admin: 02/19/19 08:15 Dose: Not Given Documented by: Nystatin (Mycostatin Powder) 1 applic TOPICAL BID [facility]; Protocol Last Admin: 02/19/19 08:12 Dose: 1 applicatio Documented by: Olanzapine (Zyprexa) 10 mg PO QHS [facility] Last Admin: 02/18/19 21:31 Dose: 10 mg Documented by: [id number] Ethyl Esters (Lovaza) 1 gm PO BID [facility] Last Admin: 02/19/19 08:14 Dose: 1 gm Documented by: Oxycodone HCl (Oxyir) 5 mg PO Q6H PRN PRN PRN Reason: Pain Score 6-10/10 Last Admin: 02/19/19 02:20 Dose: 5 mg Documented by: Pramipexole Dihydrochloride (Mirapex) 0.5 mg PO QHS [facility] Last Admin: 02/18/19 21:38 Dose: 0.5 mg Documented by: Pravastatin Sodium (Pravachol) 40 mg PO QHS [facility] Last Admin: 02/18/19 21:31 Dose: 40 mg Documented by: Pregabalin (Lyrica) 75 mg PO TID [facility] Last Admin: 02/19/19 13:52 Dose: 75 mg Documented by: Ranolazine (Ranexa) 1,000 mg PO BID [facility] Last Admin: 02/19/19 08:13 Dose: 1,000 mg Documented by: Senna/Docusate Sodium (Senokot-S, Kirstie-Colace) 1 tablet PO BID [facility] Last Admin: 02/19/19 08:14 Dose: 1 tablet Documented by: Sodium Chloride () 10 - 40 ml IV UD PRN PRN Reason: SALINE FLUSH Last Admin: 02/18/19 14:52 Dose: 10 ml Documented by: Assessment/Plan Hospitalist note: I am seeing this patient in conjunction with Don Perez. I independently seen and examined the patient. Progress note above, laboratory data and imaging studies reviewed and I concur with the above treatment plan. Today, patient feels better. Restless legs significant improved. She was able to sleep overnight. Reported minimal right foot pain. Her vital signs are stable, afebrile. - Physical Exam General: Alert, Oriented x3, Cooperative, No apparent distress. HEENT: Atraumatic, PERRLA, EOMI. Neck: Supple, No JVD, Negative Carotid Bruits, Trachea Midline, Thyroid Normal. Lungs: Clear to auscultation, Normal air movement, No rhonchi, No wheeze, No rales. Cardiovascular: Regular rate, Regular Rhythm, Normal S1, Normal S2, PMI Normal. Abdomen: Bowel Sounds Present, Soft, Non Tender, Non-Distended, No Hepato- splenomegaly. Extremities: No clubbing, No cyanosis, No edema Skin: She has superficial ulcer on the plantar aspect of the right forefoot without evidence of significant swelling or erythema, no drainage. Neurological: Cranial nerves are intact, neuro grossly intact. Vital Signs are stable. Assessment and plan: #1 right big toe osteomyelitis/bilateral chronic foot nonhealing wounds.: This is could be chronic. She is on IV Zosyn. Debridement at the bedside performed by the podiatry medicine. He does have chronic ulcer on the plantar aspect of the right forefoot. Patient has been afebrile, had mild leukocytosis. X-ray of the right foot revealed suspicion of osteomyelitis of the right great toe. Wound culture revealed staph aureus, final is pending. Blood cultures pending. Plan to continue same treatment, anticipate discharge tomorrow. #2 restless leg syndrome: She is on Mirapex, Lyrica and OxyIR. Today, she is feeling better, restless legs improved and she was able to sleep last night. #3 other chronic medical problems: Stable, continue current medications as above. This note was generated with [employer] software. It may contain incorrect words, spelling, and punctuation that were not noted in checking the note before signing. Code Visit Inpatient E&M: 88416 Subs Hosp L2
[2019-02-19 17:00] LABS: Bedside Glucose 251 mg/dL (70-110)
[2019-02-19] MEDS: Pramipexole Di-HCl 0.5 MG Tablet PO (23:10)
[2019-02-19] MEDS: Pregabalin 50 MG Capsule 100 MG PO (23:11)
[2019-02-19] MEDS: Pravastatin 40 MG Tablet PO (23:11)
[2019-02-19] MEDS: MELATONIN 10 MG TABLET PO (23:12)
[2019-02-19] MEDS: OLANZapine 10 MG Tablet PO (23:12)
[2019-02-19 23:36] LABS: Bedside Glucose 159 mg/dL (70-110)
[2019-02-20] VITALS (10 sets, daily range): BP systolic 121–180; BP diastolic 63–87; PULSE 65–84; RESP 18–20; TEMP 36.1–37.1; O2SAT 95–99
[2019-02-20] MEDS: oxyCODONE 5 MG Tablet PO ×3 (02:51→21:28)
[2019-02-20] MEDS: Acetaminophen 325 MG Tablet 650 MG PO ×2 (02:52→21:28)
[2019-02-20] MEDS: Pregabalin 50 MG Capsule 100 MG PO ×3 (06:01→21:29)
[2019-02-20 06:35] LABS: Anion Gap 1 (5-15); BUN 19 mg/dL (7-18); BUN/Creat Ratio 15.4 RATIO (10-20); Calcium,Total 7.8 mg/dL (8.5-10.1); Chloride 109 mmol/L (98-107); Creatinine, Serum 1.23 mg/dL (0.55-1.02); EST Glomerular Filtration Rate 47 mL/min (>60); Est Glom Filt Rate - Afr Amer 57 mL/min (>60); Estimated Creatinine Clearance 42.13 ml/min; Glucose 235 mg/dL (74-106); Potassium 4.5 mmol/L (3.5-5.1); Sodium Level 138 mmol/L (136-145)
[2019-02-20] MEDS: 0.9% Normal Saline 1,000 ML 75 ML IV ×2 (06:47→18:26)
[2019-02-20] MEDS: Insulin Lispro 100 UNIT/ML INSULN.PEN SC ×4 (06:51→21:18)
[2019-02-20] MEDS: Albuterol 2.5 MG/3 ML VIAL.NEB. INHALATION ×2 (06:58→19:36)
[2019-02-20] MEDS: Budesonide Respules 0.5 MG/2 ML AMPUL.NEB. INHALATION ×2 (06:58→19:36)
[2019-02-20 07:05] LABS: Bedside Glucose 226 mg/dL (70-110)
[2019-02-20] MEDS: Aspirin 81 MG TAB.CHEW PO (07:54)
[2019-02-20] MEDS: Multivitamins,Ther W-Minerals Tablet 1 TABLET PO (07:54)
[2019-02-20] MEDS: Isosorbide DN 20 MG Tablet 40 MG PO ×2 (07:55→21:21)
[2019-02-20] MEDS: Clopidogrel Bisulfate 75 MG Tablet PO (07:56)
[2019-02-20] MEDS: Ranolazine 500 MG Tablet 1000 MG PO ×2 (07:56→21:21)
[2019-02-20] MEDS: Metoprolol(XL)Succ 50 MG Tablet PO (07:57)
[2019-02-20] MEDS: Escitalopram Oxalate 10 MG Tablet 15 MG PO (07:59)
[2019-02-20] MEDS: Furosemide 20 MG Tablet PO (07:59)
[2019-02-20] MEDS: Senna/Docusate Sodium 1 Tablet PO ×2 (07:59→21:22)
[2019-02-20] MEDS: Omega-3 Acid Ethyl Esters 1 GM Capsule PO ×2 (08:01→21:22)
[2019-02-20] MEDS: Enoxaparin 40 MG/0.4 ML Syringe SC (08:01)
[2019-02-20] MEDS: Nystatin Powder 15gm Bottle 1 APPLIC TOPICAL ×2 (08:01→21:34)
[2019-02-20] MEDS: Famotidine 20 MG Tablet PO (08:02)
--- NOTE | 2019-02-20 09:08 | CASEMGMT ---
Addendum entered by Maria Del Carmen Lowery 02/20/19 12:46: Pt is not discharging today per physician. DEJAH placed a call to [facility] and updated staff that pt is not discharging today. DEJAH placed a call to pt's daughter Guy and updated her that pt will not be discharged back [facility] today. Original Note: Social Work Note DEJAH placed a call to Tena at [facility]. Tena states RN from [facility] came to evaluate pt yesterday and pt is appropriate to return to [facility]. DEJAH updated Tena that pt's sitter has been discontinued and will be able to discharge to [facility] today. Tena provided fax number [phone] for [facility] and when RN calls report to call main number and ask for RN in [facility] side for pt. DEJAH spoke with pt's daughter Guy and updated her that pt should discharge back to [facility] today. Plan: Return to [facility] once medically cleared Maria Del Carmen Lowery [employer], [employer]
[2019-02-20 11:56] LABS: Bedside Glucose 203 mg/dL (70-110)
--- NOTE | 2019-02-20 12:15 | PCM.PROGNOTE ---
Subjective: Patient seen and examined. Reports continued severe restless legs. Denies other complaints. Awaiting wound culture sensitivities. - Physical Exam Vitals/I&O's: Vital Signs Temp Pulse Resp BP Pulse Ox 98.5 F 65 18 156/78 H 99 02/20/19 08:40 02/20/19 08:40 02/20/19 08:40 02/20/19 08:40 02/20/19 08:40 Oxygen Flow Rate (L/min) 2 Oxygen Delivery Method Room Air Weight: 190 lb 7.67 oz Body Mass Index (BMI) 31.6 Finger Stick Blood Glucose 390 Intake and Output for Last 24 Hours 02/18/19 02/19/19 02/20/19 23:59 23:59 23:59 Intake Total 1404.5 / 1904.5 3895.0 / 3895.0 1783.25 / 1783.25 Output Total 1250 / 1250 1650 / 1650 Balance 1404.5 / 1604.5 2645.0 / 2645.0 133.25 / 133.25 General: Alert, Oriented x3, Cooperative HEENT: Atraumatic, PERRLA, EOMI, Normocephalic Neck: Supple, No JVD, Negative Carotid Bruits Lungs: Clear to auscultation, Normal air movement Cardiovascular: Regular rate, Regular Rhythm, Normal S1, Normal S2, No murmurs Abdomen: Bowel Sounds Present, Soft, Non Tender, Non-Distended Extremities: No clubbing, No cyanosis, No edema, Capillary Refill Less than 3 Seconds, - - Restless legs Skin: - - Right great toe osteo, bilateral lower extremity nonhealing wounds-dressings intact Musculoskeletal: No Tenderness to Palpation of Joints or Extremities Neurological: Cranial nerves II-XII grossly intact, Neuro grossly intact Psych/Mental Status: Normal Affect, Appropriate Microbiology Past 72 Hours 02/17/19 20:25 Blood Culture (Wb) - Anticubital Left Blood Culture - Preliminary No growth in 48 hours. 02/17/19 20:30 Blood Culture (Wb) - Right Wrist Blood Culture - Preliminary No growth in 48 hours. 02/18/19 07:00 Wound - Toe Gram Stain - Final 02/18/19 07:00 Wound - Toe Wound Culture - Preliminary Staphylococcus aureus Laboratory Results 02/19/19 16:54: POC Glucose 251 H 02/19/19 23:06: POC Glucose 159 H 02/20/19 05:45: Sodium 138, Potassium 4.5, Chloride 109 H, Carbon Dioxide 28.0, Anion Gap 1 L, BUN 19 H, Creatinine 1.23 H, Estim Creat Clear Calc 42.13, Est GFR (MDRD) Af Amer 57 L, Est GFR (MDRD) Non-Af 47 L, BUN/Creatinine Ratio 15.4, Glucose 235 H, Calcium 7.8 L 02/20/19 06:50: POC Glucose 226 H 02/20/19 11:51: POC Glucose 203 H Current Medications Acetaminophen (Tylenol) 650 mg PO Q6H PRN PRN PRN Reason: Pain Score 1-10/Temp > 100.7 F Last Admin: 02/20/19 02:52 Dose: 650 mg Documented by: Albuterol Sulfate (Ventolin Aerosols) 2.5 mg INHALATION Q6HWA.RT [facility] Last Admin: 02/20/19 06:58 Dose: 2.5 mg Documented by: Aspirin (Aspirin, Baby) 81 mg PO DAILY@0800 [facility] Last Admin: 02/20/19 07:54 Dose: 81 mg Documented by: Budesonide (Pulmicort Aerosol) 0.5 mg INHALATION Q12H.RT [facility] Last Admin: 02/20/19 06:58 Dose: 0.5 mg Documented by: Cholecalciferol (Vitamin D) 2,000 unit PO DAILY [facility] Last Admin: 02/20/19 07:58 Dose: 2,000 unit Documented by: Clopidogrel Bisulfate (Plavix) 75 mg PO DAILY [facility] Last Admin: 02/20/19 07:56 Dose: 75 mg Documented by: Enoxaparin Sodium (Lovenox) 40 mg SC DAILY [facility] Last Admin: 02/20/19 08:01 Dose: 40 mg Documented by: Escitalopram Oxalate (Lexapro) 15 mg PO DAILY [facility] Last Admin: 02/20/19 07:59 Dose: 15 mg Documented by: Famotidine (Pepcid) 20 mg PO DAILY [facility] Last Admin: 02/20/19 08:02 Dose: 20 mg Documented by: Furosemide (Lasix) 20 mg PO DAILY [facility] Last Admin: 02/20/19 07:59 Dose: 20 mg Documented by: Glucagon () 1 mg IM .X1 PRN PRN Reason: Hypoglycemia Hydralazine HCl (Apresoline Iv) 10 mg IV Q8H PRN PRN PRN Reason: for SBP>160 Sodium Chloride () 250 mls @ 15 mls/hr IV .[id number] PRN PRN Reason: Saline Flush Last Infusion: 02/20/19 06:04 Dose: 0 mls/hr Documented by: Sodium Chloride () 250 mls @ 15 mls/hr IV .[id number] PRN PRN Reason: Additional IVPB Infusion Piperacillin Sod/Tazobactam (Sod 3.375 gm/ Sodium Chloride) 50 mls @ 12.5 mls/hr IV Q8 [facility] Last Infusion: 02/20/19 10:01 Dose: Infused Documented by: Dextrose (Dextrose 10%-Water) 250 mls @ 999 mls/hr IV .Q16M PRN; Protocol PRN Reason: HYPOGLYCEMIA Sodium Chloride () 250 mls @ 15 mls/hr IV .[id number] PRN PRN Reason: Saline Flush Sodium Chloride () 1,000 mls @ 75 mls/hr IV .[id number] [facility] Last Admin: 02/20/19 06:47 Dose: 75 mls/hr Documented by: Insulin Glargine (Lantus ([facility])) 31 units SC QHS [facility] Last Admin: 02/19/19 23:09 Dose: 31 u Documented by: Insulin Human Lispro (Humalog Kwikpen ([facility])) 0 unit SC ACHS [facility]; Protocol Last Admin: 02/20/19 11:54 Dose: 2 u Documented by: Isosorbide Dinitrate (Isordil) 40 mg PO BID [facility] Last Admin: 02/20/19 07:55 Dose: 40 mg Documented by: [facility] ([facility]Ox 400) [facility] Melatonin (Melatonin) 10 mg PO QHS [facility] Last Admin: 02/19/19 23:12 Dose: 10 mg Documented by: Metoprolol Succinate (Toprol Xl (Beta Gaye)) 50 mg PO DAILY [facility] Last Admin: 02/20/19 07:57 Dose: 50 mg Documented by: Multivitamins/Minerals ([facility]itamin With Minerals) [facility] Last Admin: 02/20/19 07:54 Dose: 1 tablet Documented by: Nicotine (Nicoderm Cq (Pbkc)) 21 mg TRANSDERM. DAILY [facility] Last Admin: 02/20/19 07:57 Dose: 21 mg Documented by: Nystatin (Mycostatin Powder) 1 applic TOPICAL BID [facility]; Protocol Last Admin: 02/20/19 08:01 Dose: 1 applicatio Documented by: Olanzapine (Zyprexa) 10 mg PO QHS [facility] Last Admin: 02/19/19 23:12 Dose: 10 mg Documented by: [id number] Ethyl Esters (Lovaza) 1 gm PO BID [facility] Last Admin: 02/20/19 08:01 Dose: 1 gm Documented by: Oxycodone HCl (Oxyir) 5 mg PO Q6H PRN PRN PRN Reason: Pain Score 6-10/10 Last Admin: 02/20/19 09:23 Dose: 5 mg Documented by: Pramipexole Dihydrochloride (Mirapex) 0.5 mg PO QHS [facility] Last Admin: 02/19/19 23:10 Dose: 0.5 mg Documented by: Pravastatin Sodium (Pravachol) 40 mg PO QHS [facility] Last Admin: 02/19/19 23:11 Dose: 40 mg Documented by: Pregabalin (Lyrica) 100 mg PO TID [facility] Last Admin: 02/20/19 06:01 Dose: 100 mg Documented by: Ranolazine (Ranexa) 1,000 mg PO BID [facility] Last Admin: 02/20/19 07:56 Dose: 1,000 mg Documented by: Senna/Docusate Sodium (Senokot-S, Kirstie-Colace) 1 tablet PO BID [facility] Last Admin: 02/20/19 07:59 Dose: 1 tablet Documented by: Sodium Chloride () 10 - 40 ml IV UD PRN PRN Reason: SALINE FLUSH Last Admin: 02/18/19 14:52 Dose: 10 ml Documented by: Medical Necessity - Tobacco Use Smoking Status: Current every day smoker Tobacco Use: Cigarettes Assessment/Plan 1. Right great toe osteo, bilateral lower extremity nonhealing wounds-continue IV Zosyn. Podiatry following. Status post bedside debridement. Culture growing staph aureus, sensitivities pending. Blood cultures negative. No plan for surgical intervention at this time. Follow-up at wound center at discharge and with podiatry. Plan for discharge pending sensitivities. 2. Restless leg syndrome, fibromyalgia-continue home Mirapex regimen which is at maximum dose. Lyrica increased from 75 to 100 mg 3 times daily. Check mag, TSH given ongoing complaints of worsening RLS. Clonazepam 0.5 mg twice daily as needed for severe restless leg symptoms. 3. PVD-continue aspirin, statin. Outpatient follow-up with vascular. 4. Chronic kidney disease stage III-stable. 5. CAD-continue aspirin, Plavix, isosorbide, lisinopril, statin, Ranexa. 6. Chronic COPD-no acute exacerbation. PRN aerosol. 7. Type 2 diabetes mellitus-metformin on hold. Accu-Cheks ACHS with sliding scale insulin. Continue Levemir regimen. 8. Hypertension-stable, continue lisinopril, isosorbide, Lasix. 9. History of unspecified memory impairment/depression-continue Lexapro regimen. DVT prophylaxis-Lovenox subcu This patient was seen by KENJI Donis under the supervision of Dr. Daigle.
[2019-02-20 12:46] LABS: Magnesium 2.2 mg/dL (1.6-2.6); Thyroid Stim Hormone (TSH) 0.98 uIU/mL (0.358-3.74)
--- NOTE | 2019-02-20 16:50 | PCM.PROGNOTE ---
Subjective: The patient is a 64 year old F with multiple comorbidities include moving diabetes with neuropathy, peripheral vascular disease, severe memory loss seen bedside this morning for bilateral toe ulcers including the right fourth toe and left third toe. She denies fever, chill, nausea, vomiting, loss of appetite, chest pain or shortness of breath. She is wearing surgical shoes. There was no dressing noted to the left foot upon arrival. She is peacefully eating dinner. - Physical Exam Vitals/I&O's: Vital Signs Temp Pulse Resp BP Pulse Ox 98.7 F 65 18 121/63 H 97 02/20/19 14:40 02/20/19 14:40 02/20/19 14:40 02/20/19 14:40 02/20/19 14:40 Oxygen Flow Rate (L/min) 2 Oxygen Delivery Method Room Air Weight: 86.4 kg Body Mass Index (BMI) 31.6 Finger Stick Blood Glucose 390 Intake and Output for Last 24 Hours 02/18/19 02/19/19 02/20/19 23:59 23:59 23:59 Intake Total 1404.5 / 1904.5 3895.0 / 3895.0 1783.25 / 1783.25 Output Total 1250 / 1250 1650 / 1650 Balance 1404.5 / 1604.5 2645.0 / 2645.0 133.25 / 133.25 General: Alert, Oriented x3, Cooperative Extremities: No cyanosis, Capillary Refill Less than 3 Seconds, No Calf Tenderness, Diminished Peripheral Pulses, Edema Skin: Ulcer/ Wound - No purulence, erythema, string, odor, infection. Peripheral skin is hairless and atrophic. No exposed bone or tendon. There is ulcer plantar left fourth digit and right third Musculoskeletal: No Tenderness to Palpation of Joints or Extremities, Muscle Wasting, - - Digital contraction of bilateral lower extremity lesser digits Neurological: - - Lack of epicritic sensation light touch is consistent with neuropathy status Psych/Mental Status: Normal Affect, Appropriate Microbiology Past 72 Hours 02/18/19 07:00 Wound - Toe Gram Stain - Final 02/18/19 07:00 Wound - Toe Wound Culture - Preliminary Staphylococcus aureus 02/18/19 07:00 Wound - Toe Anaerobic Culture - Preliminary Checking for anaerobes, further studies to follow. 02/17/19 20:25 Blood Culture (Wb) - Anticubital Left Blood Culture - Preliminary No growth in 48 hours. 02/17/19 20:30 Blood Culture (Wb) - Right Wrist Blood Culture - Preliminary No growth in 48 hours. Laboratory Results 02/19/19 16:54: POC Glucose 251 H 02/19/19 23:06: POC Glucose 159 H 02/20/19 05:45: Sodium 138, Potassium 4.5, Chloride 109 H, Carbon Dioxide 28.0, Anion Gap 1 L, BUN 19 H, Creatinine 1.23 H, Estim Creat Clear Calc 42.13, Est GFR (MDRD) Af Amer 57 L, Est GFR (MDRD) Non-Af 47 L, BUN/Creatinine Ratio 15.4, Glucose 235 H, Calcium 7.8 L 02/20/19 05:45: Magnesium 2.2, TSH 0.98 02/20/19 06:50: POC Glucose 226 H 02/20/19 11:51: POC Glucose 203 H Current Medications Acetaminophen (Tylenol) 650 mg PO Q6H PRN PRN PRN Reason: Pain Score 1-10/Temp > 100.7 F Last Admin: 02/20/19 02:52 Dose: 650 mg Documented by: Albuterol Sulfate (Ventolin Aerosols) 2.5 mg INHALATION Q6HWA.RT [facility] Last Admin: 02/20/19 06:58 Dose: 2.5 mg Documented by: Aspirin (Aspirin, Baby) 81 mg PO DAILY@0800 [facility] Last Admin: 02/20/19 07:54 Dose: 81 mg Documented by: Budesonide (Pulmicort Aerosol) 0.5 mg INHALATION Q12H.RT [facility] Last Admin: 02/20/19 06:58 Dose: 0.5 mg Documented by: Cholecalciferol (Vitamin D) 2,000 unit PO DAILY [facility] Last Admin: 02/20/19 07:58 Dose: 2,000 unit Documented by: Clonazepam (Klonopin) 0.5 mg PO Q12H PRN PRN PRN Reason: Severe Restless Legs, Anxiety Clopidogrel Bisulfate (Plavix) 75 mg PO DAILY [facility] Last Admin: 02/20/19 07:56 Dose: 75 mg Documented by: Enoxaparin Sodium (Lovenox) 40 mg SC DAILY [facility] Last Admin: 02/20/19 08:01 Dose: 40 mg Documented by: Escitalopram Oxalate (Lexapro) 15 mg PO DAILY [facility] Last Admin: 02/20/19 07:59 Dose: 15 mg Documented by: Famotidine (Pepcid) 20 mg PO DAILY [facility] Last Admin: 02/20/19 08:02 Dose: 20 mg Documented by: Furosemide (Lasix) 20 mg PO DAILY [facility] Last Admin: 02/20/19 07:59 Dose: 20 mg Documented by: Glucagon () 1 mg IM .X1 PRN PRN Reason: Hypoglycemia Hydralazine HCl (Apresoline Iv) 10 mg IV Q8H PRN PRN PRN Reason: for SBP>160 Sodium Chloride () 250 mls @ 15 mls/hr IV .[id number] PRN PRN Reason: Saline Flush Last Infusion: 02/20/19 06:04 Dose: 0 mls/hr Documented by: Sodium Chloride () 250 mls @ 15 mls/hr IV .[id number] PRN PRN Reason: Additional IVPB Infusion Piperacillin Sod/Tazobactam (Sod 3.375 gm/ Sodium Chloride) 50 mls @ 12.5 mls/hr IV Q8 [facility] Last Admin: 02/20/19 15:09 Dose: 12.5 mls/hr Documented by: Dextrose (Dextrose 10%-Water) 250 mls @ 999 mls/hr IV .Q16M PRN; Protocol PRN Reason: HYPOGLYCEMIA Sodium Chloride () 250 mls @ 15 mls/hr IV .[id number] PRN PRN Reason: Saline Flush Sodium Chloride () 1,000 mls @ 75 mls/hr IV .[id number] [facility] Last Admin: 02/20/19 06:47 Dose: 75 mls/hr Documented by: Insulin Glargine (Lantus ([facility])) 31 units SC QHS [facility] Last Admin: 02/19/19 23:09 Dose: 31 u Documented by: Insulin Human Lispro (Humalog Kwikpen ([facility])) 0 unit SC ACHS [facility]; Protocol Last Admin: 02/20/19 11:54 Dose: 2 u Documented by: Isosorbide Dinitrate (Isordil) 40 mg PO BID [facility] Last Admin: 02/20/19 07:55 Dose: 40 mg Documented by: Magnesium Oxide (Mag-Ox 400) [facility] Melatonin (Melatonin) 10 mg PO QHS [facility] Last Admin: 02/19/19 23:12 Dose: 10 mg Documented by: Metoprolol Succinate (Toprol Xl (Beta Gaye)) 50 mg PO DAILY [facility] Last Admin: 02/20/19 07:57 Dose: 50 mg Documented by: Multivitamins/Minerals (Multivitamin With Minerals) [facility] Last Admin: 02/20/19 07:54 Dose: 1 tablet Documented by: Nicotine (Nicoderm Cq (Pbkc)) 21 mg TRANSDERM. DAILY [facility] Last Admin: 02/20/19 07:57 Dose: 21 mg Documented by: Nystatin (Mycostatin Powder) 1 applic TOPICAL BID [facility]; Protocol Last Admin: 02/20/19 08:01 Dose: 1 applicatio Documented by: Olanzapine (Zyprexa) 10 mg PO QHS [facility] Last Admin: 02/19/19 23:12 Dose: 10 mg Documented by: [id number] Ethyl Esters (Lovaza) 1 gm PO BID [facility] Last Admin: 02/20/19 08:01 Dose: 1 gm Documented by: Oxycodone HCl (Oxyir) 5 mg PO Q6H PRN PRN PRN Reason: Pain Score 6-10/10 Last Admin: 02/20/19 09:23 Dose: 5 mg Documented by: Pramipexole Dihydrochloride (Mirapex) 0.5 mg PO QHS [facility] Last Admin: 02/19/19 23:10 Dose: 0.5 mg Documented by: Pravastatin Sodium (Pravachol) 40 mg PO QHS [facility] Last Admin: 02/19/19 23:11 Dose: 40 mg Documented by: Pregabalin (Lyrica) 100 mg PO TID [facility] Last Admin: 02/20/19 15:13 Dose: 100 mg Documented by: Ranolazine (Ranexa) 1,000 mg PO BID [facility] Last Admin: 02/20/19 07:56 Dose: 1,000 mg Documented by: Senna/Docusate Sodium (Senokot-S, Kirstie-Colace) 1 tablet PO BID [facility] Last Admin: 02/20/19 07:59 Dose: 1 tablet Documented by: Sodium Chloride () 10 - 40 ml IV UD PRN PRN Reason: SALINE FLUSH Last Admin: 02/18/19 14:52 Dose: 10 ml Documented by: Medical Necessity - Tobacco Use Smoking Status: Current every day smoker Tobacco Use: Cigarettes Assessment/Plan left third toe ulcer with fat layer exposed, prior cellulitis - resolved right fourth toe ulcer with fat layer exposed, no infection Bilateral hammertoes Diabetes with neuropathy Peripheral vascular disease 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 This is consistent with prior osteomyelitis or Charcot event I reviewed and discussed her case. Her vitals remained stable. She is afebrile. The ulcers were reevaluated and dressed on left and dressing remains intact on right. I recommend changing them daily with hydrogel and gauze. To heel weight-bear with bilateral surgical shoes. I recommend treating her for mild cellulitis and started on a comprehensive wound healing program for left 3rd toe and right 4th toe ulcers. It is noted she is on vancomycin and Zosyn. Wound cultures were obtained at the time of admission, and results are pending. So far there is Staphylococcus aureus growth and the sensitivities are pending. Blood cultures were also taken these are pending. It is also noted she does have known peripheral vascular disease including small vessel disease. Her last noninvasive vascular studies were performed in February 2017 which demonstrated right mild occlusive disease, left moderate arterial occlusive disease and bilateral small vessel disease with vessel calcifications. I recommend reconsultation of vascular at this time due to history of delayed healing and ongoing ulcers to bilateral feet. A consult is recommended will be appreciated. This was discussed with Dr. Coffman, hospitalist, and this will be set up for the outpatient setting. The podiatry team will follow her close while in house. Upon discharge she can follow-up with the wound healing center. It is okay to discharge at this time from a podiatric standpoint. No surgical interventions planned at this time. Medical management per primary team is appreciated. Please not hesitate to call if you have any questions. Peggy Herrera DPM, [facility] [phone]
[2019-02-20 16:51] LABS: Bedside Glucose 299 mg/dL (70-110)
--- NOTE | 2019-02-20 17:13 | DCINST_ITS ---
Weight Bearing Status: Partial weight bearing - heel weightbear bilateral lower extremities in surgical shoes Keep extremity elevated above heart level: Left Leg, Right Leg Call your doctor if your incision/area has: Continuous Slow Oozing, Sudden Increased Bleeding, Increased Pain/ Swelling, Increased Redness, Foul Smelling Discharge, Swelling at the incision site Call your doctor if you observe: Fever of 101 or Higher, Calf discomfort, Uncontrolled pain Cleanse incision/area with: - - change dressing daily with hydrogel and gauze (right 4th toe and left 3rd toe) Allergies/Adverse Reactions: Allergies ciprofloxacin [From Cipro] Allergy (Verified 02/17/19 18:52) Unknown clarithromycin [From Biaxin] Allergy (Verified 02/17/19 18:52) Rash codeine Allergy (Verified 02/17/19 18:52) Rash clarithromycin Allergy (Unknown, Uncoded 02/17/19 18:52) Unknown Medications to take at Discharge Ranolazine [Ranexa] 1,000 mg PO BID #60 tab.er.12h 11/11/13 Aspirin [Aspirin, Baby] 81 mg PO DAILY@0800 #0 tab.chew 03/10/14 Clopidogrel Bisulfate [Plavix] 75 mg PO DAILY #30 tab 03/10/14 Senna/Docusate Sodium [Senokot-S] 2 tab PO BID #0 tab 03/10/14 Lisinopril [Prinivil] 5 mg PO DAILY 01/21/17 Multivit,Calc,Mins/Iron/Folic [Thera M Plus Tablet] 1 ea PO DAILY 01/21/17 metFORMIN HCl [Glucophage] 1,000 mg PO BIDCM 01/21/17 Fluticasone/Salmeterol [Advair 250-50 Diskus] 1 ea IH BID 01/22/17 Insulin Detemir [Levemir ([facility])] 31 units SC QHS 03/09/17 metoprolol tartrate 50 mg tablet 50 mg PO DAILY tab 05/01/17 Cholecalciferol (Vitamin D3) [Vitamin D3] 2,000 unit PO DAILY 02/17/19 Escitalopram Oxalate [Lexapro] 5 mg PO DAILY 02/17/19 Escitalopram Oxalate [Lexapro] 10 mg PO DAILY 02/17/19 Famotidine [Pepcid] 20 mg PO DAILY 02/17/19 Furosemide [Lasix] 20 mg PO DAILY 02/17/19 Insulin Aspart [Novolog Flexpen ([facility])] 4 units SUBCUT BID 02/17/19 Insulin Aspart [Novolog Flexpen ([facility])] 6 units SUBCUT DINNER 02/17/19 Insulin Aspart [Novolog Flexpen] See Protocol SUBCUT ACHS 02/17/19 Isosorbide DN [Isordil] 40 mg PO BID 02/17/19 Melatonin 10 mg PO QHS 02/17/19 Olanzapine 10 mg PO QHS 02/17/19 [place]-3 Fatty Acids/Fish Oil [Fish Oil 1,000 mg Capsule] 1 cap PO BID 02/17/19 Pramipexole Di-HCl [Mirapex] 0.5 mg PO QHS 02/17/19 Pravastatin [Pravachol] 40 mg PO QHS 02/17/19 Pregabalin [Lyrica] 75 mg PO TID 02/17/19 Primary Care Physician: Judith Goldman, [employer]PER[employer]TENA[employer]CE[employer] [Primary Care Provider] - Test Results: Test results from this visit will be discussed in further detail at your follow- up appointment, if applicable. Please Follow Up With: Gerson Chase MD When: Call to schedule appointment Please Follow Up With: Clinic,Wound When: with Dr. Herrera. Call [phone] sooner if concerns. Proposed Discharge Date: 02/21/19
[2019-02-20] MEDS: clonazePAM 0.5 MG Tablet PO (19:59)
[2019-02-20] MEDS: 0.9% Saline Lock 10 ML Syringe IV (20:25)
[2019-02-20] MEDS: hydrALAZINE 20 MG/ML Vial 10 MG IV (20:25)
[2019-02-20] MEDS: Pravastatin 40 MG Tablet PO (21:22)
[2019-02-20] MEDS: OLANZapine 10 MG Tablet PO (21:22)
[2019-02-20] MEDS: Pramipexole Di-HCl 0.5 MG Tablet PO (21:28)
[2019-02-20] MEDS: MELATONIN 10 MG TABLET PO (21:28)
[2019-02-20 21:41] LABS: Bedside Glucose 215 mg/dL (70-110)
[2019-02-21 02:30] VITALS: BP 149/60; PULSE 70; RESP 18; TEMP 36.8; O2SAT 97
[2019-02-21] MEDS: Acetaminophen 325 MG Tablet 650 MG PO (04:22)
[2019-02-21] MEDS: oxyCODONE 5 MG Tablet PO (04:22)
[2019-02-21] MEDS: Pregabalin 50 MG Capsule 100 MG PO ×2 (06:47→14:49)
[2019-02-21] MEDS: Insulin Lispro 100 UNIT/ML INSULN.PEN SC ×2 (06:52→11:51)
[2019-02-21 07:00] LABS: Bedside Glucose 198 mg/dL (70-110)
[2019-02-21] MEDS: 0.9% Normal Saline 1,000 ML 75 ML IV (07:11)
[2019-02-21 07:15] VITALS: PULSE 61; RESP 18
[2019-02-21] MEDS: Budesonide Respules 0.5 MG/2 ML AMPUL.NEB. INHALATION (07:15)
[2019-02-21] MEDS: Albuterol 2.5 MG/3 ML VIAL.NEB. INHALATION ×2 (07:15→13:21)
[2019-02-21] MEDS: Multivitamins,Ther W-Minerals Tablet 1 TABLET PO (08:12)
[2019-02-21] MEDS: Aspirin 81 MG TAB.CHEW PO (08:12)
[2019-02-21] MEDS: Magnesium Oxide 400 MG Tablet PO (08:14)
[2019-02-21 08:30] VITALS: BP 159/76; PULSE 63; RESP 18; TEMP 36.5; O2SAT 98
--- NOTE | 2019-02-21 09:32 | VDLE_ITS ---
Reason For Study: Pain RIGHT LEFT CFV is compressible, spontaneous, phasic, GSV is normal. competent and demonstrates normal CFV is compressible, spontaneous, phasic, augmentation. competent, and demonstrates normal Procedure augmentation. Exam performed portable in patient room. FV is compressible, spontaneous, phasic, A preliminary report was called and/or faxed competent and demonstrates normal to MS3. augmentation. POP V is compressible, spontaneous, phasic, competent and demonstrates normal augmentation. T/P Trunk is compressible. PTV is compressible. LT PerV is compressible. Interpretation Summary There is no evidence of left lower extremity deep vein thrombosis. Left great saphenous vein appears patent and compressible segmentally. Patent and compressible right common femoral vein Ordering Physician: Colette Bass Referring Physician: Judith Goldman Performed By: Maria Del Carmen Ovalle RVT
[2019-02-21] MEDS: Omega-3 Acid Ethyl Esters 1 GM Capsule PO (10:05)
[2019-02-21] MEDS: Ranolazine 500 MG Tablet 1000 MG PO (10:05)
[2019-02-21 10:06] VITALS: PULSE 63
[2019-02-21] MEDS: Isosorbide DN 20 MG Tablet 40 MG PO (10:06)
[2019-02-21] MEDS: Enoxaparin 40 MG/0.4 ML Syringe SC (10:06)
[2019-02-21] MEDS: Clopidogrel Bisulfate 75 MG Tablet PO (10:06)
[2019-02-21] MEDS: Metoprolol(XL)Succ 50 MG Tablet PO (10:06)
[2019-02-21] MEDS: Famotidine 20 MG Tablet PO (10:07)
[2019-02-21] MEDS: Escitalopram Oxalate 10 MG Tablet 15 MG PO (10:07)
[2019-02-21] MEDS: Furosemide 20 MG Tablet PO (10:08)
[2019-02-21] MEDS: Nystatin Powder 15gm Bottle 1 APPLIC TOPICAL (10:08)
--- NOTE | 2019-02-21 10:26 | CASEMGMT ---
Social Work Note PA states pt will have ultra sound of leg today as pt's leg is swollen to rule out DVT and then should discharge later today. Pt will have daily dry dressing changes. DEJAH placed a call to [facility] and spoke with RN. RN states they are able to accommodate pt's daily dressing changes and they will have wound nurse follow pt at [facility]. DEJAH spoke with pt's daughter Guy and updated her that pt will likely discharge today after ultra sound. Plan: Back to [facility] once medically cleared Maria Del Carmen Lowery BANQUET WAITER/WAITRESS, RESERVATIONIST
--- NOTE | 2019-02-21 11:20 | NURSING ---
Bed alarm sounding. patient requested to walk in hallway. Began assisting patient to ambulate. Patient grabbing side rail of bed, then reaching for counter near room sink, she proceeded to reach and grasp for multiple items during ambulation only taking a few steps in between grabbing fo the next item. This nurse discussed ambulation habits with patient who identified that she frequently uses furniture and other items to hold onto for support during ambulation. This nurse requested a wheeled walker for patient, [facility] provided wheeled walker. This nurse continued to ambulate with patient. She ambulated very well with use of walker. Steady and standby assist. Patient identified that she felt that the walker was beneficial and made her feel more balanced. Patient returned to room. [facility] staff in room to perform diagnostic testing. Discussed use of walker with case management/social work and Dr Daigle. Case management/social work to follow up with assisted living to see if patient has access to a walker. If not Dr Daigle will provide an order upon discharge for the adaptive equipment.
--- NOTE | 2019-02-21 11:24 | DCINST_ITS ---
- Discharge Diagnoses Current Active Problems: Current Active and Chronic Problems (Last Updated 02/19/19 @ 12:04 by Aman Salazar MD) You will use the following diet at home:: Calorie/Carbohydrate Controlled (specify 1200, 1400, etc) Discharge Activity: Return to Normal Activity Weight Bearing Status: Partial weight bearing - heel weightbear bilateral lower extremities in surgical shoes Keep extremity elevated above heart level: Left Leg, Right Leg Call your doctor if your incision/area has: Continuous Slow Oozing, Sudden Increased Bleeding, Increased Pain/ Swelling, Increased Redness, Foul Smelling Discharge, Swelling at the incision site Call your doctor if you observe: Fever of 101 or Higher, Calf discomfort, Uncontrolled pain Cleanse incision/area with: - - change dressing daily with hydrogel and gauze (right 4th toe and left 3rd toe) Allergies/Adverse Reactions: Allergies ciprofloxacin [From Cipro] Allergy (Verified 02/17/19 18:52) Unknown clarithromycin [From Biaxin] Allergy (Verified 02/17/19 18:52) Rash codeine Allergy (Verified 02/17/19 18:52) Rash clarithromycin Allergy (Unknown, Uncoded 02/17/19 18:52) Unknown Medications to take at Discharge Ranolazine [Ranexa] 1,000 mg PO BID #60 tab.er.12h 11/11/13 Aspirin [Aspirin, Baby] 81 mg PO DAILY@0800 #0 tab.chew 03/10/14 Clopidogrel Bisulfate [Plavix] 75 mg PO DAILY #30 tab 03/10/14 Senna/Docusate Sodium [Senokot-S] 2 tab PO BID #0 tab 03/10/14 Lisinopril [Prinivil] 5 mg PO DAILY 01/21/17 Multivit,Calc,Mins/Iron/Folic [Thera M Plus Tablet] 1 ea PO DAILY 01/21/17 metFORMIN HCl [Glucophage] 1,000 mg PO BIDCM 01/21/17 Fluticasone/Salmeterol [Advair 250-50 Diskus] 1 ea IH BID 01/22/17 Insulin Detemir [Levemir FlexPen] 31 units SC QHS 03/09/17 metoprolol tartrate 50 mg tablet 50 mg PO DAILY tab 05/01/17 Cholecalciferol (Vitamin D3) [Vitamin D3] 2,000 unit PO DAILY 02/17/19 Escitalopram Oxalate [Lexapro] 5 mg PO DAILY 02/17/19 Escitalopram Oxalate [Lexapro] 10 mg PO DAILY 02/17/19 Famotidine [Pepcid] 20 mg PO DAILY 02/17/19 Furosemide [Lasix] 20 mg PO DAILY 02/17/19 Insulin Aspart [Novolog Flexpen] 4 units SUBCUT BID 02/17/19 Insulin Aspart [Novolog Flexpen] 6 units SUBCUT DINNER 02/17/19 Insulin Aspart [Novolog Flexpen] See Protocol SUBCUT ACHS 02/17/19 Isosorbide DN [Isordil] 40 mg PO BID 02/17/19 Melatonin 10 mg PO QHS 02/17/19 Olanzapine 10 mg PO QHS 02/17/19 [place]-3 Fatty Acids/Fish Oil [Fish Oil 1,000 mg Capsule] 1 cap PO BID 02/17/19 Pramipexole Di-HCl [Mirapex] 0.5 mg PO QHS 02/17/19 Pravastatin [Pravachol] 40 mg PO QHS 02/17/19 Pregabalin [Lyrica] 75 mg PO TID 02/17/19 Amox/Clavulanate Tablet [Augmentin Tablet] 875 mg PO Q12H #20 tab 02/21/19 Magnesium Oxide [Mag-Ox 400] 400 mg PO DAILYCM #30 tab 02/21/19 The following prescriptions were given: Amox/Clavulanate Tablet [Augmentin Tablet] 875 mg PO Q12H #20 tab Transmission Status: Pending to [id number] Magnesium Oxide [Mag-Ox 400] 400 mg PO DAILYCM #30 tab Transmission Status: Pending to [facility]/pharmacy #[id number] Primary Care Physician: Judith Goldman NP-C [Primary Care Provider] - Please follow up with your Primary Care Physician in: 1 Week Test Results: Test results from this visit will be discussed in further detail at your follow- up appointment, if applicable. Please Follow Up With: Gerson Chase MD When: Call to schedule appointment Please Follow Up With: Clinic,Wound When: [address] Herrera. Call [phone] sooner if concerns. Proposed Discharge Date: 02/21/19
[2019-02-21 11:55] LABS: Bedside Glucose 274 mg/dL (70-110)
--- NOTE | 2019-02-21 12:05 | CASEMGMT ---
Addendum entered by Maria Del Carmen Lowery 02/21/19 14:04: RN updated this worker that transportation can be called. DEJAH placed a call to [facility] and earliest they can transport pt is between 3:00-3:30pm. Transportation form completed and placed on SNF folder and copy on pt's chart. DEJAH faxed discharge instructions and script for walker to [facility]. DEJAH updated RN on transport time. DEJAH placed a call to pt's daughter Guy and updated her on transportation time. DEJAH placed a call to [facility] and spoke with KORIN Simental and updated her on transportation time. Plan: Return to [facility] today with [facility] transporting pt at 3:00-3:30pm Original Note: Social Work Note DEJAH updated that pt is using walker to walk around and would benefit from walker at [facility]. DEJAH placed a call to [facility] and spoke with KORIN Simental. Kamille states pt didn't use any DME at [facility] and was walking independently. DEJAH informed Kamille that pt is walking contact guard but is requiring walker and asked if walker can be arranged at [facility]. Kamille states she will need a script for walker and they will order it at [facility]. Physician signed script for walker. DEJAH faxed discharge instructions and script to [facility]. DEJAH spoke with RN who states pt still needs ultra sound of leg and RN is not sure when ultra sound will be completed. DEJAH asked RN to let this worker know when transportation can be called for pt. RN to do so. Plan: Return to [facility] today. Maria Del Carmen Lowery LIME FILTER OPERATOR, REHAB PHYSICIAN
--- NOTE | 2019-02-21 12:33 | PCM.PROGNOTE ---
Subjective: The patient is a 64 year old F with multiple comorbidities include moving diabetes with neuropathy, peripheral vascular disease, severe memory loss seen bedside this morning for bilateral toe ulcers including the right fourth toe and left third toe. She denies fever, chill, nausea, vomiting, loss of appetite, chest pain or shortness of breath. She is wearing surgical shoes. There was no dressing noted to the right foot upon arrival this afternoon. She is peacefully eating lunch. I was contacted earlier this morning by nursing staff in regards to concern of new swelling of the left leg. The patient denies calf pain. A venous Doppler was ordered and the results are pending to rule out deep venous thrombosis. - Physical Exam Vitals/I&O's: Vital Signs Temp Pulse Resp BP Pulse Ox 97.7 F L 63 18 159/76 H 98 02/21/19 08:30 02/21/19 10:06 02/21/19 08:30 02/21/19 08:30 02/21/19 08:30 Oxygen Flow Rate (L/min) 2 Oxygen Delivery Method Room Air Weight: 86.4 kg Body Mass Index (BMI) 31.6 Finger Stick Blood Glucose 390 Intake and Output for Last 24 Hours 02/19/19 02/20/19 02/21/19 23:59 23:59 23:59 Intake Total 3895.0 / 3895.0 2708.75 / 3228.75 1526.25 / 1526.25 Output Total 1250 / 1250 1650 / 2050 1300 / 1300 Balance 2645.0 / 2645.0 1058.75 / 1178.75 226.25 / 226.25 General: Alert, Oriented x3, Cooperative Extremities: No cyanosis, Capillary Refill Less than 3 Seconds, No Calf Tenderness - Negative Mayberry sign bilateral, Diminished Peripheral Pulses, Edema - Mild bilateral lower extremity and more so on the left lower extremity compared to the right Skin: Ulcer/ Wound - Peripheral epithelialization is noted to the right fourth toe ulcer site. The ulcer bed is granular and fibrous and this appears to be doing well. There is no erythema or proximal streaking noted or purulence on expression. The left third distal toe ulcer has a increased granular base with continued fibrous tissue also. There is edema to this toe there is no purulence on expression. The erythema has resolved and there is no odor or streaking. There is no interdigital maceration noted., - - Her skin is hairless and atrophic. She does not have any erythema or lower to the left leg. She does have some hyperpigmentation to the lower there is no cyanosis or necrosis no mychal tissue loss Musculoskeletal: No Tenderness to Palpation of Joints or Extremities, Muscle Wasting, - - Fifth ray resection left foot. dorsal contraction of lesser toes bilateral. Compartments of bilateral left lower extremities remain soft to palpate. No bogginess or fluctuance on palpation Neurological: - - Lack of normal epicritic sensation light touch is consistent with neuropathy status Psych/Mental Status: Appropriate, - - Memory loss continued Microbiology Past 72 Hours 02/18/19 07:00 Wound - Toe Gram Stain - Final 02/18/19 07:00 Wound - Toe Wound Culture - Final Staphylococcus aureus Corynebacterium striatum 02/18/19 07:00 Wound - Toe Anaerobic Culture - Preliminary Checking for anaerobes, further studies to follow. 02/17/19 20:25 Blood Culture (Wb) - Anticubital Left Blood Culture - Preliminary No growth in 48 hours. 02/17/19 20:30 Blood Culture (Wb) - Right Wrist Blood Culture - Preliminary No growth in 48 hours. Laboratory Results 02/20/19 05:45: Magnesium 2.2, TSH 0.98 02/20/19 16:48: POC Glucose 299 H 02/20/19 21:16: POC Glucose 215 H 02/21/19 06:52: POC Glucose 198 H 02/21/19 11:49: POC Glucose 274 H Current Medications Acetaminophen (Tylenol) 650 mg PO Q6H PRN PRN PRN Reason: Pain Score 1-10/Temp > 100.7 F Last Admin: 02/21/19 04:22 Dose: 650 mg Documented by: Albuterol Sulfate (Ventolin Aerosols) 2.5 mg INHALATION Q6HWA.RT [facility] Last Admin: 02/21/19 07:15 Dose: 2.5 mg Documented by: Aspirin (Aspirin, Baby) 81 mg PO DAILY@0800 [facility] Last Admin: 02/21/19 08:12 Dose: 81 mg Documented by: Budesonide (Pulmicort Aerosol) 0.5 mg INHALATION Q12H.RT [facility] Last Admin: 02/21/19 07:15 Dose: 0.5 mg Documented by: Cholecalciferol (Vitamin D) 2,000 unit PO DAILY [facility] Last Admin: 02/21/19 10:06 Dose: 2,000 unit Documented by: Clonazepam (Klonopin) 0.5 mg PO Q12H PRN PRN PRN Reason: Severe Restless Legs, Anxiety Last Admin: 02/20/19 19:59 Dose: 0.5 mg Documented by: Clopidogrel Bisulfate (Plavix) 75 mg PO DAILY [facility] Last Admin: 02/21/19 10:06 Dose: 75 mg Documented by: Enoxaparin Sodium (Lovenox) 40 mg SC DAILY [facility] Last Admin: 02/21/19 10:06 Dose: 40 mg Documented by: Escitalopram Oxalate (Lexapro) 15 mg PO DAILY [facility] Last Admin: 02/21/19 10:07 Dose: 15 mg Documented by: Famotidine (Pepcid) 20 mg PO DAILY [facility] Last Admin: 02/21/19 10:07 Dose: 20 mg Documented by: Furosemide (Lasix) 20 mg PO DAILY [facility] Last Admin: 02/21/19 10:08 Dose: 20 mg Documented by: Glucagon () 1 mg IM .X1 PRN PRN Reason: Hypoglycemia Hydralazine HCl (Apresoline Iv) 10 mg IV Q8H PRN PRN PRN Reason: for SBP>160 Last Admin: 02/20/19 20:25 Dose: 10 mg Documented by: Sodium Chloride () 250 mls @ 15 mls/hr IV .[id number] PRN PRN Reason: Saline Flush Last Infusion: 02/20/19 21:32 Dose: 0 mls/hr Documented by: Sodium Chloride () 250 mls @ 15 mls/hr IV .[id number] PRN PRN Reason: Additional IVPB Infusion Piperacillin Sod/Tazobactam (Sod 3.375 gm/ Sodium Chloride) 50 mls @ 12.5 mls/hr IV Q8 [facility] Last Admin: 02/21/19 06:48 Dose: 12.5 mls/hr Documented by: Dextrose (Dextrose 10%-Water) 250 mls @ 999 mls/hr IV .Q16M PRN; Protocol PRN Reason: HYPOGLYCEMIA Sodium Chloride () 250 mls @ 15 mls/hr IV .[id number] PRN PRN Reason: Saline Flush Sodium Chloride () 1,000 mls @ 75 mls/hr IV .[id number] [facility] Last Admin: 02/21/19 07:11 Dose: 75 mls/hr Documented by: Insulin Glargine (Lantus (Bk)) 31 units SC [facility] Last Admin: 02/20/19 21:18 Dose: 31 u Documented by: Insulin Human Lispro (Humalog Kwikpen ([facility])) 0 unit SC ACHS [facility]; Protocol Last Admin: 02/21/19 11:51 Dose: 4 u Documented by: Isosorbide Dinitrate (Isordil) 40 mg PO BID [facility] Last Admin: 02/21/19 10:06 Dose: 40 mg Documented by: Magnesium Oxide (Mag-Ox 400) 400 mg PO DAILY[facility] Last Admin: 02/21/19 08:14 Dose: 400 mg Documented by: Melatonin (Melatonin) 10 mg PO QHS [facility] Last Admin: 02/20/19 21:28 Dose: 10 mg Documented by: Metoprolol Succinate (Toprol Xl (Beta Gaye)) 50 mg PO DAILY [facility] Last Admin: 02/21/19 10:06 Dose: 50 mg Documented by: Multivitamins/Minerals (Multivitamin With Minerals) 1 tablet PO DAILY[facility] Last Admin: 02/21/19 08:12 Dose: 1 tablet Documented by: Nicotine (Nicoderm Cq (Pbkc)) 21 mg TRANSDERM. DAILY [facility] Last Admin: 02/21/19 10:06 Dose: 21 mg Documented by: Nutritional Formula (Rosendo [employer] Flavor) 1 packet PO BID[facility] Last Admin: 02/21/19 08:14 Dose: 1 packet Documented by: Nystatin (Mycostatin Powder) 1 applic TOPICAL BID [facility]; Protocol Last Admin: 02/21/19 10:08 Dose: 1 applicatio Documented by: Olanzapine (Zyprexa) 10 mg PO QHS [facility] Last Admin: 02/20/19 21:22 Dose: 10 mg Documented by: [id number] Ethyl Esters (Lovaza) 1 gm PO BID [facility] Last Admin: 02/21/19 10:05 Dose: 1 gm Documented by: Oxycodone HCl (Oxyir) 5 mg PO Q6H PRN PRN PRN Reason: Pain Score 6-10/10 Last Admin: 02/21/19 04:22 Dose: 5 mg Documented by: Pramipexole Dihydrochloride (Mirapex) 0.5 mg PO QHS [facility] Last Admin: 02/20/19 21:28 Dose: 0.5 mg Documented by: Pravastatin Sodium (Pravachol) 40 mg PO QHS [facility] Last Admin: 02/20/19 21:22 Dose: 40 mg Documented by: Pregabalin (Lyrica) 100 mg PO TID [facility] Last Admin: 02/21/19 06:47 Dose: 100 mg Documented by: Ranolazine (Ranexa) 1,000 mg PO BID [facility] Last Admin: 02/21/19 10:05 Dose: 1,000 mg Documented by: Senna/Docusate Sodium (Senokot-S, Kirstie-Colace) 1 tablet PO BID [facility] Last Admin: 02/21/19 11:52 Dose: Not Given Documented by: Sodium Chloride () 10 - 40 ml IV UD PRN PRN Reason: SALINE FLUSH Last Admin: 02/20/19 20:25 Dose: 10 ml Documented by: Medical Necessity - Tobacco Use Smoking Status: Current every day smoker Tobacco Use: Cigarettes Assessment/Plan left third toe ulcer with fat layer exposed, prior cellulitis - resolved right fourth toe ulcer with fat layer exposed, no infection Bilateral hammertoes Diabetes with neuropathy Peripheral vascular disease Left lower extremity deep venous thrombosis has been ruled out 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 This is consistent with prior osteomyelitis or Charcot event. Per chart review she was treated for osteo w/ 6 wks of Levaquin in 2017. I reviewed and discussed her case. Her vitals remained stable. She is afebrile. The ulcers were reevaluated and dressed bilateral lower extremities. I recommend changing them daily with hydrogel and gauze. If this is an issue with her assisted living program, it is ok to perform this every other day. To heel weight-bear with bilateral surgical shoes. I recommend treating her for mild cellulitis and started on a comprehensive wound healing program for left 3rd toe and right 4th toe ulcers. It is noted she is on vancomycin and Zosyn. She will be transitioned to a 10-day course of oral Augmentin. Wound cultures were obtained at the time of admission, and she has Staphylococcus aureus and corynebacterium stratum growth. Her blood cultures were negative. It is also noted she does have known peripheral vascular disease including small vessel disease. Her last noninvasive vascular studies were performed in February 2017 which demonstrated right mild occlusive disease, left moderate arterial occlusive disease and bilateral small vessel disease with vessel calcifications. I recommend reconsultation of vascular at this time due to history of delayed healing and ongoing ulcers to bilateral feet. A consult has been arranged for the outpatient setting. She does not appear to have acute critical limb ischemia. I was contacted this morning in regards to left leg swelling and concern of potential deep venous thrombosis by nursing staff. This case was further discussed with hospitalist Dr. Negron will see if a venous Doppler warranted. It is noted that this was ordered and she was negative for any deep venous thrombosis. The podiatry team will follow her close while in house. Upon discharge she can follow-up with the wound healing center. It is okay to discharge at this time from a podiatric standpoint. No surgical interventions planned at this time. Medical management per primary team is appreciated. Please not hesitate to call if you have any questions. Peggy Herrera DPM, [facility] [phone]
[2019-02-21 13:21] VITALS: PULSE 69; RESP 18
[2019-02-21 15:19] VITALS: BP 145/70; PULSE 68; RESP 18; TEMP 36.8; O2SAT 98
--- NOTE | 2019-02-21 15:19 | PCM.DC.SUM ---
Discharge Date and Diagnosis Date of Admission: 02/17/19 Date of Discharge: 02/21/19 - Primary Discharge Diagnosis 1. Right great toe staph aureus and Corynebacterium osteo, bilateral lower extremity nonhealing wounds 2. Restless leg syndrome, fibromyalgia 3. PVD 4. Chronic kidney disease stage III 5. CAD 6. Chronic COPD 7. Type 2 diabetes mellitus 8. Hypertension 9. History of unspecified memory impairment/depression - Secondary Discharge Diagnosis Chronic Problems (Last Updated 02/19/19 @ 12:04 by Aman Salazar MD) Diabetes mellitus type II (Chronic) diabetic ulcer dorsum right foot (Chronic) Chronic hypertension (Chronic) Degenerative disc disease, lumbar (Chronic) Delayed wound healing (Chronic) Chronic ulcer of left foot with fat layer exposed (Chronic) Memory loss (Chronic) MISTI (obstructive sleep apnea) (Chronic) Chronic ulcer of left foot with fat layer exposed (Chronic) Non-compliance (Chronic) GERD (Chronic) Fibromyalgia (Chronic) COPD (Chronic) Type 2 diabetes mellitus with diabetic polyneuropathy (Chronic) Anemia (Chronic) Tobacco use disorder (Chronic) Carotid arterial disease (Chronic) PVD (peripheral vascular disease) (Chronic) CVA (cerebral vascular accident) (Chronic) Paroxysmal atrial fibrillation (Chronic) Hyperlipidemia (Chronic) Hospital Course and Treatment Imaging Results: Diagnostic Data Foot X-Ray 02/17/19 20:40 IMPRESSION: No definite evidence of acute osteomyelitis. Significant degenerative changes at the first metatarsophalangeal joint, new since the exam in 2017 Electronically Signed: Ziggy Sousa DO at 21:09 EST Tel , Service support , Dr. Herrera- Podiatry Operations: None, - - 1. Angiogram with angioplasty right superficial femoral artery on 03/[address] Nate Todd 2. Debridement of nonhealing diabetic ulcers of the right lower extremity on 03/[address] Nicholas Holland Procedures: None Summary of Care Provided: The patient is a 64 year old F admitted 02/17/2019 due to right foot pain. 1. Right great toe osteo, bilateral lower extremity nonhealing wounds-IV Zosyn during admission. Podiatry following. Status post bedside debridement. Culture growing staph aureus, corynebacterium. Blood cultures negative. No plan for surgical intervention at this time. Follow-up at wound center at discharge and with podiatry. Discharge on Augmentin 875 mg p.o. twice daily for 10 days. Follow-up with wound center in 1 week. Left lower extremity ultrasound completed due to mild swelling, negative for DVT. 2. Restless leg syndrome, fibromyalgia-continue home Mirapex regimen which is at maximum dose. Continue Lyrica regimen, Lyrica has room to increase if patient has recurrent increased symptoms. PRN low-dose clonazepam effective during admission for severe restless leg syndrome symptoms, recommend PRN prescription by primary care provider if patient has recurrence of severe symptoms. Symptoms stable at discharge. 3. PVD-continue aspirin, statin. Outpatient follow-up with vascular. 4. Chronic kidney disease stage III-stable. 5. CAD-continue aspirin, Plavix, isosorbide, lisinopril, statin, Ranexa. 6. Chronic COPD-no acute exacerbation. 7. Type 2 diabetes mellitus-continue metformin, Levemir regimen. 8. Hypertension-stable, continue lisinopril, isosorbide, Lasix. 9. History of unspecified memory impairment/depression-continue Lexapro regimen. General: Alert, Oriented x3, Cooperative HEENT: Atraumatic, PERRLA, EOMI, Normocephalic Neck: Supple, No JVD, Negative Carotid Bruits Lungs: Clear to auscultation, Normal air movement Cardiovascular: Regular rate, Regular Rhythm, Normal S1, Normal S2, No murmurs Abdomen: Bowel Sounds Present, Soft, Non Tender, Non-Distended Extremities: No clubbing, No cyanosis, No edema, Capillary Refill Less than 3 Seconds, - - Restless legs Skin: - - Right great toe osteo, bilateral lower extremity nonhealing wounds-dressings intact Musculoskeletal: No Tenderness to Palpation of Joints or Extremities Neurological: Cranial nerves II-XII grossly intact, Neuro grossly intact Psych/Mental Status: Normal Affect, Appropriate Patient seen and examined prior to discharge. Physical assessment as noted above. Patient is stable for discharge with follow up recommendations as noted above. This patient was seen by KENJI Donis under the supervision of Dr. Daigle. - Physical Exam Vitals/I&O's: Vital Signs Temp Pulse Resp BP Pulse Ox 97.7 F L 69 18 159/76 H 98 02/21/19 08:30 02/21/19 13:21 02/21/19 13:21 02/21/19 08:30 02/21/19 08:30 Oxygen Flow Rate (L/min) 2 Oxygen Delivery Method Room Air Weight: 190 lb 7.67 oz Body Mass Index (BMI) 31.6 Finger Stick Blood Glucose 390 Intake and Output for Last 24 Hours 02/19/19 02/20/19 02/21/19 23:59 23:59 23:59 Intake Total 3895.0 / 3895.0 2708.75 / 3228.75 2426.25 / 2426.25 Output Total 1250 / 1250 1650 / 2050 1300 / 1300 Balance 2645.0 / 2645.0 1058.75 / 1178.75 1126.25 / 1126.25 Microbiology Past 72 Hours 02/18/19 07:00 Wound - Toe Gram Stain - Final 02/18/19 07:00 Wound - Toe Wound Culture - Final Staphylococcus aureus Corynebacterium striatum 02/18/19 07:00 Wound - Toe Anaerobic Culture - Preliminary Checking for anaerobes, further studies to follow. 02/17/19 20:25 Blood Culture (Wb) - Anticubital Left Blood Culture - Preliminary No growth in 48 hours. 02/17/19 20:30 Blood Culture (Wb) - Right Wrist Blood Culture - Preliminary No growth in 48 hours. Laboratory Results 02/20/19 16:48: POC Glucose 299 H 02/20/19 21:16: POC Glucose 215 H 02/21/19 06:52: POC Glucose 198 H 02/21/19 11:49: POC Glucose 274 H Current Medications Acetaminophen (Tylenol) 650 mg PO Q6H PRN PRN PRN Reason: Pain Score 1-10/Temp > 100.7 F Last Admin: 02/21/19 04:22 Dose: 650 mg Documented by: Albuterol Sulfate (Ventolin Aerosols) 2.5 mg INHALATION Q6HWA.RT [facility], [facility] Last Admin: 02/21/19 13:21 Dose: 2.5 mg Documented by: Aspirin (Aspirin, Baby) 81 mg PO DAILY@0800 [facility], [facility] Last Admin: 02/21/19 08:12 Dose: 81 mg Documented by: Budesonide (Pulmicort Aerosol) 0.5 mg INHALATION Q12H.RT [facility], [facility] Last Admin: 02/21/19 07:15 Dose: 0.5 mg Documented by: Cholecalciferol (Vitamin D) 2,000 unit PO DAILY [facility] Last Admin: 02/21/19 10:06 Dose: 2,000 unit Documented by: Clonazepam (Klonopin) 0.5 mg PO Q12H PRN PRN PRN Reason: Severe Restless Legs, Anxiety Last Admin: 02/20/19 19:59 Dose: 0.5 mg Documented by: Clopidogrel Bisulfate (Plavix) 75 mg PO DAILY [facility] Last Admin: 02/21/19 10:06 Dose: 75 mg Documented by: Enoxaparin Sodium (Lovenox) 40 mg SC DAILY [facility] Last Admin: 02/21/19 10:06 Dose: 40 mg Documented by: Escitalopram Oxalate (Lexapro) 15 mg PO DAILY [facility] Last Admin: 02/21/19 10:07 Dose: 15 mg Documented by: Famotidine (Pepcid) 20 mg PO DAILY [facility] Last Admin: 02/21/19 10:07 Dose: 20 mg Documented by: Furosemide (Lasix) 20 mg PO DAILY [facility] Last Admin: 02/21/19 10:08 Dose: 20 mg Documented by: Glucagon () 1 mg IM .X1 PRN PRN Reason: Hypoglycemia Hydralazine HCl (Apresoline Iv) 10 mg IV Q8H PRN PRN PRN Reason: for SBP>160 Last Admin: 02/20/19 20:25 Dose: 10 mg Documented by: Sodium Chloride () 250 mls @ 15 mls/hr IV .[id number] PRN PRN Reason: Saline Flush Last Infusion: 02/20/19 21:32 Dose: 0 mls/hr Documented by: Sodium Chloride () 250 mls @ 15 mls/hr IV .[id number] PRN PRN Reason: Additional IVPB Infusion Dextrose (Dextrose 10%-Water) 250 mls @ 999 mls/hr IV .Q16M PRN; Protocol PRN Reason: HYPOGLYCEMIA Sodium Chloride () 250 mls @ 15 mls/hr IV .[id number] PRN PRN Reason: Saline Flush Insulin Glargine (Lantus (Bkc)) 31 units SC QHS [facility] Last Admin: 02/20/19 21:18 Dose: 31 u Documented by: Insulin Human Lispro (Humalog Kwikpen (Bkc)) 0 unit SC [facility]; Protocol Last Admin: 02/21/19 11:51 Dose: 4 u Documented by: Isosorbide Dinitrate (Isordil) 40 mg PO BID [facility] Last Admin: 02/21/19 10:06 Dose: 40 mg Documented by: [facility] 400) [facility] Last Admin: 02/21/19 08:14 Dose: 400 mg Documented by: Melatonin (Melatonin) 10 mg PO QHS [facility] Last Admin: 02/20/19 21:28 Dose: 10 mg Documented by: Metoprolol Succinate (Toprol Xl (Beta Gaye)) 50 mg PO DAILY [facility] Last Admin: 02/21/19 10:06 Dose: 50 mg Documented by: Multivitamins/Minerals (Multivitamin With Minerals) [facility] Last Admin: 02/21/19 08:12 Dose: 1 tablet Documented by: Nicotine (Nicoderm Cq (Pbkc)) 21 mg TRANSDERM. DAILY [facility] Last Admin: 02/21/19 10:06 Dose: 21 mg Documented by: Nutritional Formula (Rosendo - Dickson Flavor) [facility] Last Admin: 02/21/19 08:14 Dose: 1 packet Documented by: Nystatin (Mycostatin Powder) 1 applic TOPICAL BID [facility]; Protocol Last Admin: 02/21/19 10:08 Dose: 1 applicatio Documented by: Olanzapine (Zyprexa) 10 mg PO QHS [facility] Last Admin: 02/20/19 21:22 Dose: 10 mg Documented by: Kdphg-1-Guye Ethyl Esters (Lovaza) 1 gm PO BID [facility] Last Admin: 02/21/19 10:05 Dose: 1 gm Documented by: Oxycodone HCl (Oxyir) 5 mg PO Q6H PRN PRN PRN Reason: Pain Score 6-10/10 Last Admin: 02/21/19 04:22 Dose: 5 mg Documented by: Pramipexole Dihydrochloride (Mirapex) 0.5 mg PO QHS [facility] Last Admin: 02/20/19 21:28 Dose: 0.5 mg Documented by: Pravastatin Sodium (Pravachol) 40 mg PO QHS [facility] Last Admin: 02/20/19 21:22 Dose: 40 mg Documented by: Pregabalin (Lyrica) 100 mg PO TID [facility] Last Admin: 02/21/19 14:49 Dose: 100 mg Documented by: Ranolazine (Ranexa) 1,000 mg PO BID [facility] Last Admin: 02/21/19 10:05 Dose: 1,000 mg Documented by: Senna/Docusate Sodium (Senokot-S, Kirstie-Colace) 1 tablet PO BID [facility] Last Admin: 02/21/19 11:52 Dose: Not Given Documented by: Sodium Chloride () 10 - 40 ml IV UD PRN PRN Reason: SALINE FLUSH Last Admin: 02/20/19 20:25 Dose: 10 ml Documented by: Discharge Diet: 1800 Calorie Control Diet Discharge Activity: Return to Normal Activity Weight Bearing Status: Partial weight bearing - heel weightbear bilateral lower extremities in surgical shoes Keep extremity elevated above heart level: Left Leg, Right Leg Call your doctor if your incision/area has: Continuous Slow Oozing, Sudden Increased Bleeding, Increased Pain/ Swelling, Increased Redness, Foul Smelling Discharge, Swelling at the incision site Call your doctor if you observe: Fever of 101 or Higher, Calf discomfort, Uncontrolled pain Cleanse incision/area with: - - change dressing daily with hydrogel and gauze (right 4th toe and left 3rd toe) Home Medications: Medications to take at Discharge Ranolazine [Ranexa] 1,000 mg PO BID #60 tab.er.12h 11/11/13 Aspirin [Aspirin, Baby] 81 mg PO DAILY@0800 #0 tab.chew 03/10/14 Clopidogrel Bisulfate [Plavix] 75 mg PO DAILY #30 tab 03/10/14 Senna/Docusate Sodium [Senokot-S] 2 tab PO BID #0 tab 03/10/14 Lisinopril [Prinivil] 5 mg PO DAILY 01/21/17 Multivit,Calc,Mins/Iron/Folic [Thera M Plus Tablet] 1 ea PO DAILY 01/21/17 metFORMIN HCl [Glucophage] 1,000 mg PO BIDCM 01/21/17 Fluticasone/Salmeterol [Advair 250-50 Diskus] 1 ea IH BID 01/22/17 Insulin Detemir [Levemir FlexPen] 31 units SC QHS 03/09/17 metoprolol tartrate 50 mg tablet 50 mg PO DAILY tab 05/01/17 Cholecalciferol (Vitamin D3) [Vitamin D3] 2,000 unit PO DAILY 02/17/19 Escitalopram Oxalate [Lexapro] 5 mg PO DAILY 02/17/19 Escitalopram Oxalate [Lexapro] 10 mg PO DAILY 02/17/19 Famotidine [Pepcid] 20 mg PO DAILY 02/17/19 Furosemide [Lasix] 20 mg PO DAILY 02/17/19 Insulin Aspart [Novolog Flexpen] 4 units SUBCUT BID 02/17/19 Insulin Aspart [Novolog Flexpen] 6 units SUBCUT DINNER 02/17/19 Insulin Aspart [Novolog Flexpen] See Protocol SUBCUT ACHS 02/17/19 Isosorbide DN [Isordil] 40 mg PO BID 02/17/19 Melatonin 10 mg PO QHS 02/17/19 Olanzapine 10 mg PO QHS 02/17/19 [place]-3 Fatty Acids/Fish Oil [Fish Oil 1,000 mg Capsule] 1 cap PO BID 02/17/19 Pramipexole Di-HCl [Mirapex] 0.5 mg PO QHS 02/17/19 Pravastatin [Pravachol] 40 mg PO QHS 02/17/19 Pregabalin [Lyrica] 75 mg PO TID 02/17/19 Amox/Clavulanate Tablet [Augmentin Tablet] 875 mg PO Q12H #20 tab 02/21/19 Magnesium Oxide [Mag-Ox 400] 400 mg PO DAILYCM #30 tab 02/21/19 Following Prescrptions Were Given to Patient: Amox/Clavulanate Tablet [Augmentin Tablet] 875 mg PO Q12H #20 tab Transmission Status: Received by [id number] Magnesium Oxide [Mag-Ox 400] 400 mg PO DAILYCM #30 tab Transmission Status: Received by [id number] Primary Care Physician: Judith Goldman NP-C [Primary Care Provider] - Please follow up with your Primary Care Physician in: 1 Week Please Follow Up With: Gerson Chase MD When: Call to schedule appointment Please Follow Up With: Clinic,Wound When: [address] Herrera. Call [phone] sooner if concerns. Disposition: Asstd Living/Non-Skill NH Minutes spent on discharge:: 35 Patient Condition:: Stable Medical Necessity - Tobacco Use Smoking Status: Current every day smoker Tobacco Use: Cigarettes Meaningful Use Info Meaningful Use Diagnoses (Choose all that apply): None applicable
== END 2019-02-21 15:45 | disposition home or self-care (01) | DRG 624 ==
LOC: ED 19:45 → MS3 22:33
PROVIDERS: Hospitalist; Nurse Practitioner Family; Physician Assistant; Admitting Provider Family Medicine; Emergency Provider Emergency Medicine; Family Provider Nurse Practitioner Adult Health; PCP Nurse Practitioner Adult Health; Referring Provider Family Medicine; Visit Provider Internal Medicine
DX: E11.621 Type 2 diabetes mellitus with foot ulcer (principal); G25.81 Restless legs syndrome; I25.10 Atherosclerotic heart disease of native coronary artery without angina pectoris; J44.9 Chronic obstructive pulmonary disease, unspecified; E78.5 Hyperlipidemia, unspecified; M20.42 Other hammer toe(s) (acquired), left foot; M20.41 Other hammer toe(s) (acquired), right foot; E11.22 Type 2 diabetes mellitus with diabetic chronic kidney disease; B95.61 Methicillin susceptible Staphylococcus aureus infection as the cause of diseases classified elsewhere; B96.89 Other specified bacterial agents as the cause of diseases classified elsewhere; M79.7 Fibromyalgia; N18.3 Chronic kidney disease, stage 3 (moderate); K21.9 Gastro-esophageal reflux disease without esophagitis; I73.9 Peripheral vascular disease, unspecified; I12.9 Hypertensive chronic kidney disease with stage 1 through stage 4 chronic kidney disease, or unspecified chronic kidney disease; F32.9 Major depressive disorder, single episode, unspecified; E13.621 Other specified diabetes mellitus with foot ulcer; L97.519 Non-pressure chronic ulcer of other part of right foot with unspecified severity; M51.36 Other intervertebral disc degeneration, lumbar region; L97.522 Non-pressure chronic ulcer of other part of left foot with fat layer exposed; Z79.02 Long term (current) use of antithrombotics/antiplatelets; Z79.82 Long term (current) use of aspirin; Z89.422 Acquired absence of other left toe(s); Z95.1 Presence of aortocoronary bypass graft
CPT/HCPCS: 36415; 73630; 80048; 82962; 83735; 84443; 85025; 85652; 86140; 87040; 87070; 87075; 87077; 87186; 87205; 93971; 94640; 97802; 99285; 99406; J7030; J7050; A4216

== ENCOUNTER 2019-02-23 13:28 | Inpatient (IN) | payer MEDICARE, MEDICAID, SELFPAY ==
[2019-02-23 13:36] VITALS: BP 142/83; PULSE 69; RESP 17; TEMP 36.7; O2SAT 96; O2SAT 97; BMI 33.3
[2019-02-23 13:46] VITALS: BP 156/73; PULSE 69; RESP 18; TEMP 36.7; O2SAT 97
[2019-02-23 14:21] LABS: Erythrocyte Sedimentation Rate 74 mm/hr (0-30)
[2019-02-23 14:22] LABS: Absolute Lymphocyte Count 1.49 X10^3/uL (0.83-4.51); Absolute Neutrophil Count 4.7 X10^3/uL (2.0-7.7); Basophil# 0.04 X10^3/uL; Basophil% 0.5 % (0-1); Eosinophils% 2.7 % (0-5); Hematocrit 29.4 % (37-47); Hemoglobin 9.1 g/dL (12.0-15.0); Lymphocyte # 1.49 X10^3/ul (4.0); Lymphocyte % 20.1 % (19-41); Mean Platelet Vol. 10.9 fl (6.2-12.0); Monocyte# 0.99 X10^3/uL; Monocyte% 13.3 % (0-10); NRBC Flagged by Analyzer 0 % (0-5); Neutrophil # 4.66 X10^3/uL (2.7-7.7); Neutrophil % 62.9 % (47-70); Platelet Count 260 K/mm3 (150-450); RBC Distribution Width CV 13.1 % (11.6-14.6); RBC Distribution Width SD 46.9 fl (35.1-43.9); Red Blood Count 3.03 M/mm3 (4.2-5.4); White Blood Count 7.4 K/mm3 (4.4-11.0)
--- NOTE | 2019-02-23 14:27 | RAD_ITS ---
STUDY: X-RAY - LEFT FOOT CLINICAL: Female, 64 years old. NONHEALING WOUND 3rd TOE TECHNIQUE: 3 view(s) of the foot. COMPARISON: 02/17/2019 FINDINGS: Small calcaneal spur demonstrated. Normal visualized subtalar, talonavicular, calcaneocuboid, tarsal and tarsometatarsal articulations. Partial amputation of the fifth digit/metatarsal, stable. Advanced degenerative changes of the first MTP joint, stable since the prior study with some erosive features along the joint margins. Normal tibial and fibular sesamoid bones. Normal interphalangeal joint of the great toe. Normal phalanges of the great toe. Normal second through fifth metatarsophalangeal joints. There continues to be soft tissue swelling of the third digit without interval change. There are surgical clips of the lower leg. RAD/Foot min 3 Views IMPRESSION: 1. Stable exam. 2. Advanced degenerative changes of the first MTP joint with some erosive features, query gout. 3. Stable soft tissue swelling of the third digit. 4. Prior fifth digit/partial fifth metatarsal amputation. Electronically Signed: Cole Messina MD (Brooks) at 14:47 EST , Service support ,
[2019-02-23 14:32] LABS: Anion Gap 5 (5-15); BUN 27 mg/dL (7-18); BUN/Creat Ratio 18.4 RATIO (10-20); Calcium,Total 8.3 mg/dL (8.5-10.1); Chloride 112 mmol/L (98-107); Creatinine, Serum 1.47 mg/dL (0.55-1.02); EST Glomerular Filtration Rate 38 mL/min (>60); Est Glom Filt Rate - Afr Amer 46 mL/min (>60); Estimated Creatinine Clearance 35.25 ml/min; Glucose 142 mg/dL (74-106); Potassium 4.7 mmol/L (3.5-5.1); Sodium Level 141 mmol/L (136-145)
--- NOTE | 2019-02-23 14:43 | NURSING ---
DR CASTILLO PAGED
--- NOTE | 2019-02-23 14:46 | NURSING ---
DR PALOMINO RETURNED CALL
--- NOTE | 2019-02-23 14:52 | ED.DCSUM_ITS ---
History of Present Illness Chief Complaint: Lower Extremity Injury Past Medical History - Allergies and Home Meds Allergies/Adverse Reactions: Allergies ciprofloxacin [From Cipro] Allergy (Verified 02/17/19 18:52) Unknown clarithromycin [From Biaxin] Allergy (Verified 02/17/19 18:52) Rash codeine Allergy (Verified 02/17/19 18:52) Rash clarithromycin Allergy (Unknown, Uncoded 02/17/19 18:52) Unknown Primary Care Physician: Judith Goldman NP-C [Primary Care Provider] - Surgical History: coronary bypass surgery, - - stent x 6, hysterectomy, C- section, bladder surgery, gastric bypass, spinal fusion, mutation of left fifth toe Smoking Status: Current every day smoker - Family History Maternal Family History: Reports: Diabetes, Heart Disease Paternal Family History: Reports: Diabetes, Heart Disease Sibling Family History: Reports: Diabetes Physical Exam Vital Signs/Narrative: Vital Signs Temp Pulse Resp BP Pulse Ox 02/23/19 13:46 98.1 F 69 18 156/73 H 97 02/23/19 13:36 98.1 F 69 17 142/83 H 97 Diagnostic/Tx/Re-eval - Medical Decision Making The patient was seen with Elke agree with history and physical as above patient has a history of left lower extremity diabetic foot infection she was discharged from the hospital with ongoing outpatient care nursing center including Augmentin on evaluation she has discoloration and chronic skin changes to the toes, it is hard to know exactly if there is a significant change of his current chronic status there is generally poor perfusion that is unchanged there is no blistering obvious redness warmth and there is been no trauma per the family I spoke with Dr. moses her core worker the plan had been for the patient to ongoing outpatient wound care antibiotics and to see us for surgery for the possibility of some type of vascular procedure that would help healing, help her if she required surgery with postoperative healing it is unclear if that has been arranged yet Dr. hernandez felt she could be seen in the wound care center tomorrow or seen by herself in the wound care center on Sunday to further coordinate her care, will discuss this plan with the family see the chart for full details ED Disposition - Plan for ED Patient: Referrals: Judith Goldman NP-C [Primary Care Provider] -
[2019-02-23] MEDS: oxyCODONE 5 MG Tablet PO ×2 (15:24→21:57)
--- NOTE | 2019-02-23 15:24 | HP.PCM_ITS ---
History of Present Illness Date of Admission: 02/23/19 Chief Complaint: Right toe pain and ulcer. The patient is a 64 year old F with an extensive past medical history as listed. She was admitted through the ED on 02/23/2019 with a complaint of pain, swelling and ulceration of her left second toe. Patient was admitted and recently discharged from [facility] for cellulitis of the left 3rd toe. During the previous admission, she was admitted and managed for right great toe osteo-myelitis and was put on IV Zosyn and had bedside debridement done. Cultures grew staph aureus and corynebacterium and blood cultures were negative. She was discharged to assisted living on p.o. Augmentin 75 mg twice daily for 10 days and was to follow-up with wound care and podiatry. However, according to her daughter, over the last 48 hours, it was noted that her left second toe was getting swollen was very painful and associated with redness of her left lower extremity. She said fever chills, nausea vomiting no abdominal pain, diarrhea or chest pain or shortness of breath. Of note, she had angioplasty of the right superficial femoral artery on 03/05/[address] Nair. She was brought into the ED after the skilled nursing called her daughter who asked that she be brought to the ED. On admission, vitals were not remarkable with temperature be 98.2 Fahrenheit and pulse rate of 670 respiratory of 68. Chemistry was significant for creatinine of 1.47 sodium of 141 and potassium of 4.7. CBC showed WBC of 7.4 with hemoglobin of 9.1 and platelets of 260. X-ray of the left foot showed advanced degenerative changes of the first metatarsophalangeal joint with some erosive features query gout and stable soft tissue swelling of the third digit as well as prior fifth digit partial fifth metatarsal amputation. She has been admitted to be managed for cellulitis of the left foot. Of note, her biomass production manager Dr. Whyte was called by the ED doctor and per ED note, it was felt that she could be seen in the wound care center tomorrow on Sunday as she would need some type of vascular procedure that would help with healing prior to surgery. However family insisted that they wanted her to be admitted. [] Past Medical History Past Medical History (Chronic Problems): Chronic Problems (Last Updated 02/19/19 @ 12:04 by Aman Salazar MD) Diabetes mellitus type II (Chronic) diabetic ulcer dorsum right foot (Chronic) Chronic hypertension (Chronic) Degenerative disc disease, lumbar (Chronic) Delayed wound healing (Chronic) Chronic ulcer of left foot with fat layer exposed (Chronic) Memory loss (Chronic) MISTI (obstructive sleep apnea) (Chronic) Chronic ulcer of left foot with fat layer exposed (Chronic) Non-compliance (Chronic) GERD (Chronic) Fibromyalgia (Chronic) COPD (Chronic) Type 2 diabetes mellitus with diabetic polyneuropathy (Chronic) Anemia (Chronic) Tobacco use disorder (Chronic) Carotid arterial disease (Chronic) PVD (peripheral vascular disease) (Chronic) CVA (cerebral vascular accident) (Chronic) Paroxysmal atrial fibrillation (Chronic) Hyperlipidemia (Chronic) Medical History: Medical History (Last Updated 02/19/19 @ 12:04 by Aman Salazar MD) Non-compliance (Chronic) Z91.19 Fibromyalgia (Chronic) COPD (Chronic) Type 2 diabetes mellitus with diabetic polyneuropathy (Chronic) E11.42 Anemia (Chronic) D64.9 Tobacco use disorder (Chronic) F17.200 Carotid arterial disease (Chronic) I77.9 PVD (peripheral vascular disease) (Chronic) I73.9 CVA (cerebral vascular accident) (Chronic) I63.9 Paroxysmal atrial fibrillation (Chronic) Hyperlipidemia (Chronic) B12 deficiency E53.8 CAD (coronary artery disease) I25.10 Dementia F03.90 GERD (gastroesophageal reflux disease) K21.9 Neuropathy G62.9 Type 2 diabetes mellitus with features of insulin resistance E11.9 HTN (hypertension) I10 depression with paranoia Chronic ulcer of left foot with fat layer exposed (Inactive) L97.522 Osteomyelitis of toe of left foot (Inactive) M86.9 Allergies ciprofloxacin [From Cipro] Allergy (Verified 02/17/19 18:52) Unknown clarithromycin [From Biaxin] Allergy (Verified 02/17/19 18:52) Rash codeine Allergy (Verified 02/17/19 18:52) Rash clarithromycin Allergy (Unknown, Uncoded 02/17/19 18:52) Unknown Home Medications: Ambulatory Orders Medication Instructions Recorded Ranolazine [Ranexa] 1,000 mg PO BID #60 tab.er.12h 11/11/13 Aspirin [Aspirin, Baby] 81 mg PO DAILY@0800 #0 tab.chew 02/03/15 Clopidogrel Bisulfate [Plavix] 75 mg PO DAILY #30 tab 03/10/14 Senna/Docusate Sodium [Senokot-S] 2 tab PO BID #0 tab 03/10/14 Lisinopril [Prinivil] 5 mg PO DAILY 01/21/17 Multivit,Calc,Mins/Iron/Folic 1 ea PO DAILY 01/21/17 [Thera M Plus Tablet] metFORMIN HCl [Glucophage] 1,000 mg PO BIDCM 01/21/17 Insulin Detemir [Levemir FlexPen] 31 units SC QHS 03/09/17 metoprolol tartrate 50 mg tablet 50 mg PO DAILY tab 05/01/17 Cholecalciferol (Vitamin D3) 2,000 unit PO DAILY 02/17/19 [Vitamin D3] Escitalopram Oxalate [Lexapro] 5 mg PO DAILY 02/17/19 Escitalopram Oxalate [Lexapro] 10 mg PO DAILY 02/17/19 Famotidine [Pepcid] 20 mg PO DAILY 02/17/19 Furosemide [Lasix] 20 mg PO DAILY 02/17/19 Insulin Aspart [Novolog Flexpen] 4 units SUBCUT BID 02/17/19 Insulin Aspart [Novolog Flexpen] 6 units SUBCUT DINNER 02/17/19 Insulin Aspart [Novolog Flexpen] See Protocol SUBCUT ACHS 02/17/19 Isosorbide DN [Isordil] 40 mg PO BID 02/17/19 Melatonin 10 mg PO QHS 02/17/19 Olanzapine 10 mg PO QHS 02/17/19 Holland-3 Fatty Acids/Fish Oil [Fish 1 cap PO BID 02/17/19 Oil 1,000 mg Capsule] Pramipexole Di-HCl [Mirapex] 0.5 mg PO QHS 02/17/19 Pravastatin [Pravachol] 40 mg PO QHS 02/17/19 Pregabalin [Lyrica] 75 mg PO TID 02/17/19 Amox/Clavulanate Tablet [Augmentin 875 mg PO Q12H #20 tab 02/21/19 Tablet] Magnesium Oxide [Mag-Ox 400] 400 mg PO DAILYCM #30 tab 02/21/19 Cyanocobalamin (Vitamin B-12) 1,000 mcg PO DAILY 02/23/19 [Vitamin B-12] Fluticasone/Salmeterol [Advair 1 ea IH BID 02/23/19 250-50 Diskus] Surgical History: Surgical History (Last Reviewed 08/13/17 @ 13:40 by Etta Lynch) amputation left fifth toe Surgical History: coronary bypass surgery, - - stent x 6, hysterectomy, C- section, bladder surgery, gastric bypass, spinal fusion, mutation of left fifth toe Psychiatric History: No pertinent psych hx DATA ANALYTICS CHIEF SCIENTIST History: No pertinent DATA ANALYTICS CHIEF SCIENTIST history Smoking Status: Current every day smoker - *Family History Maternal History Items: Diabetes, Heart Disease Paternal History Items: Diabetes, Heart Disease Sibling History Items: Diabetes Review of Systems Constitutional: Denies: Chills, Fever, Malaise, Weakness, Weight Change Eyes: Denies: Blurred vision HEENT: Denies: Head Aches, Sinus Congestion, Sinus Drainage Cardiovascular: Denies: Chest Pain, Palpitations Respiratory: Denies: Cough, Shortness of Breath, Shortness of breath at rest, Shortness of breath upon exertion, Sputum production Gastrointestinal: Denies: Abdominal Pain, Nausea, Vomiting Genitourinary: Denies: Dysuria Musculoskeletal: Reports: Foot Pain. Denies: Joint Pain, Joint Tenderness Skin: Reports: Wounds - ulceration of left third toe. Denies: Rash Neurological: Reports: Numbness - due to peripheral neuropathy of LEs. Denies: Focal weakness Psychiatric: Denies: Anxiety, Depression, Homicidal Ideations, Suicidal Ideations Hematologic/ Lymphatic: Denies: Easy Bruising, Easy Bleeding VTE Information - Inpt Only VTE Present on Admission: No VTE Pharm Prophylaxis ordered?: Yes Patient Problems: Active and Suspected Problems (Last Updated 02/19/19 @ 12:04 by Aman Salazar MD) Failure of outpatient treatment (Acute) Diabetic toe ulcer (Acute) - Physical Exam Vitals/I&O's: Vital Signs Temp Pulse Resp BP Pulse Ox 98.1 F 69 18 156/73 H 97 02/23/19 13:46 02/23/19 13:46 02/23/19 13:46 02/23/19 13:46 02/23/19 13:46 Oxygen Delivery Method Room Air Weight: 200 lb 2.876 oz Body Mass Index (BMI) 33.3 Finger Stick Blood Glucose 390 General: Alert, Oriented x3, Cooperative, Lethargic HEENT: Atraumatic, PERRLA, EOMI, Normocephalic Oral: Dry Mucosa Neck: Supple, No JVD, Negative Carotid Bruits Lungs: Clear to auscultation, Normal air movement, No rhonchi, No wheeze, No rales Cardiovascular: Regular rate, Regular Rhythm, Normal S1, Normal S2, No murmurs Abdomen: Bowel Sounds Present, Soft, Non Tender, Non-Distended, No Hepato- splenomegaly Extremities: No clubbing, No cyanosis, No edema Skin: - - left third toe is swollen, erythematous, with ulceration of base of left 3rd toe. Left foot is mildly warm, with mild erythema of foot, up to mid camacho Musculoskeletal: No Tenderness to Palpation of Joints or Extremities Lymphatic: No Cervical, Supraclavicular, or Inguinal Adenopathy Neurological: Cranial nerves II-XII grossly intact Psych/Mental Status: Normal Affect, Appropriate, Alert and oriented to time, place, person, mood and affect Laboratory Results 02/23/19 14:15: WBC 7.4, RBC 3.03 L, Hgb 9.1 L, Hct 29.4 L, MCV 97.0, MCH 30.0, MCHC 31.0 L, RDW Std Deviation 46.9 H, RDW Coeff of Anjelica 13.1, Plt Count 260, MPV 10.9, Immature Gran % (Auto) 0.500, Neut % (Auto) 62.9, Lymph % (Auto) 20.1, [place] % (Auto) 13.3 H, Eos % (Auto) 2.7, Baso % (Auto) 0.5, Absolute Neuts (auto) 4.7, Absolute Lymphs (auto) 1.49, Nucleated RBC % 0, ESR 74 H 02/23/19 14:15: Sodium 141, Potassium 4.7, Chloride 112 H, Carbon Dioxide 24.0, Anion Gap 5, BUN 27 H, Creatinine 1.47 H, Estim Creat Clear Calc 35.25, Est GFR (MDRD) Af Amer 46 L, Est GFR (MDRD) Non-Af 38 L, BUN/Creatinine Ratio 18.4, Glucose 142 H, Calcium 8.3 L Diagnostic Data Foot X-Ray 02/23/19 14:27 IMPRESSION: 1. Stable exam. 2. Advanced degenerative changes of the first MTP joint with some erosive features, query gout. 3. Stable soft tissue swelling of the third digit. 4. Prior fifth digit/partial fifth metatarsal amputation. Electronically Signed: Cole Messina MD (Brooks) at 14:47 EST , Service support , Assessment/Plan All Active Problems (Last Updated 02/19/19 @ 12:04 by Aman Salazar MD) Failure of outpatient treatment (Acute) Diabetic toe ulcer (Acute) 64 y/o admitted with a complaint of left third toe swelling and redness as well as pain 1. Cellulitis of the left third toe with probable osteomyelitis * patient may have probable osteomyelitis of the third toe as well * admit to Med surg. * Xray of left foot shows advanced degenerative changes of 1st MTP joint with some erosive features, ?gout; stable soft tissue swelling of the third digit and prior 5th digit partial metatarsal amputation * get blood cultures. * start on IV vancomycin and zosyn * previous wound cultures showed MSSA and corynebacterium * consult podiatry * 2.Peripheral vascular disease * previous arteriogram done in february 2017 showed mild vaso-occlusive disease in RLE and moderate occlusive disease in LLE * May Need vascular surgery consult for vascular intervention before after surgery. * On Imdur, aspirin, statin and Ranexa * for arterial studies tomorrow; discussed with Dr Herrera on phone; she will see patient and determine if patient will need vascular surgery intervention before or after foot surgery * 3. Type 2 diabetes mellitus with peripheral neuropathy: * On Lantus 31 units nightly. Insulin sliding scale. Accu-Cheks AC at bedtime. * Hold metformin for now * 4. Hypertension: On metoprolol and lisinopril. Insulin scale. Checks AC at bedtime. 5. History of CVA: On aspirin and Plavix as well as statin 6. Paroxysmal A. fib currently on currently rate and rhythm controlled. 7. COPD: On Advair. Breathing treatments with duo nebs PRN. 2. History of dementia: DVT prophylaxis: Lovenox Code Visit OBSV E&M: [id number] Initial observation care L2
--- NOTE | 2019-02-23 15:28 | NURSING ---
MED SURG CELLULITIS OF THE FOOT KORAM
--- NOTE | 2019-02-23 15:39 | ED.DCSUM_ITS ---
History of Present Illness Chief Complaint: Lower Extremity Injury Informant: Patient, Family, Third Hand, SNF Onset: Yesterday Context: Gradual Onset Timing: Continuous Quality: swelling Location: left foot Current Severity: Severe Maximum Severity: Severe Worsened by: nothing Relieved by: nothing Associated Symptoms: redness, swelling, wound Narrative: 64-year-old female peripheral vascular disease history as well as insulin- dependent diabetes presents for wound check left fourth toe. Patient has a diabetic ulcer on this toe. She was actually discharged from this hospital 2 days ago for similar. She has been at assisted living wound has progressively gotten worse now her entire leg is red and swollen and she was sent back to the emergency department for evaluation. No fevers or vomiting. She is not lightheaded or dizzy. She is having some pain in her foot. She does have a history of neuropathy and restless leg syndrome. She has been on Augmentin since discharge. Prior similar symptoms: Yes Recent Illness/Hospitalization: Yes Past Medical History - Allergies and Home Meds Allergies/Adverse Reactions: Allergies ciprofloxacin [From Cipro] Allergy (Verified 02/17/19 18:52) Unknown clarithromycin [From Biaxin] Allergy (Verified 02/17/19 18:52) Rash codeine Allergy (Verified 02/17/19 18:52) Rash clarithromycin Allergy (Unknown, Uncoded 02/17/19 18:52) Unknown Primary Care Physician: Judith Goldman NP-C [Primary Care Provider] - Prior records reviewed: Yes Past Medical History: - - Peripheral vascular disease, coronary artery disease, insulin-dependent diabetes, hypertension, hyperlipidemia Surgical History: coronary bypass surgery, - - stent x 6, hysterectomy, C- section, bladder surgery, gastric bypass, spinal fusion, mutation of left fifth toe Smoking Status: Current every day smoker - Family History Maternal Family History: Reports: Diabetes, Heart Disease Paternal Family History: Reports: Diabetes, Heart Disease Sibling Family History: Reports: Diabetes Review of Systems All systems negative except as indicated General: Denies: Chills, Fever Eyes: Denies: Visual changes - bilaterally, Blurred Vision - bilaterally ENT: Denies: Rhinorrhea, Sore throat Cardiovascular: Denies: Chest pain, Palpitations Respiratory: Denies: Dyspnea, Cough, Sputum Gastrointestinal: Denies: Abdominal pain, Nausea, Vomiting, Diarrhea Genitourinary: Denies: Dysuria, Hematuria, Frequency Musculoskeletal: Reports: Swelling, Extremity Pain. Denies: Neck pain, Back pain Skin: Reports: Abscess, Wounds. Denies: Rash, Abrasions Neurological: Reports: Parasthesia, Numbness. Denies: Headache, Weakness Psych: Denies: Depression, Anxiety Physical Exam Vital Signs/Narrative: Vital Signs Temp Pulse Resp BP Pulse Ox 02/23/19 13:46 98.1 F 69 18 156/73 H 97 02/23/19 13:36 98.1 F 69 17 142/83 H 97 Inital Vital Signs reviewed: Yes General: Well nourished, Well developed, Obese, No Acute Distress Head: Normocephalic, Atraumatic Eyes: Perrl, EOMI ENT: Moist mucous membranes, No rhinorrhea Neck: Supple, Nontender Cardiovascular: Regular rate, Regular rhythm Respiratory: No distress, CTA bilaterally, Chest nontender Abdomen: Soft, Nontender, Nondistended, Normal bowel sounds, No masses Back: Nontender, Normal Inspection Extremities: - - Patient's entire left lower extremity is red and swollen and warm to the touch up to the knee. She has a infected left fourth diabetic toe with ulcer plantar aspect toe is red and swollen. She has an amputated fifth toe. She has normal DP and PT pulse. Diminished capillary refill and sensation of her other 4 toes. Skin: No rash Neurological: Alert, Oriented x3 Psychological: Normal affect Diagnostic/Tx/Re-eval - Medical Decision Making Spoke with sand control worker manager [employer] database dr gomez. States that the patient needs revascularized before she can remove the toe. Infection has gotten worse. Vital signs and labs are stable but we will admit for further evaluation and inpatient treatment as the patient is unable to manage this at home she lives in assisted living but is unable to take care of the wound and has gotten pro gressively worse since Sunday despite being on oral antibiotics and now her entire left leg is painful red and swollen. ED Disposition - Plan for ED Patient: Disposition: Acute Care Hospital [facility] Diagnosis: PVD (peripheral vascular disease), MISTI (obstructive sleep apnea), Diabetes mellitus type II, Chronic ulcer of left foot with fat layer exposed, Failure of outpatient treatment, Diabetic toe ulcer Referrals: Judith Goldman, MOLDING AND TRIM INSTALLER-C [Primary Care Provider] -
[2019-02-23 15:40] VITALS: PULSE 67; RESP 16; TEMP 36.8; O2SAT 98
[2019-02-23 16:41] VITALS: BMI 33.3
[2019-02-23 17:08] VITALS: BP 185/71; PULSE 72; RESP 18; TEMP 36.8; O2SAT 96
[2019-02-23] MEDS: 0.9% Normal Saline 1,000 ML 100 ML IV (17:09)
--- NOTE | 2019-02-23 17:18 | PCM.RX.CS ---
Consult Pharmacy has been consulted to manage selected antiobiotic: Vancomycin Type of Consult: New start Suspected Infection: Skin/Soft tissue Prior Doses of Antibiotics Received/Current Regimen: Vancomycin 1500mg IV x1 in the ER on 02/23/19 at 1641 Labs: Sodium 141 mmol/L (136-145) 02/23/19 14:15 Potassium 4.7 mmol/L (3.5-5.1) 02/23/19 14:15 Chloride 112 mmol/L (98-107) H 02/23/19 14:15 Carbon Dioxide 24.0 mmol/L (21.0-32.0) 02/23/19 14:15 Anion Gap 5 (5-15) 02/23/19 14:15 BUN 27 mg/dL (7-18) H 02/23/19 14:15 Creatinine 1.47 mg/dL (0.55-1.02) H 02/23/19 14:15 Est GFR (MDRD) Af Amer 46 mL/min (>60) L 02/23/19 14:15 Est GFR (MDRD) Non-Af 38 mL/min (>60) L 02/23/19 14:15 BUN/Creatinine Ratio 18.4 RATIO (10-20) 02/23/19 14:15 Glucose 142 mg/dL (74-106) H 02/23/19 14:15 Weight used for dosin kg Estimated Creatinine Clearance: 35ml/min Goal Trough: 15-20 mcg/mL Pharmacy Plan for Drug Dosin year of F admitted for cellulitis of the foot. Pt had a x1 dose of IV Vancomycin 1500mg in the ER on 02/23/19 at 1641. Initial dosing recommendation based on pt weight and CrCl is Vancomycin 1250mg IV q24h to be started 02/24/19 at 1600. Trough to be drawn before the 3rd total dose on 02/25/19 at 1530. Pharmacy will continue to dose based off of the trough result. Pharmacy Service will continue to monitor and adjust dosing as required. Follow-Up Labs: Trough Vancomycin - 02/25/19 at 1530
[2019-02-23 17:50] LABS: Bedside Glucose 106 mg/dL (70-110)
--- NOTE | 2019-02-23 18:58 | CON.PCM_ITS ---
Problem List (1) Osteomyelitis of left foot Status: Suspected Qualifiers: Osteomyelitis type: other acute Qualified Code(s): M86.172 - Other acute osteomyelitis, left ankle and foot (2) Chronic ulcer of left foot with fat layer exposed Status: Chronic (3) PVD (peripheral vascular disease) Status: Chronic (4) Ulcer of right foot with fat layer exposed Status: Acute (5) Type 2 diabetes mellitus with diabetic polyneuropathy Status: Chronic (6) Hammertoe of left foot Status: Acute (7) Hammertoe of right foot Status: Acute Reason for Consult Date of Consultation: 02/23/19 Reason for Consultation: Worsening status of left third toe ulcer with infection History of Present Illness: The patient is a 64 year old F with multiple comorbidities presented to the emergency room earlier today with worsening status of left third toe ulcer. She also has a right fourth toe ulcer. She also presents new status post fall with a right leg wound. Since her discharge on Sunday there is concern that the toe is significantly more swollen, his lack of color, and is draining more. She has continued swelling of the legs which is chronic in nature. She has significant memory loss and has trouble remembering to keep her dressings intact. Upon presentation today it is noted she does not have a dressing in place to her right foot ulcer. There is only a dressing on the left foot and right leg. She denies current fever, chill, nausea, vomiting, shortness of breath, chest pain, calf pain, loss of appetite. She relates her sister Mattie recognize her toe status change and brought her to the emergency room. Recent history review including hospitalization last week: She was initially admitted for concern of right great toe osteomyelitis based on osteolysis of her proximal phalanx radiographically. She did not have any clinical signs of local infection or wound to the right hallux. She had a remote history of ulcer to the right hallux in 2017 which subsequently healed under a comprehensive wound healing plan in the outpatient setting. Around the same time in 2017, she had a left fifth toe infection with tissue loss resulting in a fifth toe amputation. Her pathology clearance fragment was negative for osteomyrliyid, however her micro clearance fragment did demonstrate bacterial growth. At that time she completed a 6-week course of levofloxacin. Around that same time her right hallux x-rays did not demonstrate any osseous destruction. This was considered an old finding and further intervention and workup was not recommended during her hospital admissino last week. However during her hospital admission it was identified that she had a right fourth toe ulcer which was stable without local signs of infection. This was treated with subcutaneous excisional debridement and wound care. It was also identified that she had a left third toe ulcer which appeared devitalized and with some emily-ulcer inflammatory changes consistent with a cellulitis. She was treated with IV antibiotics, subcutaneous excisional debridement, and wound care. Her local signs of infection resolved and she was discharged home on a 10-day course of Augmentin. She was advised to weight-bear to her heel and to keep the ulcer covered at all times. She was advised to follow-up with the wound healing center. I was contacted this evening by emergency room physician. I was informed that she was brought in by family member for concern of the status change of the left third toe ulcer site which is now swollen. I was informed she is afebrile with vital signs stable and a white blood cell count of 7.4. I informed the emergency room physician it is appropriate for her to follow-up with the wound healing center if she does not have any local or systemic signs of infection which I would defer to his exam due to his current presence. If there is a status change and there is concern of either new lack of circulation to the digit or infection hospitalization is recommended. I also informed the emergency room physician that she does have a history of peripheral vascular disease and she was advised to follow-up on an outpatient basis with vascular surgery. I also updated the emergency room physician per her exams last week surgical intervention was not recommended. If there is a status change this would be considered upon new evaluation. Past Medical History Past Medical History (Chronic Problems): Chronic Problems (Last Updated 02/19/19 @ 12:04 by Aman Salazar MD) Diabetes mellitus type II (Chronic) diabetic ulcer dorsum right foot (Chronic) Chronic hypertension (Chronic) Degenerative disc disease, lumbar (Chronic) Delayed wound healing (Chronic) Chronic ulcer of left foot with fat layer exposed (Chronic) Memory loss (Chronic) MISTI (obstructive sleep apnea) (Chronic) Chronic ulcer of left foot with fat layer exposed (Chronic) Non-compliance (Chronic) GERD (Chronic) Fibromyalgia (Chronic) COPD (Chronic) Type 2 diabetes mellitus with diabetic polyneuropathy (Chronic) Anemia (Chronic) Tobacco use disorder (Chronic) Carotid arterial disease (Chronic) PVD (peripheral vascular disease) (Chronic) CVA (cerebral vascular accident) (Chronic) Paroxysmal atrial fibrillation (Chronic) Hyperlipidemia (Chronic) Medical History: Medical History (Last Updated 02/19/19 @ 12:04 by Aman Salazar MD) Non-compliance (Chronic) Z91.19 Fibromyalgia (Chronic) COPD (Chronic) Type 2 diabetes mellitus with diabetic polyneuropathy (Chronic) E11.42 Anemia (Chronic) D64.9 Tobacco use disorder (Chronic) F17.200 Carotid arterial disease (Chronic) I77.9 PVD (peripheral vascular disease) (Chronic) I73.9 CVA (cerebral vascular accident) (Chronic) I63.9 Paroxysmal atrial fibrillation (Chronic) Hyperlipidemia (Chronic) B12 deficiency E53.8 CAD (coronary artery disease) I25.10 Dementia F03.90 GERD (gastroesophageal reflux disease) K21.9 Neuropathy G62.9 Type 2 diabetes mellitus with features of insulin resistance E11.9 HTN (hypertension) I10 depression with paranoia Chronic ulcer of left foot with fat layer exposed (Inactive) L97.522 Osteomyelitis of toe of left foot (Inactive) M86.9 Allergies ciprofloxacin [From Cipro] Allergy (Verified 02/17/19 18:52) Unknown clarithromycin [From Biaxin] Allergy (Verified 02/17/19 18:52) Rash codeine Allergy (Verified 02/17/19 18:52) Rash clarithromycin Allergy (Unknown, Uncoded 02/17/19 18:52) Unknown Home Medications: Ambulatory Orders Medication Instructions Recorded Ranolazine [Ranexa] 1,000 mg PO BID #60 tab.er.12h 11/11/13 Aspirin [Aspirin, Baby] 81 mg PO DAILY@0800 #0 tab.chew 03/10/14 Clopidogrel Bisulfate [Plavix] 75 mg PO DAILY #30 tab 03/10/14 Senna/Docusate Sodium [Senokot-S] 2 tab PO BID #0 tab 03/10/14 Lisinopril [Prinivil] 5 mg PO DAILY 01/21/17 Multivit,Calc,Mins/Iron/Folic 1 ea PO DAILY 01/21/17 [Thera M Plus Tablet] metFORMIN HCl [Glucophage] 1,000 mg PO BIDCM 01/21/17 Insulin Detemir [Levemir FlexPen] 31 units SC QHS 03/09/17 metoprolol tartrate 50 mg tablet 50 mg PO DAILY tab 05/01/17 Cholecalciferol (Vitamin D3) 2,000 unit PO DAILY 02/17/19 [Vitamin D3] Escitalopram Oxalate [Lexapro] 5 mg PO DAILY 02/17/19 Escitalopram Oxalate [Lexapro] 10 mg PO DAILY 02/17/19 Famotidine [Pepcid] 20 mg PO DAILY 02/17/19 Furosemide [Lasix] 20 mg PO DAILY 02/17/19 Insulin Aspart [Novolog Flexpen] 4 units SUBCUT BID 02/17/19 Insulin Aspart [Novolog Flexpen] 6 units SUBCUT DINNER 02/17/19 Insulin Aspart [Novolog Flexpen] See Protocol SUBCUT ACHS 02/17/19 Isosorbide DN [Isordil] 40 mg PO BID 02/17/19 Melatonin 10 mg PO QHS 02/17/19 Olanzapine 10 mg PO QHS 02/17/19 [place]-3 Fatty Acids/Fish Oil [Fish 1 cap PO BID 02/17/19 Oil 1,000 mg Capsule] Pramipexole Di-HCl [Mirapex] 0.5 mg PO QHS 02/17/19 Pravastatin [Pravachol] 40 mg PO QHS 02/17/19 Pregabalin [Lyrica] 75 mg PO TID 02/17/19 Amox/Clavulanate Tablet [Augmentin 875 mg PO Q12H #20 tab 02/21/19 Tablet] Magnesium Oxide [Mag-Ox 400] 400 mg PO DAILYCM #30 tab 02/21/19 Cyanocobalamin (Vitamin B-12) 1,000 mcg PO DAILY 02/23/19 [Vitamin B-12] Fluticasone/Salmeterol [Advair 1 ea IH BID 02/23/19 250-50 Diskus] Surgical History: Surgical History (Last Reviewed 08/13/17 @ 13:40 by Etta Lynch) amputation left fifth toe Surgical History: coronary bypass surgery, - - stent x 6, hysterectomy, C- section, bladder surgery, gastric bypass, spinal fusion, mutation of left fifth toe Psychiatric History: No 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 Denies: Chest Pain, Claudication Respiratory: Denies: Shortness of Breath Gastrointestinal: Denies: Nausea, Vomiting Musculoskeletal: Denies: Leg Pain Skin: Reports: Wounds Neurological: Reports: Incoordination, Numbness Patient Problems: Active and Suspected Problems (Last Updated 02/19/19 @ 12:04 by Aman Salazar MD) Failure of outpatient treatment (Acute) Diabetic toe ulcer (Acute) Ulcer of right foot with fat layer exposed (Acute) Hammertoe of right foot (Acute) Hammertoe of left foot (Acute) Osteomyelitis of left foot (Suspected) - Physical Exam Vitals/I&O's: Vital Signs Temp Pulse Resp BP Pulse Ox 98.2 F 72 18 185/71 H 96 02/23/19 17:08 02/23/19 17:08 02/23/19 17:08 02/23/19 17:08 02/23/19 17:08 Oxygen Delivery Method Room Air Weight: 90.8 kg Body Mass Index (BMI) 33.3 Finger Stick Blood Glucose 390 Intake and Output for Last 24 Hours 02/21/19 02/22/19 02/23/19 23:59 23:59 23:59 Intake Total 820 / 820 Balance 820 / 820 General: Alert, Cooperative, Confused - memory loss is consistent with prior encounters HEENT: Atraumatic Extremities: No cyanosis, Capillary Refill Less than 3 Seconds, No Calf Tenderness, Diminished Peripheral Pulses, Edema Skin: Ulcer/ Wound - Right leg ulcer measures 8 x 8 x 1 mm with granular and sub-hemorrhagic base without deep tissue exposure, necrosis, or infection. Right fourth distal toe ulcer measures 1 x 4 x 1 mm pre-debridement and 2 x 5 x 1 mm post debridement with pale granular base. There is no deep tissue exposure, necrosis, purulence, or infection to the site. The left third toe ulcer site pre-debridement measures 0.9 x 2.4 x 0.3 cm and post debridement 1.1 x 2.5 x 0.3 cm post debridement. There is a new status change with positive probe to bone of the distal phalanx of the toe with fibrous and devitalized base. There is no purulence on expression however of the toe pulp is opaque and does not have capillary fill time. There is also no mychal erythema or streaking. The erythema from her prior visit and hospitalization last week is also no longer present. She does not have interdigital maceration no mychal necrosis or eschar. The left third toe is also more bulbous and has a notable increase in swelling. Her skin in general is atrophic and hairless to bilateral lower extremities. There is no additional bogginess or fluctuance on palpation Musculoskeletal: No Tenderness to Palpation of Joints or Extremities, Muscle Wasting, - - Negative Evelina and Mayberry sign bilateral. Dorsal contraction of lesser digits bilateral Neurological: - - Lack of epicritic sensation light touch is consistent with neuropathy status Psych/Mental Status: Appropriate, - - Lack of memory noted. Pleasant Laboratory Results 02/23/19 14:15: WBC 7.4, RBC 3.03 L, Hgb 9.1 L, Hct 29.4 L, MCV 97.0, MCH 30.0, MCHC 31.0 L, RDW Std Deviation 46.9 H, RDW Coeff of Anjelica 13.1, Plt Count 260, MPV 10.9, Immature Gran % (Auto) 0.500, Neut % (Auto) 62.9, Lymph % (Auto) 20.1, [place] % (Auto) 13.3 H, Eos % (Auto) 2.7, Baso % (Auto) 0.5, Absolute Neuts (auto) 4.7, Absolute Lymphs (auto) 1.49, Nucleated RBC % 0, ESR 74 H 02/23/19 14:15: Sodium 141, Potassium 4.7, Chloride 112 H, Carbon Dioxide 24.0, Anion Gap 5, BUN 27 H, Creatinine 1.47 H, Estim Creat Clear Calc 35.25, Est GFR (MDRD) Af Amer 46 L, Est GFR (MDRD) Non-Af 38 L, BUN/Creatinine Ratio 18.4, Glucose 142 H, Calcium 8.3 L 02/23/19 17:07: POC Glucose 106 Current Medications Enoxaparin Sodium (Lovenox) 40 mg SC DAILY SCOTT Glucagon () 1 mg IM .X1 PRN PRN Reason: Hypoglycemia Sodium Chloride () 250 mls @ 15 mls/hr IV .[id number] PRN PRN Reason: Saline Flush Piperacillin Sod/Tazobactam (Sod 3.375 gm/ Sodium Chloride) 50 mls @ 12.5 mls/hr IV Q8 SCOTT Vancomycin IV Pharmacy to Dose (1 ea/ Sodium Chloride) 500 mls @ 250 mls/hr IV X1 PRN; Protocol PRN Reason: Rx to Dose Sodium Chloride () 1,000 mls @ 100 mls/hr IV .Q10H SCOTT Stop: 02/24/19 02:49 Last Infusion: 02/23/19 18:51 Dose: 100 mls/hr Documented by: Dextrose (Dextrose 10%-Water) 250 mls @ 999 mls/hr IV .Q16M PRN; Protocol PRN Reason: HYPOGLYCEMIA Vancomycin HCl 1,250 mg/ (Sodium Chloride) 275 mls @ 167 mls/hr IV Q24H SCOTT Insulin Human Lispro (Humalog Kwikpen (Bkc)) 0 unit SC ACHS SCOTT; Protocol Ondansetron HCl (Zofran) 4 mg IV Q8H PRN PRN PRN Reason: NAUSEA/VOMITING Oxycodone HCl (Oxyir) 5 mg PO Q4H PRN PRN PRN Reason: Pain Score 4-5/10 Sodium Chloride () 10 - 40 ml IV UD PRN PRN Reason: SALINE FLUSH Assessment/Plan All Active Problems (Last Updated 02/19/19 @ 12:04 by Aman Salazar MD) Failure of outpatient treatment (Acute) Diabetic toe ulcer (Acute) Ulcer of right foot with fat layer exposed (Acute) Hammertoe of right foot (Acute) Hammertoe of left foot (Acute) Left third toe ulcer with status change including concern of osteomyelitis and dysvascular status Right fourth toe ulcer with fat layer exposed, stable no signs of infection Right leg ulcer secondary to trauma, stable and no signs of infection Diabetes with peripheral neuropathy Bilateral hammertoes Peripheral vascular disease status post remote intervention Memory loss and other comorbidities I reviewed and discussed her case. She remains afebrile. Her white blood cell count is 7.4, her sedimentation rate is 74. Due to devitalized status change to the left third toe and now exposed bone there is concern of osteomyelitis and salvageability of this toe. An updated x-ray will be obtained. Due to the compromised tissue I would recommend removal of the toe by means of amputation. She will be started again on IV antibiotics. Updated aerobic and anaerobic and MRSA PCR culture was obtained this evening after debridement was performed. The indications, benefits, and risks were discussed. She is at risk for continued limb loss and complicated healing due to her memory loss and medical comorbidities. She has verbal consent for me to review this case with her family members. This will likely proceed earlier this week pending additional diagnostic data reviewed. I recommend proceeding with vascular referral during this hospital admission. Updated arterial Doppler will be ordered and consult placed. It is noted she is seen a couple of vascular specialist in the past. Subcutaneous excisional debridement was performed with a 15 blade scalpel to the right fourth toe and left third toe ulcer sites after verbal consent was obtained to remove devitalized subcutaneous tissue, fibrous tissue, biofilm and slough. Pressure was applied to maintain hemostasis. A new dressing was applied including Adaptic, gauze, and Ermelinda wrap to bilateral. To heel weight- bear with bilateral surgical shoes. The dressing to her right leg was reapplied with Adaptic gauze and Ermelinda roll as well. Medical management per primary team is appreciated. I will review her plan with the hospitalist this evening. Thank you for the consultation. Peggy Herrera DPM, [facility] [phone]
[2019-02-23 21:43] VITALS: BP 190/78; PULSE 68; RESP 18; TEMP 36.9; O2SAT 98
[2019-02-23] MEDS: Insulin Lispro 100 UNIT/ML INSULN.PEN SC (21:57)
[2019-02-23 22:31] LABS: Bedside Glucose 180 mg/dL (70-110)
[2019-02-23 23:42] LABS: M R Staph aureus DNA By PCR Negative (Negative); Probe Check PASS; Specimen Processing Control PASS; Staph aureus DNA By PCR POSITIVE (Negative)
[2019-02-24] VITALS (9 sets, daily range): BP systolic 158–177; BP diastolic 61–86; PULSE 57–78; RESP 16–18; TEMP 36.6–36.9; O2SAT 96–100
[2019-02-24] MEDS: oxyCODONE 5 MG Tablet PO ×2 (02:21→17:03)
[2019-02-24] MEDS: Metoprolol Tartrate 50 MG Tablet PO (04:50)
[2019-02-24] MEDS: Isosorbide DN 20 MG Tablet 40 MG PO ×3 (04:51→22:43)
[2019-02-24] MEDS: Pregabalin 75 MG Capsule PO ×3 (05:00→22:35)
--- NOTE | 2019-02-24 05:55 | ART_ITS ---
Reason For Study: Ulcer Procedure A bilateral lower extremity continuous wave Doppler with analog waveform analysis,segmental pressures,and ankle brachial indexes without exercise. Left Segmental Pressures Left brachial= 160mmHg. Left calf = >254mmHg. Left posterior tibial artery = 151mmHg. Left dorsalis pedis artery = 109mmHg. Left digit = 89 mmHg. The left dorsalis pedis waveforms are biphasic. The left posterior tibial artery waveforms are biphasic. Right Segmental Pressures Right brachial= 162mmHg. Right calf = >254mmHg. Right posterior tibial artery = 158mmHg. Right dorsalis pedis artery = >254mmHg. Right digit = 124 mmHg. The right dorsalis pedis waveforms are biphasic. The right posterior tibial artery waveforms are biphasic. Indices The right ankle brachial index by the dorsalis pedis is NC. The right ankle brachial index by the posterior tibial artery is 0.98. The right digital-brachial index is 0.77. The left ankle brachial index by the dorsalis pedis is 0.67. The left ankle brachial index by the posterior tibial artery is 0.93. The left digital-brachial index is 0.55. Interpretation Summary Non-calculable bilateral calf indices consistent with medial calcification of vessel wall making noninvasive interpretation difficult Bilateral ankle-brachial indices combined with bilateral posterior tibial and dorsalis pedis biphasic Doppler waveforms consistent with mild to moderate disease bilaterally Abnormal digital brachial indice on the left noted Ordering Physician: Radha Harmon Referring Physician: Judith Goldman Performed By: Maria Del Carmen Ovalle RVT
--- NOTE | 2019-02-24 05:55 | ADU_ITS ---
Reason For Study: Left foot ulcer Right Velocities Left Velocities Ext. Iliac Artery, dist = 152.6 cm./sec. Ext Iliac Artery, dist = 144 cm./sec. Common Femoral Artery, mid = 147.4 cm./sec. Common Femoral Artery, mid = 128.6 cm./sec. Supf Femoral Artery, prox = 146.5 cm./sec. Supf. Femoral Artery, prox = 139.6 cm./sec. Supf Femoral Artery, mid = 143.9 cm./sec. Supf. Femoral Artery, mid = 144.2 cm./sec. Supf Femoral Artery, dist. = 84.4 cm./sec. Supf. Femoral Artery, dist = 85.1 cm./sec. Profunda Femoral Artery = 115.5 cm./sec. Profunda Femoral Artery = 100.1 cm./sec. Popliteal Artery, prox. = 91.3 cm./sec. Popliteal Artery, proximal, = 88.7 cm./sec. Popliteal Artery, mid = 73.7 cm./sec. Popliteal Artery, mid = 73.2 cm./sec. Popliteal Artery, dist = 62.8 cm./sec. Popliteal Artery, distal = 107.7 cm./sec. Post. Tibial Artery, prox = 65.8 cm./sec. Post. Tibial Artery, prox = 94.8 cm./sec. Post. Tibial Artery, mid = 88.8 cm./sec. Post Tibial Artery, mid = 118.1 cm./sec. Post. Tibial Artery, dist = 72.3 cm./sec. Post Tibial Artery, dist. = 157.1 cm./sec. Peroneal Artery, prox = 26.1 cm./sec. Peroneal Artery, prox = 87 cm./sec. Peroneal Artery, mid = 32.7 cm./sec. Peroneal Artery, mid = 66.3 cm./sec. Peroneal Artery,dist = 37.4 cm./sec. Peroneal Artery,dist. = 81.8 cm./sec. Ant. Tibial Artery, prox = 77.6 cm./sec. Ant.Tibial Artery, prox = 89.1 cm./sec. Ant. Tibial Artery, mid = 71 cm./sec. Ant Tibial Artery, mid = 88.8 cm./sec. Ant. Tibial Artery, dist = 78.7 cm./sec. Ant. Tibial Artery, distal = 92.4 cm./sec. Procedure Exam performed portable in patient room. Interpretation Summary 20 to 49% stenosis right superficial femoral artery Similar 20-49% stenosis of the right popliteal and posterior tibial and anterior tibial arteries suggested Right peroneal with diminished flow velocities suggesting 50 to 99% stenosis 20 to 49% stenosis left superficial femoral artery Similar 20 to 49% stenosis left popliteal and posterior tibial and anterior tibial arteries. Left peroneal is difficult to image though appears patent This examination is compared to a previous examination January 17, 2017 of the left lower extremity only. At that time flow could not be identified in the left peroneal artery. Otherwise the analysis appears to be similar at this time Ordering Physician: Radha Harmon Referring Physician: Judith Goldman Performed By: Maria Del Carmen Ovalle RVT
[2019-02-24 06:48] LABS: Absolute Lymphocyte Count 1.42 X10^3/uL (0.83-4.51); Absolute Neutrophil Count 3.3 X10^3/uL (2.0-7.7); Basophil# 0.04 X10^3/uL; Basophil% 0.7 % (0-1); Eosinophil# 0.32 X10^3/uL; Eosinophils% 5.4 % (0-5); Hematocrit 26.7 % (37-47); Hemoglobin 8.1 g/dL (12.0-15.0); Lymphocyte # 1.42 X10^3/ul (4.0); Lymphocyte % 23.9 % (19-41); Mean Corp Hgb Conc 30.3 g/dL (32-36); Mean Corpuscular Volume 98.9 fL (81-99); Mean Platelet Vol. 11.1 fl (6.2-12.0); Monocyte# 0.82 X10^3/uL; Monocyte% 13.8 % (0-10); NRBC Flagged by Analyzer 0 % (0-5); Neutrophil # 3.29 X10^3/uL (2.7-7.7); Neutrophil % 55.5 % (47-70); Platelet Count 211 K/mm3 (150-450); RBC Distribution Width SD 46.6 fl (35.1-43.9); White Blood Count 5.9 K/mm3 (4.4-11.0)
[2019-02-24] MEDS: Insulin Lispro 100 UNIT/ML INSULN.PEN SC ×4 (06:49→16:12)
[2019-02-24 06:56] LABS: Bedside Glucose 190 mg/dL (70-110)
[2019-02-24 07:12] LABS: Anion Gap 4 (5-15); BUN 19 mg/dL (7-18); BUN/Creat Ratio 17.4 RATIO (10-20); Calcium,Total 7.8 mg/dL (8.5-10.1); Chloride 111 mmol/L (98-107); Creatinine, Serum 1.09 mg/dL (0.55-1.02); EST Glomerular Filtration Rate 54 mL/min (>60); Est Glom Filt Rate - Afr Amer 65 mL/min (>60); Estimated Creatinine Clearance 47.54 ml/min; Glucose 171 mg/dL (74-106); Potassium 4.1 mmol/L (3.5-5.1); Sodium Level 138 mmol/L (136-145)
[2019-02-24] MEDS: Magnesium Oxide 400 MG Tablet PO (07:45)
[2019-02-24] MEDS: Aspirin 81 MG TAB.CHEW PO (07:45)
[2019-02-24] MEDS: Ranolazine 500 MG Tablet 1000 MG PO ×2 (07:46→22:43)
[2019-02-24] MEDS: Escitalopram Oxalate 10 MG Tablet PO (07:47)
[2019-02-24] MEDS: Senna/Docusate Sodium 1 Tablet PO ×2 (07:47→22:43)
[2019-02-24] MEDS: Clopidogrel Bisulfate 75 MG Tablet PO (07:47)
[2019-02-24] MEDS: Enoxaparin 40 MG/0.4 ML Syringe SC (07:49)
--- NOTE | 2019-02-24 09:23 | NURSING ---
wound photo: left foot (3rd toe)
--- NOTE | 2019-02-24 09:26 | NURSING ---
wound photo: right foot
--- NOTE | 2019-02-24 09:28 | NURSING ---
wound photo: right camacho
[2019-02-24 11:20] LABS: Bedside Glucose 134 mg/dL (70-110)
--- NOTE | 2019-02-24 11:32 | PCM.PN.HOSP ---
Patient Problems: Active and Suspected Problems (Last Updated 02/19/19 @ 12:04 by Aman Salazar MD) Ulcer of right lower extremity with fat layer exposed (Acute) Cellulitis of left foot (Acute) Failure of outpatient treatment (Acute) Diabetic toe ulcer (Acute) Ulcer of right foot with fat layer exposed (Acute) Hammertoe of right foot (Acute) Hammertoe of left foot (Acute) Osteomyelitis of left foot (Suspected) Reason for Visit: cellulitis Subjective: No new complaints Vitals/I&O's: Vital Signs Temp Pulse Resp BP Pulse Ox 36.6 C 57 L 16 158/73 H 96 02/24/19 11:19 02/24/19 11:19 02/24/19 11:19 02/24/19 11:02/24/19 11:19 Oxygen Delivery Method Room Air Weight: 90.8 kg Body Mass Index (BMI) 33.3 Finger Stick Blood Glucose 390 Intake and Output for Last 24 Hours 02/22/19 02/23/19 02/24/19 23:59 23:59 23:59 Intake Total 820 / 920 1689.75 / 1689.75 Balance 820 / 920 1689.75 / 1689.75 General: No apparent distress, Confused HEENT: Atraumatic, Normocephalic Oral: Moist Mucosa, No Gingival or Mucosal Lesions/ Ulcerations Neck: No Nodes, Trachea Midline Lungs: Clear to auscultation, Normal air movement, No rhonchi, No wheeze, No rales Cardiovascular: Regular rate, Regular Rhythm, Normal S1, Normal S2, No murmurs Abdomen: Bowel Sounds Present, Soft, Non Tender, Non-Distended, No Hepato-splenomegaly Extremities: No edema, No Calf Tenderness Skin: - - 2 cm ulceration on plantar and distal portion of left 3rd toe. Musculoskeletal: No Tenderness to Palpation of Joints or Extremities Psych/Mental Status: Normal Affect, Appropriate Laboratory Results 02/23/19 14:15: WBC 7.4, RBC 3.03 L, Hgb 9.1 L, Hct 29.4 L, MCV 97.0, MCH 30.0, MCHC 31.0 L, RDW Std Deviation 46.9 H, RDW Coeff of Anjelica 13.1, Plt Count 260, MPV 10.9, Immature Gran % (Auto) 0.500, Neut % (Auto) 62.9, Lymph % (Auto) 20.1, Jerome % (Auto) 13.3 H, Eos % (Auto) 2.7, Baso % (Auto) 0.5, Absolute Neuts (auto) 4.7, Absolute Lymphs (auto) 1.49, Nucleated RBC % 0, ESR 74 H 02/23/19 14:15: Sodium 141, Potassium 4.7, Chloride 112 H, Carbon Dioxide 24.0, Anion Gap 5, BUN 27 H, Creatinine 1.47 H, Estim Creat Clear Calc 35.25, Est GFR (MDRD) Af Amer 46 L, Est GFR (MDRD) Non-Af 38 L, BUN/Creatinine Ratio 18.4, Glucose 142 H, Calcium 8.3 L 02/23/19 17:07: POC Glucose 106 02/23/19 19:00: S.aureus Protein A PCR POSITIVE H, MRSA (PCR) Negative 02/23/19 21:59: POC Glucose 180 H 02/24/19 06:14: WBC 5.9, RBC 2.70 L, Hgb 8.1 L, Hct 26.7 L, MCV 98.9, MCH 30.0, MCHC 30.3 L, RDW Std Deviation 46.6 H, RDW Coeff of Anjelica 13.0, Plt Count 211, MPV 11.1, Immature Gran % (Auto) 0.700, Neut % (Auto) 55.5, Lymph % (Auto) 23.9, Jerome % (Auto) 13.8 H, Eos % (Auto) 5.4 H, Baso % (Auto) 0.7, Absolute Neuts (auto) 3.3, Absolute Lymphs (auto) 1.42, Nucleated RBC % 0 02/24/19 06:14: Sodium 138, Potassium 4.1, Chloride 111 H, Carbon Dioxide 23.0, Anion Gap 4 L, BUN 19 H, Creatinine 1.09 H, Estim Creat Clear Calc 47.54, Est GFR (MDRD) Af Amer 65, Est GFR (MDRD) Non-Af 54 L, BUN/Creatinine Ratio 17.4, Glucose 171 H, Calcium 7.8 L 02/24/19 06:47: POC Glucose 190 H 02/24/19 11:15: POC Glucose 134 H Current Medications Albuterol Sulfate (Ventolin Aerosols) 2.5 mg INHALATION Q2H PRN PRN PRN Reason: dyspnea, wheezing Aspirin (Aspirin, Baby) 81 mg PO DAILY@0800 [facility] Last Admin: 02/24/19 07:45 Dose: 81 mg Documented by: Clopidogrel Bisulfate (Plavix) 75 mg PO DAILY [facility] Last Admin: 02/24/19 07:47 Dose: 75 mg Documented by: Enoxaparin Sodium (Lovenox) 40 mg SC DAILY [facility] Last Admin: 02/24/19 07:49 Dose: 40 mg Documented by: Escitalopram Oxalate (Lexapro) 10 mg PO DAILY [facility] Last Admin: 02/24/19 07:47 Dose: 10 mg Documented by: Glucagon () 1 mg IM .X1 PRN PRN Reason: Hypoglycemia Hydralazine HCl (Apresoline Iv) 10 mg IV Q4H PRN PRN PRN Reason: SBP > 160 Sodium Chloride () 250 mls @ 15 mls/hr IV .[id number] PRN PRN Reason: Saline Flush Last Infusion: 02/24/19 09:12 Dose: 15 mls/hr Documented by: Piperacillin Sod/Tazobactam (Sod 3.375 gm/ Sodium Chloride) 50 mls @ 12.5 mls/hr IV Q8 [facility] Last Infusion: 02/24/19 09:12 Dose: Infused Documented by: Vancomycin IV Pharmacy to Dose (1 ea/ Sodium Chloride) 500 mls @ 250 mls/hr IV X1 PRN; Protocol PRN Reason: Rx to Dose Dextrose (Dextrose 10%-Water) 250 mls @ 999 mls/hr IV .Q16M PRN; Protocol PRN Reason: HYPOGLYCEMIA Vancomycin HCl 1,250 mg/ (Sodium Chloride) 275 mls @ 167 mls/hr IV Q24H [facility] Insulin Glargine (Lantus (Bkc)) 31 units SC QHS [facility] Insulin Human Lispro (Humalog Kwikpen (Bkc)) 0 unit SC ACHS [facility]; Protocol Last Admin: 02/24/19 11:22 Dose: Not Given Documented by: Insulin Human Lispro (Humalog Kwikpen (Bkc)) 6 unit SC DINNER [facility] Insulin Human Lispro (Humalog Kwikpen (Bkc)) 4 unit SC BID@0800,1200 [facility] Last Admin: 01/20/20 07:50 Dose: 4 u Documented by: Isosorbide Dinitrate (Isordil) 40 mg PO BID [facility] Last Admin: 02/24/19 07:46 Dose: 40 mg Documented by: [facility] 400[facility] Admin: 02/24/19 07:45 Dose: 400 mg Documented by: Melatonin (Melatonin) 10 mg PO QHS [facility] Metoprolol Tartrate (Lopressor (Beta Gaye)) 50 mg PO DAILY [facility] Last Admin: 02/24/19 04:50 Dose: 50 mg Documented by: Nutritional Formula (Rosendo - [place] Flavor) [facility] Last Admin: 02/24/19 07:45 Dose: 1 packet Documented by: Olanzapine (Zyprexa) 10 mg PO QHS [facility] Ondansetron HCl (Zofran) 4 mg IV Q8H PRN PRN PRN Reason: NAUSEA/VOMITING Oxycodone HCl (Oxyir) 5 mg PO Q4H PRN PRN PRN Reason: Pain Score 4-5/10 Last Admin: 02/24/19 02:21 Dose: 5 mg Documented by: Pramipexole Dihydrochloride (Mirapex) 0.5 mg PO QHS [facility] Pravastatin Sodium (Pravachol) 40 mg PO QHS [facility] Pregabalin (Lyrica) 75 mg PO TID [facility] Last Admin: 02/24/19 05:00 Dose: 75 mg Documented by: Ranolazine (Ranexa) 1,000 mg PO BID [facility] Last Admin: 02/24/19 07:46 Dose: 1,000 mg Documented by: Senna/Docusate Sodium (Senokot-S, Kirstie-Colace) 1 tablet PO BID [facility] Last Admin: 02/24/19 07:47 Dose: 1 tablet Documented by: Sodium Chloride () 10 - 40 ml IV UD PRN PRN Reason: SALINE FLUSH STROKE Vital Signs/Narrative: Vital Signs Temp Pulse Resp BP Pulse Ox 02/24/19 11:19 36.6 C 57 L 16 158/73 H 96 02/24/19 07:57 36.6 C 66 16 169/80 H 100 Medical Necessity - Tobacco Use Smoking Status: Current every day smoker Assessment/Plan All Active Problems (Last Updated 02/19/19 @ 12:04 by Aman Salazar MD) Ulcer of right lower extremity with fat layer exposed (Acute) Cellulitis of left foot (Acute) Failure of outpatient treatment (Acute) Diabetic toe ulcer (Acute) Ulcer of right foot with fat layer exposed (Acute) Hammertoe of right foot (Acute) Hammertoe of left foot (Acute) 1. left toe ulcer and cellulitis on pip/tazo and vanc wound culture pending seen by podiatry, who is concerned about vascularity. ABIs ordered. Pending the results of the ABIs, vascular surgery consult for revascularization (if indicated). After vascular assessment +/- intervention, then debridement/amputation 2. DM2 with diabetic neuropathy fair control continue basal, prandial and SSI 3. VTE prophylaxis: enoxaparin. Code Visit Inpatient E&M: 72694 Subs Hosp L2
--- NOTE | 2019-02-24 12:01 | PCM.RX.CS ---
Consult Pharmacy has been consulted to manage selected antiobiotic: Vancomycin Type of Consult: Follow-up Suspected Infection: Skin/Soft tissue Prior Doses of Antibiotics Received/Current Regimen: Received 1500mg iv x 1 on 02.23.19 @1641. Labs: Sodium 138 mmol/L (136-145) 02/24/19 06:14 Potassium 4.1 mmol/L (3.5-5.1) 02/24/19 06:14 Chloride 111 mmol/L (98-107) H 02/24/19 06:14 Carbon Dioxide 23.0 mmol/L (21.0-32.0) 02/24/19 06:14 Anion Gap 4 (5-15) L 02/24/19 06:14 BUN 19 mg/dL (7-18) H 02/24/19 06:14 Creatinine 1.09 mg/dL (0.55-1.02) H 02/24/19 06:14 Est GFR (MDRD) Af Amer 65 mL/min (>60) 02/24/19 06:14 Est GFR (MDRD) Non-Af 54 mL/min (>60) L 02/24/19 06:14 BUN/Creatinine Ratio 17.4 RATIO (10-20) 02/24/19 06:14 Glucose 171 mg/dL (74-106) H 02/24/19 06:14 Microbiology: Microbiology 02/23/19 19:06 Wound - Toe Gram Stain - Final Weight used for dosin.8 kg Estimated Creatinine Clearance: ~48 ml/min Goal Trough: 15-20 mcg/mL Pharmacy Plan for Drug Dosing: Renal function has improved. Today's Cr 1.09 with CrCl ~48 ml/min. Have changed dose to 750mg iv q12h. Trough level has been ordered for before 4th dose of this regimen. Pharmacy Service will continue to monitor and adjust dosing as required. Follow-Up Labs: Trough Vancomycin - ..20 @0030 before 0100 dose
--- NOTE | 2019-02-24 12:35 | PN_ITS ---
Patient Problems: Active and Suspected Problems (Last Updated 02/19/19 @ 12:04 by Aman Salazar MD) Failure of outpatient treatment (Acute) Diabetic toe ulcer (Acute) Ulcer of right foot with fat layer exposed (Acute) Hammertoe of right foot (Acute) Hammertoe of left foot (Acute) Osteomyelitis of left foot (Suspected) Subjective: This patient was seen resting in bed getting ready to work with therapy earlier this afternoon. Patient has ulcers noted to the right leg, right distal fourth toe. Patient also has an ulcer to the left third toe. Patient is a poor historian. She is unable to give a good detailed history about her ulcers. She currently says that she feels well and denies any feelings of nausea, vomiting, fever, chills. - Physical Exam Vitals/I&O's: Vital Signs Temp Pulse Resp BP Pulse Ox 97.9 F 57 L 16 158/73 H 96 02/24/19 11:19 02/24/19 11:19 02/24/19 11:19 02/24/19 11:19 02/24/19 11:19 Oxygen Delivery Method Room Air Weight: 90.8 kg Body Mass Index (BMI) 33.3 Finger Stick Blood Glucose 390 Intake and Output for Last 24 Hours 02/22/19 02/23/19 02/24/19 23:59 23:59 23:59 Intake Total 820 / 920 1689.75 / 1689.75 Balance 820 / 920 1689.75 / 1689.75 General: Alert, Cooperative, Confused - Consistent with patient's memory loss Extremities: No cyanosis, No Calf Tenderness - Negative Evelina and Mayberry signs bilateral, Diminished Peripheral Pulses Skin: Ulcer/ Wound - Patient has an ulcer to the right leg with granulation sub- or marantic base. Patient also has an ulcer to the right distal fourth toe with a pale granular base. There are no signs of infection or any necrosis or deep tissue exposure to any of these sites. The patient also has a left third toe ulcer. This ulcer site probes to bone with a base consisting of fibrous and devitalized subcutaneous tissue. No purulence noted. No capillary refill time noted to this area. There continues to be no streaking or extending cellulitis proximally. Slight bulbous appearance to the left distal third toe. No bogginess or fluctuance appreciated to the left third toe. In general, the patient's skin is atrophic and hairless to bilateral lower extremities. Musculoskeletal: No Tenderness to Palpation of Joints or Extremities, - - Dorsal contracture of lesser digits bilateral Neurological: - - Lack of epicritic sensation to bilateral lower extremities consistent with patient's diabetic neuropathy status Psych/Mental Status: Appropriate, - - Lack of memory noted Microbiology Past 72 Hours 02/23/19 19:06 Wound - Toe Gram Stain - Final Laboratory Results 02/23/19 14:15: WBC 7.4, RBC 3.03 L, Hgb 9.1 L, Hct 29.4 L, MCV 97.0, MCH 30.0, MCHC 31.0 L, RDW Std Deviation 46.9 H, RDW Coeff of Anjelica 13.1, Plt Count 260, MPV 10.9, Immature Gran % (Auto) 0.500, Neut % (Auto) 62.9, Lymph % (Auto) 20.1, [place] % (Auto) 13.3 H, Eos % (Auto) 2.7, Baso % (Auto) 0.5, Absolute Neuts (auto) 4.7, Absolute Lymphs (auto) 1.49, Nucleated RBC % 0, ESR 74 H 02/23/19 14:15: Sodium 141, Potassium 4.7, Chloride 112 H, Carbon Dioxide 24.0, Anion Gap 5, BUN 27 H, Creatinine 1.47 H, Estim Creat Clear Calc 35.25, Est GFR (MDRD) Af Amer 46 L, Est GFR (MDRD) Non-Af 38 L, BUN/Creatinine Ratio 18.4, Glucose 142 H, Calcium 8.3 L 02/23/19 17:07: POC Glucose 106 02/23/19 19:00: S.aureus Protein A PCR POSITIVE H, MRSA (PCR) Negative 02/23/19 21:59: POC Glucose 180 H 02/24/19 06:14: WBC 5.9, RBC 2.70 L, Hgb 8.1 L, Hct 26.7 L, MCV 98.9, MCH 30.0, MCHC 30.3 L, RDW Std Deviation 46.6 H, RDW Coeff of Anjelica 13.0, Plt Count 211, MPV 11.1, Immature Gran % (Auto) 0.700, Neut % (Auto) 55.5, Lymph % (Auto) 23.9, [place] % (Auto) 13.8 H, Eos % (Auto) 5.4 H, Baso % (Auto) 0.7, Absolute Neuts ( auto) 3.3, Absolute Lymphs (auto) 1.42, Nucleated RBC % 0 02/24/19 06:14: Sodium 138, Potassium 4.1, Chloride 111 H, Carbon Dioxide 23.0, Anion Gap 4 L, BUN 19 H, Creatinine 1.09 H, Estim Creat Clear Calc 47.54, Est GFR (MDRD) Af Amer 65, Est GFR (MDRD) Non-Af 54 L, BUN/Creatinine Ratio 17.4, Glucose 171 H, Calcium 7.8 L 02/24/19 06:47: POC Glucose 190 H 02/24/19 11:15: POC Glucose 134 H Current Medications Albuterol Sulfate (Ventolin Aerosols) 2.5 mg INHALATION Q2H PRN PRN PRN Reason: dyspnea, wheezing Aspirin (Aspirin, Baby) 81 mg PO DAILY@0800 [facility] Last Admin: 02/24/19 07:45 Dose: 81 mg Documented by: Clopidogrel Bisulfate (Plavix) 75 mg PO DAILY [facility] Last Admin: 02/24/19 07:47 Dose: 75 mg Documented by: Enoxaparin Sodium (Lovenox) 40 mg SC DAILY [facility] Last Admin: 02/24/19 07:49 Dose: 40 mg Documented by: Escitalopram Oxalate (Lexapro) 10 mg PO DAILY [facility] Last Admin: 02/24/19 07:47 Dose: 10 mg Documented by: Glucagon () 1 mg IM .X1 PRN PRN Reason: Hypoglycemia Hydralazine HCl (Apresoline Iv) 10 mg IV Q4H PRN PRN PRN Reason: SBP > 160 Sodium Chloride () 250 mls @ 15 mls/hr IV .[id number] PRN PRN Reason: Saline Flush Last Infusion: 02/24/19 09:12 Dose: 15 mls/hr Documented by: Piperacillin Sod/Tazobactam (Sod 3.375 gm/ Sodium Chloride) 50 mls @ 12.5 mls/hr IV Q8 [facility] Last Infusion: 02/24/19 09:12 Dose: Infused Documented by: Vancomycin IV Pharmacy to Dose (1 ea/ Sodium Chloride) 500 mls @ 250 mls/hr IV X1 PRN; Protocol PRN Reason: Rx to Dose Dextrose (Dextrose 10%-Water) 250 mls @ 999 mls/hr IV .Q16M PRN; Protocol PRN Reason: HYPOGLYCEMIA Vancomycin HCl 750 mg/ Sodium (Chloride) 265 mls @ 250 mls/hr IV Q12H [facility] Insulin Glargine (Lantus (Bkc)) 31 units SC QHS [facility] Insulin Human Lispro (Humalog Kwikpen ([facility])) 0 unit SC ACHS [facility]; Protocol Last Admin: 02/24/19 11:22 Dose: Not Given Documented by: Insulin Human Lispro (Humalog Kwikpen ([facility])) 6 unit SC DINNER [facility] Insulin Human Lispro (Humalog Kwikpen ([facility])) 4 unit SC BID@0800,1200 [facility] Last Admin: 02/24/19 07:50 Dose: 4 u Documented by: Isosorbide Dinitrate (Isordil) 40 mg PO BID [facility] Last Admin: 02/24/19 07:46 Dose: 40 mg Documented by: [facility] ([facility]Ox 400) [facility] Last Admin: 02/24/19 07:45 Dose: 400 mg Documented by: Melatonin (Melatonin) 10 mg PO QHS [facility] Metoprolol Tartrate (Lopressor (Beta Gaye)) 50 mg PO DAILY [facility] Last Admin: 02/24/19 04:50 Dose: 50 mg Documented by: Nutritional Formula (Rosendo - [place] Flavor) [facility] Last Admin: 02/24/19 07:45 Dose: 1 packet Documented by: Olanzapine (Zyprexa) 10 mg PO QHS [facility] Ondansetron HCl (Zofran) 4 mg IV Q8H PRN PRN PRN Reason: NAUSEA/VOMITING Oxycodone HCl (Oxyir) 5 mg PO Q4H PRN PRN PRN Reason: Pain Score 4-5/10 Last Admin: 02/24/19 02:21 Dose: 5 mg Documented by: Pramipexole Dihydrochloride (Mirapex) 0.5 mg PO QHS [facility] Pravastatin Sodium (Pravachol) 40 mg PO QHS [facility] Pregabalin (Lyrica) 75 mg PO TID [facility] Last Admin: 02/24/19 05:00 Dose: 75 mg Documented by: Ranolazine (Ranexa) 1,000 mg PO BID [facility] Last Admin: 02/24/19 07:46 Dose: 1,000 mg Documented by: Senna/Docusate Sodium (Senokot-S, Kirstie-Colace) 1 tablet PO BID [facility] Last Admin: 02/24/19 07:47 Dose: 1 tablet Documented by: Sodium Chloride () 10 - 40 ml IV UD PRN PRN Reason: SALINE FLUSH Medical Necessity - Tobacco Use Smoking Status: Current every day smoker Assessment/Plan All Active Problems (Last Updated 02/19/19 @ 12:04 by Aman Salazar MD) Ulcer of right lower extremity with fat layer exposed (Acute) Cellulitis of left foot (Acute) Failure of outpatient treatment (Acute) Diabetic toe ulcer (Acute) Ulcer of right foot with fat layer exposed (Acute) Hammertoe of right foot (Acute) Hammertoe of left foot (Acute) Left third toe ulcer with status change including concern of osteomyelitis and dysvascular status Right fourth toe ulcer with fat layer exposed, stable no signs of infection Right leg ulcer secondary to trauma, stable and no signs of infection Diabetes with peripheral neuropathy Bilateral hammertoes Peripheral vascular disease status post remote intervention Memory loss and other comorbidities Patient was carefully examined and evaluated resting early this afternoon in her bed getting ready to work with therapy. I reviewed and discussed her case. She remains afebrile. Her white blood cell count is 5.9 today. Her ESR was 74 when checked on admission. Due to devitalized status change to the left third toe and now exposed bone there is concern of osteomyelitis and salvageability of this toe. Patient's wound cultures still pending. MRSA PCR was negative. She is currently on IV antibiotics. Recommend a infectious disease consult. We discussed at length today the patient's ulcer along with all of her possible options. I recommend an amputation of the left third toe. The indications, benefits, and risks were discussed. She is at risk for continued limb loss and complicated healing due to her memory loss and medical comorbidities. She has verbal consent for me to review this case with her family members. Once further information is obtained, I will discuss the case further with patient's daughter. LEAS and venous doppler exams were ordered and should be completed by early this afternoon. A vascular consult will be placed with Dr. Todd, who has performed intervention on this patient's contralateral limb in 2014, to see if he recommends any further vascular intervention for the left lower extremity prior to proceeding with left third toe amputation. Dressings were carefully moved to side and taken down and the ulcer sites were carefully evaluated today. These had just been dressed by Marissa the wound nurse and the dressings were replaced. Wound pictures also in patient's chart that were taken by Marissa during the patient's dressing change today. No debridement performed today. Medical management per primary team is appreciated. Podiatry will continue to follow this patient closely while in house.
[2019-02-24] MEDS: hydrALAZINE 20 MG/ML Vial 10 MG IV (14:11)
--- NOTE | 2019-02-24 14:21 | CASEMGMT ---
Social Work Note Pt is listed as being from [facility]. DEJAH familiar with pt as pt was just at [facility] last week and discharged back to [facility] on Sunday. DEJAH spoke with pt's daughter Guy who again confirms the plan is for pt to return to [facility] at discharge. DEJAH faxed updated clinicals to [facility]. Plan: Return to [facility] once medically cleared. Pt will likely need skilled at discharge as pt is scheduled for amputation. Maria Del Carmen Lowery JEWELRY DRILL OPERATOR, TITLE CLERK [employer]
[2019-02-24] MEDS: Albuterol 2.5 MG/3 ML VIAL.NEB. INHALATION (15:49)
[2019-02-24] MEDS: Insulin Lispro 100 UNIT/ML INSULN.PEN 6 UNIT SC (16:12)
--- NOTE | 2019-02-24 18:35 | PCM.CONS.GEN ---
Problem List (1) Diabetic toe ulcer Status: Acute Reason for Consult Date of Consultation: 02/24/19 History of Present Illness: The patient is a 64 year old F who I have been asked to see by Dr. Javier Campo with a specific question regards to healing capacity of her left fourth foot digit for potential amputation based upon vascular supply. A written copy of my surgical consult recommendations will be present in her charting. This is a 61-year-old female. Her most recent vascular consultation was January [address] Gerson Chase. He was being asked to see her for a chronic ulcer of the left foot and osteomyelitis of the toe of the left foot. He reviewed vascular intervention at that time felt that the patient had adequate vascular flow to heal a left fifth digit amputation. It is of note that the patient did go on to have an amputation and completely healed that area. I am now being asked to see her because she has chronic wound of the left fourth digit. Duplex examination of the left lower extremity was performed January 17, 2017. That study was repeated today. Previously there was a suggestion of suspected left peroneal artery occlusion. Today's evaluation seems very similar to the previous 1 except some left peroneal flow was identified. Previous records also demonstrate that March 05, 2014 I performed a abdominal pelvic right lower extremity arteriogram for the patient with a right superficial femoral 5 x 200 mm ever cross angioplasty. There was diffuse disease involving the majority of the right superficial femoral artery. That procedure was performed in order to assist with resolution of right foot ulcers. The patient has long-term medical comorbidities including type 2 diabetes with diabetic polyneuropathy. She has tobacco use disorder and paroxysmal atrial fibrillation and osteomyelitis of the left foot fourth toe and neuropathy and hypertension and dementia and CVA history of carotid disease and COPD. She has multiple routine medications including aspirin and clopidogrel and insulin and pregabalin and Ranexa. She is currently being treated with vancomycin and Zosyn for cellulitis of the left lower extremity Past Medical History Past Medical History (Chronic Problems): Chronic Problems (Last Updated 02/19/19 @ 12:04 by Aman Salazar MD) Diabetes mellitus type II (Chronic) diabetic ulcer dorsum right foot (Chronic) Chronic hypertension (Chronic) Degenerative disc disease, lumbar (Chronic) Delayed wound healing (Chronic) Chronic ulcer of left foot with fat layer exposed (Chronic) Memory loss (Chronic) MISTI (obstructive sleep apnea) (Chronic) Chronic ulcer of left foot with fat layer exposed (Chronic) Non-compliance (Chronic) GERD (Chronic) Fibromyalgia (Chronic) COPD (Chronic) Type 2 diabetes mellitus with diabetic polyneuropathy (Chronic) Anemia (Chronic) Tobacco use disorder (Chronic) Carotid arterial disease (Chronic) PVD (peripheral vascular disease) (Chronic) CVA (cerebral vascular accident) (Chronic) Paroxysmal atrial fibrillation (Chronic) Hyperlipidemia (Chronic) Medical History: Medical History (Last Updated 02/19/19 @ 12:04 by Aman Salazar MD) Non-compliance (Chronic) Z91.19 Fibromyalgia (Chronic) COPD (Chronic) Type 2 diabetes mellitus with diabetic polyneuropathy (Chronic) E11.42 Anemia (Chronic) D64.9 Tobacco use disorder (Chronic) F17.200 Carotid arterial disease (Chronic) I77.9 PVD (peripheral vascular disease) (Chronic) I73.9 CVA (cerebral vascular accident) (Chronic) I63.9 Paroxysmal atrial fibrillation (Chronic) Hyperlipidemia (Chronic) B12 deficiency E53.8 CAD (coronary artery disease) I25.10 Dementia F03.90 GERD (gastroesophageal reflux disease) K21.9 Neuropathy G62.9 Type 2 diabetes mellitus with features of insulin resistance E11.9 HTN (hypertension) I10 depression with paranoia Chronic ulcer of left foot with fat layer exposed (Inactive) L97.522 Osteomyelitis of toe of left foot (Inactive) M86.9 Allergies ciprofloxacin [From Cipro] Allergy (Verified 02/17/19 18:52) Unknown clarithromycin [From Biaxin] Allergy (Verified 02/17/19 18:52) Rash codeine Allergy (Verified 02/17/19 18:52) Rash clarithromycin Allergy (Unknown, Uncoded 02/17/19 18:52) Unknown Home Medications: Ambulatory Orders Medication Instructions Recorded Lisinopril [Prinivil] 5 mg PO DAILY 01/21/17 Multivit,Calc,Mins/Iron/Folic 1 ea PO DAILY 01/21/17 [Thera M Plus Tablet] metFORMIN HCl [Glucophage] 1,000 mg PO BIDCM 01/21/17 Insulin Detemir [Levemir FlexPen] 31 units SC QHS 03/09/17 metoprolol tartrate 50 mg tablet 50 mg PO DAILY tab 05/01/17 Cholecalciferol (Vitamin D3) 2,000 unit PO DAILY 02/17/19 [Vitamin D3] Escitalopram Oxalate [Lexapro] 5 mg PO DAILY 02/17/19 Escitalopram Oxalate [Lexapro] 10 mg PO DAILY 02/17/19 Famotidine [Pepcid] 20 mg PO DAILY 02/17/19 Furosemide [Lasix] 20 mg PO DAILY 02/17/19 Insulin Aspart [Novolog Flexpen] 4 units SUBCUT BID 02/17/19 Insulin Aspart [Novolog Flexpen] 6 units SUBCUT DINNER 02/17/19 Insulin Aspart [Novolog Flexpen] See Protocol SUBCUT ACHS 02/17/19 Isosorbide DN [Isordil] 40 mg PO BID 02/17/19 Melatonin 10 mg PO QHS 02/17/19 Olanzapine 10 mg PO QHS 02/17/19 Neville-3 Fatty Acids/Fish Oil [Fish 1 cap PO BID 02/17/19 Oil 1,000 mg Capsule] Pramipexole Di-HCl [Mirapex] 0.5 mg PO QHS 02/17/19 Pravastatin [Pravachol] 40 mg PO QHS 02/17/19 Pregabalin [Lyrica] 75 mg PO TID 02/17/19 Amox/Clavulanate Tablet [Augmentin 875 mg PO Q12H 02/23/19 Tablet] Aspirin [Aspirin, Baby] 81 mg PO DAILY@0800 02/23/19 Clopidogrel Bisulfate [Plavix] 75 mg PO DAILY 02/23/19 Cyanocobalamin (Vitamin B-12) 1,000 mcg PO DAILY 02/23/19 [Vitamin B-12] Fluticasone/Salmeterol [Advair 1 ea IH BID 02/23/19 250-50 Diskus] Magnesium Oxide [Mag-Ox 400] 400 mg PO DAILYCM 02/23/19 Ranolazine [Ranexa] 1,000 mg PO BID 02/23/19 Senna/Docusate Sodium [Senokot-S] 2 tab PO BID 02/23/19 Surgical History: Surgical History (Last Reviewed 08/13/17 @ 13:40 by Etta Lynch) amputation left fifth toe Surgical History: coronary bypass surgery, - - stent x 6, hysterectomy, , bladder surgery, gastric bypass, spinal fusion, mutation of left fifth toe Psychiatric History: 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 Smoking Status: Current every day smoker - *Family History Maternal History Items: Diabetes, Heart Disease Paternal History Items: Diabetes, Heart Disease Sibling History Items: Diabetes Review of Systems Constitutional: Reports: - - Patient is awake but is not a reliable source for any review of systems Patient Problems: Active and Suspected Problems (Last Updated 02/19/19 @ 12:04 by Aman Salazar MD) Failure of outpatient treatment (Acute) Diabetic toe ulcer (Acute) Ulcer of right foot with fat layer exposed (Acute) Hammertoe of right foot (Acute) Hammertoe of left foot (Acute) Osteomyelitis of left foot (Suspected) - Physical Exam Vitals/I&O's: Vital Signs Temp Pulse Resp BP Pulse Ox 98.4 F 78 16 158/69 H 100 02/24/19 14:12 02/24/19 15:49 02/24/19 15:49 02/24/19 14:17 02/24/19 14:12 Oxygen Delivery Method Room Air Weight: 200 lb 2.876 oz Body Mass Index (BMI) 33.3 Finger Stick Blood Glucose 390 Intake and Output for Last 24 Hours 02/22/19 02/23/19 02/24/19 23:59 23:59 23:59 Intake Total 820 / 920 2300.25 / 2300.25 Output Total 850 / 850 Balance 820 / 920 1450.25 / 1450.25 Extremities: - - Bilateral lower extremities demonstrate 2-3+ bilateral femoral pulses and 2+ bilateral popliteal pulses. Bilateral DP and PT pulses are triphasic audibly. They are very strong. Feet bilaterally appear warm. They are pink. Mild swelling noted. No overt tenderness loss of light touch sensation noted Microbiology Past 72 Hours 02/23/19 19:06 Wound - Toe Gram Stain - Final 02/23/19 19:06 Wound - Toe Wound Culture - Preliminary Beta hemolytic organism Mixed Gram Positive Organisms Laboratory Results 02/23/19 19:00: S.aureus Protein A PCR POSITIVE H, MRSA (PCR) Negative 02/23/19 21:59: POC Glucose 180 H 02/24/19 06:14: WBC 5.9, RBC 2.70 L, Hgb 8.1 L, Hct 26.7 L, MCV 98.9, MCH 30.0, MCHC 30.3 L, RDW Std Deviation 46.6 H, RDW Coeff of Anjelica 13.0, Plt Count 211, MPV 11.1, Immature Gran % (Auto) 0.700, Neut % (Auto) 55.5, Lymph % (Auto) 23.9, [place] % (Auto) 13.8 H, Eos % (Auto) 5.4 H, Baso % (Auto) 0.7, Absolute Neuts (auto) 3.3, Absolute Lymphs (auto) 1.42, Nucleated RBC % 0 02/24/19 06:14: Sodium 138, Potassium 4.1, Chloride 111 H, Carbon Dioxide 23.0, Anion Gap 4 L, BUN 19 H, Creatinine 1.09 H, Estim Creat Clear Calc 47.54, Est GFR (MDRD) Af Amer 65, Est GFR (MDRD) Non-Af 54 L, BUN/Creatinine Ratio 17.4, Glucose 171 H, Calcium 7.8 L 02/24/19 06:47: POC Glucose 190 H 02/24/19 11:15: POC Glucose 134 H Current Medications Albuterol Sulfate (Ventolin Aerosols) 2.5 mg INHALATION Q2H PRN PRN PRN Reason: dyspnea, wheezing Last Admin: 02/24/19 15:49 Dose: 2.5 mg Documented by: Aspirin (Aspirin, Baby) 81 mg PO DAILY@0800 [facility] Last Admin: 02/24/19 07:45 Dose: 81 mg Documented by: Clopidogrel Bisulfate (Plavix) 75 mg PO DAILY [facility] Last Admin: 02/24/19 07:47 Dose: 75 mg Documented by: Enoxaparin Sodium (Lovenox) 40 mg SC DAILY [facility] Last Admin: 02/24/19 07:49 Dose: 40 mg Documented by: Escitalopram Oxalate (Lexapro) 10 mg PO DAILY [facility] Last Admin: 02/24/19 07:47 Dose: 10 mg Documented by: Glucagon () 1 mg IM .X1 PRN PRN Reason: Hypoglycemia Hydralazine HCl (Apresoline Iv) 10 mg IV Q4H PRN PRN PRN Reason: SBP > 160 Last Admin: 02/24/19 14:11 Dose: 10 mg Documented by: Sodium Chloride () 250 mls @ 15 mls/hr IV .[id number] PRN PRN Reason: Saline Flush Last Infusion: 02/24/19 17:04 Dose: 0 mls/hr Documented by: Piperacillin Sod/Tazobactam (Sod 3.375 gm/ Sodium Chloride) 50 mls @ 12.5 mls/hr IV Q8 [facility] Last Admin: 02/24/19 15:45 Dose: 12.5 mls/hr Documented by: Vancomycin IV Pharmacy to Dose (1 ea/ Sodium Chloride) 500 mls @ 250 mls/hr IV X1 PRN; Protocol PRN Reason: Rx to Dose Dextrose (Dextrose 10%-Water) 250 mls @ 999 mls/hr IV .Q16M PRN; Protocol PRN Reason: HYPOGLYCEMIA Vancomycin HCl 750 mg/ Sodium (Chloride) 265 mls @ 250 mls/hr IV Q12H [facility] Last Infusion: 02/24/19 14:51 Dose: Infused Documented by: Insulin Glargine (Lantus (Bkc)) 31 units SC QHS [facility] Insulin Human Lispro (Humalog Kwikpen (Bkc)) 0 unit SC ACHS [facility]; Protocol Last Admin: 02/24/19 16:12 Dose: 2 unit Documented by: Insulin Human Lispro (Humalog Kwikpen (Bkc)) 6 unit SC DINNER [facility] Last Admin: 02/24/19 16:12 Dose: 6 units Documented by: Insulin Human Lispro (Humalog Kwikpen (Bkc)) 4 unit SC BID@0800,1200 [facility] Last Admin: 02/24/19 12:48 Dose: 4 u Documented by: Isosorbide Dinitrate (Isordil) 40 mg PO BID [facility] Last Admin: 02/24/19 07:46 Dose: 40 mg Documented by: [facility] 400[facility] Last Admin: 02/24/19 07:45 Dose: 400 mg Documented by: Melatonin (Melatonin) 10 mg PO QHS [facility] Metoprolol Tartrate (Lopressor (Beta Gaye)) 50 mg PO DAILY [facility] Last Admin: 02/24/19 04:50 Dose: 50 mg Documented by: Nutritional Formula (Rosendo - [place] Flavor) [facility] Last Admin: 02/24/19 16:14 Dose: 1 packet Documented by: Olanzapine (Zyprexa) 10 mg PO QHS [facility] Ondansetron HCl (Zofran) 4 mg IV Q8H PRN PRN PRN Reason: NAUSEA/VOMITING Oxycodone HCl (Oxyir) 5 mg PO Q4H PRN PRN PRN Reason: Pain Score 4-5/10 Last Admin: 02/24/19 17:03 Dose: 5 mg Documented by: Pramipexole Dihydrochloride (Mirapex) 0.5 mg PO QHS [facility] Pravastatin Sodium (Pravachol) 40 mg PO QHS [facility] Pregabalin (Lyrica) 75 mg PO TID [facility] Last Admin: 02/24/19 13:25 Dose: 75 mg Documented by: Ranolazine (Ranexa) 1,000 mg PO BID [facility] Last Admin: 02/24/19 07:46 Dose: 1,000 mg Documented by: Senna/Docusate Sodium (Senokot-S, Kirstie-Colace) 1 tablet PO BID [facility] Last Admin: 02/24/19 07:47 Dose: 1 tablet Documented by: Sodium Chloride () 10 - 40 ml IV UD PRN PRN Reason: SALINE FLUSH Assessment/Plan All Active Problems (Last Updated 02/19/19 @ 12:04 by Aman Salazar MD) Ulcer of right lower extremity with fat layer exposed (Acute) Cellulitis of left foot (Acute) Failure of outpatient treatment (Acute) Diabetic toe ulcer (Acute) Ulcer of right foot with fat layer exposed (Acute) Hammertoe of right foot (Acute) Hammertoe of left foot (Acute) 64-year-old female with multiple medical comorbidities. On review her Doppler signals are audibly very brisk and triphasic bilaterally although on the noninvasive study there noted to be biphasic.. Her noninvasive studies appear essentially unchanged over the past 2 years. Armed with the previous information that she was able to heal a left foot fifth digit amputation with the previous vascular supply I would anticipate that she has similar likelihood of doing so at this time. On serology the patient is staph aureus positive but MRSA negative She has a chronic anemia with current hemoglobin 8.1 and hematocrit 26.7 as well as a BUN of 19 and creatinine of 1.09 with a estimated creatinine clearance on admission of 35 and currently estimated to be 47. I would not recommend any type of contrast injection or vascular intervention unless absolutely mandated. I appreciate the opportunity of assisting with her surgical care. Clearly this patient has been challenging to medically maximize and unfortunately anticipate this will be an ongoing effort. Nate Todd M.D., F.A.C.S.
[2019-02-24 22:00] LABS: Bedside Glucose 161 mg/dL (70-110)
[2019-02-24] MEDS: OLANZapine 10 MG Tablet PO (22:35)
[2019-02-24] MEDS: Pravastatin 40 MG Tablet PO (22:43)
[2019-02-24] MEDS: Pramipexole Di-HCl 0.5 MG Tablet PO (22:49)
[2019-02-24] MEDS: MELATONIN 10 MG TABLET PO (22:49)
[2019-02-24 23:20] LABS: Bedside Glucose 116 mg/dL (70-110)
[2019-02-25] VITALS (18 sets, daily range): BP systolic 135–197; BP diastolic 58–94; PULSE 63–93; RESP 16–20; TEMP 36.4–37.3; O2SAT 95–100; BMI 33.7; BMI 33.3
[2019-02-25] MEDS: hydrALAZINE 20 MG/ML Vial 10 MG IV ×4 (01:23→22:57)
[2019-02-25] MEDS: Ondansetron 4 MG/2 ML Vial IV (02:30)
--- NOTE | 2019-02-25 03:41 | NURSING ---
PT ANXIOUS; C/O NOT BEING ABLE TO BREATHE; VITALS TAKEN AND STABLE; SPO2 97%, O2 @ 2L APPLIED FOR PEACE OF MIND; PT CONTINUED TO BE ANXIOUS; PUT IN MISAEL CHAIR AND PLACED AT NURSES STATION, NO FURTHER COMPLAINTS.
[2019-02-25] MEDS: Pregabalin 75 MG Capsule PO ×2 (05:02→22:59)
[2019-02-25 06:09] LABS: Absolute Lymphocyte Count 1.83 X10^3/uL (0.83-4.51); Absolute Neutrophil Count 4.2 X10^3/uL (2.0-7.7); Basophil# 0.05 X10^3/uL; Basophil% 0.7 % (0-1); Eosinophil# 0.24 X10^3/uL; Eosinophils% 3.3 % (0-5); Hematocrit 30.7 % (37-47); Hemoglobin 9.5 g/dL (12.0-15.0); Lymphocyte # 1.83 X10^3/ul (4.0); Lymphocyte % 25.5 % (19-41); Mean Corp Hgb Conc 30.9 g/dL (32-36); Mean Corpuscular Hgb 29.5 pg (27.0-32.0); Mean Corpuscular Volume 95.3 fL (81-99); Mean Platelet Vol. 10.5 fl (6.2-12.0); Monocyte# 0.84 X10^3/uL; Monocyte% 11.7 % (0-10); NRBC Flagged by Analyzer 0 % (0-5); Neutrophil # 4.18 X10^3/uL (2.7-7.7); Neutrophil % 58.2 % (47-70); Platelet Count 291 K/mm3 (150-450); RBC Distribution Width SD 45.1 fl (35.1-43.9); Red Blood Count 3.22 M/mm3 (4.2-5.4); White Blood Count 7.2 K/mm3 (4.4-11.0)
[2019-02-25 06:40] LABS: Anion Gap 8 (5-15); BUN 21 mg/dL (7-18); BUN/Creat Ratio 20.2 RATIO (10-20); Chloride 108 mmol/L (98-107); Creatinine, Serum 1.04 mg/dL (0.55-1.02); EST Glomerular Filtration Rate 57 mL/min (>60); Est Glom Filt Rate - Afr Amer 69 mL/min (>60); Estimated Creatinine Clearance 49.82 ml/min; Glucose 175 mg/dL (74-106); Potassium 4.3 mmol/L (3.5-5.1); Sodium Level 137 mmol/L (136-145)
[2019-02-25] MEDS: Insulin Lispro 100 UNIT/ML INSULN.PEN SC ×3 (06:43→18:30)
[2019-02-25 06:51] LABS: Bedside Glucose 199 mg/dL (70-110)
[2019-02-25] MEDS: Metoprolol Tartrate 50 MG Tablet PO (09:34)
[2019-02-25] MEDS: Clopidogrel Bisulfate 75 MG Tablet PO (09:35)
[2019-02-25] MEDS: Escitalopram Oxalate 10 MG Tablet PO (09:35)
[2019-02-25] MEDS: oxyCODONE 5 MG Tablet PO ×2 (09:40→17:20)
--- NOTE | 2019-02-25 10:29 | PN_ITS ---
Patient Problems: Active and Suspected Problems (Last Updated 02/19/19 @ 12:04 by Aman Salazar MD) Failure of outpatient treatment (Acute) Diabetic toe ulcer (Acute) Ulcer of right foot with fat layer exposed (Acute) Hammertoe of right foot (Acute) Hammertoe of left foot (Acute) Osteomyelitis of left foot (Suspected) Reason for Visit: cellulitis Subjective: no new complaints. Vitals/I&O's: Vital Signs Temp Pulse Resp BP Pulse Ox 36.4 C L 85 20 H 197/94 H 100 02/25/19 09:30 02/25/19 09:39 02/25/19 09:30 02/25/19 09:30 02/25/19 09:30 Oxygen Flow Rate (L/min) 1 Oxygen Delivery Method Nasal Cannula Weight: 91.8 kg Body Mass Index (BMI) 33.7 Finger Stick Blood Glucose 390 Intake and Output for Last 24 Hours 02/23/19 02/24/19 02/25/19 23:59 23:59 23:59 Intake Total 820 / 920 2350.25 / 2550.25 805 / 805 Output Total 850 / 850 Balance 820 / 920 1500.25 / 1700.25 805 / 805 General: No apparent distress, - - up in chair HEENT: Atraumatic, Normocephalic Oral: Moist Mucosa, No Gingival or Mucosal Lesions/ Ulcerations Neck: No Nodes, Trachea Midline Lungs: Clear to auscultation, Normal air movement, No rhonchi, No wheeze, No rales Cardiovascular: Regular rate, Regular Rhythm, Normal S1, Normal S2, No murmurs Abdomen: Bowel Sounds Present, Soft, Non Tender, Non-Distended, No Hepato- splenomegaly Extremities: No edema, No Calf Tenderness Skin: - - toes wrapped--did not remove. Psych/Mental Status: Normal Affect, Appropriate Microbiology Past 72 Hours 02/23/19 19:06 Wound - Toe Gram Stain - Final 02/23/19 19:06 Wound - Toe Wound Culture - Preliminary Staphylococcus aureus Mixed Gram Positive Organisms Laboratory Results 02/24/19 11:15: POC Glucose 134 H 02/24/19 16:10: POC Glucose 161 H 02/24/19 22:54: POC Glucose 116 H 02/25/19 05:48: WBC 7.2, RBC 3.22 L, Hgb 9.5 L, Hct 30.7 L, MCV 95.3, MCH 29.5, MCHC 30.9 L, RDW Std Deviation 45.1 H, RDW Coeff of Anjelica 13.0, Plt Count 291, MPV 10.5, Immature Gran % (Auto) 0.600, Neut % (Auto) 58.2, Lymph % (Auto) 25.5, [place] % (Auto) 11.7 H, Eos % (Auto) 3.3, Baso % (Auto) 0.7, Absolute Neuts (auto) 4.2, Absolute Lymphs (auto) 1.83, Nucleated RBC % 0 02/25/19 05:48: Sodium 137, Potassium 4.3, Chloride 108 H, Carbon Dioxide 21.0, Anion Gap 8, BUN 21 H, Creatinine 1.04 H, Estim Creat Clear Calc 49.82, Est GFR (MDRD) Af Amer 69, Est GFR (MDRD) Non-Af 57 L, BUN/Creatinine Ratio 20.2 H, Glucose 175 H, Calcium 9.0 02/25/19 06:41: POC Glucose 199 H Current Medications Albuterol Sulfate (Ventolin Aerosols) 2.5 mg INHALATION Q2H PRN PRN PRN Reason: dyspnea, wheezing Last Admin: 02/24/19 15:49 Dose: 2.5 mg Documented by: Aspirin (Aspirin, Baby) 81 mg PO DAILY@0800 [facility] Last Admin: 02/25/19 09:24 Dose: Not Given Documented by: Clopidogrel Bisulfate (Plavix) 75 mg PO DAILY [facility] Last Admin: 02/25/19 09:35 Dose: 75 mg Documented by: Enoxaparin Sodium (Lovenox) 40 mg SC DAILY [facility] Last Admin: 02/25/19 08:12 Dose: Not Given Documented by: Escitalopram Oxalate (Lexapro) 10 mg PO DAILY [facility] Last Admin: 02/25/19 09:35 Dose: 10 mg Documented by: Glucagon () 1 mg IM .X1 PRN PRN Reason: Hypoglycemia Hydralazine HCl (Apresoline Iv) 10 mg IV Q4H PRN PRN PRN Reason: SBP > 160 Last Admin: 02/25/19 09:39 Dose: 10 mg Documented by: Sodium Chloride () 250 mls @ 15 mls/hr IV .[id number] PRN PRN Reason: Saline Flush Last Infusion: 02/25/19 09:05 Dose: 15 mls/hr Documented by: Piperacillin Sod/Tazobactam (Sod 3.375 gm/ Sodium Chloride) 50 mls @ 12.5 mls/hr IV Q8 [facility] Last Infusion: 02/25/19 09:05 Dose: Infused Documented by: Dextrose (Dextrose 10%-Water) 250 mls @ 999 mls/hr IV .Q16M PRN; Protocol PRN Reason: HYPOGLYCEMIA Insulin Glargine (Lantus (Bkc)) 31 units SC QHS [facility] Last Admin: 02/24/19 22:55 Dose: Not Given Documented by: Insulin Human Lispro (Humalog Kwikpen (Bk)) 0 unit SC ACHS [facility]; Protocol Last Admin: 02/25/19 06:43 Dose: 2 unit Documented by: Insulin Human Lispro (Humalog Kwikpen (Bk)) 6 unit SC DINNER [facility] Last Admin: 02/24/19 16:12 Dose: 6 units Documented by: Insulin Human Lispro (Humalog Kwikpen (Bk)) 4 unit SC BID@0800,1200 [facility] Last Admin: 02/25/19 09:22 Dose: Not Given Documented by: Isosorbide Dinitrate (Isordil) 40 mg PO BID [facility] Last Admin: 02/25/19 09:23 Dose: Not Given Documented by: Magnesium Oxide (Mag-Ox 400) [facility] Last Admin: 02/25/19 09:23 Dose: Not Given Documented by: Melatonin (Mel[facility]) [facility] Last Admin: 02/24/19 22:49 Dose: 10 mg Documented by: Metoprolol Tartrate (Lopressor (Beta Gaye)) 50 mg PO DAILY [facility] Last Admin: 02/25/19 09:34 Dose: 50 mg Documented by: Nutritional Formula (Rosendo - [place] Flavor) [facility] Last Admin: 02/25/19 09:23 Dose: Not Given Documented by: Olanzapine (Zyprexa) 10 mg PO QHS [facility] Last Admin: 02/24/19 22:35 Dose: 10 mg Documented by: Ondansetron HCl (Zofran) 4 mg IV Q8H PRN PRN PRN Reason: NAUSEA/VOMITING Last Admin: 02/25/19 02:30 Dose: 4 mg Documented by: Oxycodone HCl (Oxyir) 5 mg PO Q4H PRN PRN PRN Reason: Pain Score 4-5/10 Last Admin: 02/25/19 09:40 Dose: 5 mg Documented by: Pramipexole Dihydrochloride (Mirapex) 0.5 mg PO QHS [facility] Last Admin: 02/24/19 22:49 Dose: 0.5 mg Documented by: Pravastatin Sodium (Pravachol) 40 mg PO QHS [facility] Last Admin: 02/24/19 22:43 Dose: 40 mg Documented by: Pregabalin (Lyrica) 75 mg PO TID [facility] Last Admin: 02/25/19 05:02 Dose: 75 mg Documented by: Ranolazine (Ranexa) 1,000 mg PO BID [facility] Last Admin: 02/25/19 09:23 Dose: Not Given Documented by: Senna/Docusate Sodium (Senokot-S, Kirstie-Colace) 1 tablet PO BID [facility] Last Admin: 02/25/19 09:23 Dose: Not Given Documented by: Sodium Chloride () 10 - 40 ml IV UD PRN PRN Reason: SALINE FLUSH STROKE Vital Signs/Narrative: Vital Signs Temp Pulse Resp BP Pulse Ox 02/25/19 09:39 85 02/25/19 09:34 85 02/25/19 09:30 36.4 C L 85 20 H 197/94 H 100 Medical Necessity - Tobacco Use Smoking Status: Current every day smoker Assessment/Plan All Active Problems (Last Updated 02/19/19 @ 12:04 by Aman Salazar MD) Ulcer of right lower extremity with fat layer exposed (Acute) Cellulitis of left foot (Acute) Failure of outpatient treatment (Acute) Diabetic toe ulcer (Acute) Ulcer of right foot with fat layer exposed (Acute) Hammertoe of right foot (Acute) Hammertoe of left foot (Acute) 1. left toe ulcer and cellulitis * on pip/tazo * DC vanc * wound culture showing S. aureus and mixed GPO. MRSA screen negative. * plan for surgery today * consult ID for long-term recommendations 2. DM2 * with diabetic neuropathy * fair control * continue basal, prandial and SSI 3. PAD * stable * seen by Dr. Cebul and does not feel she needs any vascular intervention at this time. 4. VTE prophylaxis: enoxaparin. Code Visit Inpatient E&M: 96993 Subs Hosp L2
--- NOTE | 2019-02-25 10:44 | EKG12_ITS ---
Test Reason : PREOP Blood Pressure : / mmHG Vent. Rate : 062 BPM Atrial Rate : 062 BPM P-R Int : 150 ms QRS Dur : 090 ms QT Int : 462 ms P-R-T Axes : 040 -15 074 degrees QTc Int : 468 ms Normal sinus rhythm Normal ECG When compared with ECG of 22-JAN-2017 05:06, No significant change was found Confirmed by ISHMAEL HOUSER, SEAN ([id number]), film and video editor KAYLIN MCKEON ([id number]) on 02/28/2019 2:56:23 PM Referred By: BUNNY Confirmed By:MISSY QUIÑONES MD
[2019-02-25 11:15] LABS: Bedside Glucose 194 mg/dL (70-110)
--- NOTE | 2019-02-25 11:30 | CASEMGMT ---
Social Work Note SW placed a call to Tena at [facility] and updated her that pt is having toe amputation today. Possible discharge tomorrow or . Tena states understanding. Maria Del Carmen Lowery PRINT FINISHER, GAS ENGINEER
[2019-02-25 11:40] LABS: Hemoglobin A1c 7.2 % (4.2-6.3)
[2019-02-25] MEDS: 0.9% Saline Lock 10 ML Syringe IV ×2 (13:56→22:57)
[2019-02-25] MEDS: Bupivacaine Mpf 0.5% 30 ML VIAL (15:10)
--- NOTE | 2019-02-25 15:30 | AMP_PTH ---
PATIENT: DEBORAH DENG LOC: MS3 U#:[id number] AGE/SX: 64/F ROOM: NE324 RE02/23/[address]: Dr. Thomas Encinas DO : 1955 BED: 1 DIS: 02/27/2019 SPEC #: [id number] RECD: 02/25/19 16:00 STATUS: YAHIR RE #: [id number] BLAYNE: 02/25/19 15:[address]: Benitez Haley DEPT: SURGICAL PATHOLOGY RECD BY: Juan Jose Reynaga ENTERED: 02/26/19 11:43 SP TYPE: Amputation OTHR DR: DO Dr. Peggy Bhagat, MD Dr. Nate Guerrero Dr., MD Dr. Robert Leininger, MD Tamara Faith Howard, RN OR LPN-C Tissues: A - Toe, NOS B - Bone of foot, NOS Procedures: Decalcification bone/plaque Surgery Specimen Level III Surgery Specimen Level IV HEADER OPERATION: Left foot debridement necrotic tissue, third toe amputation PRE-OP DIAGNOSIS: Osteomyelitis left third toe TISSUE SUBMITTED: A - Left third toe, B - Clearance fragment left third toe MICROSCOPIC DIAGNOSIS A. Left third toe, amputation: Focal ulceration and associated acute inflammation, reactive changes and fibrosis. Underlying bone with acute osteomyelitis. B. Clearance fragment left third toe: A piece of bone, negative for acute osteomyelitis. STEFFANY:javier 03/03/19 MICROSCOPIC DESCRIPTION Slides are reviewed. GROSS DESCRIPTION A - Received in fixative is one container labeled with the patient's name and designated left third toe. The specimen consists of a toe containing bone, skin and soft tissue. Nail is not present. The distal end of the toe appears to contain an ulcer measuring 1.5 x 1 x 0.5 cm. The specimen measures 4 cm in length and 2 cm in average diameter. The bony and soft tissue margins of resection are grossly unremarkable. Supervisor [employer]eng[employer]ving longitudinal section of the toe is submitted in two cassettes after decalcification. B - Received in fixative is one container labeled with the patient's name and designated clearance fragment left third toe. The specimen consists of an elongated fragment of rasmussen bone measuring 0.5 cm in length and 0.2 cm in diameter. The specimen is submitted in its entirety in one cassette after decalcification. / AM:javier 02/26/19 TC:2 CPT: 83696, 04878, 76890 x2
--- NOTE | 2019-02-25 16:15 | RAD_ITS ---
STUDY: X-RAY - LEFT FOOT CLINICAL: Female, 64 years old. POST OP PARTIAL LEFT 3RD TOE AMPUTATION TECHNIQUE: 3 view(s) of the foot. COMPARISON: 02/23/2019. FINDINGS: New partially amputation of the third toe just distal to the base of the third proximal phalanx. Stable-appearing partial amputation of the fifth toe. Reidentified is advanced degenerative disease at the first MTP joint, unchanged from prior. The remainder of the visualized osseous structures demonstrate no acute abnormality or significant interval change. The soft tissue structures are unremarkable. RAD/Foot min 3 Views IMPRESSION: Status post new partial amputation of the third digit. Other findings are unchanged compared to prior. Electronically Signed: William Choe, at 21:10 EST Tel , Service support ,
--- NOTE | 2019-02-25 16:38 | PCM.OPRPT ---
Problem List (1) Chronic ulcer of left foot with fat layer exposed Status: Chronic (2) Osteomyelitis of left foot Status: Suspected Qualifiers: Osteomyelitis type: other acute Qualified Code(s): M86.172 - Other acute osteomyelitis, left ankle and foot (3) Cellulitis of left foot Status: Acute (4) Diabetes mellitus type II Status: Chronic (5) Delayed wound healing Status: Chronic (6) Non-compliance Status: Chronic (7) PVD (peripheral vascular disease) Status: Chronic Report of Operation Date of Procedure: 02/25/19 Pre-Operative Diagnosis: Ulcer to the distal left third toe with osteomyelitis and cellulitis Post-Operative Diagnosis: Same Surgery/Procedure Performed:: Debridement of all necrotic, nonviable, infected soft tissue and bone of the left foot with partial left third toe amputation Description of Surgical Findings:: Hemostasis: Anatomical dissection. Type of Anesthesia:: Local MAC - Preoperative block consisting of 10 mL of 0.5% Marcaine plain proximal to the anticipated surgical site. Specimen's removed: Necrotic, infected, nonviable soft tissue and bone of the left third toe that was sent to pathology microbiology for further evaluation. Clearance fragment from the proximal phalanx of the left third toe sent to pathology and microbiology for further evaluation. Description of Procedure: Indications: This patient is a 64-year-old diabetic female with multiple comorbidities that presented to the emergency room on February 23, 2019 for a status change of her left third toe ulcer that she had been previously admitted for of the week prior. The patient returned to the emergency room with her left third toe that was significantly more swollen, had a lack of color and had an increase in drainage. This patient has significant memory loss and does not always remember to keep her dressings on as instructed. The status change of the patient's toe was noted by the patient's daughter who then brought her back to the emergency room for another evaluation. Patient also has a small ulcer to the right fourth toe and to the right lower leg and these are superficial and are not infected at this time. The patient has significant memory loss as stated above which complicates the patient's aftercare. The patient's daughter states that she forgets that she is supposed to have a dressing on and will change it or take it off. 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 The patient's daughter is her power of assistant attorney general. The left third toe ulcer is approximately 1 cm x 1.5 cm x 0.3 cm. There is positive probe to bone of the distal aspect of the left third toe with a fibrous and devitalized subcutaneous tissue base. No purulence was able to be expressed. Decreased capillary refill time to this toe. Slight erythema/cellulitis directly surrounding the distal toe. There is no streaking cellulitis proximally onto the foot. There is a thickened/bulbous appearance to the left third toe. Her skin in general is hairless and atrophic to bilateral lower extremities. No fluctuance or bogginess is appreciated. Patient's vital signs are currently stable. Her WBC today is 7.2. Her ESR on admission was 74. Patient's deep wound cultures are showing staph aureus as well as mixed gram-positive organisms. She is currently on IV antibiotics per hospitalist. Dr. Todd with vascular surgery was consulted and evaluated this patient. He ordered noninvasive lower extremity arterial studies with full detailed reports they can be located in the patient's chart. Per his note he states that her noninvasive studies appear essentially unchanged over the past 2 years. Armed with the previous information that she was able to heal a left foot fifth digit amputation with the previous vascular supply I would anticipate that she has similar likelihood of doing so at this time. He does not recommend any further vascular intervention at this time. At this time the decision was made to perform the debridement of all nonviable, infected, necrotic soft tissue and bone of the left foot with partial left third toe amputation. At this time, the planned surgical procedure was discussed in great detail with the patient as well as the patient's daughter who is her power of assistant attorney general and the patient's son. This was done to their satisfaction. They agree to proceed with the planned procedure and operation at this time. All the risks and potential complications were reviewed with them. They an understanding and importance of proper compliance following this procedure to help optimize the potential of healing, but no guarantees were given. They are advised that the complications and risks include, but are not limited to, further infection, need for further surgeries, recurrence of ulcers, transfer lesions, increased deformity of the feet and toes, weakness, loss of strength, chronic swelling, Charcot foot, nerve damage, inability to walk, inability to wear shoes, severe pain, complex regional pain syndrome, need for more proximal or extensive amputation such as a TMA or BKA, loss of complete limb, or even possible loss of life. All of their questions were answered to their satisfaction. It was then agreed upon to proceed with the above-stated procedure. The consent form was reviewed with them and was freely signed by the patient's daughter who is the power of assistant attorney general. Again no guarantees were given. Description of procedure: The patient was brought to the operating room and placed on the table in the supine position. The patient is already on IV antibiotics per hospitalist. The patient received MAC anesthesia with a local block consisting of 10 mL of 0.5% Marcaine plain proximal to the anticipated surgical site. Next, a well-padded ankle tourniquet was then applied to the patient's left ankle. The left foot and ankle were then scrubbed prepped and draped in usual aseptic manner. A timeout was performed and the patient was properly identified and the surgical plan was confirmed. Next, attention was directed to the left foot. Using a #15 scalpel blade, a vertical fishmouth incision was made starting dorsally overlying the midshaft of the proximal phalanx of the left third toe. The tourniquet was never inflated for this procedure due to lesser than normal blood flow to the surgical site. This incision was made completely down to bone. Next, the left third toe was then disarticulated through the proximal phalanx of the left third toe, and the end of the left third toe was passed from the operative table in toto. The soft tissue and bone of the left third toe was then divided into 2 sections on the back table and half was sent to microbiology for aerobic, anaerobic, acid-fast, and fungal evaluation. The second half was then sent to pathology for further evaluation. Next, attention was directed back to the surgical site. All tendons were transected as far back as possible and any other nonviable appearing soft tissue was carefully dissected and removed. At this time, top gloves were taken off and clean instruments were used. The surgical site was flushed with copious amounts of normal sterile saline. The remaining tissue and bone appeared healthy. It was at this time that a bone cutter was employed to remove some more small pieces of the proximal phalanx of the left third toe as a clearance fragment. The bone appeared to be hard and healthy. This was again passed in toto from the operative table and split into 2 pieces with half going to microbiology for aerobic, anaerobic, acid-fast, and fungal evaluation. The other half was sent to pathology for further evaluation. Once this was complete, the surgical site was again flushed with copious amounts of normal sterile saline. Since all the soft tissue and bone appeared to be healthy and the incision was proximal to the erythematous tissue prior to the start of the procedure, the decision was made to than primarily close the surgical site. This was done with 3-0 nylon in a simple interrupted fashion. The surgical site was then dressed with Betadine soaked Adaptic, followed by 4 x 4's, ABDs, Kerlix, and a very loosely wrapped John bandage to hold the underlying dressings in place with no compression applied with the John bandage. After procedure: The patient tolerated the procedure and anesthesia well. She was transferred to the PACU with vital signs stable and vascular status intact to all remaining digits of the left foot. She will be transferred back to the hospital floor upon continued stability. She was advised to continue with nonweightbearing to left lower extremity as much as possible, and if she needs to be up for any reason, she is to be heel weightbearing to the left foot for only a few steps at a time with the assistance of her surgical shoe. She is to keep the dressing clean, dry, and intact. The patient is to continue with antibiotics under the management of primary team. Infectious disease will be consulted. She is also to continue DVT prophylaxis and medical management per primary team. She is to elevate the left foot for postop pain and inflammation management. I will continue to follow this patient while in house.
[2019-02-25 17:11] LABS: Bedside Glucose 156 mg/dL (70-110)
[2019-02-25] MEDS: LORazepam 1 MG Tablet PO (17:17)
[2019-02-25] MEDS: Insulin Lispro 100 UNIT/ML INSULN.PEN 6 UNIT SC (18:30)
[2019-02-25 22:50] LABS: Bedside Glucose 110 mg/dL (70-110)
[2019-02-25] MEDS: MELATONIN 10 MG TABLET PO (22:58)
[2019-02-25] MEDS: OLANZapine 10 MG Tablet PO (22:58)
[2019-02-25] MEDS: Isosorbide DN 20 MG Tablet 40 MG PO (22:58)
[2019-02-25] MEDS: Pramipexole Di-HCl 0.5 MG Tablet PO (22:58)
[2019-02-25] MEDS: Ranolazine 500 MG Tablet 1000 MG PO (22:59)
[2019-02-25] MEDS: Senna/Docusate Sodium 1 Tablet PO (22:59)
[2019-02-25] MEDS: Pravastatin 40 MG Tablet PO (22:59)
[2019-02-26] VITALS (7 sets, daily range): BP systolic 111–154; BP diastolic 56–69; PULSE 73–82; RESP 16–20; TEMP 36.4–37.4; O2SAT 93–96
[2019-02-26] MEDS: Albuterol 2.5 MG/3 ML VIAL.NEB. INHALATION (00:28)
[2019-02-26] MEDS: oxyCODONE 5 MG Tablet PO ×3 (00:33→10:26)
[2019-02-26] MEDS: Pregabalin 75 MG Capsule PO ×3 (04:59→22:45)
[2019-02-26 06:55] LABS: Bedside Glucose 150 mg/dL (70-110)
[2019-02-26] MEDS: LORazepam 1 MG Tablet PO (06:56)
[2019-02-26] MEDS: Magnesium Oxide 400 MG Tablet PO (08:25)
[2019-02-26] MEDS: Isosorbide DN 20 MG Tablet 40 MG PO ×2 (08:25→22:44)
[2019-02-26] MEDS: Senna/Docusate Sodium 1 Tablet PO ×2 (08:25→22:45)
[2019-02-26] MEDS: Enoxaparin 40 MG/0.4 ML Syringe SC (08:25)
[2019-02-26] MEDS: Escitalopram Oxalate 10 MG Tablet PO (08:25)
[2019-02-26] MEDS: Clopidogrel Bisulfate 75 MG Tablet PO (08:25)
[2019-02-26] MEDS: Ranolazine 500 MG Tablet 1000 MG PO ×2 (08:25→22:45)
[2019-02-26] MEDS: Metoprolol Tartrate 50 MG Tablet PO (08:25)
[2019-02-26] MEDS: Aspirin 81 MG TAB.CHEW PO (08:25)
[2019-02-26] MEDS: Insulin Lispro 100 UNIT/ML INSULN.PEN SC ×5 (08:26→22:49)
--- NOTE | 2019-02-26 09:22 | CASEMGMT ---
Addendum entered by Maria Del Carmen Lowery 02/26/19 15:45: DEJAH spoke with pt's daughter Guy and updated her that pt will need to return to [facility] skilled as pt is non weight bearing at this time. Guy states understanding, is agreeable for pt to return to [facility] skilled. DEJAH updated Guy that pt will likely discharge back to SNF tomorrow. Original Note: Social Work Note Per physician pt is not medically cleared for discharge, will await for ID recommendations. [facility] Return to [facility] once medically cleared Maria Del Carmen Lowery [employer], [employer] D[employer]ING SERVER
--- NOTE | 2019-02-26 11:03 | PN_ITS ---
Patient Problems: Active and Suspected Problems (Last Updated 02/19/19 @ 12:04 by Aman Salazar MD) Failure of outpatient treatment (Acute) Diabetic toe ulcer (Acute) Ulcer of right foot with fat layer exposed (Acute) Hammertoe of right foot (Acute) Hammertoe of left foot (Acute) Osteomyelitis of left foot (Suspected) Reason for Visit: osteomyelitis Subjective: Feels well. No new complaints. Later, after I saw the patient, was restless standing up. Vitals/I&O's: Vital Signs Temp Pulse Resp BP Pulse Ox 37.1 C 81 16 111/56 L 93 02/26/19 05:57 02/26/19 08:25 02/26/19 05:57 02/26/19 05:57 02/26/19 05:57 Oxygen Flow Rate (L/min) 2 Oxygen Delivery Method Room Air Weight: 91.8 kg Body Mass Index (BMI) 33.7 Finger Stick Blood Glucose 390 Intake and Output for Last 24 Hours 02/24/19 02/25/19 02/26/19 23:59 23:59 23:59 Intake Total 2350.25 / 2550.25 1331.00 / 1331.00 350.50 / 350.50 Output Total 850 / 850 200 / 200 325 / 325 Balance 1500.25 / 1700.25 1131.00 / 1131.00 25.50 / 25.50 General: Alert, Cooperative, No apparent distress HEENT: Atraumatic, Normocephalic Oral: Moist Mucosa, No Gingival or Mucosal Lesions/ Ulcerations Neck: No Nodes, Trachea Midline Lungs: Clear to auscultation, Normal air movement, No rhonchi, No wheeze Cardiovascular: Regular rate, Regular Rhythm, Normal S1, Normal S2 Abdomen: Bowel Sounds Present, Soft, Non Tender, Non-Distended, No Hepato- splenomegaly Extremities: No edema, No Calf Tenderness Skin: - - feet wrapped, did not remove. Psych/Mental Status: Normal Affect, Appropriate Microbiology Past 72 Hours 02/23/19 19:06 Wound - Toe Gram Stain - Final 02/23/19 19:06 Wound - Toe Wound Culture - Preliminary Staphylococcus aureus Coag Negative Staph Corynebacterium striatum Streptococcus agalactiae (B) Laboratory Results 02/25/19 05:48: Hemoglobin A1c 7.2 H 02/25/19 11:07: POC Glucose 194 H 02/25/19 17:03: POC Glucose 156 H 02/25/19 22:34: POC Glucose 110 02/26/19 06:25: POC Glucose 150 H Current Medications Acetaminophen (Tylenol) 650 mg PO Q4H PRN PRN PRN Reason: Pain Score 1-10/10 Albuterol Sulfate (Ventolin Aerosols) 2.5 mg INHALATION Q2H PRN PRN PRN Reason: dyspnea, wheezing Last Admin: 02/26/19 00:28 Dose: 2.5 mg Documented by: Aspirin (Aspirin, Baby) 81 mg PO DAILY@0800 [facility] Last Admin: 02/26/19 08:25 Dose: 81 mg Documented by: Clopidogrel Bisulfate (Plavix) 75 mg PO DAILY [facility] Last Admin: 02/26/19 08:25 Dose: 75 mg Documented by: Enoxaparin Sodium (Lovenox) 40 mg SC DAILY [facility] Last Admin: 02/26/19 08:25 Dose: 40 mg Documented by: Escitalopram Oxalate (Lexapro) 10 mg PO DAILY [facility] Last Admin: 02/26/19 08:25 Dose: 10 mg Documented by: Glucagon () 1 mg IM .X1 PRN PRN Reason: Hypoglycemia Hydralazine HCl (Apresoline Iv) 10 mg IV Q4H PRN PRN PRN Reason: SBP > 160 Last Admin: 02/25/19 22:57 Dose: 10 mg Documented by: Sodium Chloride () 250 mls @ 15 mls/hr IV .[id number] PRN PRN Reason: Saline Flush Last Infusion: 02/26/19 10:48 Dose: 15 mls/hr Documented by: Piperacillin Sod/Tazobactam (Sod 3.375 gm/ Sodium Chloride) 50 mls @ 12.5 mls/hr IV Q8 [facility] Last Infusion: 02/26/19 09:07 Dose: Infused Documented by: Dextrose (Dextrose 10%-Water) 250 mls @ 999 mls/hr IV .Q16M PRN; Protocol PRN Reason: HYPOGLYCEMIA Insulin Glargine (Lantus (Bk)) 31 units SC QHS [facility] Last Admin: 02/25/19 22:47 Dose: Not Given Documented by: Insulin Human Lispro (Humalog Kwikpen ([facility])) 0 unit SC ACHS [facility]; Protocol Last Admin: 02/26/19 10:58 Dose: 4 unit Documented by: Insulin Human Lispro (Humalog Kwikpen (Bkc)) 6 unit SC DINNER [facility] Last Admin: 02/25/19 18:30 Dose: 6 units Documented by: Insulin Human Lispro (Humalog Kwikpen (Bkc)) 4 unit SC BID@0800,1200 [facility] Last Admin: 02/26/19 10:58 Dose: 4 u Documented by: Isosorbide Dinitrate (Isordil) 40 mg PO BID [facility] Last Admin: 02/26/19 08:25 Dose: 40 mg Documented by: [facility] ([facility]Ox 400) [facility] Last Admin: 02/26/19 08:25 Dose: 400 mg Documented by: Melatonin (Melatonin) 10 mg PO QHS [facility] Last Admin: 02/25/19 22:58 Dose: 10 mg Documented by: Metoprolol Tartrate (Lopressor (Beta Gaye)) 50 mg PO DAILY [facility] Last Admin: 02/26/19 08:25 Dose: 50 mg Documented by: Nutritional Formula (Rosendo - [place] Flavor) [facility] Last Admin: 02/26/19 08:25 Dose: 1 packet Documented by: Olanzapine (Zyprexa) 10 mg PO QHS [facility] Last Admin: 02/25/19 22:58 Dose: 10 mg Documented by: Ondansetron HCl (Zofran) 4 mg IV Q8H PRN PRN PRN Reason: NAUSEA/VOMITING Last Admin: 02/25/19 02:30 Dose: 4 mg Documented by: Oxycodone HCl (Oxyir) 5 mg PO Q4H PRN PRN PRN Reason: Pain Score 4-5/10 Last Admin: 02/26/19 10:26 Dose: 5 mg Documented by: Pramipexole Dihydrochloride (Mirapex) 0.5 mg PO QHS [facility] Last Admin: 02/25/19 22:58 Dose: 0.5 mg Documented by: Pravastatin Sodium (Pravachol) 40 mg PO QHS [facility] Last Admin: 02/25/19 22:59 Dose: 40 mg Documented by: Pregabalin (Lyrica) 75 mg PO TID [facility] Last Admin: 02/26/19 04:59 Dose: 75 mg Documented by: Ranolazine (Ranexa) 1,000 mg PO BID [facility] Last Admin: 02/26/19 08:25 Dose: 1,000 mg Documented by: Senna/Docusate Sodium (Senokot-S, Kirstie-Colace) 1 tablet PO BID [facility] Last Admin: 02/26/19 08:25 Dose: 1 tablet Documented by: Sodium Chloride () 10 - 40 ml IV UD PRN PRN Reason: SALINE FLUSH Last Admin: 02/25/19 22:57 Dose: 10 ml Documented by: STROKE Vital Signs/Narrative: Vital Signs Pulse 02/26/19 08:25 81 Medical Necessity - Tobacco Use Smoking Status: Current every day smoker Assessment/Plan All Active Problems (Last Updated 02/19/19 @ 12:04 by Aman Salazar MD) Ulcer of right lower extremity with fat layer exposed (Acute) Cellulitis of left foot (Acute) Failure of outpatient treatment (Acute) Diabetic toe ulcer (Acute) Ulcer of right foot with fat layer exposed (Acute) Hammertoe of right foot (Acute) Hammertoe of left foot (Acute) 1. 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 MRSA screen negative. * S/P partial left third toe amputation * consult ID for long-term recommendations 2. DM2 * with diabetic neuropathy * fair control * continue basal, prandial and SSI 3. PAD * stable * seen by Dr. Todd and does not feel she needs any vascular intervention at this time. 4. VTE prophylaxis: enoxaparin. Code Visit Inpatient E&M: 71738 Subs Hosp L2
[2019-02-26] MEDS: Acetaminophen 325 MG Tablet 650 MG PO (11:06)
--- NOTE | 2019-02-26 11:19 | CASEMGMT ---
Addendum entered by Sue Fu 02/26/19 11:40: [employer] faxed over full POA form, SW placed it on paper chart to be scanned into summary tab at discharge. LUIS MANUEL Rondon Original Note: POA form on file in summary tab of [facility], however only every other page is scanned into the summary tab. Pt did initial the LW provision. SW called [employer] and asked them to fax over the full form should they have it on file. PEACE RondonS
[2019-02-26 11:46] LABS: Bedside Glucose 245 mg/dL (70-110)
--- NOTE | 2019-02-26 12:20 | PCM.PROGNOTE ---
Patient Problems: Active and Suspected Problems (Last Updated 02/19/19 @ 12:04 by Aman Salazar MD) Failure of outpatient treatment (Acute) Diabetic toe ulcer (Acute) Ulcer of right foot with fat layer exposed (Acute) Hammertoe of right foot (Acute) Hammertoe of left foot (Acute) Osteomyelitis of left foot (Suspected) Subjective: This patient was seen resting in chair by the bed getting ready to eat her lunch early this afternoon. She was seen POD #1 s/p debridement of all infected, nonviable, necrotic soft tissue and bone of the left foot with left partial third toe amputation. Patient currently relates that her pain is well controlled. Patient's nurse does admit that the patient has been standing on her foot and moving around. Patient currently denies any feelings of nausea, vomiting, fever, chills. - Physical Exam Vitals/I&O's: Vital Signs Temp Pulse Resp BP Pulse Ox 97.6 F L 73 20 H 113/63 95 02/26/19 11:50 02/26/19 11:50 02/26/19 11:50 02/26/19 11:50 02/26/19 11:50 Oxygen Flow Rate (L/min) 2 Oxygen Delivery Method Room Air Weight: 91.8 kg Body Mass Index (BMI) 33.7 Finger Stick Blood Glucose 390 Intake and Output for Last 24 Hours 02/24/19 02/25/19 02/26/19 23:59 23:59 23:59 Intake Total 2350.25 / 2550.25 1331.00 / 1331.00 750.50 / 750.50 Output Total 850 / 850 200 / 200 325 / 325 Balance 1500.25 / 1700.25 1131.00 / 1131.00 425.50 / 425.50 General: Alert, Cooperative, Confused - Consistent with patient's memory loss Extremities: No cyanosis, No Calf Tenderness - Negative Evelina and [place] signs bilateral, Diminished Peripheral Pulses Skin: Ulcer/ Wound - Patient has superficial uninfected small ulcers as noted in previous progress notes to the right fourth toe and right lower leg. These were recently dressed and the dressing was secured., - - Patient's surgical site was carefully examined and evaluated status post partial left third toe amputation. The sutures are intact and the edges are well coapted. There is no surrounding necrosis or eschar at this time. No cyanosis. There is no strikethrough to the outer layers of dressing. There was some sanguinous drainage noted to the inner layers of dressing. No purulence or increased warmth to the area. No streaking or surrounding cellulitis appreciated. Musculoskeletal: No Tenderness to Palpation of Joints or Extremities, - - Dorsal contracture of lesser digits bilateral Neurological: - - Lack of epicritic sensation to bilateral lower extremities consistent with patient's diabetic neuropathy status Psych/Mental Status: Appropriate, - - Lack of memory noted Microbiology Past 72 Hours 02/23/19 19:06 Wound - Toe Gram Stain - Final 02/23/19 19:06 Wound - Toe Wound Culture - Preliminary Staphylococcus aureus Coag Negative Staph Corynebacterium striatum Streptococcus agalactiae (B) Laboratory Results 02/25/19 17:03: POC Glucose 156 H 02/25/19 22:34: POC Glucose 110 02/26/19 06:25: POC Glucose 150 H 02/26/19 10:57: POC Glucose 245 H Current Medications Acetaminophen (Tylenol) 650 mg PO Q4H PRN PRN PRN Reason: Pain Score 1-10/10 Last Admin: 02/26/19 11:06 Dose: 650 mg Documented by: Albuterol Sulfate (Ventolin Aerosols) 2.5 mg INHALATION Q2H PRN PRN PRN Reason: dyspnea, wheezing Last Admin: 02/26/19 00:28 Dose: 2.5 mg Documented by: Aspirin (Aspirin, Baby) 81 mg PO DAILY@0800 [facility] Last Admin: 02/26/19 08:25 Dose: 81 mg Documented by: Clopidogrel Bisulfate (Plavix) 75 mg PO DAILY [facility] Last Admin: 02/26/19 08:25 Dose: 75 mg Documented by: Enoxaparin Sodium (Lovenox) 40 mg SC DAILY [facility] Last Admin: 02/26/19 08:25 Dose: 40 mg Documented by: Escitalopram Oxalate (Lexapro) 10 mg PO DAILY [facility] Last Admin: 02/26/19 08:25 Dose: 10 mg Documented by: Glucagon () 1 mg IM .X1 PRN PRN Reason: Hypoglycemia Hydralazine HCl (Apresoline Iv) 10 mg IV Q4H PRN PRN PRN Reason: SBP > 160 Last Admin: 02/25/19 22:57 Dose: 10 mg Documented by: Sodium Chloride () 250 mls @ 15 mls/hr IV .[id number] PRN PRN Reason: Saline Flush Last Infusion: 02/26/19 10:48 Dose: 15 mls/hr Documented by: Piperacillin Sod/Tazobactam (Sod 3.375 gm/ Sodium Chloride) 50 mls @ 12.5 mls/hr IV Q8 [facility] Last Infusion: 02/26/19 09:07 Dose: Infused Documented by: Dextrose (Dextrose 10%-Water) 250 mls @ 999 mls/hr IV .Q16M PRN; Protocol PRN Reason: HYPOGLYCEMIA Insulin Glargine (Lantus (Bk)) 31 units SC QHS [facility] Last Admin: 02/25/19 22:47 Dose: Not Given Documented by: Insulin Human Lispro (Humalog Kwikpen (Bk)) 0 unit SC ACHS [facility]; Protocol Last Admin: 02/26/19 10:58 Dose: 4 unit Documented by: Insulin Human Lispro (Humalog Kwikpen (Bk)) 6 unit SC DINNER [facility] Last Admin: 02/25/19 18:30 Dose: 6 units Documented by: Insulin Human Lispro (Humalog Kwikpen (Bkc)) 4 unit SC BID@0800,1200 [facility] Last Admin: 02/26/19 10:58 Dose: 4 u Documented by: Isosorbide Dinitrate (Isordil) 40 mg PO BID [facility] Last Admin: 02/26/19 08:25 Dose: 40 mg Documented by: [facility]) [facility] Admin: 02/26/19 08:25 Dose: 400 mg Documented by: Melatonin (Melatonin) 10 mg PO QHS [facility] Last Admin: 02/25/19 22:58 Dose: 10 mg Documented by: Metoprolol Tartrate (Lopressor (Beta Gaye)) 50 mg PO DAILY [facility] Last Admin: 02/26/19 08:25 Dose: 50 mg Documented by: Nutritional Formula (Rsoendo - [place] Flavor) [facility] Last Admin: 02/26/19 08:25 Dose: 1 packet Documented by: Olanzapine (Zyprexa) 10 mg PO QHS [facility] Last Admin: 02/25/19 22:58 Dose: 10 mg Documented by: Ondansetron HCl (Zofran) 4 mg IV Q8H PRN PRN PRN Reason: NAUSEA/VOMITING Last Admin: 02/25/19 02:30 Dose: 4 mg Documented by: Oxycodone HCl (Oxyir) 5 mg PO Q4H PRN PRN PRN Reason: Pain Score 4-5/10 Last Admin: 02/26/19 10:26 Dose: 5 mg Documented by: Pramipexole Dihydrochloride (Mirapex) 0.5 mg PO QHS [facility] Last Admin: 02/25/19 22:58 Dose: 0.5 mg Documented by: Pravastatin Sodium (Pravachol) 40 mg PO QHS [facility] Last Admin: 02/25/19 22:59 Dose: 40 mg Documented by: Pregabalin (Lyrica) 75 mg PO TID [facility] Last Admin: 02/26/19 04:59 Dose: 75 mg Documented by: Ranolazine (Ranexa) 1,000 mg PO BID [facility] Last Admin: 02/26/19 08:25 Dose: 1,000 mg Documented by: Senna/Docusate Sodium (Senokot-S, Kirstie-Colace) 1 tablet PO BID [facility] Last Admin: 02/26/19 08:25 Dose: 1 tablet Documented by: Sodium Chloride () 10 - 40 ml IV UD PRN PRN Reason: SALINE FLUSH Last Admin: 02/25/19 22:57 Dose: 10 ml Documented by: Medical Necessity - Tobacco Use Smoking Status: Current every day smoker Assessment/Plan All Active Problems (Last Updated 02/19/19 @ 12:04 by Aman Salazar MD) Ulcer of right lower extremity with fat layer exposed (Acute) Cellulitis of left foot (Acute) Failure of outpatient treatment (Acute) Diabetic toe ulcer (Acute) Ulcer of right foot with fat layer exposed (Acute) Hammertoe of right foot (Acute) Hammertoe of left foot (Acute) POD #1 s/p debridement of all infected, nonviable, necrotic soft tissue and bone of the left foot with left partial third toe amputation Right fourth toe ulcer with fat layer exposed, stable no signs of infection Right leg ulcer secondary to trauma, stable and no signs of infection Diabetes with peripheral neuropathy Bilateral hammertoes History of peripheral vascular disease status post remote intervention Memory loss and other comorbidities This patient was carefully examined and evaluated resting in a chair by the bed early this afternoon. She has an appetite and is getting ready to eat some yogurt and milk for lunch. Patient is POD #1 s/p debridement of all infected, nonviable, necrotic soft tissue and bone of the left foot with left partial third toe amputation. Patient's nurse relates that she is caught the patient on a few different occasions standing and moving around on her foot as she was instructed not to do on multiple occasions. Patient continues to be non-compliant in her care. Patient had no acute adverse events overnight. She currently relates that her pain is well controlled. Her vital signs are currently stable. Deep wound cultures are growing back staph aureus, coag negative staph, Corynebacterium stratum, and strep agalactiae. Micro and path results from specimen sent from surgery are still pending. Patient is being followed by infectious disease and is currently on IV antibiotics. Patient surgical dressing was taken down. There is no strikethrough to the outer layers of dressing. There is some sanguinous drainage noted to the inner layers of dressing. Surgical site remains well coapted with sutures intact. Currently there is no surrounding cellulitis, no purulence, no malodor. There is no necrosis or eschar appreciated at this time surrounding surgical site. The site was then carefully cleansed and then redressed with Betadine painted to surgical site, followed by Betadine soaked Adaptic, followed by 4 x 4's, ABDs, Kerlix, and an John bandage that was gently rolled over to hold the underlying dressings in place. There was no compression applied with the John bandage. Patient is to continue to keep the left lower extremity elevated to help with postop edema/pain. Patient is to be nonweightbearing as stated multiple times to the left foot. If she absolutely has to be up she is able to take small steps or pivot using heel weightbearing with the assistance of her surgical shoe. Continued medical management DVT prophylaxis appreciated per primary team. Podiatry will continue to follow this patient closely while in house.
--- NOTE | 2019-02-26 14:06 | CON.PCM_ITS ---
Problem List (1) Osteomyelitis of left foot Status: Suspected Qualifiers: Osteomyelitis type: other acute Qualified Code(s): M86.172 - Other acute osteomyelitis, left ankle and foot Reason for Consult: osteo Consulted by: Dr. Encinas History of Present Illness: The patient is a 64 year old F with PVD, DM, presented 02/23 with acute onset of worsening of L 2th toe with pain, swelling, redness, ulceration and associated fever, n/v. Had been on po abx for foot osteo prior to that, follows at wound center. Admitted, started on vanc/zosyn. Cx of wound showed MSSA, MS-CoNS, GBS, corynebacteria. Vanc stopped. Taken to OR 02/25 for I&D and toe amputation. Feeling ok, denies pain, no fever, no n/v/d. Full ROS performed and neg except as noted above. - Medical History Past Medical History (Chronic Problems): Chronic Problems (Last Updated 02/19/19 @ 12:04 by Aman Salazar MD) Diabetes mellitus type II (Chronic) diabetic ulcer dorsum right foot (Chronic) Chronic hypertension (Chronic) Degenerative disc disease, lumbar (Chronic) Delayed wound healing (Chronic) Chronic ulcer of left foot with fat layer exposed (Chronic) Memory loss (Chronic) MISTI (obstructive sleep apnea) (Chronic) Chronic ulcer of left foot with fat layer exposed (Chronic) Non-compliance (Chronic) GERD (Chronic) Fibromyalgia (Chronic) COPD (Chronic) Type 2 diabetes mellitus with diabetic polyneuropathy (Chronic) Anemia (Chronic) Tobacco use disorder (Chronic) Carotid arterial disease (Chronic) PVD (peripheral vascular disease) (Chronic) CVA (cerebral vascular accident) (Chronic) Paroxysmal atrial fibrillation (Chronic) Hyperlipidemia (Chronic) Allergies/Adverse Reactions: Allergies ciprofloxacin [From Cipro] Allergy (Verified 02/17/19 18:52) Unknown clarithromycin [From Biaxin] Allergy (Verified 02/17/19 18:52) Rash codeine Allergy (Verified 02/17/19 18:52) Rash clarithromycin Allergy (Unknown, Uncoded 02/17/19 18:52) Unknown Home Medications: Ambulatory Orders Medication Instructions Recorded Lisinopril [Prinivil] 5 mg PO DAILY 01/21/17 Multivit,Calc,Mins/Iron/Folic 1 ea PO DAILY 01/21/17 [Thera M Plus Tablet] metFORMIN HCl [Glucophage] 1,000 mg PO BIDCM 01/21/17 Insulin Detemir [Levemir FlexPen] 31 units SC QHS 03/09/17 metoprolol tartrate 50 mg tablet 50 mg PO DAILY tab 05/01/17 Cholecalciferol (Vitamin D3) 2,000 unit PO DAILY 02/17/19 [Vitamin D3] Escitalopram Oxalate [Lexapro] 5 mg PO DAILY 02/17/19 Escitalopram Oxalate [Lexapro] 10 mg PO DAILY 02/17/19 Famotidine [Pepcid] 20 mg PO DAILY 02/17/19 Furosemide [Lasix] 20 mg PO DAILY 02/17/19 Insulin Aspart [Novolog Flexpen] 4 units SUBCUT BID 02/17/19 Insulin Aspart [Novolog Flexpen] 6 units SUBCUT DINNER 02/17/19 Insulin Aspart [Novolog Flexpen] See Protocol SUBCUT ACHS 02/17/19 Isosorbide DN [Isordil] 40 mg PO BID 02/17/19 Melatonin 10 mg PO QHS 02/17/19 Olanzapine 10 mg PO QHS 02/17/19 [place]-3 Fatty Acids/Fish Oil [Fish 1 cap PO BID 02/17/19 Oil 1,000 mg Capsule] Pramipexole Di-HCl [Mirapex] 0.5 mg PO QHS 02/17/19 Pravastatin [Pravachol] 40 mg PO QHS 02/17/19 Pregabalin [Lyrica] 75 mg PO TID 02/17/19 Amox/Clavulanate Tablet [Augmentin 875 mg PO Q12H 02/23/19 Tablet] Aspirin [Aspirin, Baby] 81 mg PO DAILY@0800 02/23/19 Clopidogrel Bisulfate [Plavix] 75 mg PO DAILY 02/23/19 Cyanocobalamin (Vitamin B-12) 1,000 mcg PO DAILY 02/23/19 [Vitamin B-12] Fluticasone/Salmeterol [Advair 1 ea IH BID 02/23/19 250-50 Diskus] Magnesium Oxide [Mag-Ox 400] 400 mg PO DAILYCM 02/23/19 Ranolazine [Ranexa] 1,000 mg PO BID 02/23/19 Senna/Docusate Sodium [Senokot-S] 2 tab PO BID 02/23/19 - Social History SMOKING STATUS:: Current every day smoker Vital Signs Temp Pulse Resp BP Pulse Ox 97.6 F L 73 20 H 113/63 95 02/26/19 11:50 02/26/19 11:50 02/26/19 11:50 02/26/19 11:50 02/26/19 11:50 Oxygen Flow Rate (L/min) 2 Oxygen Delivery Method Room Air Weight: 91.8 kg Body Mass Index (BMI) 33.7 Finger Stick Blood Glucose 390 Microbiology Past 72 Hours 02/25/19 16:09 Gram Stain - Final Tissue - Toe Wound Culture - Preliminary No growth-Final to follow 02/25/19 16:09 Gram Stain - Final Tissue - Toe Wound Culture - Preliminary Staphylococcus aureus 02/23/19 19:06 Gram Stain - Final Wound - Toe Wound Culture - Preliminary Staphylococcus aureus Coag Negative Staph Corynebacterium striatum Streptococcus agalactiae (B) - Other Studies Radiology: [] reviewed Other Studies: [] Route of nutrition/ use of supplements: [] Nutritional Intake: [] IV Site: [] Allen Catheter: [] - Physical Exam General: Alert, Oriented x3, Cooperative, No apparent distress HEENT: Atraumatic, PERRLA, EOMI Neck: Supple, No Nodes Lungs: Clear to auscultation, Normal air movement Cardiovascular: Regular rate, Regular Rhythm Abdomen: Soft, Non Tender, Non-Distended Extremities: No edema Skin: Ulcer/ Wound - foot wrapped IV Site: Peripheral Musculoskeletal: No Tenderness to Palpation of Joints or Extremities Neurological: Cranial nerves II-XII grossly intact - Assessment/Plan Antibiotics: [] Assessment/Plan: [] Active and Suspected Problems (Last Updated 02/19/19 @ 12:04 by Aman Salazar MD) Failure of outpatient treatment (Acute) Diabetic toe ulcer (Acute) Ulcer of right foot with fat layer exposed (Acute) Hammertoe of right foot (Acute) Hammertoe of left foot (Acute) Osteomyelitis of left foot (Suspected) L 2nd toe osteo - wound cx with mssa, ms-CoNS, GBS, corynebacteria. Taken to OR 02/25 for toe amputation, surg cx with staph aureus so far, clearance fragment neg. So far it seems like she has had good source control. On zosyn currently. Plan for discharge will be for 10 days of po doxy 100mg bid and augmentin 875mg bid to cover her L and R feet. If clearance cx or path shows residual osteo, course will need to be extended to 6 weeks total of abx. Will follow, thank you.
[2019-02-26] MEDS: Insulin Lispro 100 UNIT/ML INSULN.PEN 6 UNIT SC (17:49)
[2019-02-26 17:56] LABS: Bedside Glucose 407 mg/dL (70-110)
[2019-02-26] MEDS: MELATONIN 10 MG TABLET PO (22:45)
[2019-02-26] MEDS: Pramipexole Di-HCl 0.5 MG Tablet PO (22:45)
[2019-02-26] MEDS: OLANZapine 10 MG Tablet PO (22:45)
[2019-02-26] MEDS: Pravastatin 40 MG Tablet PO (22:45)
[2019-02-26 23:01] LABS: Bedside Glucose 214 mg/dL (70-110)
[2019-02-27 03:57] VITALS: BP 153/75; PULSE 78; RESP 16; TEMP 36.9; O2SAT 100
[2019-02-27] MEDS: oxyCODONE 5 MG Tablet PO ×2 (04:16→09:37)
[2019-02-27] MEDS: Pregabalin 75 MG Capsule PO (05:13)
[2019-02-27 05:31] LABS: Absolute Lymphocyte Count 1.83 X10^3/uL (0.83-4.51); Absolute Neutrophil Count 3.3 X10^3/uL (2.0-7.7); Basophil# 0.05 X10^3/uL; Basophil% 0.8 % (0-1); Eosinophil# 0.31 X10^3/uL; Eosinophils% 4.8 % (0-5); Hematocrit 27.1 % (37-47); Hemoglobin 8.5 g/dL (12.0-15.0); Lymphocyte # 1.83 X10^3/ul (4.0); Lymphocyte % 28.3 % (19-41); Mean Corp Hgb Conc 31.4 g/dL (32-36); Mean Corpuscular Hgb 29.9 pg (27.0-32.0); Mean Corpuscular Volume 95.4 fL (81-99); Mean Platelet Vol. 10.5 fl (6.2-12.0); Monocyte# 0.98 X10^3/uL; Monocyte% 15.1 % (0-10); NRBC Flagged by Analyzer 0 % (0-5); Neutrophil # 3.25 X10^3/uL (2.7-7.7); Neutrophil % 50.2 % (47-70); Platelet Count 271 K/mm3 (150-450); RBC Distribution Width CV 12.9 % (11.6-14.6); RBC Distribution Width SD 44.5 fl (35.1-43.9); Red Blood Count 2.84 M/mm3 (4.2-5.4); White Blood Count 6.5 K/mm3 (4.4-11.0)
[2019-02-27 05:53] LABS: Anion Gap 6 (5-15); BUN 37 mg/dL (7-18); BUN/Creat Ratio 27.4 RATIO (10-20); Calcium,Total 8.6 mg/dL (8.5-10.1); Chloride 110 mmol/L (98-107); Creatinine, Serum 1.35 mg/dL (0.55-1.02); EST Glomerular Filtration Rate 42 mL/min (>60); Est Glom Filt Rate - Afr Amer 51 mL/min (>60); Estimated Creatinine Clearance 38.38 ml/min; Glucose 141 mg/dL (74-106); Potassium 4.1 mmol/L (3.5-5.1); Sodium Level 139 mmol/L (136-145)
[2019-02-27 06:56] LABS: Bedside Glucose 137 mg/dL (70-110)
[2019-02-27] MEDS: Insulin Lispro 100 UNIT/ML INSULN.PEN SC (08:19)
[2019-02-27] MEDS: Aspirin 81 MG TAB.CHEW PO (08:21)
[2019-02-27] MEDS: Magnesium Oxide 400 MG Tablet PO (08:21)
--- NOTE | 2019-02-27 09:34 | PCM.PN.ID ---
Patient Problems: Active and Suspected Problems (Last Updated 02/19/19 @ 12:04 by Aman Salazar MD) Failure of outpatient treatment (Acute) Diabetic toe ulcer (Acute) Ulcer of right foot with fat layer exposed (Acute) Hammertoe of right foot (Acute) Hammertoe of left foot (Acute) Osteomyelitis of left foot (Suspected) Subjective: Feeling ok, no fever, no n/v/d. - Physical Exam Vitals/I&O's: Vital Signs Temp Pulse Resp BP Pulse Ox 98.4 F 78 16 153/75 H 100 02/27/19 03:57 02/27/19 03:57 02/27/19 03:57 02/27/19 03:57 02/27/19 03:57 Oxygen Flow Rate (L/min) 2 Oxygen Delivery Method Room Air Weight: 91.8 kg Body Mass Index (BMI) 33.7 Finger Stick Blood Glucose 390 Intake and Output for Last 24 Hours 02/25/19 02/26/19 02/27/19 23:59 23:59 23:59 Intake Total 1331.00 / 1331.00 1624.00 / 1624.00 684.5 / 684.5 Output Total 200 / 200 775 / 775 600 / 600 Balance 1131.00 / 1131.00 849.00 / 849.00 84.5 / 84.5 General: Alert, Cooperative, No apparent distress Lungs: Clear to auscultation, Normal air movement Cardiovascular: Regular rate, Regular Rhythm Abdomen: Soft, Non Tender, Non-Distended Skin: Ulcer/ Wound - feet wrapped Microbiology Past 72 Hours 02/23/19 19:06 Wound - Toe Gram Stain - Final 02/23/19 19:06 Wound - Toe Wound Culture - Final Staphylococcus aureus Coag Negative Staph Corynebacterium striatum Streptococcus agalactiae (B) 02/25/19 16:09 Tissue - Toe Gram Stain - Final 02/25/19 16:09 Tissue - Toe Wound Culture - Preliminary No growth-Final to follow 02/25/19 16:09 Tissue - Toe Gram Stain - Final 02/25/19 16:09 Tissue - Toe Wound Culture - Preliminary Staphylococcus aureus Laboratory Results 02/26/19 10:57: POC Glucose 245 H 02/26/19 17:49: POC Glucose 407 H 02/26/19 22:48: POC Glucose 214 H 02/27/19 05:16: WBC 6.5, RBC 2.84 L, Hgb 8.5 L, Hct 27.1 L, MCV 95.4, MCH 29.9, MCHC 31.4 L, RDW Std Deviation 44.5 H, RDW Coeff of Anjelica 12.9, Plt Count 271, MPV 10.5, Immature Gran % (Auto) 0.800, Neut % (Auto) 50.2, Lymph % (Auto) 28.3, [place] % (Auto) 15.1 H, Eos % (Auto) 4.8, Baso % (Auto) 0.8, Absolute Neuts (auto) 3.3, Absolute Lymphs (auto) 1.83, Nucleated RBC % 0 02/27/19 05:16: Sodium 139, Potassium 4.1, Chloride 110 H, Carbon Dioxide 23.0, Anion Gap 6, BUN 37 H, Creatinine 1.35 H, Estim Creat Clear Calc 38.38, Est GFR (MDRD) Af Amer 51 L, Est GFR (MDRD) Non-Af 42 L, BUN/Creatinine Ratio 27.4 H, Glucose 141 H, Calcium 8.6 02/27/19 06:49: POC Glucose 137 H Current Medications Acetaminophen (Tylenol) 650 mg PO Q4H PRN PRN PRN Reason: Pain Score 1-10/10 Last Admin: 02/26/19 11:06 Dose: 650 mg Documented by: Albuterol Sulfate (Ventolin Aerosols) 2.5 mg INHALATION Q2H PRN PRN PRN Reason: dyspnea, wheezing Last Admin: 02/26/19 00:28 Dose: 2.5 mg Documented by: Aspirin (Aspirin, Baby) 81 mg PO DAILY@0800 [facility] Last Admin: 02/27/19 08:21 Dose: 81 mg Documented by: Clopidogrel Bisulfate (Plavix) 75 mg PO DAILY [facility] Last Admin: 02/26/19 08:25 Dose: 75 mg Documented by: Enoxaparin Sodium (Lovenox) 40 mg SC DAILY [facility] Last Admin: 02/26/19 08:25 Dose: 40 mg Documented by: Escitalopram Oxalate (Lexapro) 10 mg PO DAILY [facility] Last Admin: 02/26/19 08:25 Dose: 10 mg Documented by: Glucagon () 1 mg IM .X1 PRN PRN Reason: Hypoglycemia Hydralazine HCl (Apresoline Iv) 10 mg IV Q4H PRN PRN PRN Reason: SBP > 160 Last Admin: 02/25/19 22:57 Dose: 10 mg Documented by: Sodium Chloride () 250 mls @ 15 mls/hr IV .[id number] PRN PRN Reason: Saline Flush Last Infusion: 02/27/19 05:09 Dose: 0 mls/hr Documented by: Piperacillin Sod/Tazobactam (Sod 3.375 gm/ Sodium Chloride) 50 mls @ 12.5 mls/hr IV Q8 [facility] Last Admin: 02/27/19 05:04 Dose: 12.5 mls/hr Documented by: Dextrose (Dextrose 10%-Water) 250 mls @ 999 mls/hr IV .Q16M PRN; Protocol PRN Reason: HYPOGLYCEMIA Insulin Glargine (Lantus (Bkc)) 31 units SC QHS [facility] Last Admin: 02/26/19 22:49 Dose: 31 units Documented by: Insulin Human Lispro (Humalog Kwikpen (Bkc)) 0 unit SC ACHS [facility]; Protocol Last Admin: 02/27/19 06:50 Dose: Not Given Documented by: Insulin Human Lispro (Humalog Kwikpen (Bkc)) 6 unit SC DINNER [facility] Last Admin: 02/26/19 17:49 Dose: 6 units Documented by: Insulin Human Lispro (Humalog Kwikpen (Bkc)) 4 unit SC BID@0800,1200 [facility] Last Admin: 02/27/19 08:19 Dose: 4 u Documented by: Isosorbide Dinitrate (Isordil) 40 mg PO BID [facility] Last Admin: 02/26/19 22:44 Dose: 40 mg Documented by: Magnesium Oxide (Mag-Ox 400) [facility] Last Admin: 02/27/19 08:21 Dose: 400 mg Documented by: [facility]) [facility] Last Admin: 02/26/19 22:45 Dose: 10 mg Documented by: Metoprolol Tartrate (Lopressor (Beta Gaye)) 50 mg PO DAILY [facility] Last Admin: 02/26/19 08:25 Dose: 50 mg Documented by: Nutritional Formula ([place] - [place] Flavor) [facility] Last Admin: 02/27/19 08:21 Dose: Not Given Documented by: Olanzapine (Zyprexa) 10 mg PO QHS [facility] Last Admin: 02/26/19 22:45 Dose: 10 mg Documented by: Ondansetron HCl (Zofran) 4 mg IV Q8H PRN PRN PRN Reason: NAUSEA/VOMITING Last Admin: 02/25/19 02:30 Dose: 4 mg Documented by: Oxycodone HCl (Oxyir) 5 mg PO Q4H PRN PRN PRN Reason: Pain Score 4-5/10 Last Admin: 02/27/19 04:16 Dose: 5 mg Documented by: Pramipexole Dihydrochloride (Mirapex) 0.5 mg PO QHS [facility] Last Admin: 02/26/19 22:45 Dose: 0.5 mg Documented by: Pravastatin Sodium (Pravachol) 40 mg PO QHS [facility] Last Admin: 02/26/19 22:45 Dose: 40 mg Documented by: Pregabalin (Lyrica) 75 mg PO TID [facility] Last Admin: 02/27/19 05:13 Dose: 75 mg Documented by: Ranolazine (Ranexa) 1,000 mg PO BID [facility] Last Admin: 02/26/19 22:45 Dose: 1,000 mg Documented by: Senna/Docusate Sodium (Senokot-S, Kirstie-Colace) 1 tablet PO BID [facility] Last Admin: 02/26/19 22:45 Dose: 1 tablet Documented by: Sodium Chloride () 10 - 40 ml IV UD PRN PRN Reason: SALINE FLUSH Last Admin: 02/25/19 22:57 Dose: 10 ml Documented by: Medical Necessity - Tobacco Use Smoking Status: Current every day smoker Route of nutrition/ use of supplements: [] Nutritional Intake: [] IV Site: [] Allen Catheter: [] - Assessment/Plan Antibiotics: [] Assessment/Plan: [] Active and Suspected Problems (Last Updated 02/19/19 @ 12:04 by Aman Salazar MD) Failure of outpatient treatment (Acute) Diabetic toe ulcer (Acute) Ulcer of right foot with fat layer exposed (Acute) Hammertoe of right foot (Acute) Hammertoe of left foot (Acute) Osteomyelitis of left foot (Suspected) L 2nd toe osteo - wound cx with mssa, ms-CoNS, GBS, corynebacteria. Taken to OR 02/25 for toe amputation, surg cx with staph aureus so far, clearance fragment neg. So far it seems like she has had good source control. On zosyn currently. Plan for discharge will be for 10 days of po doxy 100mg bid and augmentin 875mg bid to cover her L and R feet. If clearance cx or path shows residual osteo, course will need to be extended to 6 weeks total of abx. Will follow
[2019-02-27] MEDS: Acetaminophen 325 MG Tablet 650 MG PO (09:38)
[2019-02-27 09:39] VITALS: BP 156/79; PULSE 83; RESP 18; TEMP 36.7; O2SAT 100
[2019-02-27] MEDS: Ranolazine 500 MG Tablet 1000 MG PO (09:45)
[2019-02-27] MEDS: Clopidogrel Bisulfate 75 MG Tablet PO (09:45)
[2019-02-27] MEDS: Escitalopram Oxalate 10 MG Tablet PO (09:45)
[2019-02-27] MEDS: Enoxaparin 40 MG/0.4 ML Syringe SC (09:46)
[2019-02-27] MEDS: Senna/Docusate Sodium 1 Tablet PO (09:46)
[2019-02-27] MEDS: Isosorbide DN 20 MG Tablet 40 MG PO (09:47)
--- NOTE | 2019-02-27 09:54 | TREXTCAR_ITS ---
- Diet 02/25/19 16:07 Diet: Calorie Controlled Type of Dietary Supplement:: Glucerna 1.5 marlo Is pt able to select menu?: No How many daily calories?: 1800 calorie - Routine Orders/Code Status Routine Lab Work: CBC, BMP - Wound(s) Right camacho Wound Type: Abrasion Dressing Change: Adaptic Left third toe Wound Type: Surgical Incision Dressing Change: betadine with dry dressing right 3rd toe Wound Type: Neuropathic/Diabetic Foot Ulcer Dressing Change: Dry Sterile Dressing Left camacho Wound Type: abrasion from patient scratching Dressing Change: Mepilex - Therapies Weight Bearing: Non weight bearing Extremity Affected:: Left Lower - surgical shoes bilaterally. Keep LLE elevated. Physical Therapy: Eval and Treat Occupational Therapy: Eval and Treat - Allergies/Procedures Done in Hospital Allergies/Adverse Reactions: Allergies ciprofloxacin [From Cipro] Allergy (Verified 02/17/19 18:52) Unknown clarithromycin [From Biaxin] Allergy (Verified 02/17/19 18:52) Rash codeine Allergy (Verified 02/17/19 18:52) Rash clarithromycin Allergy (Unknown, Uncoded 02/17/19 18:52) Unknown Procedures: - - Debridement of all necrotic, nonviable, infected soft tissue and bone of the left foot with partial left third toe amputation - Type of Care/Length of Stay Estimated LOS: Convalescent Care Less Than 30 days Type of Care Needed: Skilled Rehab Potential: Fair Prognosis: Fair - Additional Orders/Day of Discharge Day of Discharge: 02/27/19 - Dietary and Speech Recommendations Dietitian Recommendations/Changes: Will d/c ONS at [facility] d/t already receiving ONS w/ meals - pt feels it is too much. Rec continue Rosendo bid to help w/ diabetic ulcer healing - Follow Up Care Primary Care Physician: Judith Goldman, DATABASE REPORT WRITER-C [Primary Care Provider] - Within 2 Weeks Please Follow Up With: Benitez Haley DPM When: 1 week
--- NOTE | 2019-02-27 09:59 | DS.PCM_ITS ---
Discharge Date and Diagnosis - Problem List Patient Problems: Active and Suspected Problems (Last Updated 02/19/19 @ 12:04 by Aman Salazar MD) Failure of outpatient treatment (Acute) Diabetic toe ulcer (Acute) Ulcer of right foot with fat layer exposed (Acute) Hammertoe of right foot (Acute) Hammertoe of left foot (Acute) Osteomyelitis of left foot (Suspected) Date of Admission: 02/23/19 Date of Discharge: 02/27/19 - Primary Discharge Diagnosis Active and Suspected Problems (Last Updated 02/19/19 @ 12:04 by Aman Salazar MD) Failure of outpatient treatment (Acute) Diabetic toe ulcer (Acute) Ulcer of right foot with fat layer exposed (Acute) Hammertoe of right foot (Acute) Hammertoe of left foot (Acute) Osteomyelitis of left foot (Suspected) - Secondary Discharge Diagnosis Chronic Problems (Last Updated 02/19/19 @ 12:04 by Aman Salazar MD) Diabetes mellitus type II (Chronic) diabetic ulcer dorsum right foot (Chronic) Chronic hypertension (Chronic) Degenerative disc disease, lumbar (Chronic) Delayed wound healing (Chronic) Chronic ulcer of left foot with fat layer exposed (Chronic) Memory loss (Chronic) MISTI (obstructive sleep apnea) (Chronic) Chronic ulcer of left foot with fat layer exposed (Chronic) Non-compliance (Chronic) GERD (Chronic) Fibromyalgia (Chronic) COPD (Chronic) Type 2 diabetes mellitus with diabetic polyneuropathy (Chronic) Anemia (Chronic) Tobacco use disorder (Chronic) Carotid arterial disease (Chronic) PVD (peripheral vascular disease) (Chronic) CVA (cerebral vascular accident) (Chronic) Paroxysmal atrial fibrillation (Chronic) Hyperlipidemia (Chronic) Hospital Course and Treatment Imaging Results: Clinical Impression(s) from Imaging Studies Foot X-Ray 02/23/19 14:27 IMPRESSION: 1. Stable exam. 2. Advanced degenerative changes of the first MTP joint with some erosive features, query gout. 3. Stable soft tissue swelling of the third digit. 4. Prior fifth digit/partial fifth metatarsal amputation. Electronically Signed: Cole Messina MD (Brooks) at 14:47 EST , Service support , Foot X-Ray 02/25/19 16:15 IMPRESSION: Status post new partial amputation of the third digit. Other findings are unchanged compared to prior. 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 Patient had an ulceration on her left third toe as well as cellulitis. Concern was for osteomyelitis and but the first podiatry wanted vascular evaluation. Patient had ankle-brachial indices that were limited but unchanged from 2017. Patient was seen by Dr. Todd, of vascular surgery, who stated that no acute intervention was necessary at this time. Patient underwent debridement of infected tissue as well as a partial left third toe amputation on by Dr. Haley. Patient tolerated the procedure well. Wound cultures grew out coag negative staph, methicillin sensitive staph aureus, corynebacterium and group B Streptococcus. Patient was seen by Dr. Timmons and who recommended the doxycycline as well as Augmentin for 10 days. Patient is to be nonweightbearing to her left lower extremity as well as wear surgical shoe. And patient will follow-up with Dr. Haley in the office. Patient has been restless and has been getting up and not following the nonweightbearing restrictions adequately. Patient requires reorientation. Plans for the patient to go back to [facility] in stable condition. [] Patient Problems: Active and Suspected Problems (Last Updated 02/19/19 @ 12:04 by Aman Salazar MD) Failure of outpatient treatment (Acute) Diabetic toe ulcer (Acute) Ulcer of right foot with fat layer exposed (Acute) Hammertoe of right foot (Acute) Hammertoe of left foot (Acute) Osteomyelitis of left foot (Suspected) - Physical Exam Vitals/I&O's: Vital Signs Temp Pulse Resp BP Pulse Ox 36.7 C 83 18 156/79 H 100 02/27/19 09:39 02/27/19 09:39 02/27/19 09:39 02/27/19 09:39 02/27/19 09:39 Oxygen Flow Rate (L/min) 2 Oxygen Delivery Method Room Air Weight: 91.8 kg Body Mass Index (BMI) 33.7 Finger Stick Blood Glucose 390 Intake and Output for Last 24 Hours 02/25/19 02/26/19 02/27/19 23:59 23:59 23:59 Intake Total 1331.00 / 1331.00 1624.00 / 1624.00 684.5 / 684.5 Output Total 200 / 200 775 / 775 600 / 600 Balance 1131.00 / 1131.00 849.00 / 849.00 84.5 / 84.5 General: Alert, Cooperative, No apparent distress HEENT: Atraumatic, Normocephalic Oral: Moist Mucosa, No Gingival or Mucosal Lesions/ Ulcerations Neck: No Nodes, Trachea Midline Lungs: Clear to auscultation, Normal air movement, No rhonchi, No wheeze Cardiovascular: Regular rate, Regular Rhythm, Normal S1, Normal S2, No murmurs Abdomen: Bowel Sounds Present, Soft, Non Tender, Non-Distended, No Hepato- splenomegaly Skin: - - bilateral feet wrapped--did not remove. Microbiology Past 72 Hours 02/23/19 19:06 Wound - Toe Gram Stain - Final 02/23/19 19:06 Wound - Toe Wound Culture - Final Staphylococcus aureus Coag Negative Staph Corynebacterium striatum Streptococcus agalactiae (B) 02/25/19 16:09 Tissue - Toe Gram Stain - Final 02/25/19 16:09 Tissue - Toe Wound Culture - Preliminary No growth-Final to follow 02/25/19 16:09 Tissue - Toe Gram Stain - Final 02/25/19 16:09 Tissue - Toe Wound Culture - Preliminary Staphylococcus aureus Laboratory Results 02/26/19 10:57: POC Glucose 245 H 02/26/19 17:49: POC Glucose 407 H 02/26/19 22:48: POC Glucose 214 H 02/27/19 05:16: WBC 6.5, RBC 2.84 L, Hgb 8.5 L, Hct 27.1 L, MCV 95.4, MCH 29.9, MCHC 31.4 L, RDW Std Deviation 44.5 H, RDW Coeff of Anjelica 12.9, Plt Count 271, MPV 10.5, Immature Gran % (Auto) 0.800, Neut % (Auto) 50.2, Lymph % (Auto) 28.3, [place] % (Auto) 15.1 H, Eos % (Auto) 4.8, Baso % (Auto) 0.8, Absolute Neuts (auto) 3.3, Absolute Lymphs (auto) 1.83, Nucleated RBC % 0 02/27/19 05:16: Sodium 139, Potassium 4.1, Chloride 110 H, Carbon Dioxide 23.0, Anion Gap 6, BUN 37 H, Creatinine 1.35 H, Estim Creat Clear Calc 38.38, Est GFR (MDRD) Af Amer 51 L, Est GFR (MDRD) Non-Af 42 L, BUN/Creatinine Ratio 27.4 H, Glucose 141 H, Calcium 8.6 02/27/19 06:49: POC Glucose 137 H Current Medications Acetaminophen (Tylenol) 650 mg PO Q4H PRN PRN PRN Reason: Pain Score 1-10/10 Last Admin: 02/27/19 09:38 Dose: 650 mg Documented by: Albuterol Sulfate (Ventolin Aerosols) 2.5 mg INHALATION Q2H PRN PRN PRN Reason: dyspnea, wheezing Last Admin: 02/26/19 00:28 Dose: 2.5 mg Documented by: Aspirin (Aspirin, Baby) 81 mg PO DAILY@0800 [facility] Last Admin: 02/27/19 08:21 Dose: 81 mg Documented by: Clopidogrel Bisulfate (Plavix) 75 mg PO DAILY [facility] Last Admin: 02/27/19 09:45 Dose: 75 mg Documented by: Enoxaparin Sodium (Lovenox) 40 mg SC DAILY [facility] Last Admin: 02/27/19 09:46 Dose: 40 mg Documented by: Escitalopram Oxalate (Lexapro) 10 mg PO DAILY [facility] Last Admin: 02/27/19 09:45 Dose: 10 mg Documented by: Glucagon () 1 mg IM .X1 PRN PRN Reason: Hypoglycemia Hydralazine HCl (Apresoline Iv) 10 mg IV Q4H PRN PRN PRN Reason: SBP > 160 Last Admin: 02/25/19 22:57 Dose: 10 mg Documented by: Sodium Chloride () 250 mls @ 15 mls/hr IV .[id number] PRN PRN Reason: Saline Flush Last Infusion: 02/27/19 05:09 Dose: 0 mls/hr Documented by: Piperacillin Sod/Tazobactam (Sod 3.375 gm/ Sodium Chloride) 50 mls @ 12.5 mls/hr IV Q8 [facility] Last Admin: 02/27/19 05:04 Dose: 12.5 mls/hr Documented by: Dextrose (Dextrose 10%-Water) 250 mls @ 999 mls/hr IV .Q16M PRN; Protocol PRN Reason: HYPOGLYCEMIA Insulin Glargine (Lantus (Bk)) 31 units SC QHS [facility] Last Admin: 02/26/19 22:49 Dose: 31 units Documented by: Insulin Human Lispro (Humalog Kwikpen ([facility])) 0 unit SC ACHS [facility]; Protocol Last Admin: 02/27/19 06:50 Dose: Not Given Documented by: Insulin Human Lispro (Humalog Kwikpen ([facility])) 6 unit SC DINNER [facility] Last Admin: 02/26/19 17:49 Dose: 6 units Documented by: Insulin Human Lispro (Humalog Kwikpen ([facility])) 4 unit SC BID@0800,1200 [facility] Last Admin: 02/27/19 08:19 Dose: 4 u Documented by: Isosorbide Dinitrate (Isordil) 40 mg PO BID [facility] Last Admin: 02/27/19 09:47 Dose: 40 mg Documented by: [facility]esium [facility] ([facility]Ox 400) [facility] Last Admin: 02/27/19 08:21 Dose: 400 mg Documented by: Melatonin (Melatonin) 10 mg PO QCOX SOUTH Last Admin: 02/26/19 22:45 Dose: 10 mg Documented by: Metoprolol Tartrate (Lopressor (Beta Gaye)) 50 mg PO DAILY [facility] Last Admin: 02/26/19 08:25 Dose: 50 mg Documented by: Nutritional Formula (Rosendo - Spencer Flavor) [facility] Last Admin: 02/27/19 08:21 Dose: Not Given Documented by: Olanzapine (Zyprexa) 10 mg PO QHS [facility] Last Admin: 02/26/19 22:45 Dose: 10 mg Documented by: Ondansetron HCl (Zofran) 4 mg IV Q8H PRN PRN PRN Reason: NAUSEA/VOMITING Last Admin: 02/25/19 02:30 Dose: 4 mg Documented by: Oxycodone HCl (Oxyir) 5 mg PO Q4H PRN PRN PRN Reason: Pain Score 4-5/10 Last Admin: 02/27/19 09:37 Dose: 5 mg Documented by: Pramipexole Dihydrochloride (Mirapex) 0.5 mg PO QHS [facility] Last Admin: 02/26/19 22:45 Dose: 0.5 mg Documented by: Pravastatin Sodium (Pravachol) 40 mg PO QHS [facility] Last Admin: 02/26/19 22:45 Dose: 40 mg Documented by: Pregabalin (Lyrica) 75 mg PO TID [facility] Last Admin: 02/27/19 05:13 Dose: 75 mg Documented by: Ranolazine (Ranexa) 1,000 mg PO BID [facility] Last Admin: 02/27/19 09:45 Dose: 1,000 mg Documented by: Senna/Docusate Sodium (Senokot-S, Kirstie-Colace) 1 tablet PO BID [facility] Last Admin: 02/27/19 09:46 Dose: 1 tablet Documented by: Sodium Chloride () 10 - 40 ml IV UD PRN PRN Reason: SALINE FLUSH Last Admin: 02/25/19 22:57 Dose: 10 ml Documented by: Discharge Diet: 1800 Calorie Control Diet Call your doctor if your incision/area has: Continuous Slow Oozing, Sudden Increased Bleeding, Increased Pain/ Swelling, Increased Redness Home Medications: Medications to take at Discharge Lisinopril [Prinivil] 5 mg PO DAILY 01/21/17 Multivit,Calc,Mins/Iron/Folic [Thera M Plus Tablet] 1 ea PO DAILY 01/21/17 metFORMIN HCl [Glucophage] 1,000 mg PO BIDCM 01/21/17 Insulin Detemir [Levemir FlexPen] 31 units SC QHS 03/09/17 metoprolol tartrate 50 mg tablet 50 mg PO DAILY tab 05/01/17 Cholecalciferol (Vitamin D3) [Vitamin D3] 2,000 unit PO DAILY 02/17/19 Escitalopram Oxalate [Lexapro] 5 mg PO DAILY 02/17/19 Escitalopram Oxalate [Lexapro] 10 mg PO DAILY 02/17/19 Famotidine [Pepcid] 20 mg PO DAILY 02/17/19 Furosemide [Lasix] 20 mg PO DAILY 02/17/19 Insulin Aspart [Novolog Flexpen] 4 units SUBCUT BID 02/17/19 Insulin Aspart [Novolog Flexpen] 6 units SUBCUT DINNER 02/17/19 Insulin Aspart [Novolog Flexpen] See Protocol SUBCUT ACHS 02/17/19 Isosorbide DN [Isordil] 40 mg PO BID 02/17/19 Melatonin 10 mg PO QHS 02/17/19 Olanzapine 10 mg PO QHS 02/17/19 [place]-3 Fatty Acids/Fish Oil [Fish Oil 1,000 mg Capsule] 1 cap PO BID 02/17/19 Pramipexole Di-HCl [Mirapex] 0.5 mg PO QHS 02/17/19 Pravastatin [Pravachol] 40 mg PO QHS 02/17/19 Pregabalin [Lyrica] 75 mg PO TID 02/17/19 Aspirin [Aspirin, Baby] 81 mg PO DAILY@0800 02/23/19 Clopidogrel Bisulfate [Plavix] 75 mg PO DAILY 02/23/19 Cyanocobalamin (Vitamin B-12) [Vitamin B-12] 1,000 mcg PO DAILY 02/23/19 Fluticasone/Salmeterol [Advair 250-50 Diskus] 1 ea IH BID 02/23/19 Magnesium Oxide [Mag-Ox 400] 400 mg PO DAILYCM 02/23/19 Ranolazine [Ranexa] 1,000 mg PO BID 02/23/19 Senna/Docusate Sodium [Senokot-S] 2 tab PO BID 02/23/19 Amoxicillin/Potassium Clav [Augmentin 875-125 Tablet] 1 ea PO BID 10 Days #20 tab 02/27/19 Doxycycline 100 mg PO BID 10 Days #20 cap 02/27/19 Following Prescrptions Were Given to Patient: Amoxicillin/Potassium Clav [Augmentin 875-125 Tablet] 1 ea PO BID 10 Days #20 tab Prescription Printed Doxycycline 100 mg PO BID 10 Days #20 cap Prescription Printed Primary Care Physician: Judith Goldman NP-C [Primary Care Provider] - Within 2 Weeks Please Follow Up With: Benitez Haley DPM When: 1 week Disposition: Long-Term facility Minutes spent on discharge:: 32 Patient Condition:: Fair Medical Necessity - Tobacco Use Smoking Status: Current every day smoker Meaningful Use Info Meaningful Use Diagnoses (Choose all that apply): None applicable Code Visit Inpatient E&M: 45437 Disch Hosp
--- NOTE | 2019-02-27 10:47 | CASEMGMT ---
Social Work Note Pt is medically ready for discharge today. DEJAH faxed completed discharge paperwork to [facility] including transfer to extended care facility, signed medication list and any scripts. Original in SNF folder and copy on pt's chart. DEJAH completed [facility]val[facility] in [facility] as pt is returning skilled to [facility]. Original in SNF folder and copy on pt's chart. DEJAH placed a call to [facility] and arranged transportation via cot for 11:30am. Transportation form completed and placed on SNF folder and copy on pt's chart. DEJAH placed a call to Tena at [facility] and updated her on discharge and transportation time. DEJAH placed a call to pt's daughter Guy and updated her on transportation time. Plan: [facility] skilled today with [facility] transporting via cot at 11:30am Maria Del Carmen Lowery SHIPPING AND RECEIVING SPECIALIST, RACK WASHER
[2019-02-27 11:20] VITALS: BP 126/61; PULSE 61
[2019-02-27] MEDS: Metoprolol Tartrate 50 MG Tablet PO (11:20)
[2019-02-27 11:40] VITALS: BP 126/61; PULSE 71; RESP 18; TEMP 36.7; O2SAT 96
== END 2019-02-27 11:31 | disposition skilled nursing facility (03) | DRG 617 ==
LOC: ED 15:46 → MS3 16:27
PROVIDERS: Podiatrist; Admitting Provider Student in an Organized Health Care Education/Training Program; Emergency Provider Physician Assistant Medical; PCP Nurse Practitioner Adult Health
PROC: 0Y6U0Z1 Detachment at Left 3rd Toe, High, Open Approach (ICD-10-PCS; principal; 2019-02-25 15:15)
DX: E11.621 Type 2 diabetes mellitus with foot ulcer (principal); L97.819 Non-pressure chronic ulcer of other part of right lower leg with unspecified severity; M86.172 Other acute osteomyelitis, left ankle and foot; L03.116 Cellulitis of left lower limb; E11.69 Type 2 diabetes mellitus with other specified complication; E11.42 Type 2 diabetes mellitus with diabetic polyneuropathy; I10 Essential (primary) hypertension; J44.9 Chronic obstructive pulmonary disease, unspecified; F03.90 Unspecified dementia, unspecified severity, without behavioral disturbance, psychotic disturbance, mood disturbance, and anxiety; M20.41 Other hammer toe(s) (acquired), right foot; M20.42 Other hammer toe(s) (acquired), left foot; B95.61 Methicillin susceptible Staphylococcus aureus infection as the cause of diseases classified elsewhere; L97.512 Non-pressure chronic ulcer of other part of right foot with fat layer exposed; M51.36 Other intervertebral disc degeneration, lumbar region; G47.33 Obstructive sleep apnea (adult) (pediatric); K21.9 Gastro-esophageal reflux disease without esophagitis; D64.9 Anemia, unspecified; L97.522 Non-pressure chronic ulcer of other part of left foot with fat layer exposed; I48.0 Paroxysmal atrial fibrillation; I73.9 Peripheral vascular disease, unspecified; M79.7 Fibromyalgia; E78.5 Hyperlipidemia, unspecified; B95.1 Streptococcus, group B, as the cause of diseases classified elsewhere; F17.200 Nicotine dependence, unspecified, uncomplicated; I25.10 Atherosclerotic heart disease of native coronary artery without angina pectoris; Z79.4 Long term (current) use of insulin; Z86.73 Personal history of transient ischemic attack (TIA), and cerebral infarction without residual deficits; Z89.422 Acquired absence of other left toe(s); Z79.02 Long term (current) use of antithrombotics/antiplatelets; Z79.82 Long term (current) use of aspirin; Z95.1 Presence of aortocoronary bypass graft; Z79.899 Other long term (current) drug therapy
CPT/HCPCS: 36415; 73630; 80048; 82962; 83036; 85025; 85652; 87015; 87070; 87075; 87077; 87102; 87116; 87176; 87186; 87205; 87206; 87640; 88304; 88305; 88311; 93005; 93923; 93925; 94640; 97110; 97116; 97162; 97166; 97530; 97535; 97802; 99285; J7030; J7040; J7050; J7120; A4216; J2405

== ENCOUNTER 2019-03-20 23:52 | Emergency (ER) | payer MEDICARE, MEDICAID, SELFPAY ==
[2019-02-25 14:10] VITALS: BMI 33.7
[2019-03-20 23:53] VITALS: BP 135/83; PULSE 83; RESP 18; TEMP 36.8; O2SAT 97; BMI 32.2
--- NOTE | 2019-03-20 23:59 | ED.VIS.GEN ---
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 Patient was at her residential facility. She was in the bathroom, lost balance, and fell. Struck her head against a toilet. She does not think she lost consciousness. Patient is on Plavix for history of coronary vascular disease. She was noted to have a hematoma at the posterior occipital area. She denies headache or visual change. She denies back pain. She denies other injury. She states that she has been in her normal state of health. The patient does have a history of dementia. Prior similar symptoms: No Recent Illness/Hospitalization: No Past Medical History - Allergies and Home Meds Allergies/Adverse Reactions: Allergies ciprofloxacin [From Cipro] Allergy (Verified 03/21/19 00:09) Unknown clarithromycin [From Biaxin] Allergy (Verified 03/21/19 00:09) Rash codeine Allergy (Verified 03/21/19 00:09) Rash clarithromycin Allergy (Unknown, Uncoded 03/21/19 00:09) Unknown Primary Care Physician: Judith Goldman, METAL GAUGE MAKER-C [NON-STAFF] - Prior records reviewed: Yes Past Medical History: - - Coronary vascular disease, hypertension, dementia Surgical History: coronary bypass surgery, - - stent x 6, hysterectomy, , bladder surgery, gastric bypass, spinal fusion, mutation of left fifth toe Smoking Status: Current every day smoker - Family History Maternal Family History: Reports: Diabetes, Heart Disease Paternal Family History: Reports: Diabetes, Heart Disease Sibling Family History: Reports: Diabetes Review of Systems General: Denies: Chills, Fever, Sweats Eyes: Denies: Visual changes - bilaterally, Diplopia ENT: Denies: Rhinorrhea, Sore throat Cardiovascular: Denies: Chest pain, Palpitations Respiratory: Denies: Dyspnea, Cough, Dyspnea on exertion Gastrointestinal: Denies: Abdominal pain, Nausea, Vomiting, Diarrhea, Melena, Hematochezia Genitourinary: Denies: Dysuria, Hematuria, Frequency Musculoskeletal: Denies: Back pain, Extremity Pain Skin: Denies: Rash, Wounds Neurological: Denies: Headache, Weakness, Numbness Physical Exam Inital Vital Signs reviewed: Yes General: Well nourished, Well developed, No Acute Distress Head: Normocephalic, Trauma - Contusion with hematoma on the right posterior occiput near the C1 junction. No step-off. Eyes: Perrl, EOMI ENT: Moist mucous membranes, No rhinorrhea Neck: Supple, Nontender Cardiovascular: Regular rate, Regular rhythm, No murmurs Respiratory: No distress, CTA bilaterally, Chest nontender Abdomen: Soft, Nontender, Nondistended, Normal bowel sounds Back: Nontender, Normal Inspection Extremities: Nontender, No edema Skin: Normal color, No rash Neurological: Alert, Oriented x3, Cranial nerves II-XII grossly intact, Normal Strength, Normal Sensation Psychological: Normal affect, Normal Mood Diagnostic/Tx/Re-eval Clinical Impression(s) from Imaging Studies Brain CT 03/21/19 23:53 IMPRESSION: Mild chronic involutional and white matter changes. No acute territorial infarct or intracranial hemorrhage. If patient''s symptomology persists or there is continuing clinical concern MRI or follow-up CT scanning can be performed. Occipital scalp soft tissue swelling/hematoma. Fluid right mastoid air cells. Correlate for mastoiditis. Electronically Signed: Prateek Núñez at 1:09 EST Tel , Service support , Cervical Spine CT 03/21/19 23:53 IMPRESSION: Multilevel degenerative changes. Anterior listhesis C4 on C5. No acute cervical spine fracture identified. Recommend correlation with nonemergent thyroid ultrasound. Occipital scalp soft tissue swelling/hematoma. Small amount of fluid within the right mastoid air cells. Other findings as discussed above. Electronically Signed: Prateek Núñez at 1:14 EST Tel , Service support , - Medical Decision Making Patient presents to the emergency department after a fall. She struck her head but did not lose consciousness. She is on Plavix. Head CT and CT of the C-spine were obtained which showed chronic change without acute abnormality. The patient ambulated through the emergency department without issue. She is not complaining of any pain. At this point, I do feel that she is safe for discharge back to her residential facility. She is comfortable with this plan of care. Impression 1. Fall 2. Scalp contusion with hematoma ED Disposition - Plan for ED Patient: Instructions: SCALP CONTUSION, No Wake Up Referrals: Judith Goldman, METAL GAUGE MAKER-C [NON-STAFF] -
[2019-03-21] MEDS: Pramipexole Di-HCl 1 MG Tablet PO (01:07)
[2019-03-21 01:26] VITALS: PULSE 82; RESP 18; O2SAT 97
--- NOTE | 2019-03-21 01:28 | ED.RN ---
report called to [facility]. all questions answered after speaking to Susanne LANGLEY. daughter called this RN and updated on pt status, did not want called back if pt transported back to [facility]
--- NOTE | 2019-03-21 23:53 | CT_ITS ---
STUDY: CT CERVICAL SPINE WITHOUT CONTRAST REASON FOR EXAM: Female, 64 years old. FELL AT MD AND HIT POSTERIOR HEAD, ON PLAVIX RADIATION DOSAGE (If Supplied By Facility): CTDIvol = ( 32.44 ) mGy, DLP = ( 1841.42 ) mGycm TECHNIQUE: High resolution transaxial imaging was performed without contrast material. Sagittal and coronal images were reconstructed. Individualized dose optimization techniques were used for this CT. COMPARISON: None FINDINGS: Multilevel degenerative changes. 2 mm anterior listhesis of C4 on C5. Severe disc space height loss C5-C6. No acute fracture identified. Emphysematous changes within the lungs. Vascular calcifications. Thyroid calcifications and heterogeneity, correlate with nonemergent thyroid ultrasound. No significant prevertebral soft tissue swelling. Small amount of fluid within the right mastoid air cells. Occipital scalp soft tissue swelling/hematoma. CT/Spine Cervical without Contras IMPRESSION: Multilevel degenerative changes. Anterior listhesis C4 on C5. No acute cervical spine fracture identified. Recommend correlation with nonemergent thyroid ultrasound. Occipital scalp soft tissue swelling/hematoma. Small amount of fluid within the right mastoid air cells. Other findings as discussed above. Electronically Signed: Prateek Núñez, at 1:14 EST Tel , Service support ,
--- NOTE | 2019-03-21 23:53 | CT_ITS ---
STUDY: CT BRAIN WITHOUT CONTRAST REASON FOR EXAM: Female, 64 years old. FELL AT MT AND HIT POSTERIOR HEAD, ON PLAVIX RADIATION DOSAGE (If Supplied By Facility): CTDIvol = ( 44.99 ) mGy, DLP = ( 1841.42 ) mGycm TECHNIQUE: Transaxial CT imaging of the brain was performed without administration of intravenous contrast material. Individualized dose optimization techniques were used for this CT. COMPARISON: No relevant priors. FINDINGS: Occipital scalp soft tissue swelling/hematoma. Normal calvarium. There is mild cerebral atrophy with widening of the extra-axial spaces and ventricular dilatation. There are areas of decreased attenuation within the white matter tracts of the supratentorial brain, consistent with microvascular disease changes. Normal basal ganglia and thalami. Normal brainstem. Normal cerebellum. There is no intracranial hemorrhage. There are no findings of an acute ischemic infarction. Fluid right mastoid air cells. Carotid and vertebral artery calcifications. CT/Brain/Head without Contrast IMPRESSION: Mild chronic involutional and white matter changes. No acute territorial infarct or intracranial hemorrhage. If patient''s symptomology persists or there is continuing clinical concern MRI or follow-up CT scanning can be performed. Occipital scalp soft tissue swelling/hematoma. Fluid right mastoid air cells. Correlate for mastoiditis. Electronically Signed: Prateek Núñez, at 1:09 EST Tel , Service support ,
== END 2019-03-21 01:55 ==
PROVIDERS: Emergency Provider Emergency Medicine
DX: S00.03XA Contusion of scalp, initial encounter (principal); W01.198A Fall on same level from slipping, tripping and stumbling with subsequent striking against other object, initial encounter; Y93.9 Activity, unspecified; Y92.121 Bathroom in nursing home as the place of occurrence of the external cause; Y99.9 Unspecified external cause status; I25.10 Atherosclerotic heart disease of native coronary artery without angina pectoris; I10 Essential (primary) hypertension; F03.90 Unspecified dementia, unspecified severity, without behavioral disturbance, psychotic disturbance, mood disturbance, and anxiety; Z79.02 Long term (current) use of antithrombotics/antiplatelets; Z79.82 Long term (current) use of aspirin; Z79.4 Long term (current) use of insulin; Z79.899 Other long term (current) drug therapy; Z88.1 Allergy status to other antibiotic agents; F17.200 Nicotine dependence, unspecified, uncomplicated; Z98.84 Bariatric surgery status; Z95.1 Presence of aortocoronary bypass graft
CPT/HCPCS: 70450; 72125; 99284